=== PATIENT | female | born 1960 | race American Indian/Alaskan Native ===

== ENCOUNTER 2019-09-07 17:15 | Inpatient (IN) | payer OTHER ==
--- NOTE | 2019-09-07 17:50 | Emergency Department Report ---
ED Abdominal Pain HPI - General Chief Complaint: Weakness Stated Complaint: LOW BP/WEAKNESS/SYNCOPE Time Seen by Provider: 09/07/19 17:34 Source: patient, EMS Mode of arrival: Stretcher Limitations: No Limitations - History of Present Illness Initial Comments: 59-year-old female with history of colitis (possibly inflammatory bowel disease), DVT, presents to ED with possible sepsis. Patient sent from [facility] with hypotension, white count of 20, and abdominal pain. Patient reports lower abdominal pain, onset 3 days ago. She denies fever or chills, nausea or vomiting, diarrhea, constipation, cough, dysuria, urinary frequency. MD Complaint: abdominal pain -: days(s) (3) Location: LLQ, RLQ, suprapubic Radiation: none Migration to: no migration Severity: moderate Quality: cramping Consistency: constant Improves With: nothing Worsens With: nothing Associated Symptoms: denies: nausea, vomiting, diarrhea, fever, chills, constipation, dysuria - Related Data Home Medications Medication Instructions Recorded Confirmed Last Taken Deltasone 10 mg PO DAILY 09/08/19 09/08/19 Unknown Ferrous Sulfate 325 mg PO DAILY 09/08/19 09/08/19 Unknown L. Rhamnosus/C/Zinc Cit/Yeast 1 cap PO DAILY 09/08/19 09/08/19 Unknown Lasix TAB 20 mg PO BID 09/08/19 09/08/19 Unknown Mag-Ox 400 mg PO BID 09/08/19 09/08/19 Unknown Pantoprazole 20 mg PO DAILY 09/08/19 09/08/19 Unknown Pradaxa 150 mg PO BID 09/08/19 09/08/19 Unknown Allergies Allergy/AdvReac Type Severity Reaction Status Date / Time No Known Allergies Allergy Unverified 09/07/19 17:26 ED Review of Systems ROS: Stated complaint: LOW BP/WEAKNESS/SYNCOPE Other details as noted in HPI Comment: All other systems reviewed and negative Constitutional: denies: chills, fever Respiratory: denies: cough, shortness of breath Cardiovascular: denies: chest pain Gastrointestinal: abdominal pain. denies: nausea, vomiting, diarrhea ED Past Medical Hx - Past Medical History Previous Medical History?: Yes Hx Pulmonary Embolism: (DVT takes Pradaxa) Additional medical history: Hyperlipidemia - Surgical History Past Surgical History?: Yes - Social History Smoking Status: Never Smoker Substance Use Type: None - Medications Home Medications: Home Medications Medication Instructions Recorded Confirmed Last Taken Type Deltasone 10 mg PO DAILY 09/08/19 09/08/19 Unknown History Ferrous Sulfate 325 mg PO DAILY 09/08/19 09/08/19 Unknown History L. Rhamnosus/C/Zinc Cit/Yeast 1 cap PO DAILY 09/08/19 09/08/19 Unknown History Lasix TAB 20 mg PO BID 09/08/19 09/08/19 Unknown History Mag-Ox 400 mg PO BID 09/08/19 09/08/19 Unknown History Pantoprazole 20 mg PO DAILY 09/08/19 09/08/19 Unknown History Pradaxa 150 mg PO BID 09/08/19 09/08/19 Unknown History ED Physical Exam - General Limitations: No Limitations General appearance: alert, in no apparent distress - Head Head exam: Present: atraumatic, normocephalic - Eye Eye exam: Present: normal appearance, EOMI - ENT ENT exam: Present: mucous membranes moist - Neck Neck exam: Present: normal inspection - Respiratory Respiratory exam: Present: normal lung sounds bilaterally. Absent: respiratory distress - Cardiovascular Cardiovascular Exam: Present: regular rate, normal rhythm - GI/Abdominal GI/Abdominal exam: Present: soft, tenderness (diffuse tenderness). Absent: dis tended, guarding - Extremities Exam Extremities exam: Present: other (1+ pitting edema BLE) - Neurological Exam Neurological exam: Present: alert, oriented X3 - Psychiatric Psychiatric exam: Present: normal affect, normal mood - Skin Skin exam: Present: warm, dry, intact, normal color ED Course Vital Signs 09/07/19 09/07/19 09/07/19 17:31 17:44 17:46 Temperature 97.4 F L Pulse Rate 100 H 105 H 101 H Respiratory 14 17 16 Rate Blood Pressure 88/43 Blood Pressure 86/48 [Right] O2 Sat by Pulse 93 100 Oximetry 09/07/19 09/07/19 09/07/19 18:00 18:16 18:30 Temperature Pulse Rate 98 H 101 H 109 H Respiratory 13 19 14 Rate Blood Pressure 88/43 88/43 88/43 Blood Pressure [Right] O2 Sat by Pulse 98 100 Oximetry 09/07/19 09/07/19 09/07/19 18:36 18:46 19:00 Temperature Pulse Rate 97 H Respiratory 19 16 Rate Blood Pressure 82/44 83/41 Blood Pressure [Right] O2 Sat by Pulse 98 88 100 Oximetry 09/07/19 09/07/19 09/07/19 19:16 19:30 19:58 Temperature Pulse Rate 103 H 101 H Respiratory 15 16 Rate Blood Pressure 83/41 94/48 94/48 Blood Pressure [Right] O2 Sat by Pulse 100 100 96 Oximetry 09/07/19 09/07/19 09/07/19 20:00 20:16 20:30 Temperature Pulse Rate 97 H 98 H Respiratory 17 18 Rate Blood Pressure 94/48 94/48 94/48 Blood Pressure [Right] O2 Sat by Pulse 98 100 100 Oximetry 09/07/19 09/07/19 09/07/19 20:46 21:00 21:16 Temperature Pulse Rate 98 H 99 H 98 H Respiratory 15 20 20 Rate Blood Pressure 82/30 98/45 98/45 Blood Pressure [Right] O2 Sat by Pulse 100 93 100 Oximetry - Reevaluation(s) Reevaluation #1: 09/07/19 19:27 Pt's IV infiltrated from [facility]. Nurses unable to obtain peripheral, so central line placed in right femoral. - Consultations Consultation #1: 09/07/19 21:52 Spoke w/ [facility] on-call physician, Dr Reilly, states admit pt here at [facility]. Consultation #2: 09/07/19 21:59 Spoke w/ Dr Galicia, gen surgery on-call. He is aware of pt, will see tomorrow. - Central Line Placement Right Femoral Consent Obtained: verbal consent Time Out Performed: Yes Patient Placed on Monitor/Pulse Ox: Yes MD Prep: mask, gown, gloves Central Line Prep: Chlorhexidine scrub Local Anesthesia Used: Lidocaine 1% Amount of Anesthesia Used (mls): 3 Ultrasound Used for Placement: Yes Central Line Lumen Inserted: triple Bloods Obtained for Lab: No Central Line Position: good blood return, all ports aspirated, flus, sutured in place with nyl Dressing Applied: Tegaderm Patient Tolerated Procedure: well, no complications Complications: none ED Medical Decision Making - Lab Data Result diagrams: 09/07/19 Unknown 09/07/19 Unknown - Radiology Data Radiology results: report reviewed, image reviewed - Medical Decision Making 59 yo F w/ sepsis secondary to acute with possible formation of abscess. Sepsis alert was called, cultures drawn. Patient given cefepime and Flagyl. Patient resuscitated with normal saline 30 cc/kg. Blood pressure remained low following IV fluids, so Levophed was initiated. Patient has right femoral central line present. Dr Galicia is aware of the patient and will be consulting. Pt admitted to hospitalist for further management. - Differential Diagnosis sepsis, UTI, appendicitis, diverticulitis, obstruction Critical Care Time: Yes Critical care time in (mins) excluding proc time.: 35 Critical care attestation.: If time is entered above; I have spent that time in minutes in the direct care of this critically ill patient, excluding procedure time. Critical Care Time: 35 min ED Disposition Clinical Impression: Sepsis, Acute diverticulitis, Hyponatremia Disposition: OP ADMIT IP TO THIS HOSP Is pt being admited?: Yes Condition: Stable Time of Disposition: 21:59
[2019-09-07] MEDS ORDERED: SODIUM CHLORIDE 0.9% 1000 ML IV SOLN IV ONE (17:53)
[2019-09-07] MEDS ORDERED: CEFEPIME/NS 2 GM/100 ML 2 GM/100 ML BAG IV ONE (17:58)
--- NOTE | 2019-09-07 18:49 | XRay Report ---
CHEST 1 VIEW INDICATION: sepsis. COMPARISON: None. FINDINGS: Support devices: None. Heart: Within normal limits. Lungs/Pleura: No acute air space or interstitial disease. Additional findings: None. IMPRESSION: No acute abnormality. Signer Name: Esau Solomon MD Signed: 09/07/2019 6:45 PM Workstation Name: [id number]
[2019-09-07 18:55] LABS: Bacteria,Urine 2+ /HPF (Negative); Bilirubin,Urine NEG (Negative); Blood,Urine NEG (Negative); Color,Urine Yellow (Yellow); Protein,Urine <15 mg/dL mg/dL (Negative); RBC,Urine < 1.0 /HPF (0.0-6.0); Urobilinogen,Urine < 2.0 mg/dL (<2.0)
[2019-09-07 19:20] LABS: Alanine Aminotransferase 24 units/L (7-56); Albumin 1.4 g/dL (3.9-5); BUN/Creatinine Ratio 16; Blood Urea Nitrogen 11 mg/dL (7-17); Calcium 7.4 mg/dL (8.4-10.2); Hemolysis Index 76
[2019-09-07 19:40] LABS: Hematocrit 30.9 % (30.3-42.9); Mean Corpuscular HGB Conc 32 % (30-34); Mean Corpuscular Volume 84 fl (79-97); Platelet Count 351 K/mm3 (140-440); Red Blood Count 3.69 M/mm3 (3.65-5.03)
[2019-09-07 19:49] LABS: INR 1.72 (0.87-1.13)
[2019-09-07 19:56] LABS: Red Cell Distribution Width 21.4 % (13.2-15.2)
--- NOTE | 2019-09-07 20:46 | Cat Scan Report ---
CT abdomen pelvis w con INDICATION: abd pain. TECHNIQUE: All CT scans at this location are performed using the following dose modulation technique: Automated exposure control. Helical slices were obtained through the abdomen and pelvis. 100 cc of Omnipaque 30 0 is administered. COMPARISON: None available. FINDINGS: Abdomen: There is a large hiatal hernia with a significant portion of the stomach located in the lowe r chest. The liver, spleen, pancreas, adrenal glands, and kidneys show no acute abnormality. The abdominal aor ta is normal in diameter. There is an inflammatory process with extraluminal gas in the left lower qu adrant this is located between loops of small bowel in the proximal sigmoid colon. Based upon the callie unt of gas localized in this area this is likely colonic in origin and likely represents acute divert iculitis. No defined fluid collection is seen at this time though the extraluminal gas is localized a nd an area of 3.5 x 3.5 x 6.5 cm. This is likely a developing abscess but is not walled off at this t briana it is predominantly air with some adjacent inflammation. Pelvis: There is very small amount of free fluid in the dependent portion of the pelvis. Is fluid not ed in the distal colon. Is a tiny bubble of gas in the urinary bladder which I suspect is iatrogenic but correlation with patient's catheter history is suggested. The appendix is unremarkable. On review of bone windows, no acute osseous abnormalities are seen. . IMPRESSION: 1. There is an inflammatory process in the right lower quadrant which likely represents acute diverti culitis. There is extraluminal gas in the mesenteric fat and there is inflammation in the mesenteric fat in this location. There is a large hiatal hernia. Signer Name: Anurag Dougherty MD Signed: 09/07/2019 8:41 PM Workstation Name: [id number]
[2019-09-07] MEDS ORDERED: SODIUM CHLORIDE 0.9% 1000 ML 1,000 ML ONE ×2 (20:48→22:55)
[2019-09-07 20:56] LABS: Anisocytosis 1+; Basophils % (Manual) 0 % (0.0-1.8); Hypochromasia 1+; Total Cells Counted 100
[2019-09-07] MEDS: metroNIDAZOLE/NS 500 MG/100 ML 500 MG/100 ML BAG IV SCH (23:04)
[2019-09-07] MEDS: NORepinephrine/NS 4 MG-250 ML 4 MG/250 ML BAG IV SCH (23:05)
[2019-09-07] MEDS ORDERED: ACETAMINOPHEN 650 MG RECT SUPP PR PRN (23:20)
[2019-09-07] MEDS ORDERED: ONDANSETRON 4 MG/2 ML INJ IV PRN (23:20)
[2019-09-07] MEDS ORDERED: SODIUM CHLORIDE 0.9% 1000 ML 1,000 ML IV ONE (23:24)
--- NOTE | 2019-09-07 23:24 | History and Physical Report ---
History of Present Illness History of present illness: 59-year-old woman 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 The pain is all over his belly, described as sharp, intermittent every 7 minutes, intensity 6/10, no radiation, cannot identify exacerbating factor. She states that she has not ate or drank anything since yesterday. Denies any nausea vomiting, fever chills, diarrhea. Patient stated she was admitted 2 months ago with abdominal pain and was diagnosed with colitis. She had a colonoscopy done at [facility], biopsy results showed moderate to severe active colitis with ulceration, granulation tissue formation and focal features of chronic mucosal injury such as focal crypt branching and patchy basal lympho- plasmacytosis. The patient was started on steroid taper, she is now down to 10 mg a day however she did not take her 10 mg of steroids today. Patient has been hypotensive and was subsequently started on Levophed drip.patient is being admitted for colitis, possible abscess formation, possible sepsis. Review Of Systems: Constitutional: no weight loss, fever, chills Ears, eyes, nose, mouth and throat: no nasal congestion, no nasal discharge, no sinus pressure, blurry vision, diplopia Neck: No neck pain or rigidity. Cardiovascular: No palpitations, chest pain Respiratory: No shortness of breath, cough Gastrointestinal: No hematochezia Genitourinary : no dysuria, frequency Musculoskeletal: no muscle ache , joint pain Integumentary: no rash, no pruritis Neurological: no parathesias, focal weakness Endocrine: no cold or heat intolerance, no polyuria or polydipsia Hematologic/Lymphatic: no easy bruising, no easy bleeding, no gland swelling Allergic/Immunologic: no urticaria, no angioedema. PAST MEDICAL HISTORY: DVT, colitis, hyperlipidemia PAST SURGICAL HISTORY: Hemorrhoidectomy SOCIAL HISTORY: Denies alcohol, tobacco, drugs FAMILY HISTORY: Hypertension Medications and Allergies Allergies Allergy/AdvReac Type Severity Reaction Status Date / Time No Known Allergies Allergy Unverified 09/07/19 17:26 Home Medications Medication Instructions Recorded Confirmed Last Taken Type Deltasone 10 mg PO DAILY 09/08/19 09/08/19 Unknown History Ferrous Sulfate 325 mg PO DAILY 09/08/19 09/08/19 Unknown History L. Rhamnosus/C/Zinc Cit/Yeast 1 cap PO DAILY 09/08/19 09/08/19 Unknown History Lasix TAB 20 mg PO BID 09/08/19 09/08/19 Unknown History Mag-Ox 400 mg PO BID 09/08/19 09/08/19 Unknown History Pantoprazole 20 mg PO DAILY 09/08/19 09/08/19 Unknown History Pradaxa 150 mg PO BID 09/08/19 09/08/19 Unknown History Active Meds: Active Medications Acetaminophen (Tylenol) 650 mg VT Q4H PRN PRN Reason: Pain MILD(1-3)/Fever >100.5/BUSTILLOS Enoxaparin Sodium (Enoxaparin) 30 mg SUB-Q QDAY LAMINE Metronidazole (Flagyl 500 Mg/100 Ml) 500 mg in 100 mls @ 100 mls/hr IV Q8HR LAMINE; Protocol Last Admin: 09/07/19 23:04 Dose: 100 mls/hr Documented by: Norepinephrine (Levophed Drip 4 Mg/Ns 250 Ml) 4 mg in 250 mls @ 7.5 mls/hr IV TITR LAMINE; Protocol Last Admin: 09/07/19 23:05 Dose: 10 mcg/min, 37.5 mls/hr Documented by: Sodium Chloride (Nacl 0.9% 1000 Ml) 1,000 mls @ 150 mls/hr IV DIRECT LAMINE Ondansetron HCl (Zofran) 4 mg IV Q4H PRN PRN Reason: Nausea And Vomiting Sodium Chloride (Sodium Chloride Flush Syringe 10 Ml) 10 ml IV BID LAMINE Sodium Chloride (Sodium Chloride Flush Syringe 10 Ml) 10 ml IV PRN PRN PRN Reason: LINE FLUSH Exam - Physical Exam Narrative exam: Gen. appearance: Patient lying in bed, no apparent distress HEENT: Normocephalic, atraumatic, pupils equally round and reactive to light, extraocular movement intact, and no sclericterus,. No JVD or thyromegaly or nodule,neck supple, no carotid bruit ,mucous membranes moist, no exudate or erythema Heart: S1, S2, regular rate and rhythm Lungs: Clear bilaterally, breathing comfortable Abdomen: Positive bowel sounds,tender all over, no rebound or guarding, nondistended, no organomegaly Extremity: no edema, cyanosis, clubbing Skin: No rash, nodules, warm, dry Neuro: speech is fluent, moves extremities, sensory intact - Constitutional Vitals: Temp Pulse Resp BP Pulse Ox 97.4 F L 98 H 20 98/45 100 09/07/19 17:31 09/07/19 21:16 09/07/19 21:16 09/07/19 21:16 09/07/19 21:16 Results - Labs CBC & Chem 7: 09/07/19 Unknown 09/07/19 Unknown Labs: Abnormal lab results 09/07/19 09/07/19 09/07/19 Range/Units Unknown Unknown Unknown WBC 25.0 H (4.5-11.0) K/mm3 Hgb 10.0 L (10.1-14.3) gm/dl MCH 27 L (28-32) pg RDW 21.4 H (13.2-15.2) % Seg Neuts % (Manual) 90.0 H (40.0-70.0) % Lymphocytes % (Manual) 6.0 L (13.4-35.0) % Seg Neutrophils # Man 22.5 H (1.8-7.7) K/mm3 PT 20.5 H (12.2-14.9) Sec. INR 1.72 H (0.87-1.13) Sodium 127 L (137-145) mmol/L Chloride 86.4 L (98-107) mmol/L Lactic Acid (0.7-2.0) mmol/L Calcium 7.4 L (8.4-10.2) mg/dL Alkaline Phosphatase 160 H (35-129) units/L Total Protein 4.9 L (6.3-8.2) g/dL Albumin 1.4 L (3.9-5) g/dL Lipase (13-60) units/L 09/07/19 09/07/19 Range/Units Unknown Unknown WBC (4.5-11.0) K/mm3 Hgb (10.1-14.3) gm/dl MCH (28-32) pg RDW (13.2-15.2) % Seg Neuts % (Manual) (40.0-70.0) % Lymphocytes % (Manual) (13.4-35.0) % Seg Neutrophils # Man (1.8-7.7) K/mm3 PT (12.2-14.9) Sec. INR (0.87-1.13) Sodium (137-145) mmol/L Chloride (98-107) mmol/L Lactic Acid 4.70 H* (0.7-2.0) mmol/L Calcium (8.4-10.2) mg/dL Alkaline Phosphatase (35-129) units/L Total Protein (6.3-8.2) g/dL Albumin (3.9-5) g/dL Lipase 5 L (13-60) units/L - Imaging and Cardiology CT scan - abdomen: report reviewed CT scan - pelvis: report reviewed Assessment and Plan Assessment Possible sepsis secondary to diverticulitis with possible abscess formation Status post cefepime and Flagyl, IV fluid Continue IV fluid, start Zosyn, follow cultures Continue Levophed drip, steroid would account for leukocytosis Give a dose of hydrocortisone given the abrupt cessation of steroids Surgery was consulted to see the patient, consult critical care Hyponatremia Continue fluid, monitor levels DVT Surgery recommend to hold Pradaxa DVT prophylaxis
[2019-09-07] MEDS ORDERED: SODIUM CHLORIDE 0.9% 1000 ML 1,000 ML IV SCH (23:30)
[2019-09-07] MEDS ORDERED: HYDROCORTISONE SOD SUCC 100 MG/2 ML VIAL IV ONE (23:46)
[2019-09-08] MEDS ORDERED: HYDROCORTISONE SOD SUCC 100 MG/2 ML VIAL ONE (00:30)
[2019-09-08] MEDS: metroNIDAZOLE/NS 500 MG/100 ML 500 MG/100 ML BAG IV SCH (05:02)
[2019-09-08] MEDS: NORepinephrine/NS 4 MG-250 ML 4 MG/250 ML BAG IV SCH ×2 (05:03→16:21)
[2019-09-08 06:45] LABS: Hemoglobin 8.9 gm/dl (10.1-14.3); Mean Corpuscular HGB Conc 32 % (30-34); Mean Corpuscular Volume 85 fl (79-97); Platelet Count 365 K/mm3 (140-440); Red Blood Count 3.29 M/mm3 (3.65-5.03)
[2019-09-08 06:46] LABS: Red Cell Distribution Width 21.7 % (13.2-15.2)
[2019-09-08 07:14] LABS: BUN/Creatinine Ratio 23; Blood Urea Nitrogen 9 mg/dL (7-17); Calcium 6.4 mg/dL (8.4-10.2); Hemolysis Index 9
[2019-09-08 07:25] LABS: Band Neutrophils # (Manual) 0.2 K/mm3; Basophils % (Manual) 0 % (0.0-1.8); Eosinophils % (Manual) 0 % (0.0-4.3); Monocytes % (Manual) 0 % (0.0-7.3); Total Cells Counted 100
[2019-09-08 07:26] LABS: Anisocytosis 1+; Hypochromasia Rare; Platelet Estimate Consistent w Auto
[2019-09-08] MEDS ORDERED: SODIUM CHLORIDE 0.9% 1000 ML 1,000 ML with POTASSIUM CHLORIDE 20 MEQ IV SCH (07:52)
--- NOTE | 2019-09-08 07:57 | Progress Note ---
Assessment and Plan Assessment and plan: --Hypokalemia; potassium 2.8 IV KCl 40 mEq, add 20 mEq to normal saline IV fluids Check magnesium levels and correct as needed Closely monitor electrolytes --Septic shock; On vasopressors, titrate systolic blood pressure to more than 100 Treat underlying sepsis Continue Levophed drip, --Sepsis secondary to ?diverticulitis with possible abscess formation s/p cefepime and Flagyl, IV fluid Continue IV fluid, started Zosyn, follow cultures Surgery following the patient, --Leukocytosis; secondary to sepsis, monitor --Hyponatremia; mild improvement Monitor electrolytes --History of bilateral DVT; on oral anticoagulation DC oral , start full dose Lovenox 1 mg/kg every 12 hours Try to DC femoral line after securing, good IV access --Severe malnutrition/hypoalbuminemia; Due to underlying disease process, nutrition supplements Nutrition consult --H/o DVT:Surgery recommend to hold Pradaxa --DVT prophylaxis: SCD --Full code status Supervisor Long [employer]s recommendations noted and appreciated Closely monitor the patient and adjust management as needed Plan of care reviewed with the patient family member at the bedside The nurse and the case management. Critical care time 35 minutes History Interval history: Patient seen and examined at the bedside in ICU this morning Patient's chart medications, overnight events reviewed Patient is alert and awake responds appropriately Says she feels slightly better since yesterday Vital signs noted Hospitalist Physical - Constitutional Vitals: Temp Pulse Resp BP Pulse Ox 98 F 99 H 18 86/48 100 09/08/19 03:34 09/08/19 03:34 09/08/19 03:31 09/08/19 03:34 09/08/19 02:45 General appearance: Present: no acute distress, well-nourished - EENT Eyes: Present: PERRL, EOM intact - Neck Neck: Present: supple, normal ROM - Respiratory Respiratory effort: normal Respiratory: bilateral: diminished, rales, negative: rhonchi, wheezing - Cardiovascular Rhythm: regular Heart Sounds: Present: S1 & S2 - Extremities Extremities: no ischemia, No edema - Abdominal General gastrointestinal: soft, non-tender, non-distended, normal bowel sounds, hypoactive bowel sounds - Integumentary Integumentary: Present: clear, warm - Psychiatric Psychiatric: appropriate mood/affect, cooperative - Neurologic Neurologic: CNII-XII intact, moves all extremities Results - Labs CBC & Chem 7: 09/09/19 05:50 09/09/19 05:50 Labs: Laboratory Last Values WBC 22.4 K/mm3 (4.5-11.0) H 09/08/19 06:33 RBC 3.29 M/mm3 (3.65-5.03) L 09/08/19 06:33 Hgb 8.9 gm/dl (10.1-14.3) L 09/08/19 06:33 Hct 28.0 % (30.3-42.9) L 09/08/19 06:33 MCV 85 fl (79-97) 09/08/19 06:33 MCH 27 pg (28-32) L 09/08/19 06:33 MCHC 32 % (30-34) 09/08/19 06:33 RDW 21.7 % (13.2-15.2) H 09/08/19 06:33 Plt Count 365 K/mm3 (140-440) 09/08/19 06:33 Add Manual Diff Complete 09/08/19 06:33 Total Counted 100 09/08/19 06:33 Seg Neutrophils % Fuse Coiler 09/08/19 06:33 Seg Neuts % (Manual) 99.0 % (40.0-70.0) H 09/08/19 06:33 Band Neutrophils % 1.0 % 09/08/19 06:33 Lymphocytes % (Manual) 0 % (13.4-35.0) L 09/08/19 06:33 Reactive Lymphs % (Man) 0 % 09/08/19 06:33 Monocytes % (Manual) 0 % (0.0-7.3) 09/08/19 06:33 Eosinophils % (Manual) 0 % (0.0-4.3) 09/08/19 06:33 Basophils % (Manual) 0 % (0.0-1.8) 09/08/19 06:33 Metamyelocytes % 0 % 09/08/19 06:33 Myelocytes % 0 % 09/08/19 06:33 Promyelocytes % 0 % 09/08/19 06:33 Blast Cells % 0 % 09/08/19 06:33 Nucleated RBC % Not Reportable 09/08/19 06:33 Seg Neutrophils # Man 22.2 K/mm3 (1.8-7.7) H 09/08/19 06:33 Band Neutrophils # 0.2 K/mm3 09/08/19 06:33 Lymphocytes # (Manual) 0.0 K/mm3 (1.2-5.4) L 09/08/19 06:33 Abs React Lymphs (Man) 0.0 K/mm3 09/08/19 06:33 Monocytes # (Manual) 0.0 K/mm3 (0.0-0.8) 09/08/19 06:33 Eosinophils # (Manual) 0.0 K/mm3 (0.0-0.4) 09/08/19 06:33 Basophils # (Manual) 0.0 K/mm3 (0.0-0.1) 09/08/19 06:33 Metamyelocytes # 0.0 K/mm3 09/08/19 06:33 Myelocytes # 0.0 K/mm3 09/08/19 06:33 Promyelocytes # 0.0 K/mm3 09/08/19 06:33 Blast Cells # 0.0 K/mm3 09/08/19 06:33 WBC Morphology Not Reportable 09/08/19 06:33 Hypersegmented Neuts Not Reportable 09/08/19 06:33 Hyposegmented Neuts Not Reportable 09/08/19 06:33 Hypogranular Neuts Not Reportable 09/08/19 06:33 Smudge Cells Not Reportable 09/08/19 06:33 Toxic Granulation Not Reportable 09/08/19 06:33 Toxic Vacuolation Not Reportable 09/08/19 06:33 Dohle Bodies Not Reportable 09/08/19 06:33 Pelger-Huet Anomaly Not Reportable 09/08/19 06:33 Phyllis Rods Not Reportable 09/08/19 06:33 Platelet Estimate Consistent w auto 09/08/19 06:33 Clumped Platelets Not Reportable 09/08/19 06:33 Plt Clumps, EDTA Not Reportable 09/08/19 06:33 Large Platelets Not Reportable 09/08/19 06:33 Giant Platelets Not Reportable 09/08/19 06:33 Platelet Satelliting Not Reportable 09/08/19 06:33 Plt Morphology Comment Not Reportable 09/08/19 06:33 RBC Morphology Not Reportable 09/08/19 06:33 Dimorphic RBCs Not Reportable 09/08/19 06:33 Polychromasia Not Reportable 09/08/19 06:33 Hypochromasia Rare 09/08/19 06:33 Poikilocytosis Not Reportable 09/08/19 06:33 Anisocytosis 1+ 09/08/19 06:33 Microcytosis Not Reportable 09/08/19 06:33 Macrocytosis Not Reportable 09/08/19 06:33 Spherocytes Not Reportable 09/08/19 06:33 Pappenheimer Bodies Not Reportable 09/08/19 06:33 Sickle Cells Not Reportable 09/08/19 06:33 Target Cells Not Reportable 09/08/19 06:33 Tear Drop Cells Not Reportable 09/08/19 06:33 Ovalocytes Not Reportable 09/08/19 06:33 Helmet Cells Not Reportable 09/08/19 06:33 Fam-Pole [place] Bodies Not Reportable 09/08/19 06:33 [place] Rings Not Reportable 09/08/19 06:33 Bond Cells Not Reportable 09/08/19 06:33 Bite Cells Not Reportable 09/08/19 06:33 Crenated Cell Not Reportable 09/08/19 06:33 Elliptocytes Rare 09/08/19 06:33 Acanthocytes (Spur) Not Reportable 09/08/19 06:33 Rouleaux Not Reportable 09/08/19 06:33 Hemoglobin C Crystals Not Reportable 09/08/19 06:33 Schistocytes Not Reportable 09/08/19 06:33 Malaria parasites Not Reportable 09/08/19 06:33 Emmanuel Bodies Not Reportable 09/08/19 06:33 Hem Pathologist Commnt No 09/08/19 06:33 PT 20.5 Sec. (12.2-14.9) H 09/07/19 Unknown INR 1.72 (0.87-1.13) H 09/07/19 Unknown Sodium 137 mmol/L (137-145) D 09/08/19 06:33 Potassium 2.8 mmol/L (3.6-5.0) L* D 09/08/19 06:33 Chloride 99.4 mmol/L (98-107) 09/08/19 06:33 Carbon Dioxide 22 mmol/L (22-30) 09/08/19 06:33 Anion Gap 18 mmol/L 09/08/19 06:33 BUN 9 mg/dL (7-17) 09/08/19 06:33 Creatinine 0.4 mg/dL (0.7-1.2) L 09/08/19 06:33 Estimated GFR > 60 ml/min 09/08/19 06:33 BUN/Creatinine Ratio 23 % 09/08/19 06:33 Glucose 108 mg/dL (65-100) H 09/08/19 06:33 Lactic Acid 1.50 mmol/L (0.7-2.0) 09/07/19 Unknown Lactic Acid 4.70 mmol/L (0.7-2.0) H* 09/07/19 Unknown Calcium 6.4 mg/dL (8.4-10.2) L 09/08/19 06:33 Total Bilirubin 0.60 mg/dL (0.1-1.2) 09/07/19 Unknown AST 27 units/L (5-40) 09/07/19 Unknown ALT 24 units/L (7-56) 09/07/19 Unknown Alkaline Phosphatase 160 units/L (35-129) H 09/07/19 Unknown Troponin T 0.027 ng/mL (0.00-0.029) 09/07/19 Unknown Total Protein 4.9 g/dL (6.3-8.2) L 09/07/19 Unknown Albumin 1.4 g/dL (3.9-5) L 09/07/19 Unknown Albumin/Globulin Ratio 0.4 % 09/07/19 Unknown Lipase 5 units/L (13-60) L 09/07/19 Unknown Urine Color Yellow (Yellow) 09/07/19 17:56 Urine Turbidity Slightly-cloudy (Clear) 09/07/19 17:56 Urine pH 6.0 (5.0-7.0) 09/07/19 17:56 Ur Specific [place] 1.009 (1.003-1.030) 09/07/19 17:56 Urine Protein <15 mg/dl mg/dL (Negative) 09/07/19 17:56 Urine Glucose (UA) Neg mg/dL (Negative) 09/07/19 17:56 Urine Ketones Neg mg/dL (Negative) 09/07/19 17:56 Urine Blood Neg (Negative) 09/07/19 17:56 Urine Nitrite Pos (Negative) 09/07/19 17:56 Urine Bilirubin Neg (Negative) 09/07/19 17:56 Urine Urobilinogen < 2.0 mg/dL (<2.0) 09/07/19 17:56 Ur Leukocyte Esterase Sm (Negative) 09/07/19 17:56 Urine WBC (Auto) 6.0 /HPF (0.0-6.0) 09/07/19 17:56 Urine RBC (Auto) < 1.0 /HPF (0.0-6.0) 09/07/19 17:56 U Epithel Cells (Auto) < 1.0 /HPF (0-13.0) 09/07/19 17:56 Urine Bacteria (Auto) 2+ /HPF (Negative) 09/07/19 17:56 Active Medications - Current Medications Current Medications: Generic Name Dose Route Start Last Admin Trade Name Freq PRN Reason Stop Dose Admin Acetaminophen 650 mg 09/07/19 23:20 Tylenol HI Q4H PRN Pain MILD(1-3)/Fever >100.5/BUSTILLOS Enoxaparin Sodium 40 mg 09/08/19 10:00 Enoxaparin SUB-Q QDAY LAMINE Metronidazole 500 mg in 100 mls @ 100 mls/hr 09/07/19 22:00 09/08/19 05:02 Flagyl 500 Mg/100 Ml IV 100 mls/hr Q8HR LAMINE Administration Protocol Norepinephrine 4 mg in 250 mls @ 7.5 mls/hr 09/07/19 22:00 09/08/19 05:03 Levophed Drip 4 Mg/Ns 250 Ml IV 12 mcg/min TITR LAMINE 45 mls/hr Administration Protocol 2 MCG/MIN Piperacillin Sod/Tazobactam Sod 4.5 gm in 100 mls @ 200 mls/hr 09/08/19 06:00 Zosyn/Ns 4.5gm/100ml IV Q8HR LAMINE Protocol Potassium Chloride 10 meq in 100 mls @ 100 mls/hr 09/08/19 08:00 Kcl 10meq/100ml IV 09/08/19 11:59 Q1H LAMINE Potassium Chloride 20 meq/ 1,010 mls @ 150 mls/hr 09/08/19 07:52 Sodium Chloride IV DIRECT LAMINE Ondansetron HCl 4 mg 09/07/19 23:20 Zofran IV Q4H PRN Nausea And Vomiting Sodium Chloride 10 ml 09/08/19 10:00 Sodium Chloride Flush Syringe 10 Ml IV BID LAMINE Sodium Chloride 10 ml 09/07/19 23:20 Sodium Chloride Flush Syringe 10 Ml IV PRN PRN LINE FLUSH
--- NOTE | 2019-09-08 08:27 | Consultation ---
History of Present Illness Consult date: 09/08/19 Reason for consult: abdominal pain Requesting physician: CHARLENE PARKER Chief complaint: abdominal pain - History of present illness History of present illness: 59yo F presents with a three-day history of abdominal pain to the ED. reports that for about the past year, she has had intermittent painless rectal bleeding. She has had a colonoscopy in the past. She has gone back and forth between her primary care, gastroenterology, [facility], and [facility]. Initially, they were told that the colon was normal. The reports that 8 months later there were called back because the doctors were concerned that there was something with the colon. There understanding is that the patient has "colitis". They do not know specifically what type of colitis. She was recently placed on steroids which they are tapering. After her recent hospitalization and [facility], she was in rehabilitation. About 3 weeks ago in rehabilitation, she developed bilateral lower extremity DVTs. She was placed on Pradaxa. Recently, she experienced abdominal pain. They initially went to the director data. She was then sent to urgent care most likely as a result of the hypotension. From the urgent care she was transferred to the emergency department. She reports that compared to yesterday, her pain is much improved. Denies F/C/N/V. No generalized abdominal pain. No recent BRBPR. +flatus today Past History Past Medical History: DVT (3 weeks ago in both legs. ), GERD, other (colitis) Past Surgical History: No surgical history Social history: denies: smoking, alcohol abuse Family history: no significant family history Medications and Allergies Allergies Allergy/AdvReac Type Severity Reaction Status Date / Time No Known Allergies Allergy Unverified 09/07/19 17:26 Home Medications Medication Instructions Recorded Confirmed Last Taken Type Deltasone 10 mg PO DAILY 09/08/19 09/08/19 Unknown History Ferrous Sulfate 325 mg PO DAILY 09/08/19 09/08/19 Unknown History L. Rhamnosus/C/Zinc Cit/Yeast 1 cap PO DAILY 09/08/19 09/08/19 Unknown History Lasix TAB 20 mg PO BID 09/08/19 09/08/19 Unknown History Mag-Ox 400 mg PO BID 09/08/19 09/08/19 Unknown History Pantoprazole 20 mg PO DAILY 09/08/19 09/08/19 Unknown History Pradaxa 150 mg PO BID 09/08/19 09/08/19 Unknown History Active Meds: Active Medications Acetaminophen (Tylenol) 650 mg NM Q4H PRN PRN Reason: Pain MILD(1-3)/Fever >100.5/BUSTILLOS Enoxaparin Sodium (Enoxaparin) 40 mg SUB-Q QDAY LAMINE Metronidazole (Flagyl 500 Mg/100 Ml) 500 mg in 100 mls @ 100 mls/hr IV Q8HR LAMINE; Protocol Last Admin: 09/08/19 05:02 Dose: 100 mls/hr Documented by: Norepinephrine (Levophed Drip 4 Mg/Ns 250 Ml) 4 mg in 250 mls @ 7.5 mls/hr IV TITR LAMINE; Protocol Last Admin: 09/08/19 05:03 Dose: 12 mcg/min, 45 mls/hr Documented by: Piperacillin Sod/Tazobactam Sod (Zosyn/Ns 4.5gm/100ml) 4.5 gm in 100 mls @ 200 mls/hr IV Q8HR LAMINE; Protocol Potassium Chloride (Kcl 10meq/100ml) 10 meq in 100 mls @ 100 mls/hr IV Q1H LAMINE Stop: 09/08/19 11:59 Potassium Chloride/Sodium Chloride (Ns/Kcl 20meq) 20 meq in 1,000 mls @ 150 mls/hr IV DIRECT LAMINE Ondansetron HCl (Zofran) 4 mg IV Q4H PRN PRN Reason: Nausea And Vomiting Sodium Chloride (Sodium Chloride Flush Syringe 10 Ml) 10 ml IV BID LAMINE Sodium Chloride (Sodium Chloride Flush Syringe 10 Ml) 10 ml IV PRN PRN PRN Reason: LINE FLUSH Review of Systems - Constitutional no fever, no chills - Cardiovascular no chest pain - Respiratory no cough - Gastrointestinal abdominal pain, no nausea, no vomiting, no BRBPR, no dyspepsia/bloating - Genitourinary Genitourinary: no dysuria - Muskuloskeletal no low back pain - Integumentary no rash, no sores, no wounds Exam Vital Signs Temp Pulse Resp BP Pulse Ox 97.4 F L 100 H 14 86/48 93 09/07/19 17:31 09/07/19 17:31 09/07/19 17:31 09/07/19 17:31 09/07/19 17:31 - General physical appearance Positive: no distress, no pain - Eyes Positive: normal occular movement - Respiratory Positive: normal expansion, normal respiratory effort, clear to auscultation - Cardiovascular Rhythm: regular - Abdomen Abdomen: Present: soft, tender (in LLQ. rest was benign), bowel sounds hypoactive. Absent: distended, masses, guarding, rigid, wound, surgical scars - Integumentary no rash, no growths, no abnormal pigmentation - Neurologic Neurologic: alert and oriented to time, place and person - Psychiatric Psychiatric: appropriate mood/affect, intact judgment & insight Results - Labs 09/08/19 06:33 09/08/19 06:33 Abnormal lab results 09/07/19 09/07/19 09/07/19 Range/Units Unknown Unknown Unknown WBC 25.0 H (4.5-11.0) K/mm3 RBC (3.65-5.03) M/mm3 Hgb 10.0 L (10.1-14.3) gm/dl Hct (30.3-42.9) % MCH 27 L (28-32) pg RDW 21.4 H (13.2-15.2) % Seg Neuts % (Manual) 90.0 H (40.0-70.0) % Lymphocytes % (Manual) 6.0 L (13.4-35.0) % Seg Neutrophils # Man 22.5 H (1.8-7.7) K/mm3 Lymphocytes # (Manual) (1.2-5.4) K/mm3 PT 20.5 H (12.2-14.9) Sec. INR 1.72 H (0.87-1.13) Sodium 127 L (137-145) mmol/L Potassium (3.6-5.0) mmol/L Chloride 86.4 L (98-107) mmol/L Creatinine (0.7-1.2) mg/dL Glucose (65-100) mg/dL Lactic Acid (0.7-2.0) mmol/L Calcium 7.4 L (8.4-10.2) mg/dL Alkaline Phosphatase 160 H (35-129) units/L Total Protein 4.9 L (6.3-8.2) g/dL Albumin 1.4 L (3.9-5) g/dL Lipase (13-60) units/L 09/07/19 09/07/19 09/08/19 Range/Units Unknown Unknown 06:33 WBC 22.4 H (4.5-11.0) K/mm3 RBC 3.29 L (3.65-5.03) M/mm3 Hgb 8.9 L (10.1-14.3) gm/dl Hct 28.0 L (30.3-42.9) % MCH 27 L (28-32) pg RDW 21.7 H (13.2-15.2) % Seg Neuts % (Manual) 99.0 H (40.0-70.0) % Lymphocytes % (Manual) 0 L (13.4-35.0) % Seg Neutrophils # Man 22.2 H (1.8-7.7) K/mm3 Lymphocytes # (Manual) 0.0 L (1.2-5.4) K/mm3 PT (12.2-14.9) Sec. INR (0.87-1.13) Sodium (137-145) mmol/L Potassium (3.6-5.0) mmol/L Chloride (98-107) mmol/L Creatinine (0.7-1.2) mg/dL Glucose (65-100) mg/dL Lactic Acid 4.70 H* (0.7-2.0) mmol/L Calcium (8.4-10.2) mg/dL Alkaline Phosphatase (35-129) units/L Total Protein (6.3-8.2) g/dL Albumin (3.9-5) g/dL Lipase 5 L (13-60) units/L 09/08/19 Range/Units 06:33 WBC (4.5-11.0) K/mm3 RBC (3.65-5.03) M/mm3 Hgb (10.1-14.3) gm/dl Hct (30.3-42.9) % MCH (28-32) pg RDW (13.2-15.2) % Seg Neuts % (Manual) (40.0-70.0) % Lymphocytes % (Manual) (13.4-35.0) % Seg Neutrophils # Man (1.8-7.7) K/mm3 Lymphocytes # (Manual) (1.2-5.4) K/mm3 PT (12.2-14.9) Sec. INR (0.87-1.13) Sodium (137-145) mmol/L Potassium 2.8 L* D (3.6-5.0) mmol/L Chloride (98-107) mmol/L Creatinine 0.4 L (0.7-1.2) mg/dL Glucose 108 H (65-100) mg/dL Lactic Acid (0.7-2.0) mmol/L Calcium 6.4 L (8.4-10.2) mg/dL Alkaline Phosphatase (35-129) units/L Total Protein (6.3-8.2) g/dL Albumin (3.9-5) g/dL Lipase (13-60) units/L Diabetes panel 09/07/19 09/08/19 Range/Units Unknown 06:33 Sodium 127 L 137 D (137-145) mmol/L Potassium 4.5 2.8 L* D (3.6-5.0) mmol/L Chloride 86.4 L 99.4 (98-107) mmol/L Carbon Dioxide 22 22 (22-30) mmol/L BUN 11 9 (7-17) mg/dL Creatinine 0.7 0.4 L (0.7-1.2) mg/dL Glucose 89 108 H (65-100) mg/dL Calcium 7.4 L 6.4 L (8.4-10.2) mg/dL AST 27 (5-40) units/L ALT 24 (7-56) units/L Alkaline Phosphatase 160 H (35-129) units/L Total Protein 4.9 L (6.3-8.2) g/dL Albumin 1.4 L (3.9-5) g/dL Calcium panel 09/07/19 09/08/19 Range/Units Unknown 06:33 Calcium 7.4 L 6.4 L (8.4-10.2) mg/dL Albumin 1.4 L (3.9-5) g/dL Pituitary panel 09/07/19 09/08/19 Range/Units Unknown 06:33 Sodium 127 L 137 D (137-145) mmol/L Potassium 4.5 2.8 L* D (3.6-5.0) mmol/L Chloride 86.4 L 99.4 (98-107) mmol/L Carbon Dioxide 22 22 (22-30) mmol/L BUN 11 9 (7-17) mg/dL Creatinine 0.7 0.4 L (0.7-1.2) mg/dL Glucose 89 108 H (65-100) mg/dL Calcium 7.4 L 6.4 L (8.4-10.2) mg/dL Adrenal panel 09/07/19 09/08/19 Range/Units Unknown 06:33 Sodium 127 L 137 D (137-145) mmol/L Potassium 4.5 2.8 L* D (3.6-5.0) mmol/L Chloride 86.4 L 99.4 (98-107) mmol/L Carbon Dioxide 22 22 (22-30) mmol/L BUN 11 9 (7-17) mg/dL Creatinine 0.7 0.4 L (0.7-1.2) mg/dL Glucose 89 108 H (65-100) mg/dL Calcium 7.4 L 6.4 L (8.4-10.2) mg/dL Total Bilirubin 0.60 (0.1-1.2) mg/dL AST 27 (5-40) units/L ALT 24 (7-56) units/L Alkaline Phosphatase 160 H (35-129) units/L Total Protein 4.9 L (6.3-8.2) g/dL Albumin 1.4 L (3.9-5) g/dL - Imaging CT scan - abdomen: report reviewed, image reviewed CT scan - pelvis: report reviewed, image reviewed Assessment and Plan - Patient Problems (1) Peritoneal cavity free air Current Visit: Yes Status: Acute Plan to address problem: appears to have a localized collection of air with minimal fluid. As the patient is feeling better, would continue to resuscitate and treat with IV Abx for now. Discussed that if she clinically declines, then may have to proceed with emergency surgery and probable colostomy. If an abscess forms, then would plan for IR drainage. - Keep NPO for now. - Would treat DVT with lovenox or heparin drip. Hold Pradaxa for now. - It [place] be [place] [facility] [place] [facility] as I am suspicious that she may have Ulcerative Colitis based on her limited history. Discussed plan with Drs. Jenkins and Trey. Time=45min
[2019-09-08] MEDS: POTASSIUM CHLORIDE 10 MEQ 10 MEQ/100 ML BAG IV SCH ×4 (08:56→12:58)
[2019-09-08] MEDS ORDERED: LACTATED RINGERS 1,000 ML IV ONE ×2 (09:16)
--- NOTE | 2019-09-08 09:22 | Consultation ---
History of Present Illness - Reason for Consult Consult date: 09/08/19 Hypotension, concern for sepsis Requesting physician: PARAMJIT MONTENEGRO - History of Present Illness 59 y/o female with known history of colitis, was on steroids as an outpatient who presents with abdominal pain, hypotension and elevated white count. Patient only mildly tachycardic and was actually hypothermic (if that was accurate) on admission. Patient is a very poor historian who does not know her meds but states that she was on steroids for her colitis. This am her abdominal pain now is only on one side. She is awake and alert. On room air and Levo at 12 with a MAP of 70. Past History Past Medical History: anemia, DVT, GERD, other (Colitis) Social history: no significant social history Family history: no significant family history Medications and Allergies Allergies Allergy/AdvReac Type Severity Reaction Status Date / Time No Known Allergies Allergy Unverified 09/07/19 17:26 Home Medications Medication Instructions Recorded Confirmed Last Taken Type Deltasone 10 mg PO DAILY 09/08/19 09/08/19 Unknown History Ferrous Sulfate 325 mg PO DAILY 09/08/19 09/08/19 Unknown History L. Rhamnosus/C/Zinc Cit/Yeast 1 cap PO DAILY 09/08/19 09/08/19 Unknown History Lasix TAB 20 mg PO BID 09/08/19 09/08/19 Unknown History Mag-Ox 400 mg PO BID 09/08/19 09/08/19 Unknown History Pantoprazole 20 mg PO DAILY 09/08/19 09/08/19 Unknown History Pradaxa 150 mg PO BID 09/08/19 09/08/19 Unknown History Active Meds: Active Medications Acetaminophen (Tylenol) 650 mg MD Q4H PRN PRN Reason: Pain MILD(1-3)/Fever >100.5/BUSTILLOS Enoxaparin Sodium (Enoxaparin) 40 mg SUB-Q QDAY LAMINE Hydrocortisone Sodium Succinate (Solu-Cortef) 100 mg IV Q8HR LAMINE Norepinephrine (Levophed Drip 4 Mg/Ns 250 Ml) 4 mg in 250 mls @ 7.5 mls/hr IV TITR LAMINE; Protocol Last Admin: 09/08/19 05:03 Dose: 12 mcg/min, 45 mls/hr Documented by: Piperacillin Sod/Tazobactam Sod (Zosyn/Ns 4.5gm/100ml) 4.5 gm in 100 mls @ 200 mls/hr IV Q8HR LAMINE; Protocol Potassium Chloride (Kcl 10meq/100ml) 10 meq in 100 mls @ 100 mls/hr IV Q1H LAMINE Stop: 09/08/19 11:59 Last Admin: 09/08/19 08:56 Dose: 100 mls/hr Documented by: Potassium Chloride/Sodium Chloride (Ns/Kcl 20meq) 20 meq in 1,000 mls @ 150 mls/hr IV DIRECT LAMINE Lactated Ringer's (Lactated Ringers) 1,000 mls @ 999 mls/hr IV BOLUS ONE Stop: 09/08/19 10:16 Lactated Ringer's (Lactated Ringers) 1,000 mls @ 999 mls/hr IV BOLUS ONE Stop: 09/08/19 10:16 Ondansetron HCl (Zofran) 4 mg IV Q4H PRN PRN Reason: Nausea And Vomiting Sodium Chloride (Sodium Chloride Flush Syringe 10 Ml) 10 ml IV BID LAMINE Sodium Chloride (Sodium Chloride Flush Syringe 10 Ml) 10 ml IV PRN PRN PRN Reason: LINE FLUSH Review of Systems All systems: negative Exam - Constitutional Vitals: Temp Pulse Resp BP Pulse Ox 97.6 F 99 H 18 86/48 100 09/08/19 08:00 09/08/19 03:34 09/08/19 03:31 09/08/19 03:34 09/08/19 08:10 General appearance: Present: no acute distress, well-nourished - EENT Eyes: Present: PERRL ENT: hearing intact, poor dentition - Neck Neck: Present: supple, normal ROM - Respiratory Respiratory effort: normal Respiratory: bilateral: CTA - Cardiovascular Rhythm: regular Heart Sounds: Present: S1 & S2 - Extremities Extremities: no ischemia, pulses intact - Abdominal General gastrointestinal: Present: soft Female genitourinary: Present: deferred - Rectal Rectal Exam: deferred - Musculoskeletal Musculoskeletal: generalized weakness Results - Labs CBC & Chem 7: 09/08/19 06:33 09/08/19 06:33 Labs: Abnormal lab results 09/07/19 09/07/19 09/07/19 Range/Units Unknown Unknown Unknown WBC 25.0 H (4.5-11.0) K/mm3 RBC (3.65-5.03) M/mm3 Hgb 10.0 L (10.1-14.3) gm/dl Hct (30.3-42.9) % MCH 27 L (28-32) pg RDW 21.4 H (13.2-15.2) % Seg Neuts % (Manual) 90.0 H (40.0-70.0) % Lymphocytes % (Manual) 6.0 L (13.4-35.0) % Seg Neutrophils # Man 22.5 H (1.8-7.7) K/mm3 Lymphocytes # (Manual) (1.2-5.4) K/mm3 PT 20.5 H (12.2-14.9) Sec. INR 1.72 H (0.87-1.13) Sodium 127 L (137-145) mmol/L Potassium (3.6-5.0) mmol/L Chloride 86.4 L (98-107) mmol/L Creatinine (0.7-1.2) mg/dL Glucose (65-100) mg/dL Lactic Acid (0.7-2.0) mmol/L Calcium 7.4 L (8.4-10.2) mg/dL Alkaline Phosphatase 160 H (35-129) units/L Total Protein 4.9 L (6.3-8.2) g/dL Albumin 1.4 L (3.9-5) g/dL Lipase (13-60) units/L 09/07/19 09/07/19 09/08/19 Range/Units Unknown Unknown 06:33 WBC 22.4 H (4.5-11.0) K/mm3 RBC 3.29 L (3.65-5.03) M/mm3 Hgb 8.9 L (10.1-14.3) gm/dl Hct 28.0 L (30.3-42.9) % MCH 27 L (28-32) pg RDW 21.7 H (13.2-15.2) % Seg Neuts % (Manual) 99.0 H (40.0-70.0) % Lymphocytes % (Manual) 0 L (13.4-35.0) % Seg Neutrophils # Man 22.2 H (1.8-7.7) K/mm3 Lymphocytes # (Manual) 0.0 L (1.2-5.4) K/mm3 PT (12.2-14.9) Sec. INR (0.87-1.13) Sodium (137-145) mmol/L Potassium (3.6-5.0) mmol/L Chloride (98-107) mmol/L Creatinine (0.7-1.2) mg/dL Glucose (65-100) mg/dL Lactic Acid 4.70 H* (0.7-2.0) mmol/L Calcium (8.4-10.2) mg/dL Alkaline Phosphatase (35-129) units/L Total Protein (6.3-8.2) g/dL Albumin (3.9-5) g/dL Lipase 5 L (13-60) units/L 09/08/19 Range/Units 06:33 WBC (4.5-11.0) K/mm3 RBC (3.65-5.03) M/mm3 Hgb (10.1-14.3) gm/dl Hct (30.3-42.9) % MCH (28-32) pg RDW (13.2-15.2) % Seg Neuts % (Manual) (40.0-70.0) % Lymphocytes % (Manual) (13.4-35.0) % Seg Neutrophils # Man (1.8-7.7) K/mm3 Lymphocytes # (Manual) (1.2-5.4) K/mm3 PT (12.2-14.9) Sec. INR (0.87-1.13) Sodium (137-145) mmol/L Potassium 2.8 L* D (3.6-5.0) mmol/L Chloride (98-107) mmol/L Creatinine 0.4 L (0.7-1.2) mg/dL Glucose 108 H (65-100) mg/dL Lactic Acid (0.7-2.0) mmol/L Calcium 6.4 L (8.4-10.2) mg/dL Alkaline Phosphatase (35-129) units/L Total Protein (6.3-8.2) g/dL Albumin (3.9-5) g/dL Lipase (13-60) units/L - Imaging and Cardiology Chest x-ray: image reviewed Assessment and Plan 59 y/o lady with some form of inflammatory bowel disease admitted with hypotension, elevated white count and abdominal pain. Concern for sepsis but also relative adrenal insufficiency from lack of steroid. 1. Restart Hydrocortison 100q8, dose now 2. spoke with surgery and appreciate their help. Patient was at rehab for unknown reasons and developed bilateral DVT's. Thats the reason for pradax. She also has been dealing with bleeding from rectum for over year and has been back and forth between [place] and [facility]. Will need to get those records. Unlikely diverticular disease. Will continue abx therapy and aggressive IV hydration. 3. Wean Vasopressors for MAPs >65 4. May need kaur but will see what happens in the next 2-3 hours 5. Replace electrolytes Guarded prognosis. CCT 31 minutes
[2019-09-08] MEDS ORDERED: ENOXAPARIN 40 MG/0.4 ML INJ SUB-Q SCH (10:00)
[2019-09-08] MEDS: ENOXAPARIN 80 MG/0.8 ML INJ SUB-Q SCH ×2 (10:25→21:26)
[2019-09-08] MEDS: PIPERACIL/TAZOBACTA 4.5/NS 100 4.5 GM/100 ML VIAL IV SCH ×3 (10:25→21:26)
[2019-09-08] MEDS: HYDROCORTISONE SOD SUCC 100 MG/2 ML VIAL IV SCH ×3 (10:25→21:26)
[2019-09-08] MEDS: NACL 0.9%/KCL 20 MEQ 20 MEQ/1,000 ML BAG IV SCH ×2 (14:12→21:26)
[2019-09-09] MEDS: PIPERACIL/TAZOBACTA 4.5/NS 100 4.5 GM/100 ML VIAL IV SCH ×3 (05:22→22:00)
[2019-09-09] MEDS: HYDROCORTISONE SOD SUCC 100 MG/2 ML VIAL IV SCH ×3 (05:22→22:01)
[2019-09-09] MEDS: NACL 0.9%/KCL 20 MEQ 20 MEQ/1,000 ML BAG IV SCH ×3 (05:23→23:50)
[2019-09-09] MEDS: NORepinephrine/NS 4 MG-250 ML 4 MG/250 ML BAG IV SCH (05:48)
[2019-09-09 06:17] LABS: Hematocrit 25.5 % (30.3-42.9); Mean Corpuscular HGB Conc 31 % (30-34); Mean Corpuscular Volume 86 fl (79-97); Platelet Count 367 K/mm3 (140-440); Red Blood Count 2.96 M/mm3 (3.65-5.03)
[2019-09-09 06:18] LABS: Red Cell Distribution Width 22.2 % (13.2-15.2)
[2019-09-09 06:36] LABS: BUN/Creatinine Ratio 10; Blood Urea Nitrogen 4 mg/dL (7-17); Calcium 6.6 mg/dL (8.4-10.2); Hemolysis Index 7
[2019-09-09 06:41] LABS: Anisocytosis 1+; Basophils % (Manual) 0 % (0.0-1.8); Eosinophils % (Manual) 0 % (0.0-4.3); Hypochromasia Few; Platelet Estimate Consistent w Auto; Total Cells Counted 100
[2019-09-09] MEDS: POTASSIUM CHLORIDE 20 MEQ 20 MEQ/100 ML BAG IV SCH ×2 (08:37→10:07)
[2019-09-09] MEDS ORDERED: MAGNESIUM SULFATE 4 GM/100 ML BAG IV ONE (09:00)
--- NOTE | 2019-09-09 09:10 | Progress Note ---
Assessment and Plan - Patient Problems (1) Peritoneal cavity free air Current Visit: Yes Status: Acute Plan to address problem: Patient appears improved. Pain has essentially resolved. From the other progress notes, it appears as though she has ulcerative colitis. This localized collection of free air may be secondary to a ulcerative colitis associated perforation. However, this is usually seen in the setting of toxic megacolon or an episode of severe inflammation. In addition, the perforation usually results in generalized peritonitis which would mandate immediate surgical intervention. None of this is present in this case. As she is showing signs of improvement, we will continue with conservative management. We should consider rescanning her in a few days to see if an abscess has developed in the area of the localized free air. If so, a drain should be considered by interventional radiology. For the near future, she should follow-up with a colorectal surgeon for consideration of proctocolectomy to address her ulcerative colitis. Will begin a clear liquid diet today. Please call with questions. time=10min Subjective Date of service: 09/09/19 Patient Reports: Positive: feels better, pain is less, bowel movement. Negative: nausea, vomiting Objective Vital Signs - 12hr 09/08/19 09/08/19 09/08/19 21:15 21:30 21:45 Temperature Pulse Rate 85 91 H 95 H Pulse Rate [ 84 Right Radial] Respiratory 16 14 18 Rate Blood Pressure 103/62 92/49 99/50 O2 Sat by Pulse 100 100 100 Oximetry 09/08/19 09/08/19 09/08/19 22:00 22:15 22:30 Temperature Pulse Rate 87 94 H 87 Pulse Rate [ Right Radial] Respiratory 22 13 18 Rate Blood Pressure 93/49 90/41 100/55 O2 Sat by Pulse 100 99 100 Oximetry 09/08/19 09/08/19 09/08/19 22:45 23:00 23:03 Temperature Pulse Rate 85 76 76 Pulse Rate [ Right Radial] Respiratory 15 16 17 Rate Blood Pressure 99/46 101/50 101/50 O2 Sat by Pulse 100 100 99 Oximetry 09/08/19 09/08/19 09/08/19 23:15 23:30 23:45 Temperature Pulse Rate 76 76 66 Pulse Rate [ Right Radial] Respiratory 14 13 12 Rate Blood Pressure 102/42 98/48 105/47 O2 Sat by Pulse 99 100 100 Oximetry 0209/09/19 09/09/19 23:51 00:00 00:15 Temperature 97.3 F L Pulse Rate 78 80 Pulse Rate [ Right Radial] Respiratory 13 12 Rate Blood Pressure 104/50 102/51 O2 Sat by Pulse 100 100 Oximetry 09/09/19 09/09/19 09/09/19 00:30 00:31 00:45 Temperature Pulse Rate 78 80 Pulse Rate [ 78 Right Radial] Respiratory 15 14 Rate Blood Pressure 108/51 104/49 O2 Sat by Pulse 100 100 Oximetry 09/09/19 09/09/19 09/09/19 01:01 01:15 01:30 Temperature Pulse Rate 79 79 78 Pulse Rate [ Right Radial] Respiratory 14 15 16 Rate Blood Pressure 99/52 100/49 101/53 O2 Sat by Pulse 100 99 99 Oximetry 09/09/19 09/09/19 09/09/19 01:45 02:00 02:15 Temperature Pulse Rate 78 81 78 Pulse Rate [ Right Radial] Respiratory 17 16 15 Rate Blood Pressure 100/50 106/45 101/50 O2 Sat by Pulse 100 100 100 Oximetry 09/09/19 09/09/19 09/09/19 02:30 02:45 03:00 Temperature Pulse Rate 76 79 81 Pulse Rate [ Right Radial] Respiratory 13 13 13 Rate Blood Pressure 102/50 99/51 97/50 O2 Sat by Pulse 98 100 99 Oximetry 09/09/19 09/09/19 09/09/19 03:15 03:30 03:45 Temperature Pulse Rate 77 80 76 Pulse Rate [ Right Radial] Respiratory 13 13 14 Rate Blood Pressure 100/52 99/51 103/52 O2 Sat by Pulse 99 99 100 Oximetry 09/09/19 09/09/19 09/09/19 03:48 04:00 04:15 Temperature 97.7 F Pulse Rate 81 79 Pulse Rate [ Right Radial] Respiratory 12 13 Rate Blood Pressure 106/50 97/49 O2 Sat by Pulse 100 100 Oximetry 09/09/19 09/09/19 09/09/19 04:30 04:45 05:00 Temperature Pulse Rate 78 79 81 Pulse Rate [ 78 Right Radial] Respiratory 14 13 14 Rate Blood Pressure 105/53 102/53 107/54 O2 Sat by Pulse 100 100 100 Oximetry 09/09/19 09/09/19 09/09/19 05:15 05:30 05:45 Temperature Pulse Rate 82 79 96 H Pulse Rate [ Right Radial] Respiratory 16 15 24 Rate Blood Pressure 103/54 102/53 102/53 O2 Sat by Pulse 100 100 99 Oximetry 09/09/19 09/09/19 06:00 08:11 Temperature Pulse Rate 78 Pulse Rate [ Right Radial] Respiratory 16 Rate Blood Pressure 106/52 O2 Sat by Pulse 100 100 Oximetry - General physical appearance no distress, no pain, other (looks well) - Eyes normal occular movement - Respiratory normal expansion, normal respiratory effort - Abdomen soft, not tender, bowel sounds normal, not distended, not guarding, not rigid - Integumentary no rash, no growths, no abnormal pigmentation - Psychiatric speech is normal - Labs 09/09/19 05:50 09/09/19 05:50 Diabetes panel 09/09/19 Range/Units 05:50 Sodium 144 D (137-145) mmol/L Potassium 2.9 L* (3.6-5.0) mmol/L Chloride 105.6 (98-107) mmol/L Carbon Dioxide 22 (22-30) mmol/L BUN 4 L (7-17) mg/dL Creatinine 0.4 L (0.7-1.2) mg/dL Glucose 89 (65-100) mg/dL Calcium 6.6 L (8.4-10.2) mg/dL Calcium panel 09/09/19 Range/Units 05:50 Calcium 6.6 L (8.4-10.2) mg/dL Pituitary panel 09/09/19 Range/Units 05:50 Sodium 144 D (137-145) mmol/L Potassium 2.9 L* (3.6-5.0) mmol/L Chloride 105.6 (98-107) mmol/L Carbon Dioxide 22 (22-30) mmol/L BUN 4 L (7-17) mg/dL Creatinine 0.4 L (0.7-1.2) mg/dL Glucose 89 (65-100) mg/dL Calcium 6.6 L (8.4-10.2) mg/dL Adrenal panel 09/09/19 Range/Units 05:50 Sodium 144 D (137-145) mmol/L Potassium 2.9 L* (3.6-5.0) mmol/L Chloride 105.6 (98-107) mmol/L Carbon Dioxide 22 (22-30) mmol/L BUN 4 L (7-17) mg/dL Creatinine 0.4 L (0.7-1.2) mg/dL Glucose 89 (65-100) mg/dL Calcium 6.6 L (8.4-10.2) mg/dL
[2019-09-09] MEDS ORDERED: SODIUM CHLORIDE 0.9% 500 ML 500 ML IV NR (09:58)
[2019-09-09] MEDS ORDERED: LACTATED RINGERS 1,000 ML IV ONE ×2 (10:00)
[2019-09-09] MEDS: ENOXAPARIN 80 MG/0.8 ML INJ SUB-Q SCH ×2 (10:06→22:01)
--- NOTE | 2019-09-09 10:43 | Progress Note ---
Assessment and Plan Assessment and plan: --Hypokalemia; replace per protocol and monitor levels --Hyponatremia; resolved, Monitor electrolytes --Leukocytosis; secondary to sepsis, trending down --Septic shock; On vasopressors, Levophed titrate systolic blood pressure to more than 100 Wean as tolerated and DC --Sepsis Surgery evaluation noted and appreciated No evidence of diverticulitis/abscess Symptoms significantly improved s/p cefepime and Flagyl, IV fluid Continue IV fluid, Zosyn, follow cultures Started clear liquids, advance as tolerated --History of bilateral DVT; on oral anticoagulation on full dose Lovenox 1 mg/kg every 12 hours DC femoral line after securing, good IV access --Severe malnutrition/hypoalbuminemia; Due to underlying disease process, nutrition supplements Nutrition consult --DVT prophylaxis: SCD, on Lovenox --Full code status Consults recommendations noted and appreciated Closely monitor the patient and adjust management as needed Plan of care reviewed with the patient family member at the bedside The nurse and the case management Disposition; follow clinically, advance diet as tolerated Physical therapy evaluation, discharge when medically stable. Critical care time 32 minutes History Interval history: Patient seen and examined this morning at bedside Patient's chart, last 24-hour events, medications reviewed Patient feels slightly better, tolerating clear liquids Remains hypotensive on Levophed Patient is in mild distress Vital signs reviewed Hospitalist Physical - Constitutional Vitals: Temp Pulse Resp BP Pulse Ox 97.4 F L 76 16 119/56 100 09/09/19 08:00 09/09/19 09:00 09/09/19 09:00 09/09/19 09:00 09/09/19 09:00 General appearance: Present: mild distress, well-nourished - EENT Eyes: Present: PERRL, EOM intact - Neck Neck: Present: supple, normal ROM - Respiratory Respiratory effort: normal Respiratory: bilateral: diminished, rhonchi, negative: rales, wheezing - Cardiovascular Rhythm: regular Heart Sounds: Present: S1 & S2 - Extremities Extremities: no ischemia, No edema - Abdominal General gastrointestinal: soft, non-tender, non-distended, normal bowel sounds - Integumentary Integumentary: Present: clear, warm - Psychiatric Psychiatric: appropriate mood/affect, cooperative - Neurologic Neurologic: moves all extremities Results - Labs CBC & Chem 7: 09/09/19 05:50 09/09/19 05:50 Labs: Laboratory Last Values WBC 19.2 K/mm3 (4.5-11.0) H 09/09/19 05:50 RBC 2.96 M/mm3 (3.65-5.03) L 09/09/19 05:50 Hgb 8.0 gm/dl (10.1-14.3) L 09/09/19 05:50 Hct 25.5 % (30.3-42.9) L 09/09/19 05:50 MCV 86 fl (79-97) 09/09/19 05:50 MCH 27 pg (28-32) L 09/09/19 05:50 MCHC 31 % (30-34) 09/09/19 05:50 RDW 22.2 % (13.2-15.2) H 09/09/19 05:50 Plt Count 367 K/mm3 (140-440) 09/09/19 05:50 Add Manual Diff Complete 09/09/19 05:50 Total Counted 100 09/09/19 05:50 Seg Neutrophils % Perishable Fruit Inspector 09/09/19 05:50 Seg Neuts % (Manual) 94.0 % (40.0-70.0) H 09/09/19 05:50 Band Neutrophils % 0 % 09/09/19 05:50 Lymphocytes % (Manual) 4.0 % (13.4-35.0) L 09/09/19 05:50 Reactive Lymphs % (Man) 0 % 09/09/19 05:50 Monocytes % (Manual) 2.0 % (0.0-7.3) 09/09/19 05:50 Eosinophils % (Manual) 0 % (0.0-4.3) 09/09/19 05:50 Basophils % (Manual) 0 % (0.0-1.8) 09/09/19 05:50 Metamyelocytes % 0 % 09/09/19 05:50 Myelocytes % 0 % 09/09/19 05:50 Promyelocytes % 0 % 09/09/19 05:50 Blast Cells % 0 % 09/09/19 05:50 Nucleated RBC % Not Reportable 09/09/19 05:50 Seg Neutrophils # Man 18.0 K/mm3 (1.8-7.7) H 09/09/19 05:50 Band Neutrophils # 0.0 K/mm3 09/09/19 05:50 Lymphocytes # (Manual) 0.8 K/mm3 (1.2-5.4) L 09/09/19 05:50 Abs React Lymphs (Man) 0.0 K/mm3 09/09/19 05:50 Monocytes # (Manual) 0.4 K/mm3 (0.0-0.8) 09/09/19 05:50 Eosinophils # (Manual) 0.0 K/mm3 (0.0-0.4) 09/09/19 05:50 Basophils # (Manual) 0.0 K/mm3 (0.0-0.1) 09/09/19 05:50 Metamyelocytes # 0.0 K/mm3 09/09/19 05:50 Myelocytes # 0.0 K/mm3 09/09/19 05:50 Promyelocytes # 0.0 K/mm3 09/09/19 05:50 Blast Cells # 0.0 K/mm3 09/09/19 05:50 WBC Morphology Not Reportable 09/09/19 05:50 Hypersegmented Neuts Not Reportable 09/09/19 05:50 Hyposegmented Neuts Not Reportable 09/09/19 05:50 Hypogranular Neuts Not Reportable 09/09/19 05:50 Smudge Cells Not Reportable 09/09/19 05:50 Toxic Granulation Not Reportable 09/09/19 05:50 Toxic Vacuolation Not Reportable 09/09/19 05:50 Dohle Bodies Not Reportable 09/09/19 05:50 Pelger-Huet Anomaly Not Reportable 09/09/19 05:50 Phyllis Rods Not Reportable 09/09/19 05:50 Platelet Estimate Consistent w auto 09/09/19 05:50 Clumped Platelets Not Reportable 09/09/19 05:50 Plt Clumps, EDTA Not Reportable 09/09/19 05:50 Large Platelets Not Reportable 09/09/19 05:50 Giant Platelets Not Reportable 09/09/19 05:50 Platelet Satelliting Not Reportable 09/09/19 05:50 Plt Morphology Comment Not Reportable 09/09/19 05:50 RBC Morphology Not Reportable 09/09/19 05:50 Dimorphic RBCs Not Reportable 09/09/19 05:50 Polychromasia Not Reportable 09/09/19 05:50 Hypochromasia Few 09/09/19 05:50 Poikilocytosis Not Reportable 09/09/19 05:50 Anisocytosis 1+ 09/09/19 05:50 Microcytosis Not Reportable 09/09/19 05:50 Macrocytosis Not Reportable 09/09/19 05:50 Spherocytes Not Reportable 09/09/19 05:50 Pappenheimer Bodies Not Reportable 09/09/19 05:50 Sickle Cells Not Reportable 09/09/19 05:50 Target Cells Not Reportable 09/09/19 05:50 Tear Drop Cells Not Reportable 09/09/19 05:50 Ovalocytes Not Reportable 09/09/19 05:50 Helmet Cells Not Reportable 09/09/19 05:50 Fam[place] Bodies Not Reportable 09/09/19 05:50 [place] Rings Not Reportable 09/09/19 05:50 [place] Cells Not Reportable 09/09/19 05:50 Bite Cells Not Reportable 09/09/19 05:50 Crenated Cell Not Reportable 09/09/19 05:50 Elliptocytes Not Reportable 09/09/19 05:50 Acanthocytes (Spur) Not Reportable 09/09/19 05:50 Rouleaux Not Reportable 09/09/19 05:50 Hemoglobin C Crystals Not Reportable 09/09/19 05:50 Schistocytes Not Reportable 09/09/19 05:50 Malaria parasites Not Reportable 09/09/19 05:50 Emmanuel Bodies Not Reportable 09/09/19 05:50 Hem Pathologist Commnt No 09/09/19 05:50 PT 20.5 Sec. (12.2-14.9) H 09/07/19 Unknown INR 1.72 (0.87-1.13) H 09/07/19 Unknown Sodium 144 mmol/L (137-145) D 09/09/19 05:50 Potassium 2.9 mmol/L (3.6-5.0) L* 09/09/19 05:50 Chloride 105.6 mmol/L (98-107) 09/09/19 05:50 Carbon Dioxide 22 mmol/L (22-30) 09/09/19 05:50 Anion Gap 19 mmol/L 09/09/19 05:50 BUN 4 mg/dL (7-17) L 09/09/19 05:50 Creatinine 0.4 mg/dL (0.7-1.2) L 09/09/19 05:50 Estimated GFR > 60 ml/min 09/09/19 05:50 BUN/Creatinine Ratio 10 % 09/09/19 05:50 Glucose 89 mg/dL (65-100) 09/09/19 05:50 Lactic Acid 1.50 mmol/L (0.7-2.0) 09/07/19 Unknown Lactic Acid 4.70 mmol/L (0.7-2.0) H* 09/07/19 Unknown Calcium 6.6 mg/dL (8.4-10.2) L 09/09/19 05:50 Magnesium 1.70 mg/dL (1.7-2.3) 09/09/19 05:50 Total Bilirubin 0.60 mg/dL (0.1-1.2) 09/07/19 Unknown AST 27 units/L (5-40) 09/07/19 Unknown ALT 24 units/L (7-56) 09/07/19 Unknown Alkaline Phosphatase 160 units/L (35-129) H 09/07/19 Unknown Troponin T 0.027 ng/mL (0.00-0.029) 09/07/19 Unknown Total Protein 4.9 g/dL (6.3-8.2) L 09/07/19 Unknown Albumin 1.4 g/dL (3.9-5) L 09/07/19 Unknown Albumin/Globulin Ratio 0.4 % 09/07/19 Unknown Lipase 5 units/L (13-60) L 09/07/19 Unknown Urine Color Yellow (Yellow) 09/07/19 17:56 Urine Turbidity Slightly-cloudy (Clear) 09/07/19 17:56 Urine pH 6.0 (5.0-7.0) 09/07/19 17:56 Ur Specific [place] 1.009 (1.003-1.030) 09/07/19 17:56 Urine Protein <15 mg/dl mg/dL (Negative) 09/07/19 17:56 Urine Glucose (UA) Neg mg/dL (Negative) 09/07/19 17:56 Urine Ketones Neg mg/dL (Negative) 09/07/19 17:56 Urine Blood Neg (Negative) 09/07/19 17:56 Urine Nitrite Pos (Negative) 09/07/19 17:56 Urine Bilirubin Neg (Negative) 09/07/19 17:56 Urine Urobilinogen < 2.0 mg/dL (<2.0) 09/07/19 17:56 Ur Leukocyte Esterase Sm (Negative) 09/07/19 17:56 Urine WBC (Auto) 6.0 /HPF (0.0-6.0) 09/07/19 17:56 Urine RBC (Auto) < 1.0 /HPF (0.0-6.0) 09/07/19 17:56 U Epithel Cells (Auto) < 1.0 /HPF (0-13.0) 09/07/19 17:56 Urine Bacteria (Auto) 2+ /HPF (Negative) 09/07/19 17:56 Active Medications - Current Medications Current Medications: Generic Name Dose Route Start Last Admin Trade Name Freq PRN Reason Stop Dose Admin Acetaminophen 650 mg 09/07/19 23:20 Tylenol SD Q4H PRN Pain MILD(1-3)/Fever >100.5/BUSTILLOS Enoxaparin Sodium 80 mg 09/08/19 10:00 09/09/19 10:06 Enoxaparin SUB-Q 80 mg Q12HR LAMINE Administration Hydrocortisone Sodium Succinate 100 mg 09/08/19 10:00 09/09/19 05:22 Solu-Cortef IV 100 mg Q8HR LAMINE Administration Norepinephrine 4 mg in 250 mls @ 7.5 mls/hr 09/07/19 22:00 09/09/19 08:38 Levophed Drip 4 Mg/Ns 250 Ml IV 6 mcg/min TITR LAMINE 22.5 mls/hr Titration Protocol 2 MCG/MIN Piperacillin Sod/Tazobactam Sod 4.5 gm in 100 mls @ 200 mls/hr 09/08/19 06:00 09/09/19 05:22 Zosyn/Ns 4.5gm/100ml IV 200 mls/hr Q8HR LAMINE Administration Protocol Potassium Chloride/Sodium Chloride 20 meq in 1,000 mls @ 150 mls/hr 09/08/19 09:00 09/09/19 05:23 Ns/Kcl 20meq IV 150 mls/hr DIRECT LAMINE Administration Magnesium Sulfate 4 gm in 100 mls @ 25 mls/hr 09/09/19 09:00 09/09/19 08:36 Magnesium Sulfate 4gm/100ml IV 09/09/19 12:59 25 mls/hr ONCE ONE Administration Potassium Chloride 20 meq in 100 mls @ 100 mls/hr 09/09/19 09:00 09/09/19 10:07 Kcl 20meq/100ml IV 09/09/19 10:59 100 mls/hr Q1H LAMINE Administration Lactated Ringer's 1,000 mls @ 999 mls/hr 09/09/19 10:00 09/09/19 10:10 Lactated Ringers IV 09/09/19 11:00 999 mls/hr BOLUS ONE Administration Lactated Ringer's 1,000 mls @ 999 mls/hr 09/09/19 10:00 Lactated Ringers IV 09/09/19 11:00 BOLUS ONE Sodium Chloride 500 mls @ 0 mls/hr 09/09/19 09:58 Nacl 0.9% 500 Ml IV 09/09/19 23:59 ONCE NR As Directed Ondansetron HCl 4 mg 09/07/19 23:20 Zofran IV Q4H PRN Nausea And Vomiting Pantoprazole Sodium 40 mg 09/09/19 11:00 Protonix PO DAILY LAMINE Potassium Chloride 40 meq 09/09/19 12:00 Potassium Chloride FEEDTUBE 09/09/19 12:01 ONCE ONE Sodium Chloride 10 ml 09/08/19 10:00 09/09/19 10:12 Sodium Chloride Flush Syringe 10 Ml IV 10 ml BID LAMINE Administration Sodium Chloride 10 ml 09/07/19 23:20 Sodium Chloride Flush Syringe 10 Ml IV PRN PRN LINE FLUSH Nutrition/Malnutrition Assess - Dietary Evaluation Nutrition/Malnutrition Findings: Nutrition Notes Start: 09/08/19 1 1:13 Freq: Status: Active Protocol: Document 09/08/19 11:13 CT (Rec: 09/08/19 11:23 CT [id number]) Co-Sign 09/08/19 11:13 LP Nutrition Notes Need for Assessment generated from: sat instructor Initial or Follow up Assessment Current Diagnosis Sepsis Other Pertinent Diagnosis Hx DVT, colitis, IBD, abd pain , diverticulitis, wounds, leukocytosis Current Diet NPO Labs/Tests K 2.8 Cr 0.4 Glu 108 Pertinent Medications Levophed Height 5 ft 2 in Weight 73.9 kg Usual Body Weight [address] Body Weight (kg) 50.00 BMI 29.7 Intake Prior to Admission Poor Weight change and time frame 15% wt loss in 3 months Weight Status Obese Subjective/Other Information RN screen for skin risk of 14. Pt is currently NPO. Per MD, they want to wean her off the Levophed since it can be bad for the gut. Pt stated she weighed 192 lbs about 3 months ago and has not been eating meals. Pt stated the last time the pt had a full 3 meals a day was around 4 months ago, that she usually eats 1 meal if anything. Pt does not have an appetite d/t abdominal pain. Burn Absent Trauma Absent GI Symptoms None Current % PO Negligible Minimum of two criteria Yes Energy Intake (non-severe) <75% Estimated Energy Requirement >7 days Interpretation of Weight Loss (severe) >7.5% in 3 months #1 Nutrition Diagnosis Malnutrition Etiology abdominal pain, no appetite, chronic illness As Evidenced by Signs and Symptoms >7.5% wt loss in 3 months and <75% EER >7 days Is patient on ventilator? No Is Patient Ambulatory and/or Out of Bed No REE-([facility]-confined to bed) 1513.668 Calculation Used for Recommendations [facility] Additional Notes Protein needs: 89-111 g/day (1 .2-1.5 g/kg/day) Fluid needs: 1 ml/kcal Nutrition Intervention Change Diet Order: Advance diet when medically feasible Add Supplement/Snack (indicate name/kcal Add Ensure Clear when /protein ) medically feasible BID Provides kCal: 480 Provides Protein (gm) 16 Goal #1 Diet advancement Anticipated Discharge Needs: unable to determine at this time Follow-Up By: 09/10/19 Additional Comments Follow up for diet advancement
--- NOTE | 2019-09-09 10:47 | Progress Note ---
Assessment and Plan 59 y/o lady with some form of inflammatory bowel disease admitted with hypotension, elevated white count and abdominal pain. Concern for sepsis but also relative adrenal insufficiency from lack of steroid. 1. Continue stress dose steroids. Will change to prednisone once off pressors. 2. Reviewed Surgery note and appreciate recs. Liquid diet today. 3. Wean Vasopressors for MAPs >65. Went ahead and gave more IVF's and typed and screened for 2 units. Patient has had blood transfusions in past. No idea of baseline hemoglobin but if not able to wean off pressors, not unreasonable to transfuse. 4. No acute indication for kaur right now 5. Replace electrolytes Guarded prognosis. CCT 31 minutes Subjective Date of service: 09/09/19 Interval history: Down to levo at 4. Belly pain gone. Reviewed surgery note. Will start Liquid diet today. Objective - Constitutional Vitals: Vital Signs - 12hr 09/08/19 09/08/19 09/08/19 23:00 23:03 23:15 Temperature Pulse Rate 76 76 76 Pulse Rate [ Right Radial] Respiratory 16 17 14 Rate Blood Pressure 101/50 101/50 102/42 O2 Sat by Pulse 100 99 99 Oximetry 09/08/19 09/08/19 09/08/19 23:30 23:45 23:51 Temperature 97.3 F L Pulse Rate 76 66 Pulse Rate [ Right Radial] Respiratory 13 12 Rate Blood Pressure 98/48 105/47 O2 Sat by Pulse 100 100 Oximetry 09/09/19 09/09/19 09/09/19 00:00 00:15 00:30 Temperature Pulse Rate 78 80 78 Pulse Rate [ Right Radial] Respiratory 13 12 15 Rate Blood Pressure 104/50 102/51 108/51 O2 Sat by Pulse 100 100 100 Oximetry 09/09/19 09/09/19 09/09/19 00:31 00:45 01:01 Temperature Pulse Rate 80 79 Pulse Rate [ 78 Right Radial] Respiratory 14 14 Rate Blood Pressure 104/49 99/52 O2 Sat by Pulse 100 100 Oximetry 09/09/19 09/09/19 09/09/19 01:15 01:30 01:45 Temperature Pulse Rate 79 78 78 Pulse Rate [ Right Radial] Respiratory 15 16 17 Rate Blood Pressure 100/49 101/53 100/50 O2 Sat by Pulse 99 99 100 Oximetry 02/12/20 02/12/20 02/12/20 02:00 02:15 02:30 Temperature Pulse Rate 81 78 76 Pulse Rate [ Right Radial] Respiratory 16 15 13 Rate Blood Pressure 106/45 101/50 102/50 O2 Sat by Pulse 100 100 98 Oximetry 09/09/19 09/09/19 09/09/19 02:45 03:00 03:15 Temperature Pulse Rate 79 81 77 Pulse Rate [ Right Radial] Respiratory 13 13 13 Rate Blood Pressure 99/51 97/50 100/52 O2 Sat by Pulse 100 99 99 Oximetry 09/09/19 09/09/19 09/09/19 03:30 03:45 03:48 Temperature 97.7 F Pulse Rate 80 76 Pulse Rate [ Right Radial] Respiratory 13 14 Rate Blood Pressure 99/51 103/52 O2 Sat by Pulse 99 100 Oximetry 09/09/19 09/09/19 09/09/19 04:00 04:15 04:30 Temperature Pulse Rate 81 79 78 Pulse Rate [ 78 Right Radial] Respiratory 12 13 14 Rate Blood Pressure 106/50 97/49 105/53 O2 Sat by Pulse 100 100 100 Oximetry 09/09/19 09/09/19 09/09/19 04:45 05:00 05:15 Temperature Pulse Rate 79 81 82 Pulse Rate [ Right Radial] Respiratory 13 14 16 Rate Blood Pressure 102/53 107/54 103/54 O2 Sat by Pulse 100 100 100 Oximetry 09/09/19 09/09/19 09/09/19 05:30 05:45 06:00 Temperature Pulse Rate 79 96 H 78 Pulse Rate [ Right Radial] Respiratory 15 24 16 Rate Blood Pressure 102/53 102/53 106/52 O2 Sat by Pulse 100 99 100 Oximetry 09/09/19 09/09/19 09/09/19 06:15 06:30 06:45 Temperature Pulse Rate 95 H 76 76 Pulse Rate [ Right Radial] Respiratory 15 14 16 Rate Blood Pressure 107/54 103/49 106/49 O2 Sat by Pulse 100 100 100 Oximetry 09/09/19 09/09/19 09/09/19 07:00 07:15 07:30 Temperature Pulse Rate 69 67 79 Pulse Rate [ Right Radial] Respiratory 13 15 15 Rate Blood Pressure 114/60 110/53 117/58 O2 Sat by Pulse 100 100 100 Oximetry 09/09/19 09/09/19 09/09/19 07:45 08:00 08:11 Temperature 97.4 F L Pulse Rate 65 72 Pulse Rate [ Right Radial] Respiratory 13 15 Rate Blood Pressure 125/51 109/49 O2 Sat by Pulse 99 100 100 Oximetry 09/09/19 09/09/19 09/09/19 08:15 08:30 08:45 Temperature Pulse Rate 83 76 71 Pulse Rate [ Right Radial] Respiratory 17 16 16 Rate Blood Pressure 112/55 113/52 110/56 O2 Sat by Pulse 100 100 100 Oximetry 09/09/19 09:00 Temperature Pulse Rate 76 Pulse Rate [ Right Radial] Respiratory 16 Rate Blood Pressure 119/56 O2 Sat by Pulse 100 Oximetry - Labs CBC & Chem 7: 09/09/19 05:50 09/09/19 05:50 Labs: Abnormal lab results 09/09/19 09/09/19 Range/Units 05:50 05:50 WBC 19.2 H (4.5-11.0) K/mm3 RBC 2.96 L (3.65-5.03) M/mm3 Hgb 8.0 L (10.1-14.3) gm/dl Hct 25.5 L (30.3-42.9) % MCH 27 L (28-32) pg RDW 22.2 H (13.2-15.2) % Seg Neuts % (Manual) 94.0 H (40.0-70.0) % Lymphocytes % (Manual) 4.0 L (13.4-35.0) % Seg Neutrophils # Man 18.0 H (1.8-7.7) K/mm3 Lymphocytes # (Manual) 0.8 L (1.2-5.4) K/mm3 Potassium 2.9 L* (3.6-5.0) mmol/L BUN 4 L (7-17) mg/dL Creatinine 0.4 L (0.7-1.2) mg/dL Calcium 6.6 L (8.4-10.2) mg/dL Medications & Allergies - Medications Allergies/Adverse Reactions: Allergies No Known Allergies Allergy (Unverified 09/07/19 17:26) Home Medications: Home Medications Medication Instructions Recorded Confirmed Last Taken Type Deltasone 10 mg PO DAILY 09/08/19 09/08/19 Unknown History Ferrous Sulfate 325 mg PO DAILY 09/08/19 09/08/19 Unknown History L. Rhamnosus/C/Zinc Cit/Yeast 1 cap PO DAILY 09/08/19 09/08/19 Unknown History Lasix TAB 20 mg PO BID 09/08/19 09/08/19 Unknown History Mag-Ox 400 mg PO BID 09/08/19 09/08/19 Unknown History Pantoprazole 20 mg PO DAILY 09/08/19 09/08/19 Unknown History Pradaxa 150 mg PO BID 09/08/19 09/08/19 Unknown History Active Medications: Generic Name Dose Route Start Last Admin Trade Name Freq PRN Reason Stop Dose Admin Acetaminophen 650 mg 09/07/19 23:20 Tylenol [place] Q4H PRN Pain MILD(1-3)/Fever >100.5/BUSTILLOS Enoxaparin Sodium 80 mg 09/08/19 10:00 09/09/19 10:06 Enoxaparin SUB-Q 80 mg Q12HR LAMINE Administration Hydrocortisone Sodium Succinate 100 mg 09/08/19 10:00 09/09/19 05:22 Solu-Cortef IV 100 mg Q8HR LAMINE Administration Norepinephrine 4 mg in 250 mls @ 7.5 mls/hr 09/07/19 22:00 09/09/19 08:38 Levophed Drip 4 Mg/Ns 250 Ml IV 6 mcg/min TITR LAMINE 22.5 mls/hr Titration Protocol 2 MCG/MIN Piperacillin Sod/Tazobactam Sod 4.5 gm in 100 mls @ 200 mls/hr 09/08/19 06:00 09/09/19 05:22 Zosyn/Ns 4.5gm/100ml IV 200 mls/hr Q8HR LAMINE Administration Protocol Potassium Chloride/Sodium Chloride 20 meq in 1,000 mls @ 150 mls/hr 09/08/19 09:00 09/09/19 05:23 Ns/Kcl 20meq IV 150 mls/hr DIRECT LAMINE Administration Magnesium Sulfate 4 gm in 100 mls @ 25 mls/hr 09/09/19 09:00 09/09/19 08:36 Magnesium Sulfate 4gm/100ml IV 09/09/19 12:59 25 mls/hr ONCE ONE Administration Potassium Chloride 20 meq in 100 mls @ 100 mls/hr 09/09/19 09:00 09/09/19 10:07 Kcl 20meq/100ml IV 09/09/19 10:59 100 mls/hr Q1H LAMINE Administration Lactated Ringer's 1,000 mls @ 999 mls/hr 09/09/19 10:00 09/09/19 10:10 Lactated Ringers IV 09/09/19 11:00 999 mls/hr BOLUS ONE Administration Lactated Ringer's 1,000 mls @ 999 mls/hr 09/09/19 10:00 Lactated Ringers IV 09/09/19 11:00 BOLUS ONE Sodium Chloride 500 mls @ 0 mls/hr 09/09/19 09:58 Nacl 0.9% 500 Ml IV 09/09/19 23:59 ONCE NR As Directed Ondansetron HCl 4 mg 09/07/19 23:20 Zofran IV Q4H PRN Nausea And Vomiting Pantoprazole Sodium 40 mg 09/09/19 11:00 Protonix PO DAILY LAMINE Potassium Chloride 40 meq 09/09/19 12:00 Potassium Chloride FEEDTUBE 09/09/19 12:01 ONCE ONE Sodium Chloride 10 ml 09/08/19 10:00 09/09/19 10:12 Sodium Chloride Flush Syringe 10 Ml IV 10 ml BID LAMINE Administration Sodium Chloride 10 ml 09/07/19 23:20 Sodium Chloride Flush Syringe 10 Ml IV PRN PRN LINE FLUSH
[2019-09-09] MEDS ORDERED: POTASSIUM CHLORIDE 20 MEQ PACKET FEEDTUBE ONE (12:00)
[2019-09-09] MEDS: PANTOPRAZOLE 40 MG TAB PO SCH (13:51)
[2019-09-10] MEDS: HYDROCORTISONE SOD SUCC 100 MG/2 ML VIAL IV SCH ×2 (05:55→13:23)
[2019-09-10] MEDS: PIPERACIL/TAZOBACTA 4.5/NS 100 4.5 GM/100 ML VIAL IV SCH ×2 (05:55→13:26)
[2019-09-10] MEDS: NACL 0.9%/KCL 20 MEQ 20 MEQ/1,000 ML BAG IV SCH ×2 (06:03→13:23)
[2019-09-10 06:23] LABS: Hematocrit 25.9 % (30.3-42.9); Hemoglobin 8.1 gm/dl (10.1-14.3); Mean Corpuscular HGB Conc 31 % (30-34); Mean Corpuscular Volume 86 fl (79-97); Platelet Count 333 K/mm3 (140-440); Red Blood Count 3.03 M/mm3 (3.65-5.03)
[2019-09-10 06:24] LABS: Red Cell Distribution Width 21.8 % (13.2-15.2)
[2019-09-10 06:50] LABS: BUN/Creatinine Ratio 6; Blood Urea Nitrogen 3 mg/dL (7-17); Calcium 6.5 mg/dL (8.4-10.2); Hemolysis Index 0
[2019-09-10] MEDS: ENOXAPARIN 80 MG/0.8 ML INJ SUB-Q SCH (09:05)
[2019-09-10] MEDS: PANTOPRAZOLE 40 MG TAB PO SCH (09:05)
--- NOTE | 2019-09-10 09:12 | Progress Note ---
Assessment and Plan - Patient Problems (1) Peritoneal cavity free air Current Visit: Yes Status: Acute Plan to address problem: Patient appears improved. Pain has essentially resolved. From the other progress notes, it appears as though she has ulcerative colitis. This localized collection of free air may be secondary to a ulcerative colitis associated perforation. However, this is usually seen in the setting of toxic megacolon or an episode of severe inflammation. In addition, the perforation usually results in generalized peritonitis which would mandate immediate surgical intervention. None of this is present in this case. As she is showing signs of improvement, we will continue with conservative management. We should consider rescanning her in a few days to see if an abscess has developed in the area of the localized free air. If so, a drain should be considered by interventional radiology. For the near future, she should follow-up with a colorectal surgeon for consideration of proctocolectomy to address her ulcerative colitis. Will advance to full liquid diet today. Once the patient feels that the pain is minimal, then I would advance to soft diet. Please call with questions. time=10min Subjective Date of service: 09/10/19 Patient Reports: Positive: no new complaints, feels better, pain is less, tolerating liquids well, bowel movement. Negative: nausea, vomiting Objective Vital Signs - 12hr 09/09/19 09/09/19 09/09/19 22:00 22:47 23:00 Temperature Pulse Rate 82 80 96 H Respiratory 16 17 16 Rate Blood Pressure 130/63 131/67 135/77 O2 Sat by Pulse 100 100 100 Oximetry 09/10/19 09/10/19 09/10/19 00:00 01:00 02:00 Temperature 97.5 F L Pulse Rate 80 77 78 Respiratory 15 14 15 Rate Blood Pressure 123/58 130/56 130/63 O2 Sat by Pulse 100 100 100 Oximetry 09/10/19 09/10/19 09/10/19 03:00 04:00 05:00 Temperature 97.8 F Pulse Rate 81 73 81 Respiratory 14 14 12 Rate Blood Pressure 114/55 115/58 115/58 O2 Sat by Pulse 100 100 100 Oximetry 09/10/19 09/10/19 06:00 06:53 Temperature Pulse Rate 87 Respiratory 16 Rate Blood Pressure 120/57 O2 Sat by Pulse 100 100 Oximetry - General physical appearance no distress, no pain - Eyes normal occular movement - Respiratory normal expansion, normal respiratory effort - Abdomen soft, tender (minimal in LLQ), bowel sounds normal, not distended, not masses, not rebound, not guarding, not rigid - Integumentary no rash, no growths, no abnormal pigmentation - Psychiatric speech is normal - Labs 09/10/19 Unknown 09/10/19 Unknown Diabetes panel 09/09/19 09/09/19 09/10/19 Range/Units 20:30 20:30 Unknown Sodium 142 (137-145) mmol/L Potassium 3.9 D 3.8 (3.6-5.0) mmol/L Chloride 109.6 H (98-107) mmol/L Carbon Dioxide 21 L (22-30) mmol/L BUN 3 L (7-17) mg/dL Creatinine 0.5 L (0.7-1.2) mg/dL Glucose 249 H 134 H (65-100) mg/dL Calcium 6.5 L (8.4-10.2) mg/dL Calcium panel 09/10/19 Range/Units Unknown Calcium 6.5 L (8.4-10.2) mg/dL Pituitary panel 09/09/19 09/09/19 09/10/19 Range/Units 20:30 20:30 Unknown Sodium 142 (137-145) mmol/L Potassium 3.9 D 3.8 (3.6-5.0) mmol/L Chloride 109.6 H (98-107) mmol/L Carbon Dioxide 21 L (22-30) mmol/L BUN 3 L (7-17) mg/dL Creatinine 0.5 L (0.7-1.2) mg/dL Glucose 249 H 134 H (65-100) mg/dL Calcium 6.5 L (8.4-10.2) mg/dL Adrenal panel 09/09/19 09/09/19 09/10/19 Range/Units 20:30 20:30 Unknown Sodium 142 (137-145) mmol/L Potassium 3.9 D 3.8 (3.6-5.0) mmol/L Chloride 109.6 H (98-107) mmol/L Carbon Dioxide 21 L (22-30) mmol/L BUN 3 L (7-17) mg/dL Creatinine 0.5 L (0.7-1.2) mg/dL Glucose 249 H 134 H (65-100) mg/dL Calcium 6.5 L (8.4-10.2) mg/dL
[2019-09-10 09:25] LABS: Anisocytosis 1+; Band Neutrophils # (Manual) 0.3 K/mm3; Basophils % (Manual) 0 % (0.0-1.8); Eosinophils % (Manual) 0 % (0.0-4.3); Hypochromasia 1+; Monocytes % (Manual) 0 % (0.0-7.3); Total Cells Counted 100
[2019-09-10 09:27] LABS: Platelet Estimate Consistent w Auto
--- NOTE | 2019-09-10 09:41 | Progress Note ---
Assessment and Plan 59 y/o lady with some form of inflammatory bowel disease admitted with hypotension, elevated white count and abdominal pain. Concern for sepsis but also relative adrenal insufficiency from lack of steroid. 1. Suggest changing steroids to prednisone. Can ask GI what dose would be needed for Inflammatory bowel disease. Patient may have been tapered to fast or did do the taper properly 2. Follow up surgery recs 3. From a critical care standpoint, stable for transfer. Will sign off once out of unit. Subjective Date of service: 09/10/19 Interval history: Off pressors since yesterday afternoon. BLood held as she was able to come off without it. Remains on room air and in no distress. Objective - Constitutional Vitals: Vital Signs - 12hr 09/09/19 09/09/19 09/09/19 22:00 22:47 23:00 Temperature Pulse Rate 82 80 96 H Respiratory 16 17 16 Rate Blood Pressure 130/63 131/67 135/77 O2 Sat by Pulse 100 100 100 Oximetry 09/10/19 09/10/19 09/10/19 00:00 01:00 02:00 Temperature 97.5 F L Pulse Rate 80 77 78 Respiratory 15 14 15 Rate Blood Pressure 123/58 130/56 130/63 O2 Sat by Pulse 100 100 100 Oximetry 09/10/19 09/10/19 09/10/19 03:00 04:00 05:00 Temperature 97.8 F Pulse Rate 81 73 81 Respiratory 14 14 12 Rate Blood Pressure 114/55 115/58 115/58 O2 Sat by Pulse 100 100 100 Oximetry 09/10/19 09/10/19 06:00 06:53 Temperature Pulse Rate 87 Respiratory 16 Rate Blood Pressure 120/57 O2 Sat by Pulse 100 100 Oximetry - Labs CBC & Chem 7: 09/10/19 Unknown 09/10/19 Unknown Labs: Abnormal lab results 09/09/19 09/09/19 09/10/19 Range/Units 11:24 20:30 Unknown WBC (4.5-11.0) K/mm3 RBC (3.65-5.03) M/mm3 Hgb (10.1-14.3) gm/dl Hct (30.3-42.9) % MCH (28-32) pg RDW (13.2-15.2) % Seg Neuts % (Manual) (40.0-70.0) % Lymphocytes % (Manual) (13.4-35.0) % Seg Neutrophils # Man (1.8-7.7) K/mm3 Lymphocytes # (Manual) (1.2-5.4) K/mm3 Chloride 109.6 H (98-107) mmol/L Carbon Dioxide 21 L (22-30) mmol/L BUN 3 L (7-17) mg/dL Creatinine 0.5 L (0.7-1.2) mg/dL Glucose 249 H 134 H (65-100) mg/dL Calcium 6.5 L (8.4-10.2) mg/dL Crossmatch See Detail 09/10/19 Range/Units Unknown WBC 17.4 H (4.5-11.0) K/mm3 RBC 3.03 L (3.65-5.03) M/mm3 Hgb 8.1 L (10.1-14.3) gm/dl Hct 25.9 L (30.3-42.9) % MCH 27 L (28-32) pg RDW 21.8 H (13.2-15.2) % Seg Neuts % (Manual) 98.0 H (40.0-70.0) % Lymphocytes % (Manual) 0 L (13.4-35.0) % Seg Neutrophils # Man 17.1 H (1.8-7.7) K/mm3 Lymphocytes # (Manual) 0.0 L (1.2-5.4) K/mm3 Chloride (98-107) mmol/L Carbon Dioxide (22-30) mmol/L BUN (7-17) mg/dL Creatinine (0.7-1.2) mg/dL Glucose (65-100) mg/dL Calcium (8.4-10.2) mg/dL Crossmatch Medications & Allergies - Medications Allergies/Adverse Reactions: Allergies No Known Allergies Allergy (Unverified 09/07/19 17:26) Home Medications: Home Medications Medication Instructions Recorded Confirmed Last Taken Type Deltasone 10 mg PO DAILY 09/08/19 09/08/19 Unknown History Ferrous Sulfate 325 mg PO DAILY 09/08/19 09/08/19 Unknown History L. Rhamnosus/C/Zinc Cit/Yeast 1 cap PO DAILY 09/08/19 09/08/19 Unknown History Lasix TAB 20 mg PO BID 09/08/19 09/08/19 Unknown History Mag-Ox 400 mg PO BID 09/08/19 09/08/19 Unknown History Pantoprazole 20 mg PO DAILY 09/08/19 09/08/19 Unknown History Pradaxa 150 mg PO BID 09/08/19 09/08/19 Unknown History Active Medications: Generic Name Dose Route Start Last Admin Trade Name Freq PRN Reason Stop Dose Admin Acetaminophen 650 mg 09/07/19 23:20 Tylenol [place] Q4H PRN Pain MILD(1-3)/Fever >100.5/BUSTILLOS Enoxaparin Sodium 80 mg 09/08/19 10:00 09/10/19 09:05 Enoxaparin SUB-Q 80 mg Q12HR LAMINE Administration Hydrocortisone Sodium Succinate 100 mg 09/08/19 10:00 09/10/19 05:55 Solu-Cortef IV 100 mg Q8HR LAMINE Administration Norepinephrine 4 mg in 250 mls @ 7.5 mls/hr 09/07/19 22:00 09/09/19 14:00 Levophed Drip 4 Mg/Ns 250 Ml IV 0 mcg/min TITR LAMINE 0 mls/hr Titration Protocol 2 MCG/MIN Piperacillin Sod/Tazobactam Sod 4.5 gm in 100 mls @ 200 mls/hr 09/08/19 06:00 09/10/19 05:55 Zosyn/Ns 4.5gm/100ml IV 200 mls/hr Q8HR LAMINE Administration Protocol Potassium Chloride/Sodium Chloride 20 meq in 1,000 mls @ 150 mls/hr 09/08/19 09:00 09/10/19 06:03 Ns/Kcl 20meq IV 150 mls/hr DIRECT LAMINE Administration Ondansetron HCl 4 mg 09/07/19 23:20 Zofran IV Q4H PRN Nausea And Vomiting Pantoprazole Sodium 40 mg 09/09/19 11:00 09/10/19 09:05 Protonix PO 40 mg DAILY LAMINE Administration Sodium Chloride 10 ml 09/08/19 10:00 09/10/19 09:05 Sodium Chloride Flush Syringe 10 Ml IV 10 ml BID LAMINE Administration Sodium Chloride 10 ml 09/07/19 23:20 Sodium Chloride Flush Syringe 10 Ml IV PRN PRN LINE FLUSH
--- NOTE | 2019-09-10 10:24 | Progress Note ---
Assessment and Plan Assessment and plan: Patient feels slightly better diet advanced to full liquids Ambulate as tolerated, stable to be transferred out of ICU Possible discharge in 1 to 2 days if stable Transfer to [facility] floor --Hypokalemia; corrected --Hyponatremia; resolved --Leukocytosis; secondary to sepsis, Trending down --Septic shock; resolved s/p vasopressors, Levophed --Sepsis ;Surgery following No evidence of diverticulitis/abscess Symptoms significantly improved Continue IV fluid, Zosyn, follow cultures full liquids today, advance as tolerated --History of bilateral DVT; on full dose Lovenox 1 mg/kg every 12 hours DC femoral line after securing, good IV access --Severe malnutrition/hypoalbuminemia; Due to underlying disease process, nutrition supplements --DVT prophylaxis: SCD, on Lovenox --Full code status Consults recommendations noted and appreciated Closely monitor the patient and adjust management as needed Plan of care reviewed with the patient family member at the bedside The nurse and the case management Disposition; follow clinically, advance diet as tolerated Physical therapy evaluation, discharge when medically stable. Critical care time 31 minutes History Interval history: Patient seen and examined at the bedside in ICU this morning Patient's chart medication list, overnight events noted Patient feels slightly better, Tolerated clear liquids, diet advanced to full liquids per surgery No abdominal pain no nausea vomiting Vital signs reviewed Hospitalist Physical - Constitutional Vitals: Temp Pulse Resp BP Pulse Ox 97.9 F 89 19 134/75 100 09/10/19 08:00 09/10/19 10:00 09/10/19 10:00 09/10/19 10:00 09/10/19 10:00 General appearance: Present: mild distress, well-nourished - EENT Eyes: Present: PERRL, EOM intact - Neck Neck: Present: supple, normal ROM - Respiratory Respiratory effort: normal Respiratory: bilateral: diminished, negative: rales, rhonchi, wheezing - Cardiovascular Rhythm: regular Heart Sounds: Present: S1 & S2 - Extremities Extremities: no ischemia, pulses intact, pulses symmetrical - Abdominal General gastrointestinal: soft, non-tender, non-distended - Integumentary Integumentary: Present: clear, warm - Psychiatric Psychiatric: appropriate mood/affect, cooperative - Neurologic Neurologic: CNII-XII intact, moves all extremities Results - Labs CBC & Chem 7: 09/10/19 Unknown 02/13/20 Unknown Labs: Laboratory Last Values WBC 17.4 K/mm3 (4.5-11.0) H 09/10/19 Unknown RBC 3.03 M/mm3 (3.65-5.03) L 09/10/19 Unknown Hgb 8.1 gm/dl (10.1-14.3) L 09/10/19 Unknown Hct 25.9 % (30.3-42.9) L 09/10/19 Unknown MCV 86 fl (79-97) 09/10/19 Unknown MCH 27 pg (28-32) L 09/10/19 Unknown MCHC 31 % (30-34) 09/10/19 Unknown RDW 21.8 % (13.2-15.2) H 09/10/19 Unknown Plt Count 333 K/mm3 (140-440) 09/10/19 Unknown Add Manual Diff Complete 09/10/19 Unknown Total Counted 100 09/10/19 Unknown Seg Neutrophils % Pile Driver Operator Helper 09/10/19 Unknown Seg Neuts % (Manual) 98.0 % (40.0-70.0) H 09/10/19 Unknown Band Neutrophils % 2.0 % 09/10/19 Unknown Lymphocytes % (Manual) 0 % (13.4-35.0) L 09/10/19 Unknown Reactive Lymphs % (Man) 0 % 09/10/19 Unknown Monocytes % (Manual) 0 % (0.0-7.3) 09/10/19 Unknown Eosinophils % (Manual) 0 % (0.0-4.3) 09/10/19 Unknown Basophils % (Manual) 0 % (0.0-1.8) 09/10/19 Unknown Metamyelocytes % 0 % 09/10/19 Unknown Myelocytes % 0 % 09/10/19 Unknown Promyelocytes % 0 % 09/10/19 Unknown Blast Cells % 0 % 09/10/19 Unknown Nucleated RBC % Not Reportable 09/10/19 Unknown Seg Neutrophils # Man 17.1 K/mm3 (1.8-7.7) H 09/10/19 Unknown Band Neutrophils # 0.3 K/mm3 09/10/19 Unknown Lymphocytes # (Manual) 0.0 K/mm3 (1.2-5.4) L 09/10/19 Unknown Abs React Lymphs (Man) 0.0 K/mm3 09/10/19 Unknown Monocytes # (Manual) 0.0 K/mm3 (0.0-0.8) 09/10/19 Unknown Eosinophils # (Manual) 0.0 K/mm3 (0.0-0.4) 09/10/19 Unknown Basophils # (Manual) 0.0 K/mm3 (0.0-0.1) 09/10/19 Unknown Metamyelocytes # 0.0 K/mm3 09/10/19 Unknown Myelocytes # 0.0 K/mm3 09/10/19 Unknown Promyelocytes # 0.0 K/mm3 09/10/19 Unknown Blast Cells # 0.0 K/mm3 09/10/19 Unknown WBC Morphology Not Reportable 09/10/19 Unknown Hypersegmented Neuts Not Reportable 09/10/19 Unknown Hyposegmented Neuts Not Reportable 09/10/19 Unknown Hypogranular Neuts Not Reportable 09/10/19 Unknown Smudge Cells Not Reportable 09/10/19 Unknown Toxic Granulation Not Reportable 09/10/19 Unknown Toxic Vacuolation Not Reportable 09/10/19 Unknown Dohle Bodies Not Reportable 09/10/19 Unknown Pelger-Huet Anomaly Not Reportable 09/10/19 Unknown Phyllis Rods Not Reportable 09/10/19 Unknown Platelet Estimate Consistent w auto 09/10/19 Unknown Clumped Platelets Not Reportable 09/10/19 Unknown Plt Clumps, EDTA Not Reportable 09/10/19 Unknown Large Platelets Not Reportable 09/10/19 Unknown Giant Platelets Not Reportable 09/10/19 Unknown Platelet Satelliting Not Reportable 09/10/19 Unknown Plt Morphology Comment Not Reportable 09/10/19 Unknown RBC Morphology Not Reportable 09/10/19 Unknown Dimorphic RBCs Not Reportable 09/10/19 Unknown Polychromasia Not Reportable 09/10/19 Unknown Hypochromasia 1+ 09/10/19 Unknown Poikilocytosis Not Reportable 09/10/19 Unknown Anisocytosis 1+ 09/10/19 Unknown Microcytosis 1+ 09/10/19 Unknown Macrocytosis Not Reportable 09/10/19 Unknown Spherocytes Not Reportable 09/10/19 Unknown Pappenheimer Bodies Not Reportable 09/10/19 Unknown Sickle Cells Not Reportable 09/10/19 Unknown Target Cells Not Reportable 09/10/19 Unknown Tear Drop Cells Not Reportable 09/10/19 Unknown Ovalocytes Not Reportable 09/10/19 Unknown Helmet Cells Not Reportable 09/10/19 Unknown Fam-Laverne Bodies Not Reportable 09/10/19 Unknown [place] Rings Not Reportable 09/10/19 Unknown Agustina Cells Not Reportable 09/10/19 Unknown Bite Cells Not Reportable 09/10/19 Unknown Crenated Cell Not Reportable 09/10/19 Unknown Elliptocytes Not Reportable 09/10/19 Unknown Acanthocytes (Spur) Not Reportable 09/10/19 Unknown Rouleaux Not Reportable 09/10/19 Unknown Hemoglobin C Crystals Not Reportable 09/10/19 Unknown Schistocytes Not Reportable 09/10/19 Unknown Malaria parasites Not Reportable 09/10/19 Unknown Emmaneul Bodies Not Reportable 09/10/19 Unknown Hem Pathologist Commnt No 09/10/19 Unknown PT 20.5 Sec. (12.2-14.9) H 09/07/19 Unknown INR 1.72 (0.87-1.13) H 09/07/19 Unknown Sodium 142 mmol/L (137-145) 09/10/19 Unknown Potassium 3.8 mmol/L (3.6-5.0) 09/10/19 Unknown Chloride 109.6 mmol/L (98-107) H 09/10/19 Unknown Carbon Dioxide 21 mmol/L (22-30) L 09/10/19 Unknown Anion Gap 15 mmol/L 09/10/19 Unknown BUN 3 mg/dL (7-17) L 09/10/19 Unknown Creatinine 0.5 mg/dL (0.7-1.2) L 09/10/19 Unknown Estimated GFR > 60 ml/min 09/10/19 Unknown BUN/Creatinine Ratio 6 % 09/10/19 Unknown Glucose 134 mg/dL (65-100) H 09/10/19 Unknown Lactic Acid 1.50 mmol/L (0.7-2.0) 09/07/19 Unknown Lactic Acid 4.70 mmol/L (0.7-2.0) H* 09/07/19 Unknown Calcium 6.5 mg/dL (8.4-10.2) L 09/10/19 Unknown Magnesium 1.70 mg/dL (1.7-2.3) 09/09/19 05:50 Total Bilirubin 0.60 mg/dL (0.1-1.2) 09/07/19 Unknown AST 27 units/L (5-40) 09/07/19 Unknown ALT 24 units/L (7-56) 09/07/19 Unknown Alkaline Phosphatase 160 units/L (35-129) H 09/07/19 Unknown Troponin T 0.027 ng/mL (0.00-0.029) 09/07/19 Unknown Total Protein 4.9 g/dL (6.3-8.2) L 09/07/19 Unknown Albumin 1.4 g/dL (3.9-5) L 09/07/19 Unknown Albumin/Globulin Ratio 0.4 % 09/07/19 Unknown Lipase 5 units/L (13-60) L 09/07/19 Unknown Urine Color Yellow (Yellow) 09/07/19 17:56 Urine Turbidity Slightly-cloudy (Clear) 09/07/19 17:56 Urine pH 6.0 (5.0-7.0) 09/07/19 17:56 Ur Specific [place] 1.009 (1.003-1.030) 09/07/19 17:56 Urine Protein <15 mg/dl mg/dL (Negative) 09/07/19 17:56 Urine Glucose (UA) Neg mg/dL (Negative) 09/07/19 17:56 Urine Ketones Neg mg/dL (Negative) 09/07/19 17:56 Urine Blood Neg (Negative) 09/07/19 17:56 Urine Nitrite Pos (Negative) 09/07/19 17:56 Urine Bilirubin Neg (Negative) 09/07/19 17:56 Urine Urobilinogen < 2.0 mg/dL (<2.0) 09/07/19 17:56 Ur Leukocyte Esterase Sm (Negative) 09/07/19 17:56 Urine WBC (Auto) 6.0 /HPF (0.0-6.0) 09/07/19 17:56 Urine RBC (Auto) < 1.0 /HPF (0.0-6.0) 09/07/19 17:56 U Epithel Cells (Auto) < 1.0 /HPF (0-13.0) 09/07/19 17:56 Urine Bacteria (Auto) 2+ /HPF (Negative) 09/07/19 17:56 Blood Type O POSITIVE 09/09/19 11:24 Antibody Screen Negative 09/09/19 11:24 Crossmatch See Detail 09/09/19 11:24 Active Medications - Current Medications Current Medications: Generic Name Dose Route Start Last Admin Trade Name Freq PRN Reason Stop Dose Admin Acetaminophen 650 mg 09/07/19 23:20 Tylenol [place] Q4H PRN Pain MILD(1-3)/Fever >100.5/BUSTILLOS Enoxaparin Sodium 80 mg 09/08/19 10:00 09/10/19 09:05 Enoxaparin SUB-Q 80 mg Q12HR LAMINE Administration Hydrocortisone Sodium Succinate 100 mg 09/08/19 10:00 09/10/19 05:55 Solu-Cortef IV 100 mg Q8HR LAMINE Administration Norepinephrine 4 mg in 250 mls @ 7.5 mls/hr 09/07/19 22:00 09/09/19 14:00 Levophed Drip 4 Mg/Ns 250 Ml IV 0 mcg/min TITR LAMINE 0 mls/hr Titration Protocol 2 MCG/MIN Piperacillin Sod/Tazobactam Sod 4.5 gm in 100 mls @ 200 mls/hr 09/08/19 06:00 09/10/19 05:55 Zosyn/Ns 4.5gm/100ml IV 200 mls/hr Q8HR LAMINE Administration Protocol Potassium Chloride/Sodium Chloride 20 meq in 1,000 mls @ 150 mls/hr 09/08/19 09:00 09/10/19 06:03 Ns/Kcl 20meq IV 150 mls/hr DIRECT LAMINE Administration Ondansetron HCl 4 mg 09/07/19 23:20 Zofran IV Q4H PRN Nausea And Vomiting Pantoprazole Sodium 40 mg 09/09/19 11:00 09/10/19 09:05 Protonix PO 40 mg DAILY LAMINE Administration Sodium Chloride 10 ml 09/08/19 10:00 09/10/19 09:05 Sodium Chloride Flush Syringe 10 Ml IV 10 ml BID LAMINE Administration Sodium Chloride 10 ml 09/07/19 23:20 Sodium Chloride Flush Syringe 10 Ml IV PRN PRN LINE FLUSH Nutrition/Malnutrition Assess - Dietary Evaluation Nutrition/Malnutrition Findings: Nutrition Notes Start: 09/08/19 11:13 Freq: Status: Active Protocol: Document 09/10/19 09:55 MK (Rec: 09/10/19 10:08 [id number]) Co-Sign 09/10/19 09:55 LP Nutrition Notes Initial or Follow up Reassessment Current Diagnosis Sepsis Other Pertinent Diagnosis Hx DVT, colitis, IBD, abd pain , diverticulitis, wounds, leukocytosis Current Diet Cl Liquid Labs/Tests BUN 3 Cr 0.5 Pertinent Medications NSKCl 150 ml/hr Height 5 ft 2 in Weight 83.1 kg [place] Body Weight (kg) 50.00 BMI 33.5 Intake Prior to Admission Poor Weight Status Obese Subjective/Other Information FU for diet advancement. Pt tolerating Ensure Clear and eating 100% of meals. Percent of energy/protein needs met: 70%/36% Burn Absent Trauma Absent GI Symptoms None Current % PO Good (75-100%) Minimum of two criteria Yes Energy Intake (non-severe) <75% Estimated Energy Requirement >7 days Interpretation of Weight Loss (severe) >7.5% in 3 months #1 Nutrition Diagnosis Malnutrition Diagnosis Progress(for reassessment Continues documentation) Is patient on ventilator? No Is Patient Ambulatory and/or Out of Bed No REE-([facility]-confined to bed) [phone] Calculation Used for Recommendations [facility] Additional Notes Protein needs: 89-111 g/day (1 .2-1.5 g/kg/day) Fluid needs: 1 ml/kcal Nutrition Intervention Change Diet Order: Advance diet when medically feasible Add Supplement/Snack (indicate name/kcal Ensure Clear BID /protein ) Provides kCal: 480 Provides Protein (gm) 16 Goal #1 Diet advancement Goal #2 Meet needs as best as possible via Cl Liq diet Anticipated Discharge Needs: unable to determine at this time Follow-Up By: 09/14/19 Additional Comments FU for diet advancement and intakes
[2019-09-11] MEDS: PIPERACIL/TAZOBACTA 4.5/NS 100 4.5 GM/100 ML VIAL IV SCH ×4 (00:01→21:36)
[2019-09-11] MEDS: HYDROCORTISONE SOD SUCC 100 MG/2 ML VIAL IV SCH ×4 (00:01→21:36)
[2019-09-11] MEDS: NACL 0.9%/KCL 20 MEQ 20 MEQ/1,000 ML BAG IV SCH ×3 (00:02→18:55)
[2019-09-11] MEDS: ENOXAPARIN 80 MG/0.8 ML INJ SUB-Q SCH ×3 (00:04→21:36)
--- NOTE | 2019-09-11 10:34 | Progress Note ---
Assessment and Plan 59 y/o lady with some form of inflammatory bowel disease admitted with hypotension, elevated white count and abdominal pain. Concern for sepsis but also relative adrenal insufficiency from lack of steroid. 1. Suggest changing steroids to prednisone. Can ask GI what dose would be needed for Inflammatory bowel disease. Patient may have been tapered to fast or did do the taper properly 2. Follow up surgery recs 3. From a critical care standpoint, stable. Will sign off Subjective Date of service: 09/11/19 Interval history: Successful transfer out of unit. Stable pulm status. Objective - Constitutional Vitals: Vital Signs - 12hr 09/10/19 09/11/19 23:27 05:59 Temperature 97.4 F L 97.7 F Pulse Rate 79 82 Respiratory 16 15 Rate Blood Pressure 93/69 81/44 O2 Sat by Pulse 100 94 Oximetry - Labs CBC & Chem 7: 09/10/19 Unknown 09/10/19 Unknown Labs: Abnormal lab results 09/09/19 Range/Units 11:24 Crossmatch See Detail Medications & Allergies - Medications Allergies/Adverse Reactions: Allergies No Known Allergies Allergy (Unverified 09/07/19 17:26) Home Medications: Home Medications Medication Instructions Recorded Confirmed Last Taken Type Deltasone 10 mg PO DAILY 09/08/19 09/08/19 Unknown History Ferrous Sulfate 325 mg PO DAILY 09/08/19 09/08/19 Unknown History L. Rhamnosus/C/Zinc Cit/Yeast 1 cap PO DAILY 09/08/19 09/08/19 Unknown History Lasix TAB 20 mg PO BID 09/08/19 09/08/19 Unknown History Mag-Ox 400 mg PO BID 09/08/19 09/08/19 Unknown History Pantoprazole 20 mg PO DAILY 09/08/19 09/08/19 Unknown History Pradaxa 150 mg PO BID 09/08/19 09/08/19 Unknown History Active Medications: Generic Name Dose Route Start Last Admin Trade Name Freq PRN Reason Stop Dose Admin Acetaminophen 650 mg 09/07/19 23:20 Tylenol [place] Q4H PRN Pain MILD(1-3)/Fever >100.5/BUSTILLOS Enoxaparin Sodium 80 mg 09/08/19 10:00 09/11/19 00:04 Enoxaparin SUB-Q 80 mg Q12HR LAMINE Administration Hydrocortisone Sodium Succinate 100 mg 09/08/19 10:00 09/11/19 05:41 Solu-Cortef IV 100 mg Q8HR LAMINE Administration Piperacillin Sod/Tazobactam Sod 4.5 gm in 100 mls @ 200 mls/hr 09/08/19 06:00 09/11/19 05:49 Zosyn/Ns 4.5gm/100ml IV 200 mls/hr Q8HR LAMINE Administration Protocol Potassium Chloride/Sodium Chloride 20 meq in 1,000 mls @ 150 mls/hr 09/08/19 09:00 09/11/19 00:02 Ns/Kcl 20meq IV 150 mls/hr DIRECT LAMINE Administration Ondansetron HCl 4 mg 09/07/19 23:20 Zofran IV Q4H PRN Nausea And Vomiting Pantoprazole Sodium 40 mg 09/09/19 11:00 09/10/19 09:05 Protonix PO 40 mg DAILY LAMINE Administration Sodium Chloride 10 ml 09/08/19 10:00 09/11/19 00:02 Sodium Chloride Flush Syringe 10 Ml IV 10 ml BID LAMINE Administration Sodium Chloride 10 ml 09/07/19 23:20 Sodium Chloride Flush Syringe 10 Ml IV PRN PRN LINE FLUSH
[2019-09-11 10:35] LABS: Hematocrit 30.4 % (30.3-42.9); Hemoglobin 9.2 gm/dl (10.1-14.3); Mean Corpuscular HGB Conc 30 % (30-34); Mean Corpuscular Volume 88 fl (79-97); Platelet Count 351 K/mm3 (140-440); Red Blood Count 3.46 M/mm3 (3.65-5.03)
[2019-09-11 10:41] LABS: Red Cell Distribution Width 22.5 % (13.2-15.2)
[2019-09-11] MEDS: PANTOPRAZOLE 40 MG TAB PO SCH (11:00)
[2019-09-11 11:03] LABS: BUN/Creatinine Ratio 4; Blood Urea Nitrogen 2 mg/dL (7-17); Calcium 6.8 mg/dL (8.4-10.2); Hemolysis Index 57
[2019-09-11 12:16] LABS: Anisocytosis 1+; Band Neutrophils # (Manual) 0.2 K/mm3; Basophils % (Manual) 0 % (0.0-1.8); Eosinophils % (Manual) 0 % (0.0-4.3); Monocytes % (Manual) 0 % (0.0-7.3); Total Cells Counted 100
[2019-09-11 12:17] LABS: Hypochromasia Few; Platelet Estimate Consistent w Auto; Target Cells Few
--- NOTE | 2019-09-11 17:14 | Progress Note ---
Assessment and Plan - Patient Problems (1) Peritoneal cavity free air Current Visit: Yes Status: Acute Plan to address problem: Patient appears improved. Pain has essentially resolved. Exam is much improved. From the other progress notes, it appears as though she has ulcerative colitis. This localized collection of free air may be secondary to a ulcerative colitis associated perforation. However, this is usually seen in the setting of toxic megacolon or an episode of severe inflammation. In addition, the perforation usually results in generalized peritonitis which would mandate immediate surgical intervention. None of this is present in this case. As she is showing signs of improvement, we will continue with conservative management. We will go ahead and rescan her tomorrow to check if an abscess has developed. If so, then may need IR to drain it. If not, may be able to be discharged home on a liquid diet for now. Would get ID's opinion on abx at home. She reports that even taking in a liquid diet causes her pain. This would have to improve before her diet could be advanced. For the near future, she should follow-up with a colorectal surgeon for consideration of proctocolectomy to address her ulcerative colitis. Please call with questions. time=10min Subjective Date of service: 09/11/19 Patient Reports: Positive: no new complaints, pain is less (a little bit), tolerating liquids well, bowel movement. Negative: blood in stool, nausea Objective Vital Signs - 12hr 09/11/19 09/11/19 09/11/19 05:59 10:00 12:56 Temperature 97.7 F 97.8 F Pulse Rate 82 85 Pulse Rate [ 87 Left Apical] Respiratory 15 15 18 Rate Blood Pressure 81/44 105/52 O2 Sat by Pulse 94 99 100 Oximetry - General physical appearance no distress, no pain, other (looks better) - Respiratory normal expansion, normal respiratory effort - Abdomen soft, not tender, not distended, not guarding, not rigid - Psychiatric oriented to time, oriented to person, oriented to place, speech is normal, memory intact - Labs 09/11/19 09:39 09/11/19 09:39 Diabetes panel 09/11/19 Range/Units 09:39 Sodium 140 (137-145) mmol/L Potassium 3.7 (3.6-5.0) mmol/L Chloride 109.1 H (98-107) mmol/L Carbon Dioxide 16 L (22-30) mmol/L BUN 2 L (7-17) mg/dL Creatinine 0.5 L (0.7-1.2) mg/dL Glucose 137 H (65-100) mg/dL Calcium 6.8 L (8.4-10.2) mg/dL Calcium panel 09/11/19 Range/Units 09:39 Calcium 6.8 L (8.4-10.2) mg/dL Phosphorus 1.30 L (2.5-4.5) mg/dL Pituitary panel 09/11/19 Range/Units 09:39 Sodium 140 (137-145) mmol/L Potassium 3.7 (3.6-5.0) mmol/L Chloride 109.1 H (98-107) mmol/L Carbon Dioxide 16 L (22-30) mmol/L BUN 2 L (7-17) mg/dL Creatinine 0.5 L (0.7-1.2) mg/dL Glucose 137 H (65-100) mg/dL Calcium 6.8 L (8.4-10.2) mg/dL Adrenal panel 09/11/19 Range/Units 09:39 Sodium 140 (137-145) mmol/L Potassium 3.7 (3.6-5.0) mmol/L Chloride 109.1 H (98-107) mmol/L Carbon Dioxide 16 L (22-30) mmol/L BUN 2 L (7-17) mg/dL Creatinine 0.5 L (0.7-1.2) mg/dL Glucose 137 H (65-100) mg/dL Calcium 6.8 L (8.4-10.2) mg/dL
--- NOTE | 2019-09-11 20:57 | Progress Note ---
Assessment and Plan Assessment and plan: Patient feels slightly better diet advanced to full liquids, Discussed with surgeon Dr. Galicia, continue full liquid diet Repeat CT abdomen and pelvis tomorrow morning And plan for discharge if negative --Hypokalemia; corrected --Hyponatremia; resolved --Leukocytosis; secondary to sepsis, Trending down --Septic shock; resolved s/p vasopressors, Levophed --Sepsis ;Surgery following No evidence of diverticulitis/abscess Symptoms significantly improved Continue IV fluid, Zosyn, follow cultures full liquids today, advance as tolerated --History of bilateral DVT; on full dose Lovenox 1 mg/kg every 12 hours DC femoral line after securing, good IV access --Severe malnutrition/hypoalbuminemia; Due to underlying disease process, nutrition supplements --DVT prophylaxis: SCD, on Lovenox --Full code status Consults recommendations noted and appreciated Closely monitor the patient and adjust management as needed Plan of care reviewed with the patient family member at the bedside The nurse and the case management Disposition; follow clinically, advance diet as tolerated Physical therapy evaluation, follow CT abdomen and pelvis discharge when medically stable. History Interval history: Patient seen and examined at the bedside Patient charts and other records reviewed Patient feels slightly better tolerating full liquid diet Alert awake oriented. Not in distress Vital signs reviewed Hospitalist Physical - Constitutional Vitals: Temp Pulse Resp BP Pulse Ox 97.4 F L 80 16 117/61 100 09/11/19 16:34 09/11/19 16:34 09/11/19 16:34 09/11/19 16:34 09/11/19 16:34 General appearance: Present: no acute distress, well-nourished - EENT Eyes: Present: PERRL, EOM intact - Neck Neck: Present: supple, normal ROM - Respiratory Respiratory effort: normal Respiratory: bilateral: diminished, negative: rales, rhonchi, wheezing - Cardiovascular Rhythm: regular Heart Sounds: Present: S1 & S2 - Extremities Extremities: no ischemia, No edema - Abdominal General gastrointestinal: soft, non-tender, non-distended, normal bowel sounds - Integumentary Integumentary: Present: clear, warm - Psychiatric Psychiatric: appropriate mood/affect, cooperative - Neurologic Neurologic: moves all extremities Results - Labs CBC & Chem 7: 09/11/19 09:39 09/11/19 09:39 Labs: Laboratory Last Values WBC 16.9 K/mm3 (4.5-11.0) H 09/11/19 09:39 RBC 3.46 M/mm3 (3.65-5.03) L 09/11/19 09:39 Hgb 9.2 gm/dl (10.1-14.3) L 09/11/19 09:39 Hct 30.4 % (30.3-42.9) 09/11/19 09:39 MCV 88 fl (79-97) 09/11/19 09:39 MCH 27 pg (28-32) L 09/11/19 09:39 MCHC 30 % (30-34) 09/11/19 09:39 RDW 22.5 % (13.2-15.2) H 09/11/19 09:39 Plt Count 351 K/mm3 (140-440) 09/11/19 09:39 Add Manual Diff Complete 09/11/19 09:39 Total Counted 100 09/11/19 09:39 Seg Neutrophils % Toy Department Manager 09/11/19 09:39 Seg Neuts % (Manual) 98.0 % (40.0-70.0) H 09/11/19 09:39 Band Neutrophils % 1.0 % 09/11/19 09:39 Lymphocytes % (Manual) 1.0 % (13.4-35.0) L 09/11/19 09:39 Reactive Lymphs % (Man) 0 % 09/11/19 09:39 Monocytes % (Manual) 0 % (0.0-7.3) 09/11/19 09:39 Eosinophils % (Manual) 0 % (0.0-4.3) 09/11/19 09:39 Basophils % (Manual) 0 % (0.0-1.8) 09/11/19 09:39 Metamyelocytes % 0 % 09/11/19 09:39 Myelocytes % 0 % 09/11/19 09:39 Promyelocytes % 0 % 09/11/19 09:39 Blast Cells % 0 % 09/11/19 09:39 Nucleated RBC % Not Reportable 09/11/19 09:39 Seg Neutrophils # Man 16.6 K/mm3 (1.8-7.7) H 09/11/19 09:39 Band Neutrophils # 0.2 K/mm3 09/11/19 09:39 Lymphocytes # (Manual) 0.2 K/mm3 (1.2-5.4) L 09/11/19 09:39 Abs React Lymphs (Man) 0.0 K/mm3 09/11/19 09:39 Monocytes # (Manual) 0.0 K/mm3 (0.0-0.8) 09/11/19 09:39 Eosinophils # (Manual) 0.0 K/mm3 (0.0-0.4) 09/11/19 09:39 Basophils # (Manual) 0.0 K/mm3 (0.0-0.1) 09/11/19 09:39 Metamyelocytes # 0.0 K/mm3 09/11/19 09:39 Myelocytes # 0.0 K/mm3 09/11/19 09:39 Promyelocytes # 0.0 K/mm3 09/11/19 09:39 Blast Cells # 0.0 K/mm3 09/11/19 09:39 WBC Morphology Not Reportable 09/11/19 09:39 Hypersegmented Neuts Not Reportable 09/11/19 09:39 Hyposegmented Neuts Not Reportable 09/11/19 09:39 Hypogranular Neuts Not Reportable 09/11/19 09:39 Smudge Cells Not Reportable 09/11/19 09:39 Toxic Granulation Not Reportable 09/11/19 09:39 Toxic Vacuolation Not Reportable 09/11/19 09:39 Dohle Bodies Not Reportable 09/11/19 09:39 Pelger-Huet Anomaly Not Reportable 09/11/19 09:39 Phyllis Rods Not Reportable 09/11/19 09:39 Platelet Estimate Consistent w auto 09/11/19 09:39 Clumped Platelets Not Reportable 09/11/19 09:39 Plt Clumps, EDTA Not Reportable 09/11/19 09:39 Large Platelets Not Reportable 09/11/19 09:39 Giant Platelets Not Reportable 09/11/19 09:39 Platelet Satelliting Not Reportable 09/11/19 09:39 Plt Morphology Comment Not Reportable 09/11/19 09:39 RBC Morphology Not Reportable 09/11/19 09:39 Dimorphic RBCs Not Reportable 09/11/19 09:39 Polychromasia Not Reportable 09/11/19 09:39 Hypochromasia Few 09/11/19 09:39 Poikilocytosis Not Reportable 09/11/19 09:39 Anisocytosis 1+ 09/11/19 09:39 Microcytosis Few 09/11/19 09:39 Macrocytosis Not Reportable 09/11/19 09:39 Spherocytes Not Reportable 09/11/19 09:39 Pappenheimer Bodies Not Reportable 09/11/19 09:39 Sickle Cells Not Reportable 09/11/19 09:39 Target Cells Few 09/11/19 09:39 Tear Drop Cells Not Reportable 09/11/19 09:39 Ovalocytes Not Reportable 09/11/19 09:39 Helmet Cells Not Reportable 09/11/19 09:39 Fam-[place] Bodies Not Reportable 09/11/19 09:39 [place] Rings Not Reportable 09/11/19 09:39 [place] Cells Not Reportable 09/11/19 09:39 Bite Cells Not Reportable 09/11/19 09:39 Crenated Cell Not Reportable 09/11/19 09:39 Elliptocytes Not Reportable 09/11/19 09:39 Acanthocytes (Spur) Not Reportable 09/11/19 09:39 Rouleaux Not Reportable 09/11/19 09:39 Hemoglobin C Crystals Not Reportable 09/11/19 09:39 Schistocytes Not Reportable 09/11/19 09:39 Malaria parasites Not Reportable 09/11/19 09:39 [place] Bodies Not Reportable 09/11/19 09:39 Hem Pathologist Commnt No 09/11/19 09:39 PT 20.5 Sec. (12.2-14.9) H 09/07/19 Unknown INR 1.72 (0.87-1.13) H 09/07/19 Unknown Sodium 140 mmol/L (137-145) 09/11/19 09:39 Potassium 3.7 mmol/L (3.6-5.0) 09/11/19 09:39 Chloride 109.1 mmol/L (98-107) H 09/11/19 09:39 Carbon Dioxide 16 mmol/L (22-30) L 09/11/19 09:39 Anion Gap 19 mmol/L 09/11/19 09:39 BUN 2 mg/dL (7-17) L 09/11/19 09:39 Creatinine 0.5 mg/dL (0.7-1.2) L 09/11/19 09:39 Estimated GFR > 60 ml/min 09/11/19 09:39 BUN/Creatinine Ratio 4 % 09/11/19 09:39 Glucose 137 mg/dL (65-100) H 09/11/19 09:39 Lactic Acid 1.50 mmol/L (0.7-2.0) 09/07/19 Unknown Lactic Acid 4.70 mmol/L (0.7-2.0) H* 09/07/19 Unknown Calcium 6.8 mg/dL (8.4-10.2) L 09/11/19 09:39 Phosphorus 1.30 mg/dL (2.5-4.5) L 09/11/19 09:39 Magnesium 2.00 mg/dL (1.7-2.3) 09/11/19 09:39 Total Bilirubin 0.60 mg/dL (0.1-1.2) 09/07/19 Unknown AST 27 units/L (5-40) 09/07/19 Unknown ALT 24 units/L (7-56) 09/07/19 Unknown Alkaline Phosphatase 160 units/L (35-129) H 09/07/19 Unknown Troponin T 0.027 ng/mL (0.00-0.029) 09/07/19 Unknown Total Protein 4.9 g/dL (6.3-8.2) L 09/07/19 Unknown Albumin 1.4 g/dL (3.9-5) L 09/07/19 Unknown Albumin/Globulin Ratio 0.4 % 09/07/19 Unknown Lipase 5 units/L (13-60) L 09/07/19 Unknown Urine Color Yellow (Yellow) 09/07/19 17:56 Urine Turbidity Slightly-cloudy (Clear) 09/07/19 17:56 Urine pH 6.0 (5.0-7.0) 09/07/19 17:56 Ur Specific [place] 1.009 (1.003-1.030) 09/07/19 17:56 Urine Protein <15 mg/dl mg/dL (Negative) 09/07/19 17:56 Urine Glucose (UA) Neg mg/dL (Negative) 09/07/19 17:56 Urine Ketones Neg mg/dL (Negative) 09/07/19 17:56 Urine Blood Neg (Negative) 09/07/19 17:56 Urine Nitrite Pos (Negative) 09/07/19 17:56 Urine Bilirubin Neg (Negative) 09/07/19 17:56 Urine Urobilinogen < 2.0 mg/dL (<2.0) 09/07/19 17:56 Ur Leukocyte Esterase Sm (Negative) 09/07/19 17:56 Urine WBC (Auto) 6.0 /HPF (0.0-6.0) 09/07/19 17:56 Urine RBC (Auto) < 1.0 /HPF (0.0-6.0) 09/07/19 17:56 U Epithel Cells (Auto) < 1.0 /HPF (0-13.0) 09/07/19 17:56 Urine Bacteria (Auto) 2+ /HPF (Negative) 09/07/19 17:56 Blood Type O POSITIVE 09/09/19 11:24 Antibody Screen Negative 09/09/19 11:24 Crossmatch See Detail 09/09/19 11:24 Active Medications - Current Medications Current Medications: Generic Name Dose Route Start Last Admin Trade Name Freq PRN Reason Stop Dose Admin Acetaminophen 650 mg 09/07/19 23:20 Tylenol [place] Q4H PRN Pain MILD(1-3)/Fever >100.5/BUSTILLOS Enoxaparin Sodium 80 mg 09/08/19 10:00 09/11/19 11:15 Enoxaparin SUB-Q 80 mg Q12HR LAMINE Administration Hydrocortisone Sodium Succinate 100 mg 09/08/19 10:00 09/11/19 14:03 Solu-Cortef IV 100 mg Q8HR LAMINE Administration Piperacillin Sod/Tazobactam Sod 4.5 gm in 100 mls @ 200 mls/hr 09/08/19 06:00 09/11/19 14:03 Zosyn/Ns 4.5gm/100ml IV 200 mls/hr Q8HR LAMINE Administration Protocol Potassium Chloride/Sodium Chloride 20 meq in 1,000 mls @ 150 mls/hr 09/08/19 09:00 09/11/19 18:55 Ns/Kcl 20meq IV 150 mls/hr DIRECT LAMINE Administration Ondansetron HCl 4 mg 09/07/19 23:20 Zofran IV Q4H PRN Nausea And Vomiting Pantoprazole Sodium 40 mg 09/09/19 11:00 09/11/19 11:00 Protonix PO 40 mg DAILY LAMINE Administration Sodium Chloride 10 ml 09/08/19 10:00 09/11/19 11:20 Sodium Chloride Flush Syringe 10 Ml IV 10 ml BID LAMINE Administration Sodium Chloride 10 ml 09/07/19 23:20 Sodium Chloride Flush Syringe 10 Ml IV PRN PRN LINE FLUSH Nutrition/Malnutrition Assess - Dietary Evaluation Nutrition/Malnutrition Findings: Nutrition Notes Start: 09/08/19 11:13 Freq: Status: Active Protocol: Document 09/10/19 09:55 MK (Rec: 09/10/19 10:08 MK [id number]) Co-Sign 09/10/19 09:55 LP Nutrition Notes Initial or Follow up Reassessment Current Diagnosis Sepsis Other Pertinent Diagnosis Hx DVT, colitis, IBD, abd pain , diverticulitis, wounds, leukocytosis Current Diet Full Liquid Labs/Tests BUN 3 Cr 0.5 Pertinent Medications NSKCl 150 ml/hr Height 5 ft 2 in Weight 83.1 kg [place] Body Weight (kg) 50.00 BMI 33.5 Intake Prior to Admission Poor Weight change and time frame Reweighed pt. Wt change likely to bedscale error. Weight Status Obese Subjective/Other Information FU for diet advancement. Pt tolerating Ensure Clear and eating 100% of meals. Percent of energy/protein needs met: 70%/36% Burn Absent Trauma Absent GI Symptoms None Current % PO Good (75-100%) Minimum of two criteria Yes Energy Intake (non-severe) <75% Estimated Energy Requirement >7 days Interpretation of Weight Loss (severe) >7.5% in 3 months #1 Nutrition Diagnosis Malnutrition Diagnosis Progress(for reassessment Continues documentation) Is patient on ventilator? No Is Patient Ambulatory and/or Out of Bed No [facility] [phone] Calculation Used for Recommendations [facility] Additional Notes Protein needs: 89-111 g/day (1 .2-1.5 g/kg/day) Fluid needs: 1 ml/kcal Nutrition Intervention Change Diet Order: Advance diet when medically feasible Add Supplement/Snack (indicate name/kcal Ensure Clear BID /protein ) Provides kCal: 480 Provides Protein (gm) 16 Goal #1 Diet advancement Goal #2 Meet needs as best as possible via full liquid diet Anticipated Discharge Needs: unable to determine at this time Follow-Up By: 09/15/19 Additional Comments FU for diet advancement and intakes
[2019-09-12] MEDS: NACL 0.9%/KCL 20 MEQ 20 MEQ/1,000 ML BAG IV SCH ×3 (02:21→23:22)
[2019-09-12] MEDS: HYDROCORTISONE SOD SUCC 100 MG/2 ML VIAL IV SCH ×3 (05:55→22:43)
[2019-09-12] MEDS: PIPERACIL/TAZOBACTA 4.5/NS 100 4.5 GM/100 ML VIAL IV SCH ×3 (05:55→22:41)
[2019-09-12] MEDS ORDERED: SODIUM CHLORIDE 0.9% 500 ML 500 ML IV ONE ×2 (06:59→08:15)
[2019-09-12] MEDS: ENOXAPARIN 80 MG/0.8 ML INJ SUB-Q SCH ×2 (09:17→10:44)
--- NOTE | 2019-09-12 10:46 | Progress Note ---
Assessment and Plan Assessment and plan: --Rectal bleeding this morning; Probably diverticular, n.p.o. status H&H, GI consult, hold Lovenox --Sepsis ;Surgery following No evidence of diverticulitis/abscess Symptoms significantly improved Continue IV fluid, Zosyn, follow cultures full liquids today, advance as tolerated --History of bilateral DVT; hold Lovenox due to rectal bleeding Consider IVC filter placement when stable --Hypokalemia; corrected --Hyponatremia; resolved --Leukocytosis; secondary to sepsis, Trending down --Septic shock; resolved s/p vasopressors, Levophed --Severe malnutrition/hypoalbuminemia; Due to underlying disease process, nutrition supplements --DVT prophylaxis: SCD, on Lovenox --Full code status Closely monitor the patient and adjust management as needed Plan of care reviewed with the patient and her at the bedside Disposition; follow GI and surgery recommendations Follow CT abdomen and pelvis, adjust management Discharge when medically stable History Interval history: Patient seen and examined at bedside this morning Patient complains of some bright red blood per rectum this morning No hematemesis, On full liquid diet She is scheduled for follow-up CT abdomen and pelvis vital signs reviewed Hospitalist Physical - Constitutional Vitals: Temp Pulse Resp BP Pulse Ox 97.5 F L 86 16 130/78 100 09/12/19 06:31 09/12/19 10:15 09/12/19 06:31 09/12/19 10:15 09/12/19 06:31 General appearance: Present: no acute distress, well-nourished - EENT Eyes: Present: PERRL, EOM intact - Neck Neck: Present: supple, normal ROM - Respiratory Respiratory effort: normal Respiratory: bilateral: diminished, negative: rales, rhonchi, wheezing - Cardiovascular Rhythm: regular Heart Sounds: Present: S1 & S2 - Extremities Extremities: no ischemia, No edema - Abdominal General gastrointestinal: soft, non-tender, non-distended, normal bowel sounds - Integumentary Integumentary: Present: clear, warm - Psychiatric Psychiatric: appropriate mood/affect, cooperative - Neurologic Neurologic: CNII-XII intact, moves all extremities Results - Labs CBC & Chem 7: 09/11/19 09:39 09/11/19 09:39 Labs: Laboratory Last Values WBC 16.9 K/mm3 (4.5-11.0) H 09/11/19 09:39 RBC 3.46 M/mm3 (3.65-5.03) L 09/11/19 09:39 Hgb 9.2 gm/dl (10.1-14.3) L 09/11/19 09:39 Hct 30.4 % (30.3-42.9) 09/11/19 09:39 MCV 88 fl (79-97) 09/11/19 09:39 MCH 27 pg (28-32) L 09/11/19 09:39 MCHC 30 % (30-34) 09/11/19 09:39 RDW 22.5 % (13.2-15.2) H 09/11/19 09:39 Plt Count 351 K/mm3 (140-440) 09/11/19 09:39 Add Manual Diff Complete 09/11/19 09:39 Total Counted 100 09/11/19 09:39 Seg Neutrophils % Public Health Aide 09/11/19 09:39 Seg Neuts % (Manual) 98.0 % (40.0-70.0) H 09/11/19 09:39 Band Neutrophils % 1.0 % 09/11/19 09:39 Lymphocytes % (Manual) 1.0 % (13.4-35.0) L 09/11/19 09:39 Reactive Lymphs % (Man) 0 % 09/11/19 09:39 Monocytes % (Manual) 0 % (0.0-7.3) 09/11/19 09:39 Eosinophils % (Manual) 0 % (0.0-4.3) 09/11/19 09:39 Basophils % (Manual) 0 % (0.0-1.8) 09/11/19 09:39 Metamyelocytes % 0 % 09/11/19 09:39 Myelocytes % 0 % 09/11/19 09:39 Promyelocytes % 0 % 09/11/19 09:39 Blast Cells % 0 % 09/11/19 09:39 Nucleated RBC % Not Reportable 09/11/19 09:39 Seg Neutrophils # Man 16.6 K/mm3 (1.8-7.7) H 09/11/19 09:39 Band Neutrophils # 0.2 K/mm3 09/11/19 09:39 Lymphocytes # (Manual) 0.2 K/mm3 (1.2-5.4) L 09/11/19 09:39 Abs React Lymphs (Man) 0.0 K/mm3 09/11/19 09:39 Monocytes # (Manual) 0.0 K/mm3 (0.0-0.8) 09/11/19 09:39 Eosinophils # (Manual) 0.0 K/mm3 (0.0-0.4) 09/11/19 09:39 Basophils # (Manual) 0.0 K/mm3 (0.0-0.1) 09/11/19 09:39 Metamyelocytes # 0.0 K/mm3 09/11/19 09:39 Myelocytes # 0.0 K/mm3 09/11/19 09:39 Promyelocytes # 0.0 K/mm3 09/11/19 09:39 Blast Cells # 0.0 K/mm3 09/11/19 09:39 WBC Morphology Not Reportable 09/11/19 09:39 Hypersegmented Neuts Not Reportable 09/11/19 09:39 Hyposegmented Neuts Not Reportable 09/11/19 09:39 Hypogranular Neuts Not Reportable 09/11/19 09:39 Smudge Cells Not Reportable 09/11/19 09:39 Toxic Granulation Not Reportable 09/11/19 09:39 Toxic Vacuolation Not Reportable 09/11/19 09:39 Dohle Bodies Not Reportable 09/11/19 09:39 Pelger-Huet Anomaly Not Reportable 09/11/19 09:39 Phyllis Rods Not Reportable 09/11/19 09:39 Platelet Estimate Consistent w auto 09/11/19 09:39 Clumped Platelets Not Reportable 09/11/19 09:39 Plt Clumps, EDTA Not Reportable 09/11/19 09:39 Large Platelets Not Reportable 09/11/19 09:39 Giant Platelets Not Reportable 09/11/19 09:39 Platelet Satelliting Not Reportable 09/11/19 09:39 Plt Morphology Comment Not Reportable 09/11/19 09:39 RBC Morphology Not Reportable 09/11/19 09:39 Dimorphic RBCs Not Reportable 09/11/19 09:39 Polychromasia Not Reportable 09/11/19 09:39 Hypochromasia Few 09/11/19 09:39 Poikilocytosis Not Reportable 09/11/19 09:39 Anisocytosis 1+ 09/11/19 09:39 Microcytosis Few 09/11/19 09:39 Macrocytosis Not Reportable 09/11/19 09:39 Spherocytes Not Reportable 09/11/19 09:39 Pappenheimer Bodies Not Reportable 09/11/19 09:39 Sickle Cells Not Reportable 09/11/19 09:39 Target Cells Few 09/11/19 09:39 Tear Drop Cells Not Reportable 09/11/19 09:39 Ovalocytes Not Reportable 09/11/19 09:39 Helmet Cells Not Reportable 09/11/19 09:39 Fam-[place] Bodies Not Reportable 09/11/19 09:39 [place] Rings Not Reportable 09/11/19 09:39 [place] Cells Not Reportable 09/11/19 09:39 Bite Cells Not Reportable 09/11/19 09:39 Crenated Cell Not Reportable 09/11/19 09:39 Elliptocytes Not Reportable 09/11/19 09:39 Acanthocytes (Spur) Not Reportable 09/11/19 09:39 Rouleaux Not Reportable 09/11/19 09:39 Hemoglobin C Crystals Not Reportable 09/11/19 09:39 Schistocytes Not Reportable 09/11/19 09:39 Malaria parasites Not Reportable 09/11/19 09:39 [place] Bodies Not Reportable 09/11/19 09:39 Hem Pathologist Commnt No 09/11/19 09:39 PT 20.5 Sec. (12.2-14.9) H 09/07/19 Unknown INR 1.72 (0.87-1.13) H 09/07/19 Unknown Sodium 140 mmol/L (137-145) 09/11/19 09:39 Potassium 3.7 mmol/L (3.6-5.0) 09/11/19 09:39 Chloride 109.1 mmol/L (98-107) H 09/11/19 09:39 Carbon Dioxide 16 mmol/L (22-30) L 09/11/19 09:39 Anion Gap 19 mmol/L 09/11/19 09:39 BUN 2 mg/dL (7-17) L 09/11/19 09:39 Creatinine 0.5 mg/dL (0.7-1.2) L 09/11/19 09:39 Estimated GFR > 60 ml/min 09/11/19 09:39 BUN/Creatinine Ratio 4 % 09/11/19 09:39 Glucose 137 mg/dL (65-100) H 09/11/19 09:39 Lactic Acid 1.50 mmol/L (0.7-2.0) 09/07/19 Unknown Lactic Acid 4.70 mmol/L (0.7-2.0) H* 09/07/19 Unknown Calcium 6.8 mg/dL (8.4-10.2) L 09/11/19 09:39 Phosphorus 1.30 mg/dL (2.5-4.5) L 09/11/19 09:39 Magnesium 2.00 mg/dL (1.7-2.3) 09/11/19 09:39 Total Bilirubin 0.60 mg/dL (0.1-1.2) 09/07/19 Unknown AST 27 units/L (5-40) 09/07/19 Unknown ALT 24 units/L (7-56) 09/07/19 Unknown Alkaline Phosphatase 160 units/L (35-129) H 09/07/19 Unknown Troponin T 0.027 ng/mL (0.00-0.029) 09/07/19 Unknown Total Protein 4.9 g/dL (6.3-8.2) L 09/07/19 Unknown Albumin 1.4 g/dL (3.9-5) L 09/07/19 Unknown Albumin/Globulin Ratio 0.4 % 09/07/19 Unknown Lipase 5 units/L (13-60) L 09/07/19 Unknown Urine Color Yellow (Yellow) 09/07/19 17:56 Urine Turbidity Slightly-cloudy (Clear) 09/07/19 17:56 Urine pH 6.0 (5.0-7.0) 09/07/19 17:56 Ur Specific [place] 1.009 (1.003-1.030) 09/07/19 17:56 Urine Protein <15 mg/dl mg/dL (Negative) 09/07/19 17:56 Urine Glucose (UA) Neg mg/dL (Negative) 09/07/19 17:56 Urine Ketones Neg mg/dL (Negative) 09/07/19 17:56 Urine Blood Neg (Negative) 09/07/19 17:56 Urine Nitrite Pos (Negative) 09/07/19 17:56 Urine Bilirubin Neg (Negative) 09/07/19 17:56 Urine Urobilinogen < 2.0 mg/dL (<2.0) 09/07/19 17:56 Ur Leukocyte Esterase Sm (Negative) 09/07/19 17:56 Urine WBC (Auto) 6.0 /HPF (0.0-6.0) 09/07/19 17:56 Urine RBC (Auto) < 1.0 /HPF (0.0-6.0) 09/07/19 17:56 U Epithel Cells (Auto) < 1.0 /HPF (0-13.0) 09/07/19 17:56 Urine Bacteria (Auto) 2+ /HPF (Negative) 09/07/19 17:56 Blood Type O POSITIVE 09/09/19 11:24 Antibody Screen Negative 09/09/19 11:24 Crossmatch See Detail 09/09/19 11:24 Active Medications - Current Medications Current Medications: Generic Name Dose Route Start Last Admin Trade Name Freq PRN Reason Stop Dose Admin Acetaminophen 650 mg 09/07/19 23:20 Tylenol [place] Q4H PRN Pain MILD(1-3)/Fever >100.5/BUSTILLOS Hydrocortisone Sodium Succinate 100 mg 09/08/19 10:00 09/12/19 05:55 Solu-Cortef IV 100 mg Q8HR LAMINE Administration Piperacillin Sod/Tazobactam Sod 4.5 gm in 100 mls @ 200 mls/hr 09/08/19 06:00 09/12/19 05:55 Zosyn/Ns 4.5gm/100ml IV 200 mls/hr Q8HR LAMINE Administration Protocol Potassium Chloride/Sodium Chloride 20 meq in 1,000 mls @ 150 mls/hr 09/08/19 09:00 09/12/19 02:21 Ns/Kcl 20meq IV 150 mls/hr DIRECT LAMINE Administration Ondansetron HCl 4 mg 09/07/19 23:20 Zofran IV Q4H PRN Nausea And Vomiting Pantoprazole Sodium 40 mg 09/09/19 11:00 09/11/19 11:00 Protonix PO 40 mg DAILY LAMINE Administration Sodium Chloride 10 ml 09/08/19 10:00 09/11/19 21:37 Sodium Chloride Flush Syringe 10 Ml IV 10 ml BID LAMINE Administration Sodium Chloride 10 ml 09/07/19 23:20 09/12/19 05:56 Sodium Chloride Flush Syringe 10 Ml IV 10 ml PRN PRN Administration LINE FLUSH Nutrition/Malnutrition Assess - Dietary Evaluation Nutrition/Malnutrition Findings: Nutrition Notes Start: 09/08/19 11:13 Freq: Status: Active Protocol: Document 09/10/19 09:55 MK (Rec: 09/10/19 10:08 MK [id number]) Co-Sign 09/10/19 09:55 LP Nutrition Notes Initial or Follow up Reassessment Current Diagnosis Sepsis Other Pertinent Diagnosis Hx DVT, colitis, IBD, abd pain , diverticulitis, wounds, leukocytosis Current Diet Full Liquid Labs/Tests BUN 3 Cr 0.5 Pertinent Medications NSKCl 150 ml/hr Height 5 ft 2 in Weight 83.1 kg [place] Body Weight (kg) 50.00 BMI 33.5 Intake Prior to Admission Poor Weight change and time frame Reweighed pt. Wt change likely to bedscale error. Weight Status Obese Subjective/Other Information FU for diet advancement. Pt tolerating Ensure Clear and eating 100% of meals. Percent of energy/protein needs met: 70%/36% Burn Absent Trauma Absent GI Symptoms None Current % PO Good (75-100%) Minimum of two criteria Yes Energy Intake (non-severe) <75% Estimated Energy Requirement >7 days Interpretation of Weight Loss (severe) >7.5% in 3 months #1 Nutrition Diagnosis Malnutrition Diagnosis Progress(for reassessment Continues documentation) Is patient on ventilator? No Is Patient Ambulatory and/or Out of Bed No REE-([facility]-confined to bed) [phone] Calculation Used for Recommendations [facility] Additional Notes Protein needs: 89-111 g/day (1 .2-1.5 g/kg/day) Fluid needs: 1 ml/kcal Nutrition Intervention Change Diet Order: Advance diet when medically feasible Add Supplement/Snack (indicate name/kcal Ensure Clear BID /protein ) Provides kCal: 480 Provides Protein (gm) 16 Goal #1 Diet advancement Goal #2 Meet needs as best as possible via full liquid diet Anticipated Discharge Needs: unable to determine at this time Follow-Up By: 09/15/19 Additional Comments FU for diet advancement and intakes
--- NOTE | 2019-09-12 11:44 | Cat Scan Report ---
CT ABDOMEN AND PELVIS WITH CONTRAST INDICATION / CLINICAL INFORMATION: Check for abscess developed in LLQ. TECHNIQUE: Axial CT images were obtained through the abdomen and pelvis after 100 mL Omnipaque [address] scans at this location are performed using CT dose reduction for ALARA by means of automated exposure control. COMPARISON: None available. FINDINGS: LOWER CHEST: Interval development of small to moderate bilateral pleural effusions with passive atele ctasis of the lower lobes. Moderate to large hiatal hernia is unchanged. LIVER: No significant abnormality. GALLBLADDER: The bladder wall is mildly edematous without acute inflammation or stones. BILE DUCTS: No significant abnormality. PANCREAS: No significant abnormality. SPLEEN: No significant abnormality. ADRENALS: No significant abnormality. RIGHT KIDNEY and URETER: No significant abnormality. LEFT KIDNEY and URETER: No significant abnormality. STOMACH and SMALL BOWEL: No significant abnormality. COLON: Descending colon pericolonic inflammatory process is again noted. APPENDIX: No significant abnormality. PERITONEUM: Trace free fluid in the pelvis is unchanged. No free air. The left lower quadrant inflamm atory process with extraluminal gas demonstrates slight increase in ill-defined fluid and decrease ga s. This collection is located between loops of small bowel and descending colon in the left midabdome n. Collection measures about 6.3 x 3.0 x 7.6 cm which is similar to the previous study. LYMPH NODES: No significant adenopathy. AORTA and ARTERIES: No significant abnormality. IVC and VEINS: Interval removal of right femoral venous catheter. There is a small nonocclusive throm bus in the right common femoral vein. URINARY BLADDER: No significant abnormality. REPRODUCTIVE ORGANS: Pedunculated uterine fibroid arising from the fundus is unchanged. ADDITIONAL FINDINGS: Interval development of moderate body wall edema likely representing anasarca or other fluid imbalance. SKELETAL SYSTEM: No significant abnormality. IMPRESSION: 1. Interval evolution of left lower quadrant inflammatory process with increased fluid in the collect ion between loops of small bowel and descending colon. 2. Interval bilateral pleural effusions and body wall edema suggesting anasarca or other fluid imbala nce. 3. Right common femoral vein nonocclusive DVT is now visualized after removal of right femoral vein. Lower extremity venous Doppler study is recommended for complete evaluation. Signer Name: Stefan Ferreira MD Signed: 09/12/2019 11:39 AM Workstation Name: [employer]
--- NOTE | 2019-09-12 13:20 | Event Note ---
Date: 09/12/19 Ct reviewed. Would consult IR to see if the fluid collection is amenable to drain placement.
[2019-09-12] MEDS: PANTOPRAZOLE 40 MG TAB PO SCH (13:41)
--- NOTE | 2019-09-12 14:51 | Event Note ---
Date: 09/12/19 Patient with history of LLQ phlegmon now organizing into drainable fluid collection. Patient has stabilized since admission. CT scan reviewed. The collection does not appear associated with colon, rather loops of small bowel. Patient with a history of some type of inflammatory bowel disease as well. Additionally, patient had episode of rectal bleeding this a.m. Will plan on aspiration/drainage of fluid collection on Saturday as there are not sufficient CT technologists on the weekend. In the interim, patient will need to be evaluated by CI for her rectal bleeding.
[2019-09-12 15:27] LABS: Mean Corpuscular HGB Conc 29 % (30-34); Mean Corpuscular Volume 93 fl (79-97); Platelet Count 223 K/mm3 (140-440); Red Blood Count 3.17 M/mm3 (3.65-5.03)
[2019-09-12 15:29] LABS: Hematocrit 29.4 % (30.3-42.9); Hemoglobin 8.5 gm/dl (10.1-14.3); Red Cell Distribution Width 23.6 % (13.2-15.2)
[2019-09-12 16:44] LABS: Basophils % (Manual) 0 % (0.0-1.8); Eosinophils % (Manual) 0 % (0.0-4.3); Monocytes % (Manual) 0 % (0.0-7.3); Total Cells Counted 100
[2019-09-12 16:45] LABS: Anisocytosis 1+; Hypochromasia Few; Target Cells Few
[2019-09-12 16:46] LABS: Platelet Estimate Consistent w Auto
[2019-09-12] MEDS: K-PHOS NEUTRAL 250 MG TAB PO SCH (22:42)
[2019-09-13] MEDS: PIPERACIL/TAZOBACTA 4.5/NS 100 4.5 GM/100 ML VIAL IV SCH ×3 (05:39→22:03)
[2019-09-13] MEDS: HYDROCORTISONE SOD SUCC 100 MG/2 ML VIAL IV SCH ×3 (05:39→22:06)
[2019-09-13] MEDS: PANTOPRAZOLE 40 MG TAB PO SCH (09:45)
[2019-09-13] MEDS: K-PHOS NEUTRAL 250 MG TAB PO SCH ×4 (09:45→22:06)
--- NOTE | 2019-09-13 09:54 | Consultation ---
History of Present Illness - Reason for Consult Consult date: 09/13/19 Left lower quadrant fluid collection, DVT with rectal bleeding - History of Present Illness Patient with a history of unknown colitis previously treated at [place]. The patient's prior hospitalizations of all been at [place]. She presented with lower extremity DVT as well as phlegmon within her left lower quadrant adjacent to small bowel. Repeat CT performed yesterday demonstrated progression of this phlegmon into a fluid collection. Clinically, the patient is stable. The patient was started on anticoagulation secondary to her DVT and subsequently developed rectal bleeding. Past History Past Medical History: DVT (3 weeks ago in both legs. ), GERD, other (colitis) Past Surgical History: No surgical history Social history: denies: smoking, alcohol abuse Family history: no significant family history Medications and Allergies Allergies Allergy/AdvReac Type Severity Reaction Status Date / Time No Known Allergies Allergy Unverified 09/07/19 17:26 Home Medications Medication Instructions Recorded Confirmed Last Taken Type Deltasone 10 mg PO DAILY 09/08/19 09/08/19 Unknown History Ferrous Sulfate 325 mg PO DAILY 09/08/19 09/08/19 Unknown History L. Rhamnosus/C/Zinc Cit/Yeast 1 cap PO DAILY 09/08/19 09/08/19 Unknown History Lasix TAB 20 mg PO BID 09/08/19 09/08/19 Unknown History Mag-Ox 400 mg PO BID 09/08/19 09/08/19 Unknown History Pantoprazole 20 mg PO DAILY 09/08/19 09/08/19 Unknown History Pradaxa 150 mg PO BID 09/08/19 09/08/19 Unknown History Active Meds: Active Medications Acetaminophen (Tylenol) 650 mg DC Q4H PRN PRN Reason: Pain MILD(1-3)/Fever >100.5/BUSTILLOS Hydrocortisone Sodium Succinate (Solu-Cortef) 100 mg IV Q8HR LAMINE Last Admin: 09/13/19 05:39 Dose: 100 mg Documented by: Piperacillin Sod/Tazobactam Sod (Zosyn/Ns 4.5gm/100ml) 4.5 gm in 100 mls @ 200 mls/hr IV Q8HR LAMINE; Protocol Last Admin: 09/13/19 05:39 Dose: 200 mls/hr Documented by: Potassium Chloride/Sodium Chloride (Ns/Kcl 20meq) 20 meq in 1,000 mls @ 150 mls/hr IV [facility] Last Admin: 09/12/19 23:22 Dose: 150 mls/hr Documented by: Ondansetron HCl (Zofran) 4 mg IV Q4H PRN PRN Reason: Nausea And Vomiting Pantoprazole Sodium (Protonix) 40 mg PO DAILY [facility] Last Admin: 09/13/19 09:45 Dose: 40 mg Documented by: Sodium Chloride (Sodium Chloride Flush Syringe 10 Ml) 10 ml IV BID [facility] Last Admin: 09/13/19 09:45 Dose: 10 ml Documented by: Sodium Chloride (Sodium Chloride Flush Syringe 10 Ml) 10 ml IV PRN PRN PRN Reason: LINE FLUSH Last Admin: 09/12/19 05:56 Dose: 10 ml Documented by: Sodium Phosphate (K-Phos Neutral) 250 mg PO QID [facility] Last Admin: 09/13/19 09:45 Dose: 250 mg Documented by: Review of Systems All systems: negative Exam - Constitutional Vitals: Temp Pulse Resp BP Pulse Ox 97.8 F 99 H 16 92/65 99 09/12/19 21:48 09/12/19 21:48 09/12/19 22:00 09/12/19 21:48 09/12/19 21:48 General appearance: Present: no acute distress - EENT Eyes: Present: EOM intact ENT: hearing intact - Neck Neck: Present: supple, normal ROM - Respiratory Respiratory effort: normal - Extremities Extremity abnormal: edema - Abdominal General gastrointestinal: Present: soft - Rectal Rectal Exam: deferred - Psychiatric Psychiatric: cooperative Results - Labs CBC & Chem 7: 09/12/19 15:21 09/11/19 09:39 Labs: Abnormal lab results 09/12/19 Range/Units 15:21 WBC 20.0 H (4.5-11.0) K/mm3 RBC 3.17 L (3.65-5.03) M/mm3 Hgb 8.5 L (10.1-14.3) gm/dl Hct 29.4 L (30.3-42.9) % MCH 27 L (28-32) pg MCHC 29 L (30-34) % RDW 23.6 H (13.2-15.2) % Seg Neuts % (Manual) 97.0 H (40.0-70.0) % Lymphocytes % (Manual) 3.0 L (13.4-35.0) % Seg Neutrophils # Man 19.4 H (1.8-7.7) K/mm3 Lymphocytes # (Manual) 0.6 L (1.2-5.4) K/mm3 - Imaging and Cardiology CT scan - abdomen: report reviewed, image reviewed CT scan - pelvis: report reviewed, image reviewed Assessment and Plan Patient will be scheduled for CT-guided aspiration and or placement of drainage catheter tomorrow for the fluid collection in her left lower quadrant. Additionally, the patient will need an IVC filter placed given her DVT and inability to anticoagulate secondary to rectal bleeding. Will await GIs recommendations as well.
--- NOTE | 2019-09-13 09:56 | Progress Note ---
Assessment and Plan Assessment and plan: Discussed with Dr. Raines interventional radiology scheduled for CT-guided aspiration and drainage placement tomorrow 09/14/2019 for the fluid collection in her left lower quadrant Also plan to place IVC filter[patient has bilateral lower extremity DVTs] --Severe hypokalemia; will replace with oral KCl 40 mEq every 3 hours x2 And 20 mEq IV, check magnesium, follow electrolytes --Rectal bleeding; improved Probably diverticular, patient on full liquid diet Drop in H&H to 7.5, GI consult, hold Lovenox Monitor H&H and transfuse as needed --Sepsis ;Surgery following No evidence of diverticulitis/abscess, Symptoms significantly improved Continue IV fluid, Zosyn, follow cultures, full liquids as tolerated Follow-up CT abdomen; fluid collection between loops of small bowel and descending colon, IR planning CT-guided drainage --History of bilateral DVT; hold Lovenox due to rectal bleeding Consider IVC filter placement when stable --Hypokalemia; corrected --Hyponatremia; resolved --Leukocytosis; secondary to sepsis, Trending down --Septic shock; resolved s/p vasopressors Levophed --Severe malnutrition/hypoalbuminemia; Due to underlying disease process, nutrition supplements --DVT prophylaxis: SCD, on Lovenox --Full code status Closely monitor the patient and adjust management as needed Plan of care reviewed with the patient and her at the bedside Disposition; follow GI and surgery recommendations Follow clinically History Interval history: Patient seen and examined at the bedside Patient's chart and medications reviewed Patient's rectal bleeding improved, pending GI evaluation Patient's Lovenox was held. Interventional radiology scheduled for CT-guided aspiration and drainage placement tomorrow for the fluid collection in her left lower quadrant Also plan to place IVC filter[patient has bilateral lower extremity DVTs] Patient is on full liquid diet Alert and awake Vital signs noted Hospitalist Physical - Constitutional Vitals: Temp Pulse Resp BP Pulse Ox 97.8 F 99 H 16 92/65 99 09/12/19 21:48 09/12/19 21:48 09/12/19 22:00 09/12/19 21:48 09/12/19 21:48 General appearance: Present: mild distress, well-nourished, obese - EENT Eyes: Present: PERRL, EOM intact - Neck Neck: Present: supple, normal ROM - Respiratory Respiratory effort: normal Respiratory: bilateral: diminished, negative: rales, rhonchi, wheezing - Cardiovascular Rhythm: regular Heart Sounds: Present: S1 & S2 - Extremities Extremities: no ischemia, abnormal (Bilateral lower extremity DVT) Extremity abnormal: edema - Abdominal General gastrointestinal: soft, non-tender, non-distended, normal bowel sounds - Integumentary Integumentary: Present: clear, warm - Psychiatric Psychiatric: appropriate mood/affect, cooperative - Neurologic Neurologic: moves all extremities Results - Labs CBC & Chem 7: 09/13/19 09:40 09/13/19 09:40 Labs: Laboratory Last Values WBC 20.0 K/mm3 (4.5-11.0) H 09/12/19 15:21 RBC 3.17 M/mm3 (3.65-5.03) L 09/12/19 15:21 Hgb 8.5 gm/dl (10.1-14.3) L 09/12/19 15:21 Hct 29.4 % (30.3-42.9) L 09/12/19 15:21 MCV 93 fl (79-97) 09/12/19 15:21 MCH 27 pg (28-32) L 09/12/19 15:21 MCHC 29 % (30-34) L 09/12/19 15:21 RDW 23.6 % (13.2-15.2) H 09/12/19 15:21 Plt Count 223 K/mm3 (140-440) 09/12/19 15:21 Add Manual Diff Complete 09/12/19 15:21 Total Counted 100 09/12/19 15:21 Seg Neutrophils % Director Of Clinical Trials 09/12/19 15:21 Seg Neuts % (Manual) 97.0 % (40.0-70.0) H 09/12/19 15:21 Band Neutrophils % 0 % 09/12/19 15:21 Lymphocytes % (Manual) 3.0 % (13.4-35.0) L 09/12/19 15:21 Reactive Lymphs % (Man) 0 % 09/12/19 15:21 Monocytes % (Manual) 0 % (0.0-7.3) 09/12/19 15:21 Eosinophils % (Manual) 0 % (0.0-4.3) 09/12/19 15:21 Basophils % (Manual) 0 % (0.0-1.8) 09/12/19 15:21 Metamyelocytes % 0 % 09/12/19 15:21 Myelocytes % 0 % 09/12/19 15:21 Promyelocytes % 0 % 09/12/19 15:21 Blast Cells % 0 % 09/12/19 15:21 Nucleated RBC % Not Reportable 09/12/19 15:21 Seg Neutrophils # Man 19.4 K/mm3 (1.8-7.7) H 09/12/19 15:21 Band Neutrophils # 0.0 K/mm3 09/12/19 15:21 Lymphocytes # (Manual) 0.6 K/mm3 (1.2-5.4) L 09/12/19 15:21 Abs React Lymphs (Man) 0.0 K/mm3 09/12/19 15:21 Monocytes # (Manual) 0.0 K/mm3 (0.0-0.8) 09/12/19 15:21 Eosinophils # (Manual) 0.0 K/mm3 (0.0-0.4) 09/12/19 15:21 Basophils # (Manual) 0.0 K/mm3 (0.0-0.1) 09/12/19 15:21 Metamyelocytes # 0.0 K/mm3 09/12/19 15:21 Myelocytes # 0.0 K/mm3 09/12/19 15:21 Promyelocytes # 0.0 K/mm3 09/12/19 15:21 Blast Cells # 0.0 K/mm3 09/12/19 15:21 WBC Morphology Not Reportable 09/12/19 15:21 Hypersegmented Neuts Not Reportable 09/12/19 15:21 Hyposegmented Neuts Not Reportable 09/12/19 15:21 Hypogranular Neuts Not Reportable 09/12/19 15:21 Smudge Cells Not Reportable 09/12/19 15:21 Toxic Granulation Not Reportable 09/12/19 15:21 Toxic Vacuolation Not Reportable 09/12/19 15:21 Dohle Bodies Not Reportable 09/12/19 15:21 Pelger-Huet Anomaly Not Reportable 09/12/19 15:21 Phyllis Rods Not Reportable 09/12/19 15:21 Platelet Estimate Consistent w auto 09/12/19 15:21 Clumped Platelets Not Reportable 09/12/19 15:21 Plt Clumps, EDTA Not Reportable 09/12/19 15:21 Large Platelets Not Reportable 09/12/19 15:21 Giant Platelets Not Reportable 09/12/19 15:21 Platelet Satelliting Not Reportable 09/12/19 15:21 Plt Morphology Comment Not Reportable 09/12/19 15:21 RBC Morphology Not Reportable 09/12/19 15:21 Dimorphic RBCs Not Reportable 09/12/19 15:21 Polychromasia Not Reportable 09/12/19 15:21 Hypochromasia Few 09/12/19 15:21 Poikilocytosis Not Reportable 09/12/19 15:21 Anisocytosis 1+ 09/12/19 15:21 Microcytosis Not Reportable 09/12/19 15:21 Macrocytosis Not Reportable 09/12/19 15:21 Spherocytes Not Reportable 09/12/19 15:21 Pappenheimer Bodies Not Reportable 09/12/19 15:21 Sickle Cells Not Reportable 09/12/19 15:21 Target Cells Few 09/12/19 15:21 Tear Drop Cells Not Reportable 09/12/19 15:21 Ovalocytes Not Reportable 09/12/19 15:21 Helmet Cells Not Reportable 09/12/19 15:21 Fam-Brinkley Bodies Not Reportable 09/12/19 15:21 [place] Rings Not Reportable 09/12/19 15:21 [place] Cells Not Reportable 09/12/19 15:21 Bite Cells Not Reportable 09/12/19 15:21 Crenated Cell Not Reportable 09/12/19 15:21 Elliptocytes Not Reportable 09/12/19 15:21 Acanthocytes (Spur) Not Reportable 09/12/19 15:21 Rouleaux Not Reportable 09/12/19 15:21 Hemoglobin C Crystals Not Reportable 09/12/19 15:21 Schistocytes Not Reportable 09/12/19 15:21 Malaria parasites Not Reportable 09/12/19 15:21 Emmanuel Bodies Not Reportable 09/12/19 15:21 Hem Pathologist Commnt No 09/12/19 15:21 PT 20.5 Sec. (12.2-14.9) H 09/07/19 Unknown INR 1.72 (0.87-1.13) H 09/07/19 Unknown Sodium 140 mmol/L (137-145) 09/11/19 09:39 Potassium 3.7 mmol/L (3.6-5.0) 09/11/19 09:39 Chloride 109.1 mmol/L (98-107) H 09/11/19 09:39 Carbon Dioxide 16 mmol/L (22-30) L 09/11/19 09:39 Anion Gap 19 mmol/L 09/11/19 09:39 BUN 2 mg/dL (7-17) L 09/11/19 09:39 Creatinine 0.5 mg/dL (0.7-1.2) L 09/11/19 09:39 Estimated GFR > 60 ml/min 09/11/19 09:39 BUN/Creatinine Ratio 4 % 09/11/19 09:39 Glucose 137 mg/dL (65-100) H 09/11/19 09:39 Lactic Acid 1.50 mmol/L (0.7-2.0) 09/07/19 Unknown Lactic Acid 4.70 mmol/L (0.7-2.0) H* 09/07/19 Unknown Calcium 6.8 mg/dL (8.4-10.2) L 09/11/19 09:39 Phosphorus 1.30 mg/dL (2.5-4.5) L 09/11/19 09:39 Magnesium 2.00 mg/dL (1.7-2.3) 09/11/19 09:39 Total Bilirubin 0.60 mg/dL (0.1-1.2) 09/07/19 Unknown AST 27 units/L (5-40) 09/07/19 Unknown ALT 24 units/L (7-56) 09/07/19 Unknown Alkaline Phosphatase 160 units/L (35-129) H 09/07/19 Unknown Troponin T 0.027 ng/mL (0.00-0.029) 09/07/19 Unknown Total Protein 4.9 g/dL (6.3-8.2) L 09/07/19 Unknown Albumin 1.4 g/dL (3.9-5) L 09/07/19 Unknown Albumin/Globulin Ratio 0.4 % 09/07/19 Unknown Lipase 5 units/L (13-60) L 09/07/19 Unknown Urine Color Yellow (Yellow) 09/07/19 17:56 Urine Turbidity Slightly-cloudy (Clear) 09/07/19 17:56 Urine pH 6.0 (5.0-7.0) 09/07/19 17:56 Ur Specific [place] 1.009 (1.003-1.030) 09/07/19 17:56 Urine Protein <15 mg/dl mg/dL (Negative) 09/07/19 17:56 Urine Glucose (UA) Neg mg/dL (Negative) 09/07/19 17:56 Urine Ketones Neg mg/dL (Negative) 09/07/19 17:56 Urine Blood Neg (Negative) 09/07/19 17:56 Urine Nitrite Pos (Negative) 09/07/19 17:56 Urine Bilirubin Neg (Negative) 09/07/19 17:56 Urine Urobilinogen < 2.0 mg/dL (<2.0) 09/07/19 17:56 Ur Leukocyte Esterase Sm (Negative) 09/07/19 17:56 Urine WBC (Auto) 6.0 /HPF (0.0-6.0) 09/07/19 17:56 Urine RBC (Auto) < 1.0 /HPF (0.0-6.0) 09/07/19 17:56 U Epithel Cells (Auto) < 1.0 /HPF (0-13.0) 09/07/19 17:56 Urine Bacteria (Auto) 2+ /HPF (Negative) 09/07/19 17:56 Blood Type O POSITIVE 09/09/19 11:24 Antibody Screen Negative 09/09/19 11:24 Crossmatch See Detail 09/09/19 11:24 Active Medications - Current Medications Current Medications: Generic Name Dose Route Start Last Admin Trade Name Freq PRN Reason Stop Dose Admin Acetaminophen 650 mg 09/07/19 23:20 Tylenol UT Q4H PRN Pain MILD(1-3)/Fever >100.5/BUSTILLOS Hydrocortisone Sodium Succinate 100 mg 09/08/19 10:00 09/13/19 05:39 Solu-Cortef IV 100 mg Q8HR L[facility]INE Administration Piperacillin Sod/Tazobactam Sod 4.5 gm in 100 mls @ 200 mls/hr 09/08/19 06:00 09/13/19 05:39 Zosyn/Ns 4.5gm/100ml IV 200 mls/hr Q8HR [facility]INE Administration Protocol Potassium Chloride/Sodium Chloride 20 meq in 1,000 mls @ 150 mls/hr 09/08/19 09:00 09/12/19 23:22 Ns/Kcl 20meq IV 150 mls/hr DIRECT [facility] Administration Ondansetron HCl 4 mg 09/07/19 23:20 Zofran IV Q4H PRN Nausea And Vomiting Pantoprazole Sodium 40 mg 09/09/19 11:00 09/13/19 09:45 Protonix PO 40 mg DAILY [facility] Administration Sodium Chloride 10 ml 09/08/19 10:00 09/13/19 09:45 Sodium Chloride Flush Syringe 10 Ml IV 10 ml BID [facility] Administration Sodium Chloride 10 ml 09/07/19 23:20 09/12/19 05:56 Sodium Chloride Flush Syringe 10 Ml IV 10 ml PRN PRN Administration LINE FLUSH Sodium Phosphate 250 mg 09/12/19 22:00 09/13/19 09:45 K-Phos Neutral PO 250 mg QID [facility] Administration Nutrition/Malnutrition Assess - Dietary Evaluation Nutrition/Malnutrition Findings: Nutrition Notes Start: 09/08/19 11:13 Freq: Status: Active Protocol: Document 09/10/19 09:55 MK (Rec: 09/10/19 10:08 MK [id number]) Co-Sign 09/10/19 09:55 LP Nutrition Notes Initial or Follow up Reassessment Current Diagnosis Sepsis Other Pertinent Diagnosis Hx DVT, colitis, IBD, abd pain , diverticulitis, wounds, leukocytosis Current Diet Full Liquid Labs/Tests BUN 3 Cr 0.5 Pertinent Medications NSKCl 150 ml/hr Height 5 ft 2 in Weight 83.1 kg [place] Body Weight (kg) 50.00 BMI 33.5 Intake Prior to Admission Poor Weight change and time frame Reweighed pt. Wt change likely to bedscale error. Weight Status Obese Subjective/Other Information FU for diet advancement. Pt tolerating Ensure Clear and eating 100% of meals. Percent of energy/protein needs met: 70%/36% Burn Absent Trauma Absent GI Symptoms None Current % PO Good (75-100%) Minimum of two criteria Yes Energy Intake (non-severe) <75% Estimated Energy Requirement >7 days Interpretation of Weight Loss (severe) >7.5% in 3 months #1 Nutrition Diagnosis Malnutrition Diagnosis Progress(for reassessment Continues documentation) Is patient on ventilator? No Is Patient Ambulatory and/or Out of Bed No REE-([facility]-confined to bed) [phone] Calculation Used for Recommendations [facility] Additional Notes Protein needs: 89-111 g/day (1 .2-1.5 g/kg/day) Fluid needs: 1 ml/kcal Nutrition Intervention Change Diet Order: Advance diet when medically feasible Add Supplement/Snack (indicate name/kcal Ensure Clear BID /protein ) Provides kCal: 480 Provides Protein (gm) 16 Goal #1 Diet advancement Goal #2 Meet needs as best as possible via full liquid diet Anticipated Discharge Needs: unable to determine at this time Follow-Up By: 09/15/19 Additional Comments FU for diet advancement and intakes
[2019-09-13 10:07] LABS: Hematocrit 24.3 % (30.3-42.9); Hemoglobin 7.5 gm/dl (10.1-14.3); Mean Corpuscular HGB Conc 31 % (30-34); Mean Corpuscular Volume 87 fl (79-97); Platelet Count 238 K/mm3 (140-440); Red Blood Count 2.79 M/mm3 (3.65-5.03)
[2019-09-13 10:10] LABS: Red Cell Distribution Width 22.3 % (13.2-15.2)
[2019-09-13 10:14] LABS: Hemolysis Index 24
[2019-09-13 10:17] LABS: BUN/Creatinine Ratio 1; Blood Urea Nitrogen < 1 mg/dL (7-17)
--- NOTE | 2019-09-13 12:40 | Consultation ---
REFERRING PHYSICIAN: Nettie Yang MD INDICATION: Rectal bleeding. HISTORY OF PRESENT ILLNESS: The patient is a 59-year-old black female with a history of DVT, on Pradaxa and report of possible inflammatory bowel disease, now been seen by GI for rectal bleeding. The patient reports that she developed pain all over her abdomen, which was sharp and nonradiating when she was admitted on 09/07/2019. The patient had recently had a colonoscopy at [facility] where she was noted to have severe colitis with the possibility of inflammatory bowel disease raised. The patient was started on steroid taper and is now 10 mg per day. The patient presented and was hypotensive and subsequently was admitted to [facility] on 09/07/2019. The patient subsequently came to Emergency Room here where she was noted to have colitis with possible abscess, admitted and Surgery consulted. The patient started last night 09/11/2019 to start having some intermittent rectal bleeding and GI is consulted to aid in management. The patient denies any other specific complaints. PAST MEDICAL HISTORY: 1. DVT. 2. Colitis. 3. High cholesterol. PAST SURGICAL HISTORY: Hemorrhoidectomy. MEDICATIONS: Reviewed and updated in chart. ALLERGIES: No known drug allergies. SOCIAL HISTORY: Denies alcohol, tobacco, or IV drug abuse. FAMILY HISTORY: Negative for colon cancer, IBD, or liver disease. REVIEW OF SYSTEMS: GENERAL: Reports some weakness. HEENT: No visual complaints or tinnitus. PULMONARY: Denies shortness of breath. No cough. No chest pain. GASTROINTESTINAL: Reports abdominal pain and rectal bleeding. All points of 13-point review of systems otherwise negative. PHYSICAL EXAMINATION: VITAL SIGNS: Temperature of 98.7, pulse 85, respirations 18, blood pressure 106/54. GENERAL: Fairly nourished black female in no acute distress. HEENT: Pupils equal, round and reactive. PULMONARY: Clear to auscultation bilaterally. CARDIOVASCULAR: Regular rhythm. Normal S1, S2. ABDOMEN: Positive bowel sounds. Soft. Mild to moderate lower abdominal discomfort, no guarding, no rebound. SKIN: No obvious rashes. LABORATORY DATA: Pertinent for white count of 20, hemoglobin and hematocrit of 8.5 and 29.4, platelet count of 223. Chem-7, sodium of 140, potassium 3.7, chloride 109, CO2 of 16, BUN and creatinine 12/ 1.5. CT scan of abdomen and pelvis with contrast performed on 09/12/2019 showed inflammatory process with a fluid collection around the small bowel and descending colon. There is a possibility of an abscess. ASSESSMENT AND PLAN: A 59-year-old female who recently had colitis at [facility] on colonoscopy with possibility inflammatory bowel disease raised, now presented with abdominal pain, CT scan showing possible abscess in the small bowel colon area with GI now consulted because of some rectal bleeding overnight. The patient not has had much rectal bleeding today. Given her recent findings of an abscess and the possibility of inflammatory bowel disease and the possibility of a small perforation, would prefer to be conservative with only plans of any endoscopic evaluation if absolutely necessary. Management as noted below. PLAN: 1. We will review CT scans done since admission. 2. Remove any antiplatelets and anticoagulants. 3. Follow hematocrit and transfuse as needed. 4. Await IR input as to abscess drainage. 5. Surgery input noted and we will follow. 6. Given the overall scenario, would defer colonoscopy or other aggressive approach at this time as it may only serve to make the issues worse. We will follow and consider based on progress. 7. We will follow. JOB# [id number] CAB/CODI [id number]
[2019-09-13 12:50] LABS: Total Cells Counted 100
[2019-09-13 12:51] LABS: Anisocytosis 1+; Basophils % (Manual) 0 % (0.0-1.8); Eosinophils % (Manual) 0 % (0.0-4.3); Hypochromasia Few; Macrocytosis Few; Platelet Clumps Rare; Platelet Estimate Consistent w Auto; Target Cells Rare
[2019-09-13] MEDS: POTASSIUM CHLORIDE ER 20 MEQ TAB PO SCH ×2 (13:01→14:47)
[2019-09-13] MEDS: POTASSIUM CHLORIDE 10 MEQ 10 MEQ/100 ML BAG IV SCH ×2 (13:02→14:02)
--- NOTE | 2019-09-13 14:35 | Progress Note ---
Assessment and Plan - Patient Problems (1) Peritoneal cavity free air Current Visit: Yes Status: Acute Plan to address problem: Patient appears improved. Pain has essentially resolved. Exam is much improved. From the other progress notes, it appears as though she has ulcerative colitis. This localized collection of free air may be secondary to a ulcerative colitis associated perforation. However, this is usually seen in the setting of toxic megacolon or an episode of severe inflammation. In addition, the perforation usually results in generalized peritonitis which would mandate immediate surgical intervention. None of this is present in this case. As she is showing signs of improvement, we will continue with conservative management. Patient is tentatively scheduled for IR drainage tomorrow. Appreciate Dr. Raines's consult and assistance. I confirmed with the patient and that they understand what is going to happen tomorrow. She reports that even taking in a liquid diet causes her pain. This would have to improve before her diet could be advanced. For the near future, she should follow-up with a colorectal surgeon for consideration of proctocolectomy to address her ulcerative colitis. Please call with questions. time=10min Subjective Date of service: 09/13/19 Patient Reports: Positive: no new complaints, feels better Objective Vital Signs - 12hr 09/13/19 11:59 Temperature 98.0 F Pulse Rate 101 H Respiratory 18 Rate Blood Pressure 113/86 O2 Sat by Pulse 97 Oximetry - General physical appearance no distress, no pain - Eyes normal occular movement - Respiratory normal expansion, normal respiratory effort - Abdomen soft - Psychiatric oriented to time, oriented to person, oriented to place, speech is normal, memor y intact - Labs 09/13/19 09:40 09/13/19 09:40 Diabetes panel 09/13/19 Range/Units 09:40 Sodium 141 (137-145) mmol/L Potassium 2.5 L* D (3.6-5.0) mmol/L Chloride 109.7 H (98-107) mmol/L Carbon Dioxide 14 L (22-30) mmol/L BUN < 1 L (7-17) mg/dL Creatinine 0.8 D (0.7-1.2) mg/dL Glucose 119 H (65-100) mg/dL Calcium 6.0 L (8.4-10.2) mg/dL Calcium panel 09/13/19 Range/Units 09:40 Calcium 6.0 L (8.4-10.2) mg/dL Pituitary panel 09/13/19 Range/Units 09:40 Sodium 141 (137-145) mmol/L Potassium 2.5 L* D (3.6-5.0) mmol/L Chloride 109.7 H (98-107) mmol/L Carbon Dioxide 14 L (22-30) mmol/L BUN < 1 L (7-17) mg/dL Creatinine 0.8 D (0.7-1.2) mg/dL Glucose 119 H (65-100) mg/dL Calcium 6.0 L (8.4-10.2) mg/dL Adrenal panel 09/13/19 Range/Units 09:40 Sodium 141 (137-145) mmol/L Potassium 2.5 L* D (3.6-5.0) mmol/L Chloride 109.7 H (98-107) mmol/L Carbon Dioxide 14 L (22-30) mmol/L BUN < 1 L (7-17) mg/dL Creatinine 0.8 D (0.7-1.2) mg/dL Glucose 119 H (65-100) mg/dL Calcium 6.0 L (8.4-10.2) mg/dL
--- NOTE | 2019-09-13 14:57 | Gastroenterology Progress Note ---
Assessment and Plan GI: pt w/ possible UC now with abscess and signs small free air, GI consulted for rectal bleeding - surgery and IR input noted - no further signs bleeding overnight - noted decrease h/h, follow - for IR drainage in am - no plans to scope or other GI intervention at this time - will follow for now Subjective Date of service: 09/13/19 Interval history: - no specific GI complaints overnight. Decrease rectal bleeding Objective - Constitutional Vitals: Temp Pulse Resp BP Pulse Ox 98.0 F 101 H 18 113/86 97 09/13/19 11:59 09/13/19 11:59 09/13/19 11:59 09/13/19 11:59 09/13/19 11:59 General appearance: no acute distress - EENT Eyes: PERRL - Respiratory Respiratory: bilateral: CTA - Cardiovascular Rhythm: regular Heart Sounds: Present: S1 & S2 - Gastrointestinal General gastrointestinal: Present: soft, non-tender, non-distended - Labs CBC & Chem 7: 09/13/19 09:40 09/13/19 09:40 Labs: Laboratory Results - last 24 hr 09/12/19 09/13/19 09/13/19 15:21 09:40 09:40 WBC 20.0 H 18.8 H RBC 3.17 L 2.79 L Hgb 8.5 L 7.5 L Hct 29.4 L 24.3 L MCV 93 87 MCH 27 L 27 L MCHC 29 L 31 RDW 23.6 H 22.3 H Plt Count 223 238 Lymph % (Auto) Work Order Detailer [place] % (Auto) Work Order Detailer Eos % (Auto) Work Order Detailer Baso % (Auto) Work Order Detailer Lymph # Work Order Detailer Furnas # Work Order Detailer Eos # Work Order Detailer Baso # Work Order Detailer Add Manual Diff Complete Complete Total Counted 100 100 Seg Neutrophils % Work Order Detailer Work Order Detailer Seg Neuts % (Manual) 97.0 H 93.0 H Band Neutrophils % 0 0 Lymphocytes % (Manual) 3.0 L 5.0 L Reactive Lymphs % (Man) 0 0 Monocytes % (Manual) 0 2.0 Eosinophils % (Manual) 0 0 Basophils % (Manual) 0 0 Metamyelocytes % 0 0 Myelocytes % 0 0 Promyelocytes % 0 0 Blast Cells % 0 0 Nucleated RBC % Not Reportable Not Reportable Seg Neutrophils # Work Order Detailer Seg Neutrophils # Man 19.4 H 17.5 H Band Neutrophils # 0.0 0.0 Lymphocytes # (Manual) 0.6 L 0.9 L Abs React Lymphs (Man) 0.0 0.0 Monocytes # (Manual) 0.0 0.4 Eosinophils # (Manual) 0.0 0.0 Basophils # (Manual) 0.0 0.0 Metamyelocytes # 0.0 0.0 Myelocytes # 0.0 0.0 Promyelocytes # 0.0 0.0 Blast Cells # 0.0 0.0 WBC Morphology Not Reportable Not Reportable Hypersegmented Neuts Not Reportable Not Reportable Hyposegmented Neuts Not Reportable Not Reportable Hypogranular Neuts Not Reportable Not Reportable Smudge Cells Not Reportable Not Reportable Toxic Granulation Not Reportable Not Reportable Toxic Vacuolation Not Reportable Not Reportable Dohle Bodies Not Reportable Not Reportable Pelger-Huet Anomaly Not Reportable Not Reportable Phyllis Rods Not Reportable Not Reportable Platelet Estimate Consistent w auto Consistent w auto Clumped Platelets Not Reportable Rare Plt Clumps, EDTA Not Reportable Not Reportable Large Platelets Not Reportable Not Reportable Giant Platelets Not Reportable Not Reportable Platelet Satelliting Not Reportable Not Reportable Plt Morphology Comment Not Reportable Not Reportable RBC Morphology Not Reportable Not Reportable Dimorphic RBCs Not Reportable Not Reportable Polychromasia Not Reportable Not Reportable Hypochromasia Few Few Poikilocytosis Not Reportable Not Reportable Anisocytosis 1+ 1+ Microcytosis Not Reportable Not Reportable Macrocytosis Not Reportable Few Spherocytes Not Reportable Not Reportable Pappenheimer Bodies Not Reportable Not Reportable Sickle Cells Not Reportable Not Reportable Target Cells Few Rare Tear Drop Cells Not Reportable Not Reportable Ovalocytes Not Reportable Not Reportable Helmet Cells Not Reportable Not Reportable Fam-[place] Bodies Not Reportable Not Reportable [place] Rings Not Reportable Not Reportable Agustina Cells Not Reportable Not Reportable Bite Cells Not Reportable Not Reportable Crenated Cell Not Reportable Not Reportable Elliptocytes Not Reportable Not Reportable Acanthocytes (Spur) Not Reportable Not Reportable Rouleaux Not Reportable Not Reportable Hemoglobin C Crystals Not Reportable Not Reportable Schistocytes Not Reportable Not Reportable Malaria parasites Not Reportable Not Reportable Emmanuel Bodies Not Reportable Not Reportable Hem Pathologist Commnt No No Sodium 141 Potassium 2.5 L* D Chloride 109.7 H Carbon Dioxide 14 L Anion Gap 20 BUN < 1 L Creatinine 0.8 D Estimated GFR > 60 BUN/Creatinine Ratio 1 Glucose 119 H Calcium 6.0 L Magnesium 09/13/19 09:40 WBC RBC Hgb Hct MCV MCH MCHC RDW Plt Count Lymph % (Auto) [place] % (Auto) Eos % (Auto) Baso % (Auto) Lymph # [place] # Eos # Baso # Add Manual Diff Total Counted Seg Neutrophils % Seg Neuts % (Manual) Band Neutrophils % Lymphocytes % (Manual) Reactive Lymphs % (Man) Monocytes % (Manual) Eosinophils % (Manual) Basophils % (Manual) Metamyelocytes % Myelocytes % Promyelocytes % Blast Cells % Nucleated RBC % Seg Neutrophils # Seg Neutrophils # Man Band Neutrophils # Lymphocytes # (Manual) Abs React Lymphs (Man) Monocytes # (Manual) Eosinophils # (Manual) Basophils # (Manual) Metamyelocytes # Myelocytes # Promyelocytes # Blast Cells # WBC Morphology Hypersegmented Neuts Hyposegmented Neuts Hypogranular Neuts Smudge Cells Toxic Granulation Toxic Vacuolation Dohle Bodies Pelger-Huet Anomaly Phyllis Rods Platelet Estimate Clumped Platelets Plt Clumps, EDTA Large Platelets Giant Platelets Platelet Satelliting Plt Morphology Comment RBC Morphology Dimorphic RBCs Polychromasia Hypochromasia Poikilocytosis Anisocytosis Microcytosis Macrocytosis Spherocytes Pappenheimer Bodies Sickle Cells Target Cells Tear Drop Cells Ovalocytes Helmet Cells Fam-[place] Bodies [place] Rings [place] Cells Bite Cells Crenated Cell Elliptocytes Acanthocytes (Spur) Rouleaux Hemoglobin C Crystals Schistocytes Malaria parasites Emmanuel Bodies Hem Pathologist Commnt Sodium Potassium Chloride Carbon Dioxide Anion Gap BUN Creatinine Estimated GFR BUN/Creatinine Ratio Glucose Calcium Magnesium 1.50 L
[2019-09-13] MEDS: NACL 0.9%/KCL 20 MEQ 20 MEQ/1,000 ML BAG IV SCH (17:35)
[2019-09-13] MEDS ORDERED: MAGNESIUM SULFATE 2 GM/50 ML BAG IV ONE (18:54)
[2019-09-14] MEDS: NACL 0.9%/KCL 20 MEQ 20 MEQ/1,000 ML BAG IV SCH ×2 (03:39→22:05)
[2019-09-14] MEDS: PIPERACIL/TAZOBACTA 4.5/NS 100 4.5 GM/100 ML VIAL IV SCH ×3 (06:28→22:24)
[2019-09-14] MEDS: HYDROCORTISONE SOD SUCC 100 MG/2 ML VIAL IV SCH ×3 (06:28→22:24)
[2019-09-14] MEDS ORDERED: fentaNYL 100 MCG/2 ML INJ IV ONE (08:29)
[2019-09-14] MEDS ORDERED: MIDAZOLAM 5 MG/5 ML INJ MDV IV ONE ×2 (08:29→13:18)
[2019-09-14] MEDS ORDERED: SODIUM CHLORIDE 0.9% 500 ML 500 ML ONE (10:07)
[2019-09-14 11:18] LABS: Alanine Aminotransferase 28 units/L (7-56); Albumin 1.5 g/dL (3.9-5); BUN/Creatinine Ratio 4; Blood Urea Nitrogen 2 mg/dL (7-17); Hemolysis Index 18
[2019-09-14 11:22] LABS: Calcium 5.8 mg/dL (8.4-10.2)
[2019-09-14] MEDS: K-PHOS NEUTRAL 250 MG TAB PO SCH ×4 (12:05→22:24)
[2019-09-14] MEDS: PANTOPRAZOLE 40 MG TAB PO SCH (12:05)
[2019-09-14] MEDS: POTASSIUM CHLORIDE 10 MEQ 10 MEQ/100 ML BAG IV SCH ×4 (12:12→19:30)
--- NOTE | 2019-09-14 13:10 | Gastroenterology Progress Note ---
Assessment and Plan GI: pt w/ possible UC now with abscess and signs small free air, GI consulted for rectal bleeding - afebrile; WBC 18.8 - repeat CT performed yesterday demonstrated progression of this phlegmon into a fluid collection, along with right common femoral vein DVT - surgery following - IR following with aspiration/drainage of fluid collection pending for today - no further signs bleeding overnight or this am; noted decrease h/h- continue to monitor and transfuse as needed - no plans to scope at this time - no recommendation for steroids given current infection - no immediate contraindication for resuming anticoagulation per IR recommenda tions at this, given no overt bleeding- monitor and hold for active bleeding (if unable to tolerate anticoagulation, recommend proceeding with IVC filter placement) - continue antibiotics - continue to trend labs and supportive care - will follow Subjective Date of service: 09/14/19 Principal diagnosis: rectal bleeding Interval history: No acute distress. Reports continued abd pain with slow improvement. No N/V or active signs of bleeding this am. BM x 1 this am per family () with no blood in stool. Objective - Constitutional Vitals: Temp Pulse Resp BP Pulse Ox 98.4 F 86 20 115/53 100 09/14/19 04:45 09/14/19 04:45 09/14/19 04:45 09/14/19 04:45 09/14/19 12:12 General appearance: no acute distress, obese - EENT Eyes: PERRL, EOM intact ENT: hearing intact - Respiratory Respiratory effort: normal - Cardiovascular Rhythm: regular - Gastrointestinal General gastrointestinal: Present: soft, tender, non-distended, normal bowel sounds - Integumentary Integumentary: Present: warm, dry - Neurologic Neurological: alert and oriented x3 - Labs CBC & Chem 7: 09/13/19 09:40 09/14/19 10:40 Labs: Laboratory Results - last 24 hr 09/13/19 09/14/19 21:31 10:40 Sodium 143 Potassium 4.3 D 2.8 L* D Chloride 109.1 H Carbon Dioxide 17 L Anion Gap 20 BUN 2 L Creatinine 0.5 L Estimated GFR > 60 BUN/Creatinine Ratio 4 Glucose 103 H Calcium 5.8 L* Phosphorus 1.80 L Magnesium 1.60 L Total Bilirubin 0.20 AST 18 ALT 28 Alkaline Phosphatase 127 Total Protein 3.4 L Albumin 1.5 L Albumin/Globulin Ratio 0.8
[2019-09-14] MEDS ORDERED: fentaNYL 100 MCG/2 ML INJ ONE (13:21)
--- NOTE | 2019-09-14 13:48 | Vascular Lab Report ---
DUPLEX DOPPLER LOWER EXTREMITY VEINS, BILATERAL INDICATION: History of DVT. Sepsis, acute diverticulitis TECHNIQUE: Duplex doppler imaging was performed through the veins of both lower extremities using ve nous compression and other maneuvers. COMPARISON: No relevant prior imaging study available. FINDINGS: Right Common femoral vein: Positive. Right Superficial femoral vein: Positive. Right Popliteal vein: Positive. Right Calf veins: Positive. Left Common femoral vein: Negative. Left Superficial femoral vein: Positive. Left Popliteal vein: Positive. Left Calf veins: Positive. Additional findings: None.. IMPRESSION: Positive for bilateral deep venous thromboses Signer Name: Minesh Davis Jr, MD Signed: 09/14/2019 1:44 PM Workstation Name: [id number]
--- NOTE | 2019-09-14 16:16 | Post Operative Note ---
Date of procedure: 09/14/19 Pre-op diagnosis: Left lower quadrant fluid collection Post-op diagnosis: same Findings: Wire was passed into the left lower quadrant fluid collection, but due to the phlegmonous nature of the fluid collection, the wire passed into the retroperitoneum and would not coil in the fluid collection. Therefore, aspiration of the collection was performed instead of drain placement. Procedure: CT guided aspiration of a left lower quadrant fluid collection - 10 mL kelly purulent fluid removed Anesthesia: local Surgeon: HOLLY PURCELL Estimated blood loss: minimal Specimen disposition: to lab Condition: stable Disposition: floor
--- NOTE | 2019-09-14 16:31 | Event Note ---
Date: 09/14/19 Status post left lower quadrant fluid collection aspiration. Suboptimal situation given hypercoagulable condition (ulcerative colitis) with DVT and relative difficulty with anticoagulation due to GI bleeding. Discussed with gastroenterology about GI bleed and right lower quadrant DVT. Unfortunately, ulcerative colitis is a hypercoagulable condition, and placing an IVC filter without any anticoagulation places patient at risk for IVC filter thrombosis and progression of the right lower extremity DVT. GI will reattempt anticoagulation. Can be started 6 hours after procedure (10 PM at night). If rebleeds, then can discontinue anticoagulation. We will make patient n.p.o. after midnight in case patient rebleeds. If she rebleeds, then she will need IVC filter.
--- NOTE | 2019-09-14 18:51 | Event Note ---
Date: 09/14/[address] Tomlin. Unfortunately, the fluid collection is not organized enough in order to allow for a drain placement. Sample was taken for culture. May try a repeat CT in about a week to see if we have a definitive abscess that can be drained. Would continue current care for now.
--- NOTE | 2019-09-14 19:08 | Progress Note ---
Assessment and Plan Assessment and plan: --IR scheduled for CT-guided aspiration and drainage today of fluid collection in her left lower quadrant --Bilateral DVT; Lovenox held due to rectal bleeding Vascular IR/considering IVC filter placement when stable Vascular/IR recommend to start heparin drip 10 PM tonight Hold if any evidence of GI bleeding --Severe hypokalemia; will replace with oral KCl 40 mEq every 3 hours x2 And 20 mEq IV, check magnesium, follow electrolytes --Rectal bleeding; improved Probably diverticular, patient on full liquid diet Drop in H&H to 7.5, GI following, hold Lovenox Monitor H&H and transfuse as needed --Sepsis ;Surgery following No evidence of diverticulitis/abscess, Symptoms significantly improved on Zosyn, follow cultures, full liquids as tolerated CT abdomen; fluid collection between loops of small bowel and descending colon, s/pCT-guided drainage --Severe hypokalemia; replenish per protocol --Hypophosphatemia; replenish per protocol --Leukocytosis; secondary to sepsis, Trending down --Septic shock; resolved s/p vasopressors Levophed --Severe malnutrition/hypoalbuminemia; Due to underlying disease process, nutrition supplements --DVT prophylaxis: SCD, --Full code status Closely monitor the patient and adjust management as needed Plan of care reviewed with the patient and her at the bedside Disposition; follow clinically DC when stable Brief history 59-year-old woman 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 The pain is all over his belly, described as sharp, intermittent every 7 minutes, intensity 6/10, no radiation, cannot identify exacerbating factor. She states that she has not ate or drank anything since yesterday. Denies any nausea vomiting, fever chills, diarrhea. Patient stated she was admitted 2 months ago with abdominal pain and was diagnosed with colitis. Work- up consistent with sepsis due to diverticular disease History Interval history: Patient seen and examined this morning at bedside Patient's chart and medications list reviewed Patient is scheduled for CT-guided aspiration of intra-abdominal collection of fluid As well as IVC filter placement.Patient is n.p.o. status Patient is having lower extremity venous Dopplers test at the bedside Hospitalist Physical - Constitutional Vitals: Temp Pulse Resp BP Pulse Ox 98.2 F 100 H 18 114/56 97 09/14/19 16:24 09/14/19 16:24 09/14/19 16:24 09/14/19 16:24 09/14/19 16:24 General appearance: Present: mild distress, well-nourished, obese - EENT Eyes: Present: PERRL, EOM intact - Neck Neck: Present: supple, normal ROM - Respiratory Respiratory effort: normal Respiratory: bilateral: diminished, negative: rales, rhonchi, wheezing - Cardiovascular Rhythm: regular Heart Sounds: Present: S1 & S2 - Extremities Extremities: no ischemia, No edema - Abdominal General gastrointestinal: soft, non-tender, non-distended, normal bowel sounds - Integumentary Integumentary: Present: clear, warm - Psychiatric Psychiatric: appropriate mood/affect - Neurologic Neurologic: moves all extremities Results - Labs CBC & Chem 7: 09/13/19 09:40 09/14/19 10:40 Labs: Laboratory Last Values WBC 18.8 K/mm3 (4.5-11.0) H 09/13/19 09:40 RBC 2.79 M/mm3 (3.65-5.03) L 09/13/19 09:40 Hgb 7.5 gm/dl (10.1-14.3) L 09/13/19 09:40 Hct 24.3 % (30.3-42.9) L 09/13/19 09:40 MCV 87 fl (79-97) 09/13/19 09:40 MCH 27 pg (28-32) L 09/13/19 09:40 MCHC 31 % (30-34) 09/13/19 09:40 RDW 22.3 % (13.2-15.2) H 09/13/19 09:40 Plt Count 238 K/mm3 (140-440) 09/13/19 09:40 Lymph % (Auto) Radial Drill Press Operator 09/13/19 09:40 [place] % (Auto) Radial Drill Press Operator 09/13/19 09:40 Eos % (Auto) Radial Drill Press Operator 09/13/19 09:40 Baso % (Auto) Radial Drill Press Operator 09/13/19 09:40 Lymph # Radial Drill Press Operator 09/13/19 09:40 [place] # Radial Drill Press Operator 09/13/19 09:40 Eos # Radial Drill Press Operator 09/13/19 09:40 Baso # Radial Drill Press Operator 09/13/19 09:40 Add Manual Diff Complete 09/13/19 09:40 Total Counted 100 09/13/19 09:40 Seg Neutrophils % Radial Drill Press Operator 09/13/19 09:40 Seg Neuts % (Manual) 93.0 % (40.0-70.0) H 09/13/19 09:40 Band Neutrophils % 0 % 09/13/19 09:40 Lymphocytes % (Manual) 5.0 % (13.4-35.0) L 09/13/19 09:40 Reactive Lymphs % (Man) 0 % 09/13/19 09:40 Monocytes % (Manual) 2.0 % (0.0-7.3) 09/13/19 09:40 Eosinophils % (Manual) 0 % (0.0-4.3) 09/13/19 09:40 Basophils % (Manual) 0 % (0.0-1.8) 09/13/19 09:40 Metamyelocytes % 0 % 09/13/19 09:40 Myelocytes % 0 % 09/13/19 09:40 Promyelocytes % 0 % 09/13/19 09:40 Blast Cells % 0 % 09/13/19 09:40 Nucleated RBC % Not Reportable 09/13/19 09:40 Seg Neutrophils # Radial Drill Press Operator 09/13/19 09:40 Seg Neutrophils # Man 17.5 K/mm3 (1.8-7.7) H 09/13/19 09:40 Band Neutrophils # 0.0 K/mm3 09/13/19 09:40 Lymphocytes # (Manual) 0.9 K/mm3 (1.2-5.4) L 09/13/19 09:40 Abs React Lymphs (Man) 0.0 K/mm3 09/13/19 09:40 Monocytes # (Manual) 0.4 K/mm3 (0.0-0.8) 09/13/19 09:40 Eosinophils # (Manual) 0.0 K/mm3 (0.0-0.4) 09/13/19 09:40 Basophils # (Manual) 0.0 K/mm3 (0.0-0.1) 09/13/19 09:40 Metamyelocytes # 0.0 K/mm3 09/13/19 09:40 Myelocytes # 0.0 K/mm3 09/13/19 09:40 Promyelocytes # 0.0 K/mm3 09/13/19 09:40 Blast Cells # 0.0 K/mm3 09/13/19 09:40 WBC Morphology Not Reportable 09/13/19 09:40 Hypersegmented Neuts Not Reportable 09/13/19 09:40 Hyposegmented Neuts Not Reportable 09/13/19 09:40 Hypogranular Neuts Not Reportable 09/13/19 09:40 Smudge Cells Not Reportable 09/13/19 09:40 Toxic Granulation Not Reportable 09/13/19 09:40 Toxic Vacuolation Not Reportable 09/13/19 09:40 Dohle Bodies Not Reportable 09/13/19 09:40 Pelger-Huet Anomaly Not Reportable 09/13/19 09:40 Phyllis Rods Not Reportable 09/13/19 09:40 Platelet Estimate Consistent w auto 09/13/19 09:40 Clumped Platelets Rare 09/13/19 09:40 Plt Clumps, EDTA Not Reportable 09/13/19 09:40 Large Platelets Not Reportable 09/13/19 09:40 Giant Platelets Not Reportable 09/13/19 09:40 Platelet Satelliting Not Reportable 09/13/19 09:40 Plt Morphology Comment Not Reportable 09/13/19 09:40 RBC Morphology Not Reportable 09/13/19 09:40 Dimorphic RBCs Not Reportable 09/13/19 09:40 Polychromasia Not Reportable 09/13/19 09:40 Hypochromasia Few 09/13/19 09:40 Poikilocytosis Not Reportable 09/13/19 09:40 Anisocytosis 1+ 09/13/19 09:40 Microcytosis Not Reportable 09/13/19 09:40 Macrocytosis Few 09/13/19 09:40 Spherocytes Not Reportable 09/13/19 09:40 Pappenheimer Bodies Not Reportable 09/13/19 09:40 Sickle Cells Not Reportable 09/13/19 09:40 Target Cells Rare 09/13/19 09:40 Tear Drop Cells Not Reportable 09/13/19 09:40 Ovalocytes Not Reportable 09/13/19 09:40 Helmet Cells Not Reportable 09/13/19 09:40 Fam-[place] Bodies Not Reportable 09/13/19 09:40 [place] Rings Not Reportable 09/13/19 09:40 Agustina Cells Not Reportable 09/13/19 09:40 Bite Cells Not Reportable 09/13/19 09:40 Crenated Cell Not Reportable 09/13/19 09:40 Elliptocytes Not Reportable 09/13/19 09:40 Acanthocytes (Spur) Not Reportable 09/13/19 09:40 Rouleaux Not Reportable 09/13/19 09:40 Hemoglobin C Crystals Not Reportable 09/13/19 09:40 Schistocytes Not Reportable 09/13/19 09:40 Malaria parasites Not Reportable 09/13/19 09:40 Emmanuel Bodies Not Reportable 09/13/19 09:40 Hem Pathologist Commnt No 09/13/19 09:40 PT 20.5 Sec. (12.2-14.9) H 09/07/19 Unknown INR 1.72 (0.87-1.13) H 09/07/19 Unknown Sodium 143 mmol/L (137-145) 09/14/19 10:40 Potassium 2.8 mmol/L (3.6-5.0) L* D 09/14/19 10:40 Chloride 109.1 mmol/L (98-107) H 09/14/19 10:40 Carbon Dioxide 17 mmol/L (22-30) L 09/14/19 10:40 Anion Gap 20 mmol/L 09/14/19 10:40 BUN 2 mg/dL (7-17) L 09/14/19 10:40 Creatinine 0.5 mg/dL (0.7-1.2) L 09/14/19 10:40 Estimated GFR > 60 ml/min 09/14/19 10:40 BUN/Creatinine Ratio 4 % 09/14/19 10:40 Glucose 103 mg/dL (65-100) H 09/14/19 10:40 Lactic Acid 1.50 mmol/L (0.7-2.0) 09/07/19 Unknown Lactic Acid 4.70 mmol/L (0.7-2.0) H* 09/07/19 Unknown Calcium 5.8 mg/dL (8.4-10.2) L* 09/14/19 10:40 Phosphorus 1.80 mg/dL (2.5-4.5) L 09/14/19 10:40 Magnesium 1.60 mg/dL (1.7-2.3) L 09/14/19 10:40 Total Bilirubin 0.20 mg/dL (0.1-1.2) 09/14/19 10:40 AST 18 units/L (5-40) 09/14/19 10:40 ALT 28 units/L (7-56) 09/14/19 10:40 Alkaline Phosphatase 127 units/L (35-129) 09/14/19 10:40 Troponin T 0.027 ng/mL (0.00-0.029) 09/07/19 Unknown Total Protein 3.4 g/dL (6.3-8.2) L 09/14/19 10:40 Albumin 1.5 g/dL (3.9-5) L 09/14/19 10:40 Albumin/Globulin Ratio 0.8 % 09/14/19 10:40 Lipase 5 units/L (13-60) L 09/07/19 Unknown Urine Color Yellow (Yellow) 09/07/19 17:56 Urine Turbidity Slightly-cloudy (Clear) 09/07/19 17:56 Urine pH 6.0 (5.0-7.0) 09/07/19 17:56 Ur Specific [place] 1.009 (1.003-1.030) 09/07/19 17:56 Urine Protein <15 mg/dl mg/dL (Negative) 09/07/19 17:56 Urine Glucose (UA) Neg mg/dL (Negative) 09/07/19 17:56 Urine Ketones Neg mg/dL (Negative) 09/07/19 17:56 Urine Blood Neg (Negative) 09/07/19 17:56 Urine Nitrite Pos (Negative) 09/07/19 17:56 Urine Bilirubin Neg (Negative) 09/07/19 17:56 Urine Urobilinogen < 2.0 mg/dL (<2.0) 09/07/19 17:56 Ur Leukocyte Esterase Sm (Negative) 09/07/19 17:56 Urine WBC (Auto) 6.0 /HPF (0.0-6.0) 09/07/19 17:56 Urine RBC (Auto) < 1.0 /HPF (0.0-6.0) 09/07/19 17:56 U Epithel Cells (Auto) < 1.0 /HPF (0-13.0) 09/07/19 17:56 Urine Bacteria (Auto) 2+ /HPF (Negative) 09/07/19 17:56 Blood Type O POSITIVE 09/09/19 11:24 Antibody Screen Negative 09/09/19 11:24 Crossmatch See Detail 09/09/19 11:24 Active Medications - Current Medications Current Medications: Generic Name Dose Route Start Last Admin Trade Name Freq PRN Reason Stop Dose Admin Acetaminophen 650 mg 09/07/19 23:[address] Q4H PRN Pain MILD(1-3)/Fever >100.5/BUSTILLOS Hydrocortisone Sodium Succinate 100 mg 09/08/19 10:00 09/14/19 17:23 Solu-Cortef IV 100 mg Q8HR LAMINE Administration Piperacillin Sod/Tazobactam Sod 4.5 gm in 100 mls @ 200 mls/hr 09/08/19 06:00 09/14/19 17:21 Zosyn/Ns 4.5gm/100ml IV 200 mls/hr Q8HR LAMINE Administration Protocol Potassium Chloride/Sodium Chloride 20 meq in 1,000 mls @ 150 mls/hr 09/08/19 09:00 09/14/19 03:39 Ns/Kcl 20meq IV 150 mls/hr DIRECT LAMINE Administration Ondansetron HCl 4 mg 09/07/19 23:20 Zofran IV Q4H PRN Nausea And Vomiting Pantoprazole Sodium 40 mg 09/09/19 11:00 09/14/19 12:05 Protonix PO Not Given DAILY LAMINE Sodium Chloride 10 ml 09/08/19 10:00 09/14/19 12:12 Sodium Chloride Flush Syringe 10 Ml IV 10 ml BID LAMINE Administration Sodium Chloride 10 ml 09/07/19 23:20 09/12/19 05:56 Sodium Chloride Flush Syringe 10 Ml IV 10 ml PRN PRN Administration LINE FLUSH Sodium Phosphate 250 mg 09/12/19 22:00 09/14/19 17:23 K-Phos Neutral PO 250 mg QID LAMINE Administration Nutrition/Malnutrition Assess - Dietary Evaluation Nutrition/Malnutrition Findings: Nutrition Notes Start: 09/08/19 11:13 Freq: Status: Active Protocol: Document 09/10/19 09:55 MK (Rec: 09/10/19 10:08 MK [id number]) Co-Sign 09/10/19 09:55 LP Nutrition Notes Initial or Follow up Reassessment Current Diagnosis Sepsis Other Pertinent Diagnosis Hx DVT, colitis, IBD, abd pain , diverticulitis, wounds, leukocytosis Current Diet Full Liquid Labs/Tests BUN 3 Cr 0.5 Pertinent Medications NSKCl 150 ml/hr Height 5 ft 2 in Weight 83.1 kg Zachary Body Weight (kg) 50.00 BMI 33.5 Intake Prior to Admission Poor Weight change and time frame Reweighed pt. Wt change likely to bedscale error. Weight Status Obese Subjective/Other Information FU for diet advancement. Pt tolerating Ensure Clear and eating 100% of meals. Percent of energy/protein needs met: 70%/36% Burn Absent Trauma Absent GI Symptoms None Current % PO Good (75-100%) Minimum of two criteria Yes Energy Intake (non-severe) <75% Estimated Energy Requirement >7 days Interpretation of Weight Loss (severe) >7.5% in 3 months #1 Nutrition Diagnosis Malnutrition Diagnosis Progress(for reassessment Continues documentation) Is patient on ventilator? No Is Patient Ambulatory and/or Out of Bed No REE-([facility]-confined to bed) 1623.960 Calculation Used for Recommendations [facility] Additional Notes Protein needs: 89-111 g/day (1 .2-1.5 g/kg/day) Fluid needs: 1 ml/kcal Nutrition Intervention Change Diet Order: Advance diet when medically feasible Add Supplement/Snack (indicate name/kcal Ensure Clear BID /protein ) Provides kCal: 480 Provides Protein (gm) 16 Goal #1 Diet advancement Goal #2 Meet needs as best as possible via full liquid diet Anticipated Discharge Needs: unable to determine at this time Follow-Up By: 09/15/19 Additional Comments FU for diet advancement and intakes
[2019-09-14] MEDS ORDERED: POTASSIUM PHOSPHATE 45 MMOL in SODIUM CHLORIDE 0.9% 500 ML 500 ML IV ONE (19:36)
[2019-09-14] MEDS ORDERED: MAGNESIUM SULFATE 2 GM/50 ML BAG IV ONE (19:50)
[2019-09-14] MEDS ORDERED: HEPARIN/ 0.45% NACL DRIP 25,000 UNIT/500 ML BAG IV SCH (22:00)
[2019-09-14 23:39] LABS: Hemoglobin 6.1 gm/dl (10.1-14.3)
[2019-09-14 23:54] LABS: INR 1.29 (0.87-1.13)
[2019-09-14 23:55] LABS: Partial Thromboplastin Time 29.6 Sec. (24.2-36.6)
[2019-09-15] MEDS ORDERED: SODIUM CHLORIDE 0.9% 500 ML 500 ML IV ONE ×2 (01:20→19:02)
[2019-09-15] MEDS ORDERED: HEPARIN 10,000 UNITS/10 ML VIAL IV ONE (04:17)
[2019-09-15] MEDS: PIPERACIL/TAZOBACTA 4.5/NS 100 4.5 GM/100 ML VIAL IV SCH ×3 (05:20→22:47)
[2019-09-15] MEDS: HYDROCORTISONE SOD SUCC 100 MG/2 ML VIAL IV SCH ×3 (05:32→22:47)
[2019-09-15 09:14] LABS: Mean Corpuscular HGB Conc 32 % (30-34); Mean Corpuscular Volume 85 fl (79-97); Platelet Count 289 K/mm3 (140-440)
[2019-09-15 09:17] LABS: Hematocrit 18.7 % (30.3-42.9)
[2019-09-15 09:25] LABS: Hemolysis Index 2
[2019-09-15 09:30] LABS: BUN/Creatinine Ratio 2; Blood Urea Nitrogen 1 mg/dL (7-17)
[2019-09-15 09:32] LABS: Calcium 5.9 mg/dL (8.4-10.2)
[2019-09-15] MEDS: PANTOPRAZOLE 40 MG TAB PO SCH (09:43)
[2019-09-15] MEDS: K-PHOS NEUTRAL 250 MG TAB PO SCH ×4 (09:43→22:45)
[2019-09-15] MEDS ORDERED: POTASSIUM CHLORIDE ER 20 MEQ TAB PO NR (10:22)
[2019-09-15] MEDS ORDERED: SODIUM CHLORIDE 0.9% 500 ML 500 ML ONE (11:00)
--- NOTE | 2019-09-15 12:09 | Gastroenterology Progress Note ---
Assessment and Plan GI: pt w/ possible UC now with abscess and signs small free air, GI consulted for rectal bleeding - afebrile; WBC 21.7-trending up - repeat CT performed 09/12/19 demonstrated progression of this phlegmon into a fluid collection, along with right common femoral vein DVT - surgery following with no surgical intervention recommended at this time - IR following- s/p CT guided aspiration of LLQ fluid collection yesterday but fluid collection not organized enough to allow for drain placement; recommendations given for repeat CT in ~1 week for further evaluation/determination if drain can be placed - H/H 6.1/19.0- trend down, but no active signs bleeding overnight or this am; blood transfusion pending today (continue to monitor H/h and transfuse as needed) - no plans for scope at this time - no recommendation for steroids given current infection - no immediate contraindication for resuming anticoagulation per IR recommendations at this, given no overt bleeding- monitor and hold for active bleeding (if unable to tolerate anticoagulation, recommend proceeding with IVC filter placement) - continue antibiotics - continue to trend labs and supportive care - will follow Subjective Date of service: 09/15/19 Principal diagnosis: rectal bleeding Interval history: Patient resting in bed this am w/o acute distress and at bedside. Report abd pain improving. Currently on heparin drip. No N/V or active signs of bleeding overnight or this am per pt/family/nursing. Objective - Constitutional Vitals: Temp Pulse Resp BP Pulse Ox 98.7 F 91 H 16 115/54 99 09/14/19 23:46 09/14/19 23:46 09/14/19 23:46 09/14/19 23:46 09/15/19 08:01 General appearance: no acute distress, obese - EENT Eyes: PERRL, EOM intact ENT: hearing intact - Respiratory Respiratory effort: normal - Cardiovascular Rhythm: regular - Gastrointestinal General gastrointestinal: Present: soft, tender (LLQ), non-distended, normal bowel sounds - Integumentary Integumentary: Present: warm, dry - Neurologic Neurological: alert and oriented x3 - Labs CBC & Chem 7: 09/15/19 08:50 09/15/19 08:50 Labs: Laboratory Results - last 24 hr 09/14/19 09/14/19 09/15/19 23:15 23:15 08:50 WBC 21.7 H RBC 2.20 L Hgb 6.1 L 6.0 L Hct 19.0 L* 18.7 L* MCV 85 MCH 27 L MCHC 32 RDW 23.0 H Plt Count 289 289 Seg Neutrophils % Personal Consultant PT 16.3 H INR 1.29 H APTT 29.6 Heparin Anti-Xa Level Sodium Potassium Chloride Carbon Dioxide Anion Gap BUN Creatinine Estimated GFR BUN/Creatinine Ratio Glucose Calcium Phosphorus Magnesium Blood Type Antibody Screen Crossmatch 09/15/19 09/15/19 09/15/19 08:50 08:50 08:50 WBC RBC Hgb Hct MCV MCH MCHC RDW Plt Count Seg Neutrophils % PT INR APTT Heparin Anti-Xa Level > 2.00 H Sodium 142 Potassium 2.2 L* D Chloride 106.7 Carbon Dioxide 20 L Anion Gap 18 BUN 1 L Creatinine 0.5 L Estimated GFR > 60 BUN/Creatinine Ratio 2 Glucose 104 H Calcium 5.9 L* Phosphorus 2.00 L Magnesium 1.50 L Blood Type O POSITIVE Antibody Screen Negative Crossmatch See Detail
[2019-09-15 12:17] LABS: Anisocytosis 1+; Basophils % (Manual) 0 % (0.0-1.8); Eosinophils % (Manual) 0 % (0.0-4.3); Platelet Estimate Consistent w Auto; Total Cells Counted 100
[2019-09-15 12:18] LABS: Large Platelets Few
--- NOTE | 2019-09-15 16:26 | Progress Note ---
Assessment and Plan /possible UC now with abscess and signs small free air, - GI consulted , afebrile; WBC trending up - repeat CT performed 09/12/19 demonstrated progression of this phlegmon into a fluid collection, along with right common femoral vein DVT - surgery following with no surgical intervention recommended at this time - IR following- s/p CT guided aspiration of LLQ fluid collection but fluid collection not organized enough to allow for drain placement; recommendations given for repeat CT in ~1 week for further evaluation/determination if drain can be placed - no plans for scope at this time - no recommendation for steroids given current infection - continue antibiotics - continue to trend labs and supportive care /Bilateral DVT; Lovenox held due to rectal bleeding Vascular IR/considering IVC filter placement when stable Vascular/IR recommend to cont heparin drip - if no access then can change to lovenox Hold if any evidence of GI bleeding /Severe hypokalemia and hypomadnesemia; will replace with oral KCl 40 mEq every 3 hours x2 And 20 mEq IV, check magnesium, follow electrolytes /Rectal bleeding; Probably from UC, patient on full liquid diet Drop in H&H, GI following, Monitor H&H and transfuse as needed to keep hb >7.0 /Sepsis with UC and intra-abdominal abscess - repeat CT performed demonstrated progression of this phlegmon into a fluid collection, along with right common femoral vein DVT --IR scheduled for CT-guided aspiration and drainage on 09/14/19 of fluid collection in her left lower quadrant, - on Zosyn, follow cultures, full liquids as tolerated /Hypophosphatemia; replenish per protocol /Leukocytosis; secondary to sepsis, cont to monitor, stop steroid /Septic shock; resolved s/p vasopressors Levophed /Severe malnutrition/hypoalbuminemia; Due to underlying disease process, nutrition supplements --DVT prophylaxis: SCD, --Full code status Closely monitor the patient and adjust management as needed Plan of care reviewed with the patient and her at the bedside Disposition; follow clinically, DC when stable Brief history 59-year-old woman 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 The pain is all over his belly, described as sharp, intermittent every 7 minutes, int ensity 6/10, no radiation, cannot identify exacerbating factor. Denies any nausea vomiting, fever chills, diarrhea. Patient stated she was admitted 2 months ago with abdominal pain and was diagnosed with colitis. Work-up consistent with sepsis due to UC with intraabdominal abscess, b/l lE DVT. Also having rectal bleed, severe electrolytes abnormalities. clinically not yet stable for discharge for recurrent active rectal bleeding, low H/H and electrolytes instability. Hospitalist Physical General appearance: Present: mild distress, well-nourished, obese - EENT Eyes: Present: PERRL, EOM intact - Neck Neck: Present: supple, normal ROM - Respiratory Respiratory effort: normal Respiratory: bilateral: diminished, negative: rales, rhonchi, wheezing - Cardiovascular Rhythm: regular Heart Sounds: Present: S1 & S2 - Extremities Extremities: no ischemia, No edema - Abdominal General gastrointestinal: soft, non-tender, non-distended, normal bowel sounds - Integumentary Integumentary: Present: clear, warm - Psychiatric Psychiatric: appropriate mood/affect - Neurologic Neurologic: moves all extremities Subjective Date of service: 09/15/19 Principal diagnosis: rectal bleeding Interval history: Patient seen and examined this morning at bedside Patient's chart and medications list reviewed Hb dropped to ~6.0, withwith K 2.8, Mg 1.6 and phosphate 1.8 discussed plan of care at bedside with cont to have intermittent rectal bleeding Objective - Constitutional Vitals: Vital Signs - 12hr 09/15/19 08:01 O2 Sat by Pulse 99 Oximetry - Labs CBC & Chem 7: 09/16/19 15:23 09/16/19 11:22 Labs: Abnormal lab results 09/14/19 09/14/19 09/15/19 Range/Units 23:15 23:15 08:50 WBC 21.7 H (4.5-11.0) K/mm3 RBC 2.20 L (3.65-5.03) M/mm3 Hgb 6.1 L 6.0 L (10.1-14.3) gm/dl Hct 19.0 L* 18.7 L* (30.3-42.9) % MCH 27 L (28-32) pg RDW 23.0 H (13.2-15.2) % Seg Neuts % (Manual) 94.0 H (40.0-70.0) % Lymphocytes % (Manual) 3.0 L (13.4-35.0) % Seg Neutrophils # Man 20.4 H (1.8-7.7) K/mm3 Lymphocytes # (Manual) 0.7 L (1.2-5.4) K/mm3 PT 16.3 H (12.2-14.9) Sec. INR 1.29 H (0.87-1.13) Heparin Anti-Xa Level (0.3-0.7) U.I./ml Potassium (3.6-5.0) mmol/L Carbon Dioxide (22-30) mmol/L BUN (7-17) mg/dL Creatinine (0.7-1.2) mg/dL Glucose (65-100) mg/dL Calcium (8.4-10.2) mg/dL Phosphorus (2.5-4.5) mg/dL Magnesium (1.7-2.3) mg/dL Crossmatch 09/15/19 09/15/19 09/15/19 Range/Units 08:50 08:50 08:50 WBC (4.5-11.0) K/mm3 RBC (3.65-5.03) M/mm3 Hgb (10.1-14.3) gm/dl Hct (30.3-42.9) % MCH (28-32) pg RDW (13.2-15.2) % Seg Neuts % (Manual) (40.0-70.0) % Lymphocytes % (Manual) (13.4-35.0) % Seg Neutrophils # Man (1.8-7.7) K/mm3 Lymphocytes # (Manual) (1.2-5.4) K/mm3 PT (12.2-14.9) Sec. INR (0.87-1.13) Heparin Anti-Xa Level > 2.00 H (0.3-0.7) U.I./ml Potassium 2.2 L* D (3.6-5.0) mmol/L Carbon Dioxide 20 L (22-30) mmol/L BUN 1 L (7-17) mg/dL Creatinine 0.5 L (0.7-1.2) mg/dL Glucose 104 H (65-100) mg/dL Calcium 5.9 L* (8.4-10.2) mg/dL Phosphorus 2.00 L (2.5-4.5) mg/dL Magnesium 1.50 L (1.7-2.3) mg/dL Crossmatch See Detail
--- NOTE | 2019-09-15 16:33 | Progress Note ---
Assessment and Plan 59-year-old female with ulcerative colitis in left lower quadrant phlegmon with right lower extremity DVT and anemia. Left lower quadrant phlegmon will defer to surgery. Suspect will reimage in 1 week and reassess for CT-guided drainage. Having anemia requiring blood transfusion without overt GI bleeding. Could be due to low-grade oozing. If patient does not adequately respond or hemoglobin continues to drift down, then can discontinue anticoagulation and IVC filter will be placed. In case this occurs, I will make patient n.p.o. after midnight except sips of water with meds. Unfortunately, given her hypercoagulable state (ulcerative colitis), she is at high risk for thromboembolic progression without anticoagulation. Subjective Date of service: 09/15/19 Principal diagnosis: rectal bleeding Interval history: Hemoglobin dropped, but no overt GI bleeding. Abdomen feels slightly better. Receiving blood. Objective - Constitutional Vitals: Vital Signs - 12hr 09/15/19 08:01 O2 Sat by Pulse 99 Oximetry General appearance: Present: no acute distress - EENT Eyes: EOM intact ENT: hearing intact - Respiratory Respiratory effort: normal - Gastrointestinal General gastrointestinal: Present: soft - Psychiatric Psychiatric: appropriate mood/affect, cooperative - Labs CBC & Chem 7: 09/15/19 08:50 09/15/19 08:50 Labs: Abnormal lab results 09/14/19 09/14/19 09/15/19 Range/Units 23:15 23:15 08:50 WBC 21.7 H (4.5-11.0) K/mm3 RBC 2.20 L (3.65-5.03) M/mm3 Hgb 6.1 L 6.0 L (10.1-14.3) gm/dl Hct 19.0 L* 18.7 L* (30.3-42.9) % MCH 27 L (28-32) pg RDW 23.0 H (13.2-15.2) % Seg Neuts % (Manual) 94.0 H (40.0-70.0) % Lymphocytes % (Manual) 3.0 L (13.4-35.0) % Seg Neutrophils # Man 20.4 H (1.8-7.7) K/mm3 Lymphocytes # (Manual) 0.7 L (1.2-5.4) K/mm3 PT 16.3 H (12.2-14.9) Sec. INR 1.29 H (0.87-1.13) Heparin Anti-Xa Level (0.3-0.7) U.I./ml Potassium (3.6-5.0) mmol/L Carbon Dioxide (22-30) mmol/L BUN (7-17) mg/dL Creatinine (0.7-1.2) mg/dL Glucose (65-100) mg/dL Calcium (8.4-10.2) mg/dL Phosphorus (2.5-4.5) mg/dL Magnesium (1.7-2.3) mg/dL Crossmatch 09/15/19 09/15/19 09/15/19 Range/Units 08:50 08:50 08:50 WBC (4.5-11.0) K/mm3 RBC (3.65-5.03) M/mm3 Hgb (10.1-14.3) gm/dl Hct (30.3-42.9) % MCH (28-32) pg RDW (13.2-15.2) % Seg Neuts % (Manual) (40.0-70.0) % Lymphocytes % (Manual) (13.4-35.0) % Seg Neutrophils # Man (1.8-7.7) K/mm3 Lymphocytes # (Manual) (1.2-5.4) K/mm3 PT (12.2-14.9) Sec. INR (0.87-1.13) Heparin Anti-Xa Level > 2.00 H (0.3-0.7) U.I./ml Potassium 2.2 L* D (3.6-5.0) mmol/L Carbon Dioxide 20 L (22-30) mmol/L BUN 1 L (7-17) mg/dL Creatinine 0.5 L (0.7-1.2) mg/dL Glucose 104 H (65-100) mg/dL Calcium 5.9 L* (8.4-10.2) mg/dL Phosphorus 2.00 L (2.5-4.5) mg/dL Magnesium 1.50 L (1.7-2.3) mg/dL Crossmatch See Detail Medications & Allergies - Medications Allergies/Adverse Reactions: Allergies No Known Allergies Allergy (Unverified 09/07/19 17:26) Home Medications: Home Medications Medication Instructions Recorded Confirmed Last Taken Type Deltasone 10 mg PO DAILY 09/08/19 09/08/19 Unknown History Ferrous Sulfate 325 mg PO DAILY 09/08/19 09/08/19 Unknown History L. Rhamnosus/C/Zinc Cit/Yeast 1 cap PO DAILY 09/08/19 09/08/19 Unknown History Lasix TAB 20 mg PO BID 09/08/19 09/08/19 Unknown History Mag-Ox 400 mg PO BID 09/08/19 09/08/19 Unknown History Pantoprazole 20 mg PO DAILY 09/08/19 09/08/19 Unknown History Pradaxa 150 mg PO BID 09/08/19 09/08/19 Unknown History Active Medications: Generic Name Dose Route Start Last Admin Trade Name Freq PRN Reason Stop Dose Admin Acetaminophen 650 mg 09/07/19 23:20 Tylenol [place] Q4H PRN Pain MILD(1-3)/Fever >100.5/BUSTILLOS Hydrocortisone Sodium Succinate 100 mg 09/08/19 10:00 09/15/19 05:32 Solu-Cortef IV 100 mg Q8HR LAMINE Administration Piperacillin Sod/Tazobactam Sod 4.5 gm in 100 mls @ 200 mls/hr 09/08/19 06:00 09/15/19 05:20 Zosyn/Ns 4.5gm/100ml IV Not Given Q8HR LAMINE Protocol Potassium Chloride/Sodium Chloride 20 meq in 1,000 mls @ 150 mls/hr 09/08/19 09:00 09/14/19 22:05 Ns/Kcl 20meq IV 150 mls/hr DIRECT LAMINE Administration Heparin Sodium/Sodium Chloride 25,000 unit in 500 mls @ 30 mls/hr 09/14/19 22:00 09/15/19 11:44 Heparin/ 0.45% Nacl-25,000 Unit/500 Ml IV 1,300 units/hr TITR LAMINE 26 mls/hr Titration Protocol 1,500 UNITS/HR Ondansetron HCl 4 mg 09/07/19 23:20 Zofran IV Q4H PRN Nausea And Vomiting Pantoprazole Sodium 40 mg 09/09/19 11:00 09/15/19 09:43 Protonix PO 40 mg DAILY LAMINE Administration Potassium Chloride 30 meq 09/15/19 14:00 K-Dur PO QDAY LAMINE Sodium Chloride 10 ml 09/08/19 10:00 09/15/19 11:41 Sodium Chloride Flush Syringe 10 Ml IV 10 ml BID LAMINE Administration Sodium Chloride 10 ml 09/07/19 23:20 09/12/19 05:56 Sodium Chloride Flush Syringe 10 Ml IV 10 ml PRN PRN Administration LINE FLUSH Sodium Phosphate 250 mg 09/12/19 22:00 09/15/19 09:43 K-Phos Neutral PO 250 mg QID LAMINE Administration
[2019-09-15] MEDS: POTASSIUM CHLORIDE ER 10 MEQ TAB PO SCH (17:04)
[2019-09-15] MEDS ORDERED: ENOXAPARIN 100 MG/1 ML INJ SUB-Q SCH (22:00)
[2019-09-15] MEDS: POTASSIUM CHLORIDE 10 MEQ 10 MEQ/100 ML BAG IV SCH (22:46)
[2019-09-15] MEDS: ENOXAPARIN 80 MG/0.8 ML INJ SUB-Q SCH (22:47)
[2019-09-16] MEDS: POTASSIUM CHLORIDE 10 MEQ 10 MEQ/100 ML BAG IV SCH ×5 (00:22→18:27)
[2019-09-16] MEDS: PIPERACIL/TAZOBACTA 4.5/NS 100 4.5 GM/100 ML VIAL IV SCH ×2 (05:54→15:48)
[2019-09-16] MEDS: HYDROCORTISONE SOD SUCC 100 MG/2 ML VIAL IV SCH (05:55)
[2019-09-16] MEDS: K-PHOS NEUTRAL 250 MG TAB PO SCH ×3 (10:00→18:25)
--- NOTE | 2019-09-16 11:13 | Gastroenterology Progress Note ---
Assessment and Plan GI: pt w/ possible UC now with abscess and signs small free air, GI consulted for rectal bleeding - afebrile; WBC 21.1 - repeat CT performed 09/12/19 demonstrated progression of this phlegmon into a fluid collection, along with right common femoral vein DVT - surgery following with no surgical intervention recommended at this time - IR following- s/p CT guided aspiration of LLQ fluid collection 09/14/19 but fluid collection not organized enough to allow for drain placement; recommendations given for repeat CT in ~1 week for further melissa luation/determination if drain can be placed - H/H 11.2/33.4 s/p blood transfusion yesterday - no active signs bleeding overnight or this am; continue to monitor H/H and transfuse as needed - no plans for scope at this time - no recommendation for steroids given current infection - no immediate contraindications for continuing anticoagulation t this, given no overt bleeding- monitor and hold for active bleeding (if unable to tolerate anticoagulation, recommend proceeding with IVC filter placement per IR - continue antibiotics - continue to trend labs and supportive care Subjective Date of service: 09/16/19 Principal diagnosis: rectal bleeding Interval history: No acute distress or active signs of bleeding. Tolerating diet. Objective - Constitutional Vitals: Temp Pulse Resp BP Pulse Ox 98.0 F 88 20 102/50 98 09/16/19 04:19 09/16/19 04:19 09/16/19 04:19 09/16/19 04:19 09/16/19 04:19 General appearance: no acute distress - EENT Eyes: PERRL, EOM intact ENT: hearing intact - Respiratory Respiratory effort: normal Respiratory: bilateral: diminished - Cardiovascular Rhythm: regular - Gastrointestinal General gastrointestinal: Present: soft, tender (slight), non-distended, normal bowel sounds - Neurologic Neurological: alert and oriented x3 - Labs CBC & Chem 7: 09/16/19 11:22 09/15/19 08:50 Labs: Laboratory Results - last 24 hr 09/15/19 09/15/19 08:50 08:50 Add Manual Diff Complete Total Counted 100 Seg Neuts % (Manual) 94.0 H Band Neutrophils % 0 Lymphocytes % (Manual) 3.0 L Reactive Lymphs % (Man) 0 Monocytes % (Manual) 1.0 Eosinophils % (Manual) 0 Basophils % (Manual) 0 Metamyelocytes % 2.0 Myelocytes % 0 Promyelocytes % 0 Blast Cells % 0 Nucleated RBC % Not Reportable Seg Neutrophils # Man 20.4 H Band Neutrophils # 0.0 Lymphocytes # (Manual) 0.7 L Abs React Lymphs (Man) 0.0 Monocytes # (Manual) 0.2 Eosinophils # (Manual) 0.0 Basophils # (Manual) 0.0 Metamyelocytes # 0.4 Myelocytes # 0.0 Promyelocytes # 0.0 Blast Cells # 0.0 WBC Morphology Not Reportable Hypersegmented Neuts Not Reportable Hyposegmented Neuts Not Reportable Hypogranular Neuts Not Reportable Smudge Cells Not Reportable Toxic Granulation Not Reportable Toxic Vacuolation Not Reportable Dohle Bodies Not Reportable Pelger-Huet Anomaly Not Reportable Phyllis Rods Not Reportable Platelet Estimate Consistent w auto Clumped Platelets Not Reportable Plt Clumps, EDTA Not Reportable Large Platelets Few Giant Platelets Not Reportable Platelet Satelliting Not Reportable Plt Morphology Comment Not Reportable RBC Morphology Not Reportable Dimorphic RBCs Not Reportable Polychromasia Not Reportable Hypochromasia Not Reportable Poikilocytosis Not Reportable Anisocytosis 1+ Microcytosis Not Reportable Macrocytosis Not Reportable Spherocytes Not Reportable Pappenheimer Bodies Not Reportable Sickle Cells Not Reportable Target Cells Not Reportable Tear Drop Cells Not Reportable Ovalocytes Not Reportable Helmet Cells Not Reportable Fam-Bradner Bodies Not Reportable [place] Rings Not Reportable Agustina Cells Not Reportable Bite Cells Not Reportable Crenated Cell Not Reportable Elliptocytes Not Reportable Acanthocytes (Spur) Not Reportable Rouleaux Not Reportable Hemoglobin C Crystals Not Reportable Schistocytes Not Reportable Malaria parasites Not Reportable Emmanule Bodies Not Reportable Hem Pathologist Commnt No Blood Type O POSITIVE Antibody Screen Negative Crossmatch See Detail
[2019-09-16 11:31] LABS: Hematocrit 33.4 % (30.3-42.9); Hemoglobin 11.2 gm/dl (10.1-14.3); Mean Corpuscular HGB Conc 34 % (30-34); Mean Corpuscular Volume 88 fl (79-97); Platelet Count 222 K/mm3 (140-440); Red Blood Count 3.79 M/mm3 (3.65-5.03); Red Cell Distribution Width 16.7 % (13.2-15.2)
[2019-09-16 11:51] LABS: Hemolysis Index 15
[2019-09-16 11:53] LABS: BUN/Creatinine Ratio 2; Blood Urea Nitrogen 1 mg/dL (7-17)
[2019-09-16 12:20] LABS: Anisocytosis 1+; Band Neutrophils # (Manual) 0.2 K/mm3; Basophils % (Manual) 0 % (0.0-1.8); Eosinophils % (Manual) 0 % (0.0-4.3); Macrocytosis Few; Platelet Clumps Rare; Platelet Estimate Consistent w Auto; Target Cells Few; Total Cells Counted 100
[2019-09-16] MEDS ORDERED: MAGNESIUM SULFATE 2 GM/50 ML BAG IV ONE (14:00)
--- NOTE | 2019-09-16 14:57 | Progress Note ---
Assessment and Plan /possible UC now with abscess and signs small free air, - GI consulted , afebrile; WBC trending up - repeat CT performed 09/12/19 demonstrated progression of this phlegmon into a fluid collection, along with right common femoral vein DVT - surgery following with no surgical intervention recommended at this time - IR following- s/p CT guided aspiration of LLQ fluid collection; recommendations given for repeat CT in ~1 week for further ev aluation/determination if drain can be placed - no plans for scope at this time - no recommendation for steroids given current infection - continue antibiotics, consult ID - continue to trend labs and supportive care /Sepsis with UC and intra-abdominal abscess - repeat CT performed demonstrated progression of this phlegmon into a fluid collection, along with right common femoral vein DVT --IR scheduled for CT-guided aspiration and drainage on 09/14/19 of fluid collection in her left lower quadrant, - on Zosyn, growing ESBL on cultures, full liquids as tolerated - consult ID /Bilateral DVT; Lovenox held due to rectal bleeding Vascular IR/considering IVC filter placement when stable Vascular/IR recommend to cont heparin drip - if no access then can change to lovenox Hold if any evidence of severe GI bleeding /Severe hypokalemia and hypomadnesemia; will replace with oral KCl 40 mEq every 3 hours x2 And 20 mEq IV, check magnesium, follow electrolytes /Rectal bleeding; Probably from UC, patient on full liquid diet Drop in H&H, GI following, Monitor H&H and transfuse as needed to keep hb >7.0 /Hypophosphatemia; replenish per protocol /Leukocytosis; secondary to sepsis, cont to monitor, stop steroid /Septic shock; resolved s/p vasopressors Levophed /Severe malnutrition/hypoalbuminemia; Due to underlying disease process, nutrition supplements --DVT prophylaxis: SCD, --Full code status Closely monitor the patient and adjust management as needed Plan of care reviewed with the patient and her at the bedside Disposition; follow clinically, DC when stable Brief history 59-year-old woman 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 The pain is all over his belly, described as sharp, intermittent every 7 minutes, intensity 6/10, no radiation, cannot identify exacerbating factor. Denies any nausea vomiting, fever chills, diarrhea. Patient stated she was admitted 2 months ago with abdominal pain and was diagnosed with colitis. Work-up consis tent with sepsis due to UC with intraabdominal abscess, b/l lE DVT. Also having rectal bleed, severe electrolytes abnormalities. clinically not yet stable for discharge for recurrent active rectal bleeding, low H/H and electrolytes instability. Hospitalist Physical General appearance: Present: mild distress, well-nourished, obese - EENT Eyes: Present: PERRL, EOM intact - Neck Neck: Present: supple, normal ROM - Respiratory Respiratory effort: normal Respiratory: bilateral: diminished, negative: rales, rhonchi, wheezing - Cardiovascular Rhythm: regular Heart Sounds: Present: S1 & S2 - Extremities Extremities: no ischemia, No edema - Abdominal General gastrointestinal: soft, non-tender, non-distended, normal bowel sounds - Integumentary Integumentary: Present: clear, warm - Psychiatric Psychiatric: appropriate mood/affect - Neurologic Neurologic: moves all extremities Subjective Date of service: 09/16/19 Principal diagnosis: rectal bleeding Interval history: Patient seen and examined this morning at bedside Patient's chart and medications list reviewed Hb stable, K 2.7, tolerating diet discussed plan of care at bedside with States no intermittent rectal bleeding with stool Objective - Constitutional Vitals: Vital Signs - 12hr 09/16/19 09/16/19 09/16/19 03:21 03:34 03:49 Temperature 97.8 F 97.7 F 98.0 F Pulse Rate 90 102 H 89 Respiratory 18 18 20 Rate Blood Pressure 103/48 104/53 95/56 Blood Pressure [Right] O2 Sat by Pulse 96 99 96 Oximetry 09/16/19 09/16/19 09/16/19 04:19 10:00 11:44 Temperature 98.0 F Pulse Rate 88 90 Respiratory 20 20 Rate Blood Pressure 102/50 Blood Pressure [Right] O2 Sat by Pulse 98 97 100 Oximetry 09/16/19 11:47 Temperature Pulse Rate 72 Respiratory 20 Rate Blood Pressure Blood Pressure 94/62 [Right] O2 Sat by Pulse 100 Oximetry - Labs CBC & Chem 7: 09/18/19 08:40 09/17/19 10:38 Labs: Abnormal lab results 09/15/19 09/16/19 09/16/19 Range/Units 08:50 11:22 11:22 WBC 21.1 H (4.5-11.0) K/mm3 RDW 16.7 H (13.2-15.2) % Seg Neuts % (Manual) 96.0 H (40.0-70.0) % Lymphocytes % (Manual) 1.0 L (13.4-35.0) % Seg Neutrophils # Man 20.3 H (1.8-7.7) K/mm3 Lymphocytes # (Manual) 0.2 L (1.2-5.4) K/mm3 Potassium 2.7 L* D (3.6-5.0) mmol/L Chloride 107.8 H (98-107) mmol/L Carbon Dioxide 19 L (22-30) mmol/L BUN 1 L (7-17) mg/dL Creatinine 0.5 L (0.7-1.2) mg/dL Glucose 114 H (65-100) mg/dL Calcium 6.0 L (8.4-10.2) mg/dL Crossmatch See Detail
[2019-09-16] MEDS: ENOXAPARIN 80 MG/0.8 ML INJ SUB-Q SCH (15:00)
[2019-09-16] MEDS: PANTOPRAZOLE 40 MG TAB PO SCH (15:00)
[2019-09-16] MEDS: POTASSIUM CHLORIDE ER 10 MEQ TAB PO SCH (15:00)
--- NOTE | 2019-09-16 16:25 | Progress Note ---
Assessment and Plan Patient with GI bleeding secondary to UC. Hgb improved with PRBC however the number may be spurious. Will recheck. There is however no evidence of active bleeding at this time so will hold off on placing the IVC filter at this time. Continue Lovenox for anticoagulation. Subjective Date of service: 09/16/19 Principal diagnosis: rectal bleeding Interval history: Patient received 2 units of PRBC today. No complaints. The nurse noted some spot bleeding on her pad today that she believes may have been vaginal in origin. Objective - Constitutional Vitals: Vital Signs - 12hr 09/16/19 09/16/19 09/16/19 10:00 11:44 11:47 Temperature Pulse Rate 90 72 Respiratory 20 20 Rate Blood Pressure 94/62 [Right] O2 Sat by Pulse 97 100 100 Oximetry 09/16/19 16:03 Temperature 98.0 F Pulse Rate 88 Respiratory 20 Rate Blood Pressure 88/61 [Right] O2 Sat by Pulse Oximetry General appearance: Present: no acute distress - Cardiovascular Rhythm: regular - Gastrointestinal General gastrointestinal: Present: tender (mildly mid abdomen) - Genitourinary Female genitourinary: deferred - Psychiatric Psychiatric: appropriate mood/affect - Labs CBC & Chem 7: 09/16/19 11:22 09/16/19 11:22 Labs: Abnormal lab results 09/15/19 09/16/19 09/16/19 Range/Units 08:50 11:22 11:22 WBC 21.1 H (4.5-11.0) K/mm3 RDW 16.7 H (13.2-15.2) % Seg Neuts % (Manual) 96.0 H (40.0-70.0) % Lymphocytes % (Manual) 1.0 L (13.4-35.0) % Seg Neutrophils # Man 20.3 H (1.8-7.7) K/mm3 Lymphocytes # (Manual) 0.2 L (1.2-5.4) K/mm3 Potassium 2.7 L* D (3.6-5.0) mmol/L Chloride 107.8 H (98-107) mmol/L Carbon Dioxide 19 L (22-30) mmol/L BUN 1 L (7-17) mg/dL Creatinine 0.5 L (0.7-1.2) mg/dL Glucose 114 H (65-100) mg/dL Calcium 6.0 L (8.4-10.2) mg/dL Crossmatch See Detail Medications & Allergies - Medications Allergies/Adverse Reactions: Allergies No Known Allergies Allergy (Unverified 09/07/19 17:26) Home Medications: Home Medications Medication Instructions Recorded Confirmed Last Taken Type Deltasone 10 mg PO DAILY 09/08/19 09/08/19 Unknown History Ferrous Sulfate 325 mg PO DAILY 09/08/19 09/08/19 Unknown History L. Rhamnosus/C/Zinc Cit/Yeast 1 cap PO DAILY 09/08/19 09/08/19 Unknown History Lasix TAB 20 mg PO BID 09/08/19 09/08/19 Unknown History Mag-Ox 400 mg PO BID 09/08/19 09/08/19 Unknown History Pantoprazole 20 mg PO DAILY 09/08/19 09/08/19 Unknown History Pradaxa 150 mg PO BID 09/08/19 09/08/19 Unknown History Active Medications: Generic Name Dose Route Start Last Admin Trade Name Freq PRN Reason Stop Dose Admin Acetaminophen 650 mg 09/07/19 23:20 Tylenol [place] Q4H PRN Pain MILD(1-3)/Fever >100.5/BUSTILLOS Enoxaparin Sodium 80 mg 09/15/19 22:00 09/16/19 15:00 Enoxaparin SUB-Q 80 mg Q12HR LAMINE Administration Piperacillin Sod/Tazobactam Sod 4.5 gm in 100 mls @ 200 mls/hr 09/08/19 06:00 09/16/19 15:48 Zosyn/Ns 4.5gm/100ml IV 200 mls/hr Q8HR LAMINE Administration Protocol Potassium Chloride/Sodium Chloride 20 meq in 1,000 mls @ 150 mls/hr 09/08/19 09:00 09/14/19 22:05 Ns/Kcl 20meq IV 150 mls/hr DIRECT LAMINE Administration Potassium Chloride 10 meq in 100 mls @ 100 mls/hr 09/16/19 14:00 09/16/19 14:28 Kcl 10meq/100ml IV 09/16/19 16:59 100 mls/hr Q1H LAMINE Administration Ondansetron HCl 4 mg 09/07/19 23:20 Zofran IV Q4H PRN Nausea And Vomiting Pantoprazole Sodium 40 mg 09/09/19 11:00 09/16/19 15:00 Protonix PO 40 mg DAILY LAMINE Administration Potassium Chloride 30 meq 09/15/19 14:00 09/16/19 15:00 K-Dur PO 30 meq QDAY LAMINE Administration Sodium Chloride 10 ml 09/08/19 10:00 09/16/19 10:00 Sodium Chloride Flush Syringe 10 Ml IV 10 ml BID LAMINE Administration Sodium Chloride 10 ml 09/07/19 23:20 09/12/19 05:56 Sodium Chloride Flush Syringe 10 Ml IV 10 ml PRN PRN Administration LINE FLUSH Sodium Phosphate 250 mg 09/12/19 22:00 09/16/19 14:26 K-Phos Neutral PO 250 mg QID LAMINE Administration
--- NOTE | 2019-09-16 16:55 | Consultation ---
History of Present Illness - Reason for Consult Consult date: 09/16/19 - History of Present Illness 59-year-old female past medical history of DVT currently on anticoagulation, colitis with questionable inflammatory bowel disease mid to the hospital with abdominal pain on 09/07/2019. At the time the pain was noted to be diffuse across the abdomen and was sharp but intermittent. The day prior to admission she had no p.o. intake. She otherwise denied any nausea, vomiting, fevers, diarrhea. She was previously admitted 2 months ago and was diagnosed with colitis at that time, and followed up with colonoscopy which showed severe active colitis with ulceration, granulation tissue and focal features of chronic mucosal injury. At that time she was started on a steroid taper, which is at 10 mg/day when she was admitted. She was previously noted to have an abdominal phlegmon which had organized into a drainable fluid collection. On the he was taken by IR for drainage of the fluid collection, which was aspirated but no drain was placed due to the phlegmonous nature of the fluid collection. During her admission she was found to have rectal bleeding as well for which gastroent erology was consulted. She is now thought to have possible ulcerative colitis. Afebrile since admission with a white count of 21. Currently receiving Zosyn. Drainage cultures from the fluid collection are growing ESBL Klebsiella pneumoniae and E. coli. Blood and urine cultures are negative. Imaging personally reviewed: CT abdomen pelvis: An increase in size of fluid collection from previous. Review of Systems: Bold if positive, otherwise negative General: fevers, chills, rigors HEENT: visual disturbance, diplopia, eye pain Respiratory: cough, sputum, hemoptysis, shortness of breath Cardiovascular: chest pain, syncope Gastrointestinal: nausea, vomiting, diarrhea, abdominal pain Genitourinary: dysuria, hematuria, flank pain Musculoskeletal: neck pain, back pain, joint pain, edema Neurologic: headaches, seizures Hematologic: easy bruising or bleeding Endocrine: night sweats, acute weight loss Skin: rash, jaundice, redness Psychiatric: suicidal, homicidal ideation Past History Past Medical History: DVT (3 weeks ago in both legs. ), GERD, other (colitis) Past Surgical History: No surgical history Social history: denies: smoking, alcohol abuse Family history: no significant family history Medications and Allergies Allergies Allergy/AdvReac Type Severity Reaction Status Date / Time No Known Allergies Allergy Unverified 09/07/19 17:26 Home Medications Medication Instructions Recorded Confirmed Last Taken Type Deltasone 10 mg PO DAILY 09/08/19 09/08/19 Unknown History Ferrous Sulfate 325 mg PO DAILY 09/08/19 09/08/19 Unknown History L. Rhamnosus/C/Zinc Cit/Yeast 1 cap PO DAILY 09/08/19 09/08/19 Unknown History Lasix TAB 20 mg PO BID 09/08/19 09/08/19 Unknown History Mag-Ox 400 mg PO BID 09/08/19 09/08/19 Unknown History Pantoprazole 20 mg PO DAILY 09/08/19 09/08/19 Unknown History Pradaxa 150 mg PO BID 09/08/19 09/08/19 Unknown History Active Meds: Active Medications Acetaminophen (Tylenol) 650 mg CA Q4H PRN PRN Reason: Pain MILD(1-3)/Fever >100.5/BUSTILLOS Enoxaparin Sodium (Enoxaparin) 80 mg SUB-Q Q12HR [facility] Last Admin: 09/16/19 15:00 Dose: 80 mg Documented by: Piperacillin Sod/Tazobactam Sod (Zosyn/Ns 4.5gm/100ml) 4.5 gm in 100 mls @ 200 mls/hr IV Q8HR [facility]; Protocol Last Admin: 09/16/19 15:48 Dose: 200 mls/hr Documented by: Potassium Chloride/Sodium Chloride (Ns/Kcl 20meq) 20 meq in 1,000 mls @ 150 mls/hr IV DIRECT [facility] Last Admin: 09/14/19 22:05 Dose: 150 mls/hr Documented by: Potassium Chloride (Kcl 10meq/100ml) 10 meq in 100 mls @ 100 mls/hr IV Q1H [facility] Stop: 09/16/19 16:59 Last Admin: 09/16/19 14:28 Dose: 100 mls/hr Documented by: Ondansetron HCl (Zofran) 4 mg IV Q4H PRN PRN Reason: Nausea And Vomiting Pantoprazole Sodium (Protonix) 40 mg PO DAILY [facility] Last Admin: 09/16/19 15:00 Dose: 40 mg Documented by: Potassium Chloride (K-Dur) 30 meq PO QDAY [facility] Last Admin: 09/16/19 15:00 Dose: 30 meq Documented by: Sodium Chloride (Sodium Chloride Flush Syringe 10 Ml) 10 ml IV BID [facility] Last Admin: 09/16/19 10:00 Dose: 10 ml Documented by: Sodium Chloride (Sodium Chloride Flush Syringe 10 Ml) 10 ml IV PRN PRN PRN Reason: LINE FLUSH Last Admin: 09/12/19 05:56 Dose: 10 ml Documented by: Sodium Phosphate (K-Phos Neutral) 250 mg PO QID [facility] Last Admin: 09/16/19 14:26 Dose: 250 mg Documented by: Physical Examination - Physical Exam Narrative exam: Physical Exam: Constitutional: Alert, cooperative. No acute distress Head, Ears, Nose: Normocephalic, atraumatic. External ears, nose normal Eyes: Conjunctivae/corneas clear. No icterus. No ptosis. Neck: Supple, no meningeal signs Oral: dentition fair, no thrush Cardiovascular: S1, S2 normal. Respiratory: Good air entry, clear to auscultation bilaterally GI: Soft, non-tender; bowel sounds normal. No peritoneal signs. Musculoskeletal: No pedal edema, no cyanosis. Skin: No rash or abscess Hem/Lymphatic: No palpable cervical or supraclavicular nodes. No lymphangitis Psych: Mood ok. Affect normal Neurological: Awake, alert, oriented. No gross abnormality - Constitutional Vitals: Vital Signs Temp Pulse Resp BP Pulse Ox 98.0 F 88 20 88/61 100 09/16/19 16:03 09/16/19 16:03 09/16/19 16:03 09/16/19 16:03 09/16/19 11:47 Temperature -Last 24 Hours Temperature 98.0 F Temperature 98.0 F Temperature 98.0 F Temperature 97.7 F Temperature 97.8 F Temperature 98.6 F Temperature 98.6 F Results - Labs CBC & Chem 7: 09/16/19 11:22 09/16/19 11:22 Labs: Abnormal lab results 09/15/19 09/16/19 09/16/19 Range/Units 08:50 11:22 11:22 WBC 21.1 H (4.5-11.0) K/mm3 RDW 16.7 H (13.2-15.2) % Seg Neuts % (Manual) 96.0 H (40.0-70.0) % Lymphocytes % (Manual) 1.0 L (13.4-35.0) % Seg Neutrophils # Man 20.3 H (1.8-7.7) K/mm3 Lymphocytes # (Manual) 0.2 L (1.2-5.4) K/mm3 Potassium 2.7 L* D (3.6-5.0) mmol/L Chloride 107.8 H (98-107) mmol/L Carbon Dioxide 19 L (22-30) mmol/L BUN 1 L (7-17) mg/dL Creatinine 0.5 L (0.7-1.2) mg/dL Glucose 114 H (65-100) mg/dL Calcium 6.0 L (8.4-10.2) mg/dL Crossmatch See Detail Assessment and Plan Cultures: 09/14/2019 abdominal drainage culture: ESBL Klebsiella pneumoniae and ESBL E. coli 09/07/2019 blood cultures: Negative 09/07/2019 urine cultures: Negative A&P: 59-year-old female past medical history of DVT currently on anticoagulation, colitis with questionable inflammatory bowel admitted with abdominal abscess, now with possible ulcerative colitis. Found to have polymicrobial ESBL infection #Acute sepsis: Present with leukocytosis and tachycardia. Secondary to intra-a bdominal abscess. #Intra-abdominal abscess: Status post aspiration for cultures, which I greatly appreciate. With polymicrobial ESBL. Since drain was unable to be placed, recommend repeat CT next week to follow-up abscess. However given the fact that half the isolates are not sensitive to Zosyn, I do not expect great improvement at this time. #ESBL Klebsiella and ESBL E. coli: Recommend changing therapy from Zosyn to ertapenem #? Ulcerative colitis: Per GI Recommendations: -Stop Zosyn -Start ertapenem 1 g every 24 hours -Contact precautions due to ESBL -Repeat CT after 5 days of effective therapy (09/21/2019) -Further recommendations for abscess pending repeat CT. IR drainage versus benito gical evacuation. Thank you for the consult, will continue to follow. MD Akira [facility] M: [phone] O: [phone] F: [phone]
[2019-09-16 17:00] LABS: Hematocrit 34.9 % (30.3-42.9); Hemoglobin 11.6 gm/dl (10.1-14.3); Mean Corpuscular HGB Conc 33 % (30-34); Mean Corpuscular Volume 89 fl (79-97); Platelet Count 247 K/mm3 (140-440); Red Blood Count 3.91 M/mm3 (3.65-5.03); Red Cell Distribution Width 17.3 % (13.2-15.2)
[2019-09-16] MEDS: ERTAPENEM 1 GM in SODIUM CHLORIDE 0.9% 50 ML IV SCH (18:25)
[2019-09-16 18:37] LABS: Basophils % (Manual) 0 % (0.0-1.8); Eosinophils % (Manual) 0 % (0.0-4.3); Macrocytosis Few; Target Cells Few; Total Cells Counted 100
[2019-09-16 18:38] LABS: Anisocytosis 1+
[2019-09-16 18:39] LABS: Platelet Estimate Consistent w Auto
[2019-09-16] MEDS ORDERED: ENOXAPARIN 100 MG/1 ML INJ SUB-Q SCH (22:00)
[2019-09-17] MEDS: K-PHOS NEUTRAL 250 MG TAB PO SCH ×5 (00:30→22:34)
[2019-09-17] MEDS: NACL 0.9%/KCL 20 MEQ 20 MEQ/1,000 ML BAG IV SCH ×2 (00:32→14:17)
[2019-09-17] MEDS: ENOXAPARIN 80 MG/0.8 ML INJ SUB-Q SCH ×3 (02:45→22:34)
[2019-09-17] MEDS: PANTOPRAZOLE 40 MG TAB PO SCH (09:11)
[2019-09-17] MEDS: ERTAPENEM 1 GM in SODIUM CHLORIDE 0.9% 50 ML IV SCH (09:11)
[2019-09-17] MEDS: POTASSIUM CHLORIDE ER 10 MEQ TAB PO SCH (09:11)
--- NOTE | 2019-09-17 09:25 | Progress Note ---
Assessment and Plan Patient will need repeat CT scan sometime next week following appropriate therapy. Patient will need aggressive physical therapy and rehabilitation. At this point, no further interventions planned unless the CT scan demonstrates recurrent versus maturing fluid collection. Subjective Date of service: 09/17/19 Principal diagnosis: rectal bleeding Interval history: Patient with history of inflammatory bowel disease who presented with left lower quadrant phlegmon which began to develop into a fluid collection. 2 days ago was aspirated and found to grow Klebsiella and E. coli. Infectious disease is following. Clinically, the patient is improved with no recurrent GI bleeding. Patient is tolerating diet. Objective - Constitutional Vitals: Vital Signs - 12hr 09/16/19 09/17/19 21:50 05:03 Temperature 98.3 F 98.5 F Pulse Rate 94 H 92 H Respiratory 18 16 Rate Blood Pressure 115/68 111/60 O2 Sat by Pulse 99 98 Oximetry General appearance: Present: no acute distress - EENT Eyes: EOM intact ENT: hearing intact - Neck Neck: supple, normal ROM - Respiratory Respiratory effort: normal Extremity abnormal: edema - Gastrointestinal General gastrointestinal: Present: deferred - Genitourinary Female genitourinary: deferred - Psychiatric Psychiatric: cooperative - Labs CBC & Chem 7: 09/16/19 15:23 09/16/19 11:22 Labs: Abnormal lab results 09/16/19 09/16/19 09/16/19 Range/Units 11:22 11:22 15:23 WBC 21.1 H 22.6 H (4.5-11.0) K/mm3 RDW 16.7 H 17.3 H (13.2-15.2) % Seg Neuts % (Manual) 96.0 H 94.0 H (40.0-70.0) % Lymphocytes % (Manual) 1.0 L 2.0 L (13.4-35.0) % Seg Neutrophils # Man 20.3 H 21.2 H (1.8-7.7) K/mm3 Lymphocytes # (Manual) 0.2 L 0.5 L (1.2-5.4) K/mm3 Potassium 2.7 L* D (3.6-5.0) mmol/L Chloride 107.8 H (98-107) mmol/L Carbon Dioxide 19 L (22-30) mmol/L BUN 1 L (7-17) mg/dL Creatinine 0.5 L (0.7-1.2) mg/dL Glucose 114 H (65-100) mg/dL Calcium 6.0 L (8.4-10.2) mg/dL Medications & Allergies - Medications Allergies/Adverse Reactions: Allergies No Known Allergies Allergy (Unverified 09/07/19 17:26) Home Medications: Home Medications Medication Instructions Recorded Confirmed Last Taken Type Deltasone 10 mg PO DAILY 09/08/19 09/08/19 Unknown History Ferrous Sulfate 325 mg PO DAILY 09/08/19 09/08/19 Unknown History L. Rhamnosus/C/Zinc Cit/Yeast 1 cap PO DAILY 09/08/19 09/08/19 Unknown History Lasix TAB 20 mg PO BID 09/08/19 09/08/19 Unknown History Mag-Ox 400 mg PO BID 09/08/19 09/08/19 Unknown History Pantoprazole 20 mg PO DAILY 09/08/19 09/08/19 Unknown History Pradaxa 150 mg PO BID 09/08/19 09/08/19 Unknown History Active Medications: Generic Name Dose Route Start Last Admin Trade Name Freq PRN Reason Stop Dose Admin Acetaminophen 650 mg 09/07/19 23:20 Tylenol [place] Q4H PRN Pain MILD(1-3)/Fever >100.5/BUSTILLOS Enoxaparin Sodium 80 mg 09/15/19 22:00 09/17/19 09:11 Enoxaparin SUB-Q 80 mg Q12HR [facility] Administration Potassium Chloride/Sodium Chloride 20 meq in 1,000 mls @ 150 mls/hr 09/08/19 09:00 09/17/19 00:32 Ns/Kcl 20meq IV 150 mls/hr DIRECT [facility] Administration Ertapenem 1 gm/ Sodium 50 mls @ 100 mls/hr 09/16/19 17:00 09/17/19 09:11 Chloride IV 100 mls/hr QDAY [facility] Administration Ondansetron HCl 4 mg 09/07/19 23:20 Zofran IV Q4H PRN Nausea And Vomiting Pantoprazole Sodium 40 mg 09/09/19 11:00 09/17/19 09:11 Protonix PO 40 mg DAILY [facility] Administration Potassium Chloride 30 meq 09/15/19 14:00 09/17/19 09:11 K-Dur PO 30 meq QDAY [facility] Administration Sodium Chloride 10 ml 09/08/19 10:00 09/17/19 09:12 Sodium Chloride Flush Syringe 10 Ml IV 10 ml BID [facility] Administration Sodium Chloride 10 ml 09/07/19 23:20 09/12/19 05:56 Sodium Chloride Flush Syringe 10 Ml IV 10 ml PRN PRN Administration LINE FLUSH Sodium Phosphate 250 mg 09/12/19 22:00 09/17/19 09:11 K-Phos Neutral PO 250 mg QID [facility] Administration
--- NOTE | 2019-09-17 10:29 | Gastroenterology Progress Note ---
Assessment and Plan GI: pt w/ possible UC with abscess and signs small free air, GI consulted for rectal bleeding - afebrile; WBC 22.6 - colonoscopy ~2 months ago during prior hospitalization showed severe active colitis with ulceration, granulation tissue and focal features of chronic mucosal injury (previously on steroid taper) - repeat CT performed 09/12/19 demonstrated progression of this phlegmon into a fluid collection, along with right common femoral vein DVT - surgery following with no surgical intervention recommended at this time - IR following- s/p CT guided aspiration of LLQ fluid collection 09/14/19 but fluid collection not organized enough to allow for drain placement; recommendations given for repeat CT in ~1 week for further evaluation /determination if drain can be placed - H/H 11.6/34.9-stable s/p blood transfusion - no active signs bleeding overnight or this am; continue to monitor H/H and transfuse as needed - no plans for scope at this time - no recommendation for resuming steroids given current infection - no immediate contraindications for continuing anticoagulation, given no overt bleeding- monitor and hold for active bleeding (if unable to tolerate recommend proceeding with IVC filter placement per IR) - continue antibiotics per ID recommendations - continue to trend labs and supportive care - patient to f/u with primary GI for further management of IBD upon discharge - no further recommendations/workup per GI at this time - will sign off, please call if needed Subjective Date of service: 09/17/19 Principal diagnosis: rectal bleeding Interval history: No acute distress or active signs of bleeding. Tolerating diet. Objective - Constitutional Vitals: Temp Pulse Resp BP Pulse Ox 98.5 F 92 H 16 111/60 98 09/17/19 05:03 09/17/19 05:03 09/17/19 05:03 09/17/19 05:03 09/17/19 05:03 General appearance: no acute distress - Respiratory Respiratory effort: normal Respiratory: bilateral: diminished - Cardiovascular Rhythm: regular - Gastrointestinal General gastrointestinal: Present: soft, tender (slight), non-distended, normal bowel sounds - Neurologic Neurological: alert and oriented x3 - Labs CBC & Chem 7: 09/16/19 15:23 09/16/19 11:22 Labs: Laboratory Results - last 24 hr 09/16/19 09/16/19 09/16/19 11:22 11:22 15:23 WBC 21.1 H 22.6 H RBC 3.79 3.91 Hgb 11.2 D 11.6 Hct 33.4 D 34.9 MCV 88 89 MCH 30 30 MCHC 34 33 RDW 16.7 H 17.3 H Plt Count 222 247 Add Manual Diff Complete Complete Total Counted 100 100 Seg Neutrophils % Rooter Operator Rooter Operator Seg Neuts % (Manual) 96.0 H 94.0 H Band Neutrophils % 1.0 0 Lymphocytes % (Manual) 1.0 L 2.0 L Reactive Lymphs % (Man) 0 0 Monocytes % (Manual) 2.0 3.0 Eosinophils % (Manual) 0 0 Basophils % (Manual) 0 0 Metamyelocytes % 0 1.0 Myelocytes % 0 0 Promyelocytes % 0 0 Blast Cells % 0 0 Nucleated RBC % Not Reportable Not Reportable Seg Neutrophils # Man 20.3 H 21.2 H Band Neutrophils # 0.2 0.0 Lymphocytes # (Manual) 0.2 L 0.5 L Abs React Lymphs (Man) 0.0 0.0 Monocytes # (Manual) 0.4 0.7 Eosinophils # (Manual) 0.0 0.0 Basophils # (Manual) 0.0 0.0 Metamyelocytes # 0.0 0.2 Myelocytes # 0.0 0.0 Promyelocytes # 0.0 0.0 Blast Cells # 0.0 0.0 WBC Morphology Not Reportable Not Reportable Hypersegmented Neuts Not Reportable Not Reportable Hyposegmented Neuts Not Reportable Not Reportable Hypogranular Neuts Not Reportable Not Reportable Smudge Cells Not Reportable Not Reportable Toxic Granulation Not Reportable Not Reportable Toxic Vacuolation Not Reportable Not Reportable Dohle Bodies Not Reportable Not Reportable Pelger-Huet Anomaly Not Reportable Not Reportable Phyllis Rods Not Reportable Not Reportable Platelet Estimate Consistent w auto Consistent w auto Clumped Platelets Rare Not Reportable Plt Clumps, EDTA Not Reportable Not Reportable Large Platelets Not Reportable Not Reportable Giant Platelets Not Reportable Not Reportable Platelet Satelliting Not Reportable Not Reportable Plt Morphology Comment Not Reportable Not Reportable RBC Morphology Not Reportable Not Reportable Dimorphic RBCs Not Reportable Not Reportable Polychromasia Few Few Hypochromasia Not Reportable Not Reportable Poikilocytosis Not Reportable Not Reportable Anisocytosis 1+ 1+ Microcytosis Not Reportable Not Reportable Macrocytosis Few Few Spherocytes Not Reportable Not Reportable Pappenheimer Bodies Not Reportable Not Reportable Sickle Cells Not Reportable Not Reportable Target Cells Few Few Tear Drop Cells Not Reportable Not Reportable Ovalocytes Not Reportable Not Reportable Helmet Cells Not Reportable Not Reportable Fam-[place] Bodies Not Reportable Not Reportable [place] Rings Not Reportable Not Reportable Agustina Cells Not Reportable Not Reportable Bite Cells Not Reportable Not Reportable Crenated Cell Not Reportable Not Reportable Elliptocytes Not Reportable Not Reportable Acanthocytes (Spur) Not Reportable Not Reportable Rouleaux Not Reportable Not Reportable Hemoglobin C Crystals Not Reportable Not Reportable Schistocytes Not Reportable Not Reportable Malaria parasites Not Reportable Not Reportable Emmanuel Bodies Not Reportable Not Reportable Hem Pathologist Commnt No No Sodium 144 Potassium 2.7 L* D Chloride 107.8 H Carbon Dioxide 19 L Anion Gap 20 BUN 1 L Creatinine 0.5 L Estimated GFR > 60 BUN/Creatinine Ratio 2 Glucose 114 H Calcium 6.0 L
[2019-09-17 11:00] LABS: Hematocrit 35.7 % (30.3-42.9); Hemoglobin 11.6 gm/dl (10.1-14.3)
[2019-09-17 11:17] LABS: BUN/Creatinine Ratio 5; Blood Urea Nitrogen 2 mg/dL (7-17); Calcium 6.3 mg/dL (8.4-10.2); Hemolysis Index 19
--- NOTE | 2019-09-17 17:46 | Progress Note ---
Assessment and Plan Cultures: 09/14/2019 abdominal drainage culture: ESBL Klebsiella pneumoniae and ESBL E. coli 09/07/2019 blood cultures: Negative 09/07/2019 urine cultures: Negative A&P: 59-year-old female past medical history of DVT currently on anticoagula tion, colitis with questionable inflammatory bowel admitted with abdominal abscess, now with possible ulcerative colitis. Found to have polymicrobial ESBL infection #Acute sepsis: Present with leukocytosis and tachycardia. Secondary to intra- abdominal abscess. #Intra-abdominal abscess: Status post aspiration for cultures, which I greatly appreciate. With polymicrobial ESBL. Since drain was unable to be placed, recommend repeat CT next week to follow-up abscess. However given the fact that half the isolates are not sensitive to Zosyn, I do not expect great improvement at this time. #ESBL Klebsiella and ESBL E. coli: Recommend changing therapy from Zosyn to ertapenem #? Ulcerative colitis: Per GI Recommendations: -Continue ertapenem 1 g every 24 hours -Contact precautions due to ESBL -Repeat CT after 5 days of effective therapy (09/21/2019) -Further recommendations for abscess pending repeat CT. IR drainage versus surgical evacuation. Thank you for the consult, will continue to follow. Zeeshan Nunez MD [facility] M: [phone] O: [phone] F: [phone] Subjective Date of service: 09/17/19 Principal diagnosis: rectal bleeding Interval history: No new issues. Afebrile. Answers appropriately, but curtly. Objective - Exam Narrative Exam: Physical Exam: Constitutional: Alert, cooperative. No acute distress Head, Ears, Nose: Normocephalic, atraumatic. External ears, nose normal Cardiovascular: S1, S2 normal. Respiratory: Good air entry, clear to auscultation bilaterally GI: Soft, non-tender; bowel sounds normal. No peritoneal signs. Musculoskeletal: No pedal edema, no cyanosis. Skin: No rash or abscess Hem/Lymphatic: No palpable cervical or supraclavicular nodes. No lymphangitis Psych: Mood ok. Affect normal Neurological: Awake, alert, oriented. No gross abnormality - Constitutional Vitals: Vital Signs Temp Pulse Resp BP Pulse Ox 98.3 F 92 H 14 98/51 98 09/17/19 16:59 09/17/19 17:01 02/20/20 16:59 09/17/19 17:01 09/17/19 17:01 Temperature -Last 24 Hours Temperature 98.3 F Temperature 98.1 F Temperature 98.5 F Temperature 98.3 F - Labs CBC & Chem 7: 09/17/19 10:38 09/17/19 10:38 Labs: Abnormal lab results 09/16/19 09/17/19 Range/Units 15:23 10:38 Seg Neuts % (Manual) 94.0 H (40.0-70.0) % Lymphocytes % (Manual) 2.0 L (13.4-35.0) % Seg Neutrophils # Man 21.2 H (1.8-7.7) K/mm3 Lymphocytes # (Manual) 0.5 L (1.2-5.4) K/mm3 Potassium 3.0 L (3.6-5.0) mmol/L Carbon Dioxide 21 L (22-30) mmol/L BUN 2 L (7-17) mg/dL Creatinine 0.4 L (0.7-1.2) mg/dL Glucose 110 H (65-100) mg/dL Calcium 6.3 L (8.4-10.2) mg/dL
[2019-09-18 09:03] LABS: Hematocrit 32.3 % (30.3-42.9); Hemoglobin 11.1 gm/dl (10.1-14.3); Mean Corpuscular HGB Conc 34 % (30-34); Mean Corpuscular Volume 87 fl (79-97); Platelet Count 194 K/mm3 (140-440); Red Cell Distribution Width 17.2 % (13.2-15.2)
[2019-09-18] MEDS: ENOXAPARIN 80 MG/0.8 ML INJ SUB-Q SCH ×2 (09:03→22:41)
[2019-09-18] MEDS: POTASSIUM CHLORIDE ER 10 MEQ TAB PO SCH (09:03)
[2019-09-18] MEDS: K-PHOS NEUTRAL 250 MG TAB PO SCH ×4 (09:04→22:41)
[2019-09-18] MEDS: PANTOPRAZOLE 40 MG TAB PO SCH (09:04)
[2019-09-18] MEDS: ERTAPENEM 1 GM in SODIUM CHLORIDE 0.9% 50 ML IV SCH (09:45)
[2019-09-18 10:34] LABS: Band Neutrophils # (Manual) 0.3 K/mm3; Basophils % (Manual) 0 % (0.0-1.8); Eosinophils % (Manual) 0 % (0.0-4.3); Total Cells Counted 100
[2019-09-18 10:35] LABS: Anisocytosis 1+; Macrocytosis Few; Schistocytes Rare; Target Cells Few
[2019-09-18 10:36] LABS: Platelet Estimate Consistent w Auto
--- NOTE | 2019-09-18 15:39 | Progress Note ---
Assessment and Plan /Sepsis with UC and intra-abdominal abscess - repeat CT performed demonstrated progression of this phlegmon into a fluid collection, along with right common femoral vein DVT --IR scheduled for CT-guided aspiration and drainage on 09/14/19 of fluid collection in her left lower quadrant, - growing ESBL on cultures, full liquids as tolerated - consult ID - on meropenum /possible UC now with abscess and signs small free air, - GI consulted , afebrile; WBC trending up - repeat CT performed 09/12/19 demonstrated progression of this phlegmon into a fluid collection, along with right common femoral vein DVT - surgery following with no surgical intervention recommended at this time - IR following- s/p CT guided aspiration of LLQ fluid collection on 09/14; recommendations given for repeat CT in ~1 week for further evaluation/determination if drain can be placed - no plans for scope at this time - no recommendation for steroids given current infection - continue antibiotics, consulted ID - continue to trend labs and supportive care /Bilateral DVT; Lovenox held due to rectal bleeding Vascular IR/considering IVC filter placement when stable Vascular/IR recommend to cont heparin drip - if no access then can change to lovenox Hold if any evidence of severe GI bleeding /Severe hypokalemia and hypomadnesemia; will replace with oral KCl 40 mEq every 3 hours x2 And 20 mEq IV, check magnesium, follow electrolytes /Rectal bleeding; Probably from UC, patient on full liquid diet Drop in H&H, GI following, Monitor H&H and transfuse as needed to keep hb >7.0 /Hypophosphatemia; replenish per protocol /Leukocytosis; secondary to sepsis, cont to monitor, stop steroid /Septic shock; resolved s/p vasopressors Levophed /Severe malnutrition/hypoalbuminemia; Due to underlying disease process, nutrition supplements --DVT prophylaxis: SCD, --Full code status Closely monitor the patient and adjust management as needed Plan of care reviewed with the patient and her at the bedside Disposition; follow clinically, DC when stable Brief history 59-year-old woman 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 The pain is all over his belly, described as sharp, intermittent every 7 minutes, intensity 6/10, no radiation, cannot identify exacerbating factor. Denies any nausea vomiting, fever chills, diarrhea. Patient stated she was admitted 2 months ago with abdominal pain and was diagnosed with colitis. Work-up consistent with sepsis due to UC with intraabdominal abscess, b/l lE DVT. Also having rectal bleed, severe electrolytes abnormalities. clinically not yet stable for discharge for recurrent active rectal bleeding, low H/H and electrolytes instability. Hospitalist Physical General appearance: Present: mild distress, well-nourished, obese - EENT Eyes: Present: PERRL, EOM intact - Neck Neck: Present: supple, normal ROM - Respiratory Respiratory effort: normal Respiratory: bilateral: diminished, negative: rales, rhonchi, wheezing - Cardiovascular Rhythm: regular Heart Sounds: Present: S1 & S2 - Extremities Extremities: no ischemia, No edema - Abdominal General gastrointestinal: soft, non-tender, non-distended, normal bowel sounds - Integumentary Integumentary: Present: clear, warm - Psychiatric Psychiatric: appropriate mood/affect - Neurologic Neurologic: moves all extremities Subjective Date of service: 09/17/19 Principal diagnosis: rectal bleeding Interval history: Patient seen and examined this morning at bedside Patient's chart and medications list reviewed Hb stable, K 3.0, tolerating diet discussed plan of care at bedside with States has no intermittent rectal bleeding with stool Objective - Constitutional Vitals: Vital Signs - 12hr 09/18/19 09/18/19 09/18/19 05:39 11:25 11:28 Temperature 97.9 F Pulse Rate 102 H 103 H Respiratory 16 16 Rate Blood Pressure 89/56 99/66 Blood Pressure 101/68 [Right] O2 Sat by Pulse 96 97 Oximetry - Labs CBC & Chem 7: 09/18/19 08:40 09/17/19 10:38 Labs: Abnormal lab results 09/18/19 Range/Units 08:40 RDW 17.2 H (13.2-15.2) % Seg Neuts % (Manual) 96.0 H (40.0-70.0) % Lymphocytes % (Manual) 0 L (13.4-35.0) % Seg Neutrophils # Man 10.1 H (1.8-7.7) K/mm3 Lymphocytes # (Manual) 0.0 L (1.2-5.4) K/mm3
--- NOTE | 2019-09-18 15:40 | Progress Note ---
Assessment and Plan /Sepsis with UC and intra-abdominal abscess - repeat CT performed demonstrated progression of this phlegmon into a fluid collection, along with right common femoral vein DVT --IR scheduled for CT-guided aspiration and drainage on 09/14/19 of fluid collection in her left lower quadrant, - growing ESBL on cultures, full liquids as tolerated - consult ID - on meropenum - need repeat scan on (09/21/2019) /possible UC now with abscess and signs small free air, - GI consulted , afebrile; WBC trending up - repeat CT performed 09/12/19 demonstrated progression of this phlegmon into a fluid collection, along with right common femoral vein DVT - surgery following with no surgical intervention recommended at this time - IR following- s/p CT guided aspiration of LLQ fluid collection on 09/14; recommendations given for repeat CT in ~1 week for further evaluation/determination if drain can be placed - planned for (09/21/2019) - no plans for scope at this time - no recommendation for steroids given current infection - continue antibiotics, consulted ID - continue to trend labs and supportive care /Bilateral DVT; Lovenox held due to rectal bleeding Vascular IR/considering IVC filter placement when stable Vascular/IR recommend to cont heparin drip - if no access then can change to lovenox Hold if any evidence of severe GI bleeding /Severe hypokalemia and hypomadnesemia; cont to replete and monitor level /Rectal bleeding; Probably from UC, patient on full liquid diet GI following, Monitor H&H and transfuse as needed to keep hb >7.0 /Hypophosphatemia; replenish per protocol /Leukocytosis; secondary to sepsis, cont to monitor, stop steroid /Septic shock; resolved s/p vasopressors Levophed /Severe malnutrition/hypoalbuminemia; Due to underlying disease process, nutrition supplements --DVT prophylaxis: SCD, --Full code status Closely monitor the patient and adjust management as needed Plan of care reviewed with the patient and her at the bedside Disposition; follow clinically, need acute rehab, repeat scan on 09/21 Brief history 59-year-old woman 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 The pain is all over his belly, described as sharp, intermittent every 7 minutes, intensity 6/10, no radiation, cannot identify exacerbating factor. Denies any nausea vomiting, fever chills, diarrhea. Patient stated she was admitted 2 months ago with abdominal pain and was diagnosed with colitis. Work-up consistent with sepsis due to UC with intraabdominal abscess, b/l lE DVT. Also having rectal bleed, severe electrolytes abnormalities. clinically not yet stable for discharge for recurrent active rectal bleeding, low H/H and electrolytes instability. Hospitalist Physical General appearance: Present: mild distress, well-nourished, obese - EENT Eyes: Present: PERRL, EOM intact - Neck Neck: Present: supple, normal ROM - Respiratory Respiratory effort: normal Respiratory: bilateral: diminished, negative: rales, rhonchi, wheezing - Cardiovascular Rhythm: regular Heart Sounds: Present: S1 & S2 - Extremities Extremities: no ischemia, No edema - Abdominal General gastrointestinal: soft, non-tender, non-distended, normal bowel sounds - Integumentary Integumentary: Present: clear, warm - Psychiatric Psychiatric: appropriate mood/affect - Neurologic Neurologic: moves all extremities Subjective Date of service: 09/18/19 Principal diagnosis: rectal bleeding Interval history: Patient seen and examined this morning at bedside Patient's chart and medications list reviewed discussed plan of care at bedside with States has no intermittent rectal bleeding with stool PT recommended acute rehab Objective - Constitutional Vitals: Vital Signs - 12hr 09/18/19 09/18/19 09/18/19 05:39 11:25 11:28 Temperature 97.9 F Pulse Rate 102 H 103 H Respiratory 16 16 Rate Blood Pressure 89/56 99/66 Blood Pressure 101/68 [Right] O2 Sat by Pulse 96 97 Oximetry - Labs CBC & Chem 7: 09/20/19 09:24 09/20/19 09:24 Labs: Abnormal lab results 09/18/19 Range/Units 08:40 RDW 17.2 H (13.2-15.2) % Seg Neuts % (Manual) 96.0 H (40.0-70.0) % Lymphocytes % (Manual) 0 L (13.4-35.0) % Seg Neutrophils # Man 10.1 H (1.8-7.7) K/mm3 Lymphocytes # (Manual) 0.0 L (1.2-5.4) K/mm3
--- NOTE | 2019-09-18 16:27 | Progress Note ---
Assessment and Plan Cultures: 09/14/2019 abdominal drainage culture: ESBL Klebsiella pneumoniae and ESBL E. coli 09/07/2019 blood cultures: Negative 09/07/2019 urine cultures: Negative A&P: 59-year-old female past medical history of DVT currently on anticoagula tion, colitis with questionable inflammatory bowel admitted with abdominal abscess, now with possible ulcerative colitis. Found to have polymicrobial ESBL infection #Acute sepsis: Present with leukocytosis and tachycardia. Secondary to intra- abdominal abscess. Leukocytosis improved #Intra-abdominal abscess: Status post aspiration for cultures, which I greatly appreciate. With polymicrobial ESBL. Since drain was unable to be placed, recommend repeat CT next week to follow-up abscess. However given the fact that half the isolates are not sensitive to Zosyn, I do not expect great improvement at this time. #ESBL Klebsiella and ESBL E. coli: Recommend changing therapy from Zosyn to ertapenem #? Ulcerative colitis: Per GI Recommendations: -Continue ertapenem 1 g every 24 hours -Contact precautions due to ESBL -Repeat CT after 5 days of effective therapy (09/21/2019) -Further recommendations for abscess pending repeat CT. IR drainage versus surgical evacuation. Thank you for the consult, will continue to follow. Zeeshan Nunez MD [facility] ([facility] M: [phone] O: [phone] F: [phone] Subjective Date of service: 09/18/19 Principal diagnosis: rectal bleeding Interval history: Afebrile with improved white count which is now 11. No acute complaints. Objective - Exam Narrative Exam: Physical Exam: Constitutional: Alert, cooperative. No acute distress Head, Ears, Nose: Normocephalic, atraumatic. Cardiovascular: S1, S2 normal. Respiratory: Good air entry, clear to auscultation bilaterally GI: Soft, mildly tender; bowel sounds normal. No peritoneal signs. Musculoskeletal: No pedal edema, no cyanosis. Skin: No rash or abscess Hem/Lymphatic: No palpable cervical or supraclavicular nodes. No lymphangitis Psych: Mood ok. Affect normal Neurological: Awake, alert, oriented. No gross abnormality - Constitutional Vitals: Vital Signs Temp Pulse Resp BP Pulse Ox 98.1 F 101 H 16 111/64 99 09/18/19 16:05 09/18/19 16:05 09/18/19 16:05 09/18/19 16:05 09/18/19 16:05 Temperature -Last 24 Hours Temperature 98.1 F Temperature 97.9 F Temperature 98.4 F Temperature 98.3 F - Labs CBC & Chem 7: 09/18/19 08:40 09/17/19 10:38 Labs: Abnormal lab results 09/18/19 Range/Units 08:40 RDW 17.2 H (13.2-15.2) % Seg Neuts % (Manual) 96.0 H (40.0-70.0) % Lymphocytes % (Manual) 0 L (13.4-35.0) % Seg Neutrophils # Man 10.1 H (1.8-7.7) K/mm3 Lymphocytes # (Manual) 0.0 L (1.2-5.4) K/mm3
[2019-09-19 07:05] LABS: Hematocrit 31.1 % (30.3-42.9); Hemoglobin 10.4 gm/dl (10.1-14.3)
[2019-09-19 07:29] LABS: Hemolysis Index 47
[2019-09-19 07:40] LABS: BUN/Creatinine Ratio 3; Blood Urea Nitrogen < 1 mg/dL (7-17)
[2019-09-19] MEDS ORDERED: POTASSIUM CHLORIDE ER 20 MEQ TAB PO SCH (09:43)
[2019-09-19] MEDS: POTASSIUM CHLORIDE ER 10 MEQ TAB PO SCH (10:01)
[2019-09-19] MEDS: ERTAPENEM 1 GM in SODIUM CHLORIDE 0.9% 50 ML IV SCH (10:01)
[2019-09-19] MEDS: K-PHOS NEUTRAL 250 MG TAB PO SCH ×4 (10:01→22:42)
[2019-09-19] MEDS: PANTOPRAZOLE 40 MG TAB PO SCH (10:01)
[2019-09-19] MEDS: ENOXAPARIN 80 MG/0.8 ML INJ SUB-Q SCH ×2 (10:02→22:42)
[2019-09-19] MEDS ORDERED: MAGNESIUM SULFATE 3 GM in SODIUM CHLORIDE 0.9% 100 ML IV ONE (11:30)
[2019-09-19] MEDS ORDERED: SODIUM CHLORIDE 0.9% 500 ML 500 ML IV ONE (12:47)
[2019-09-19] MEDS: MAGNESIUM OXIDE 400 MG TAB PO SCH (13:06)
[2019-09-19] MEDS: POTASSIUM CHLORIDE 10 MEQ 10 MEQ/100 ML BAG IV SCH ×2 (13:07→13:08)
--- NOTE | 2019-09-19 13:31 | Progress Note ---
Assessment and Plan /Sepsis with UC and intra-abdominal abscess - repeat CT performed demonstrated progression of this phlegmon into a fluid collection, along with right common femoral vein DVT --IR scheduled for CT-guided aspiration and drainage on 09/14/19 of fluid collection in her left lower quadrant, - growing ESBL on cultures, full liquids as tolerated - consult ID - on meropenum - need repeat scan on (09/21/2019) /possible UC now with abscess and signs small free air, - GI consulted , afebrile; WBC trending up - repeat CT performed 09/12/19 demonstrated progression of this phlegmon into a fluid collection, along with right common femoral vein DVT - surgery following with no surgical intervention recommended at this time - IR following- s/p CT guided aspiration of LLQ fluid collection on 09/14; recommendations given for repeat CT in ~1 week for further evaluation/determination if drain can be placed - planned for (09/21/2019) - no plans for scope at this time - no recommendation for steroids given current infection - continue antibiotics, consulted ID - continue to trend labs and supportive care /Bilateral DVT; Lovenox held due to rectal bleeding Vascular IR/considering IVC filter placement when stable Vascular/IR recommend to cont heparin drip - if no access then can change to lovenox Hold if any evidence of severe GI bleeding /Severe hypokalemia and hypomadnesemia; cont to replete and monitor level /Rectal bleeding; Probably from UC, patient on full liquid diet GI following, Monitor H&H and transfuse as needed to keep hb >7.0 /Hypophosphatemia; replenish per protocol /Leukocytosis; secondary to sepsis, cont to monitor, stop steroid /Septic shock; resolved s/p vasopressors Levophed /Severe malnutrition/hypoalbuminemia; Due to underlying disease process, nutrition supplements --DVT prophylaxis: SCD, --Full code status Closely monitor the patient and adjust management as needed Plan of care reviewed with the patient and her at the bedside Disposition; follow clinically, need acute rehab, repeat scan on 09/21 Brief history 59-year-old woman 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 The pain is all over his belly, described as sharp, intermittent every 7 minutes, intensity 6/10, no radiation, cannot identify exacerbating factor. Denies any nausea vomiting, fever chills, diarrhea. Patient stated she was admitted 2 months ago with abdominal pain and was diagnosed with colitis. Work-up consistent with sepsis due to UC with intraabdominal abscess, b/l lE DVT. Also having rectal bleed, severe electrolytes abnormalities. clinically not yet stable for discharge for recurrent active rectal bleeding, low H/H and electrolytes instability. Hospitalist Physical General appearance: Present: mild distress, well-nourished, obese - EENT Eyes: Present: PERRL, EOM intact - Neck Neck: Present: supple, normal ROM - Respiratory Respiratory effort: normal Respiratory: bilateral: diminished, negative: rales, rhonchi, wheezing - Cardiovascular Rhythm: regular Heart Sounds: Present: S1 & S2 - Extremities Extremities: no ischemia, No edema - Abdominal General gastrointestinal: soft, non-tender, non-distended, normal bowel sounds - Integumentary Integumentary: Present: clear, warm - Psychiatric Psychiatric: appropriate mood/affect - Neurologic Neurologic: moves all extremities Subjective Date of service: 09/19/19 Principal diagnosis: rectal bleeding Interval history: Patient seen and examined this morning at bedside Patient's chart and medications list reviewed K trended down again with low mg and phos discussed plan of care at bedside with States has no intermittent rectal bleeding with stool Objective - Constitutional Vitals: Vital Signs - 12hr 09/19/19 09/19/19 04:49 11:19 Temperature 97.9 F 98.0 F Pulse Rate 107 H Respiratory 20 22 Rate Blood Pressure 110/61 118/73 O2 Sat by Pulse 98 Oximetry - Labs CBC & Chem 7: 09/20/19 09:24 09/20/19 09:24 Labs: Abnormal lab results 09/19/19 Range/Units 06:40 Potassium 2.6 L* (3.6-5.0) mmol/L BUN < 1 L (7-17) mg/dL Creatinine 0.3 L (0.7-1.2) mg/dL Calcium 6.0 L (8.4-10.2) mg/dL Phosphorus 2.40 L (2.5-4.5) mg/dL Magnesium 1.50 L (1.7-2.3) mg/dL
--- NOTE | 2019-09-19 18:24 | Progress Note ---
Assessment and Plan Cultures: 09/14/2019 abdominal drainage culture: ESBL Klebsiella pneumoniae and ESBL E. coli 09/07/2019 blood cultures: Negative 09/07/2019 urine cultures: Negative A&P: 59-year-old female past medical history of DVT currently on anticoagula tion, colitis with questionable inflammatory bowel admitted with abdominal abscess, now with possible ulcerative colitis. Found to have polymicrobial ESBL infection #Acute sepsis: Present with leukocytosis and tachycardia. Secondary to intra- abdominal abscess. Leukocytosis improved #Intra-abdominal abscess: Status post aspiration for cultures, which I greatly appreciate. With polymicrobial ESBL. Since drain was unable to be placed, recommend repeat CT next week to follow-up abscess. However given the fact that half the isolates are not sensitive to Zosyn, I do not expect great improvement at this time. #ESBL Klebsiella and ESBL E. coli: Recommend changing therapy from Zosyn to ertapenem #? Ulcerative colitis: Per GI #Diarrhea: has been in hospital and receiving antibiotics. Checked C diff PCR. Recommendations: -Continue ertapenem 1 g every 24 hours -Contact precautions due to ESBL -Repeat CT after 5 days of effective therapy (09/21/2019) -Further recommendations for abscess pending repeat CT. IR drainage versus surgical evacuation. -C diff PCR ordered based on increase in volume of watery diarrhea and not on stool softeners. Thank you for the consult, will continue to follow. Dr. Petit taking over Saturday Zeeshan Nunez MD [facility] ([facility]) M: [phone] O: [phone] F: [phone] Subjective Date of service: 09/19/19 Principal diagnosis: rectal bleeding Interval history: Afebrile, nurse noted increased water diarrhea. Not on stool softener. Objective - Exam Narrative Exam: Physical Exam: Constitutional: Alert, cooperative. No acute distress Cardiovascular: S1, S2 normal. Respiratory: Good air entry, clear to auscultation bilaterally GI: Soft, mildly tender; bowel sounds normal. No peritoneal signs. Musculoskeletal: No pedal edema, no cyanosis. Skin: No rash or abscess Hem/Lymphatic: No palpable cervical or supraclavicular nodes. No lymphangitis Psych: Mood ok. Affect normal Neurological: Awake, alert, oriented. No gross abnormality - Constitutional Vitals: Vital Signs Temp Pulse Resp BP Pulse Ox 98.0 F 107 H 22 118/73 98 09/19/19 11:19 09/19/19 11:19 09/19/19 11:19 09/19/19 11:19 09/19/19 11:19 Temperature -Last 24 Hours Temperature 98.0 F Temperature 97.9 F Temperature 98.3 F - Labs CBC & Chem 7: 09/19/19 06:40 09/19/19 06:40 Labs: Abnormal lab results 09/19/19 Range/Units 06:40 Potassium 2.6 L* (3.6-5.0) mmol/L BUN < 1 L (7-17) mg/dL Creatinine 0.3 L (0.7-1.2) mg/dL Calcium 6.0 L (8.4-10.2) mg/dL Phosphorus 2.40 L (2.5-4.5) mg/dL Magnesium 1.50 L (1.7-2.3) mg/dL
[2019-09-19] MEDS: PHOS-NAK POWDER PACKET PO SCH (22:42)
[2019-09-20 09:45] LABS: Hematocrit 31.6 % (30.3-42.9); Hemoglobin 10.7 gm/dl (10.1-14.3)
[2019-09-20 10:09] LABS: Hemolysis Index 72
[2019-09-20 10:27] LABS: BUN/Creatinine Ratio 3; Blood Urea Nitrogen < 1 mg/dL (7-17)
[2019-09-20] MEDS: POTASSIUM CHLORIDE ER 10 MEQ TAB PO SCH (11:08)
[2019-09-20] MEDS: MAGNESIUM OXIDE 400 MG TAB PO SCH (11:08)
[2019-09-20] MEDS: PHOS-NAK POWDER PACKET PO SCH ×2 (11:09→23:15)
[2019-09-20] MEDS: PANTOPRAZOLE 40 MG TAB PO SCH (11:09)
[2019-09-20] MEDS: ENOXAPARIN 80 MG/0.8 ML INJ SUB-Q SCH ×2 (11:09→23:15)
[2019-09-20] MEDS: ERTAPENEM 1 GM in SODIUM CHLORIDE 0.9% 50 ML IV SCH (11:10)
[2019-09-20] MEDS: POTASSIUM CHLORIDE 10 MEQ 10 MEQ/100 ML BAG IV SCH ×3 (15:10→18:15)
--- NOTE | 2019-09-20 15:55 | Progress Note ---
Assessment and Plan /Severe hypokalemia, Hypophosphatemia and hypomadnesemia; cont to replete per protocol and monitor level /Sepsis with UC and intra-abdominal abscess - repeat CT performed demonstrated progression of this phlegmon into a fluid collection, along with right common femoral vein DVT --IR scheduled for CT-guided aspiration and drainage on 09/14/19 of fluid collection in her left lower quadrant, - growing ESBL on cultures, full liquids as tolerated - consult ID - on meropenum - need repeat scan on (09/21/2019) /possible UC now with abscess and signs small free air, - GI consulted , afebrile; WBC trending up - repeat CT performed 09/12/19 demonstrated progression of this phlegmon into a fluid collection, along with right common femoral vein DVT - surgery following with no surgical intervention recommended at this time - IR following- s/p CT guided aspiration of LLQ fluid collection on 09/14; recommendations given for repeat CT in ~1 week for further evaluation/determination if drain can be placed - planned for (09/21/2019) - no plans for scope at this time - no recommendation for steroids given current infection - continue antibiotics, consulted ID - continue to trend labs and supportive care /Bilateral DVT; Lovenox held due to rectal bleeding Vascular IR/considering IVC filter placement when stable Vascular/IR recommend to cont heparin drip - if no access then can change to lovenox Hold if any evidence of severe GI bleeding /Rectal bleeding; Probably from UC, patient on full liquid diet GI following, Monitor H&H and transfuse as needed to keep hb >7.0 /Leukocytosis; secondary to sepsis, cont to monitor, stop steroid /Septic shock; resolved s/p vasopressors Levophed /Severe malnutrition/hypoalbuminemia; Due to underlying disease process, nutrition supplements --DVT prophylaxis: SCD, --Full code status Closely monitor the patient and adjust management as needed Plan of care reviewed with the patient and her at the bedside Disposition; follow clinically, need acute rehab, repeat scan on 09/21 Brief history 59-year-old woman 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 The pain is all over his belly, described as sharp, intermittent every 7 minutes, i ntensity 6/10, no radiation, cannot identify exacerbating factor. Denies any nausea vomiting, fever chills, diarrhea. Patient stated she was admitted 2 months ago with abdominal pain and was diagnosed with colitis. Work-up consistent with sepsis due to UC with intraabdominal abscess, b/l lE DVT. Also having rectal bleed, severe electrolytes abnormalities. clinically not yet stable for discharge for recurrent active rectal bleeding, low H/H and electrolytes instability. Hospitalist Physical General appearance: Present: mild distress, well-nourished, obese - EENT Eyes: Present: PERRL, EOM intact - Neck Neck: Present: supple, normal ROM - Respiratory Respiratory effort: normal Respiratory: bilateral: diminished, negative: rales, rhonchi, wheezing - Cardiovascular Rhythm: regular Heart Sounds: Present: S1 & S2 - Extremities Extremities: no ischemia, No edema - Abdominal General gastrointestinal: soft, non-tender, non-distended, normal bowel sounds - Integumentary Integumentary: Present: clear, warm - Psychiatric Psychiatric: appropriate mood/affect - Neurologic Neurologic: moves all extremities Subjective Date of service: 09/20/19 Principal diagnosis: rectal bleeding Interval history: Patient seen and examined this morning at bedside Patient's chart and medications list reviewed discussed plan of care at bedside with States has no intermittent rectal bleeding with stool K level again trended down today Objective - Constitutional Vitals: Vital Signs - 12hr 09/20/19 09/20/19 09/20/19 04:52 10:00 12:49 Temperature 97.9 F 97.6 F Pulse Rate 108 H 115 H Respiratory 18 20 24 Rate Blood Pressure 110/58 105/74 O2 Sat by Pulse 95 95 96 Oximetry - Labs CBC & Chem 7: 09/20/19 09:24 09/20/19 09:24 Labs: Abnormal lab results 09/20/19 Range/Units 09:24 Potassium 3.0 L (3.6-5.0) mmol/L BUN < 1 L (7-17) mg/dL Creatinine 0.3 L (0.7-1.2) mg/dL Glucose 110 H (65-100) mg/dL Calcium 6.0 L (8.4-10.2) mg/dL Phosphorus 2.30 L (2.5-4.5) mg/dL
[2019-09-21] MEDS: ERTAPENEM 1 GM in SODIUM CHLORIDE 0.9% 50 ML IV SCH (11:05)
[2019-09-21] MEDS: ENOXAPARIN 80 MG/0.8 ML INJ SUB-Q SCH ×2 (11:05→22:06)
--- NOTE | 2019-09-21 11:59 | Cat Scan Report ---
EXAM: Attempted CT guided drain placement in the left lower quadrant fluid collection CT guided left lower quadrant fluid collection aspiration with 18-gauge needle CLINICAL INDICATION: Left lower quadrant fluid collection/phlegmon DATE: 09/14/2019 METER REPAIRER HELPER: HOLLY PURCELL MD MEDICATIONS: Conscious sedation using Versed and fentanyl was performed under guidance of radiologic nursing. Continuous cardiopulmonary monitoring was utilized. Intermittent PROCEDURE: Following an explanation of the risks, benefits and alternatives; written informed consent was obtained. The patient was brought to the CT suite and placed in the supine position on the CT table. Health Education Coordinator CT was performed of the pelvis. After determining the appropriate site, the skin was infiltrated with lidocaine and a finder needle was placed. Intermittent CT was performed until the desired position was identified. The 18 gauge trocar needle was inserted into the left lower quadrant fluid collection . I passed a wire through the needle into the fluid collection, but instead it passed along the left iliopsoas muscle. Wire was removed. Needle was redirected, and a wire was passed through the needle. Instead, it passed beyond the fluid collection into the left iliopsoas muscle. Wire was removed. I decided that the fluid collection was more of a phlegmon than a true fluid collection, and therefore the wire would not coil inside. Aspiration was performed with the 18-gauge needle and sent to the lab for analysis. Needle was removed. Sterile bandage was applied. The patient tolerated the procedure well. There were no immediate postprocedural complications. FINDINGS: 1. Initial CT demonstrates left lower quadrant phlegmon. There is a satisfactory window for CT drainage. 2. Intermittent CT demonstrates the 18 gauge needle was placed into the left lower quadrant phlegmon. 3. Final CT documents 18-gauge needle in the left lower quadrant phlegmon. 4. A total of 10 mL of purulent material was aspirated through the needle. IMPRESSION: Successful CT guided left lower quadrant phlegmon aspiration.
--- NOTE | 2019-09-21 12:46 | Progress Note ---
Assessment and Plan /Severe hypokalemia, Hypophosphatemia and hypomadnesemia; cont to replete per protocol and monitor level /Sepsis with UC and intra-abdominal abscess - repeat CT performed demonstrated progression of this phlegmon into a fluid collection, along with right common femoral vein DVT --IR scheduled for CT-guided aspiration and drainage on 09/14/19 of fluid collection in her left lower quadrant, - growing ESBL on cultures, full liquids as tolerated - consult ID - on meropenum - s/p repeat scan today - will follow ID and Gs recommendation /possible UC now with abscess and signs small free air, - GI consulted , afebrile; WBC trending up - repeat CT performed 09/12/19 demonstrated progression of this phlegmon into a fluid collection, along with right common femoral vein DVT - surgery following with no surgical intervention recommended at this time - IR following- s/p CT guided aspiration of LLQ fluid collection on 09/14; recommendations given for repeat CT in ~1 week for further evaluation/determination if drain can be placed - will follow CT scan result today - no plans for scope at this time - no recommendation for steroids given current infection - continue antibiotics, consulted ID - continue to trend labs and supportive care /Bilateral DVT; Lovenox held due to rectal bleeding Vascular IR/considering IVC filter placement when stable Vascular/IR recommend to cont AC, on therapeutic dose lovenox now Hold if any evidence of severe GI bleeding /Rectal bleeding; Probably from UC, patient on full liquid diet GI following, Monitor H&H and transfuse as needed to keep hb >7.0 /Leukocytosis; secondary to sepsis, cont to monitor, stop steroid /Septic shock; resolved s/p vasopressors Levophed /Severe malnutrition/hypoalbuminemia; Due to underlying disease process, nutrition supplements --DVT prophylaxis: SCD, --Full code status Closely monitor the patient and adjust management as needed Plan of care reviewed with the patient and her at the bedside Disposition; follow clinically, need acute rehab, repeat scan today - will follow further ID and GS recommendation Brief history 59-year-old woman 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 The pain is all over his belly, described as sharp, intermittent every 7 minutes, intensity 6/10, no radiation, cannot identify exacerbating factor. Denies any nausea vomiting, fever chills, diarrhea. Patient stated she was admitted 2 months ago with abdominal pain and was diagnosed with colitis. Work-up consistent with sepsis due to UC with intraabdominal abscess, b/l LE DVT. Also having rectal bleed, severe electrolytes abnormalities. clinically not yet stable for discharge for recurrent active rectal bleeding, low H/H and electrolytes instability. Hospitalist Physical General appearance: Present: mild distress, well-nourished, obese - EENT Eyes: Present: PERRL, EOM intact - Neck Neck: Present: supple, normal ROM - Respiratory Respiratory effort: normal Respiratory: bilateral: diminished, negative: rales, rhonchi, wheezing - Cardiovascular Rhythm: regular Heart Sounds: Present: S1 & S2 - Extremities Extremities: no ischemia, No edema - Abdominal General gastrointestinal: soft, non-tender, non-distended, normal bowel sounds - Integumentary Integumentary: Present: clear, warm - Psychiatric Psychiatric: appropriate mood/affect - Neurologic Neurologic: moves all extremities Subjective Date of service: 09/21/19 Principal diagnosis: rectal bleeding Interval history: Patient seen and examined this morning at bedside Patient's chart and medications list reviewed discussed plan of care at bedside with States has no intermittent rectal bleeding with stool K level 3.0 today, plan for repeat CT scan Objective - Constitutional Vitals: Vital Signs - 12hr 09/21/19 06:48 Temperature 98.1 F Pulse Rate 109 H Respiratory 20 Rate Blood Pressure 92/66 O2 Sat by Pulse 97 Oximetry - Labs CBC & Chem 7: 09/20/19 09:24 09/22/19 00:01
[2019-09-21] MEDS: PHOS-NAK POWDER PACKET PO SCH ×2 (14:17→22:06)
[2019-09-21] MEDS: POTASSIUM CHLORIDE ER 10 MEQ TAB PO SCH (14:18)
[2019-09-21] MEDS: MAGNESIUM OXIDE 400 MG TAB PO SCH (14:18)
[2019-09-21] MEDS: PANTOPRAZOLE 40 MG TAB PO SCH (14:18)
--- NOTE | 2019-09-21 14:30 | Progress Note ---
Assessment and Plan Cultures: 09/14/2019 abdominal drainage culture: ESBL Klebsiella pneumoniae and ESBL E. coli 09/07/2019 blood cultures: Negative 09/07/2019 urine cultures: Negative A&P: 59-year-old female past medical history of DVT currently on anticoagulation, colitis with questionable inflammatory bowel admitted with abdominal abscess, now with possible ulcerative colitis. Found to have polymicrobial ESBL infection #Acute sepsis: leukocytosis resolved. Secondary to intra-abdominal abscess. #Intra-abdominal abscess: Status post aspiration for cultures, culture + ESBL Kleb/E coli. Drain was unable to be placed #ESBL Klebsiella and ESBL E. coli: on ertapenem #? Ulcerative colitis: Per GI #Diarrhea: has been in hospital and receiving antibiotics. Checked C diff PCR. Recommendations: -Continue ertapenem 1 g every 24 hours -Contact precautions due to ESBL -Repeat CT today (09/21/2019) - pending -Further recommendations for abscess pending repeat CT. IR drainage versus surgical evacuation. Will follow Imelda Petit MD Subjective Date of service: 09/21/19 Principal diagnosis: rectal bleeding Interval history: Feels better still some LLQ pain, no fever. ROS: denies N/V/D/abdominal pain Objective - Exam Narrative Exam: Physical Exam: Constitutional: Alert, cooperative. No acute distress Cardiovascular: S1, S2 normal. Respiratory: Good air entry, clear to auscultation bilaterally GI: Soft, tenderness LLQ; bowel sounds normal. No peritoneal signs. Musculoskeletal: No pedal edema, no cyanosis. Skin: No rash or abscess Hem/Lymphatic: No palpable cervical or supraclavicular nodes. No lymphangitis Psych: Mood ok. Affect normal Neurological: Awake, alert, oriented. No gross abnormality - Constitutional Vitals: Vital Signs Temp Pulse Resp BP Pulse Ox 97.9 F 111 H 20 107/71 96 09/21/19 12:40 09/21/19 12:40 09/21/19 12:40 09/21/19 12:40 09/21/19 12:40 Temperature -Last 24 Hours Temperature 97.9 F Temperature 98.1 F Temperature 97.9 F Temperature 97.6 F - Labs CBC & Chem 7: 09/20/19 09:24 09/20/19 09:24
--- NOTE | 2019-09-21 14:35 | Cat Scan Report ---
CT ABDOMEN AND PELVIS WITH CONTRAST HISTORY: abdominal abscess. COMPARISON: 09/12/2019. 09/14/2019 CT drainage. TECHNIQUE: Helical CT images of the abdomen and pelvis were obtained following administration of intr avenous contrast. Sagittal and coronal reformatted images were reviewed. All CT scans at this [facility] are performed using CT dose reduction for ALARA by means of automated exposure control. CONTRAST: 100 ml of intravenous contrast administered. FINDINGS: Abdomen/pelvis: The left lower quadrant fluid collection containing gas has reaccumulated and measur es 5.8 x 2.8 cm in axial plane. It appears similar to the 09/12/2019 examination. There is trace pelvi c ascites with no new additional fluid collection. Diffuse fatty infiltration throughout the liver is again noted. The biliary system, pancreas, spleen, kidneys and adrenal glands remain unremarkable. No evidence for bowel obstruction or focal inflammation. Normal appendix. The aorta and vascular structures are widely patent. No adenopathy, free air or pneumatosis. Mild uterine fibroid disease is again noted. The bladder and adnexa are unremarkable. Lungs/bones: Moderate bilateral layering pleural effusions and moderate hiatal hernia are stable. IMPRESSION: Left lower quadrant fluid collection containing gas has reaccumulated as outlined above. Trace ascites. Hepatic steatosis. Moderate bilateral layering pleural effusions, stable. Hiatal hernia. Uterine fibroid disease. Signer Name: Minesh Davis Jr, MD Signed: 09/21/2019 2:30 PM Workstation Name: [id number]
[2019-09-22 00:44] LABS: BUN/Creatinine Ratio 3; Blood Urea Nitrogen < 1 mg/dL (7-17); Calcium 6.2 mg/dL (8.4-10.2); Hemolysis Index 19
[2019-09-22] MEDS: MAGNESIUM OXIDE 400 MG TAB PO SCH (10:10)
[2019-09-22] MEDS: ERTAPENEM 1 GM in SODIUM CHLORIDE 0.9% 50 ML IV SCH (10:10)
[2019-09-22] MEDS: PHOS-NAK POWDER PACKET PO SCH ×2 (10:10→21:40)
[2019-09-22] MEDS: PANTOPRAZOLE 40 MG TAB PO SCH (10:10)
[2019-09-22] MEDS: POTASSIUM CHLORIDE ER 10 MEQ TAB PO SCH (10:10)
[2019-09-22] MEDS: ENOXAPARIN 80 MG/0.8 ML INJ SUB-Q SCH (10:11)
--- NOTE | 2019-09-22 10:56 | Progress Note ---
Assessment and Plan Cultures: 09/14/2019 abdominal drainage culture: ESBL Klebsiella pneumoniae and ESBL E. coli 09/07/2019 blood cultures: Negative 09/07/2019 urine cultures: Negative A&P: 59-year-old female past medical history of DVT currently on anticoagulation, colitis with questionable inflammatory bowel admitted with abdominal abscess, now with possible ulcerative colitis. Found to have polymicrobial ESBL infection #Acute sepsis: leukocytosis resolved. Secondary to intra-abdominal abscess. #Intra-abdominal abscess: etiology ? unclear -colonoscopy 2 months ago showed severe active colitis with ulceration, granulation tissue and focal features of chronic mucosal injury ?ulcerative colitis. Status post aspiration for cultures, culture + ESBL Kleb/E coli. Drain was unable to be placed. Repeat CT no changes in collection remains 5.8x2.8 cm #ESBL Klebsiella and ESBL E. coli: on ertapenem #? Ulcerative colitis: Per GI #Diarrhea: has been in hospital and receiving antibiotics. Checked C diff PCR. Recommendations: -Surgical and IR evaluation -Continue ertapenem 1 g every 24 hours -Contact precautions due to ESBL -Further recommendations for abscess pending surgical plan Will follow. left msg to Dr Tomlin and Dr Frida Petit MD Subjective Date of service: 09/22/19 Principal diagnosis: rectal bleeding Interval history: Feels better remains with LLQ pain, no fever. ROS: denies N/V/D/abdominal pain Objective - Exam Narrative Exam: Physical Exam: Constitutional: Alert, cooperative. No acute distress Cardiovascular: S1, S2 normal. Respiratory: Good air entry, clear to auscultation bilaterally GI: Soft, tenderness LLQ; bowel sounds normal. No peritoneal signs. Musculoskeletal: No pedal edema, no cyanosis. Skin: No rash or abscess Hem/Lymphatic: No palpable cervical or supraclavicular nodes. No lymphangitis Psych: Mood ok. Affect normal Neurological: Awake, alert, oriented. No gross abnormality - Constitutional Vitals: Vital Signs Temp Pulse Resp BP Pulse Ox 99.3 F 108 H 16 96/61 95 09/22/19 04:56 09/21/19 21:04 09/22/19 04:56 09/22/19 04:56 09/21/19 21:04 Temperature -Last 24 Hours Temperature 99.3 F Temperature 98.7 F Temperature 97.6 F Temperature 97.9 F - Labs CBC & Chem 7: 09/20/19 09:24 09/22/19 00:01 Labs: Abnormal lab results 09/22/19 Range/Units 00:01 BUN < 1 L (7-17) mg/dL Creatinine 0.3 L (0.7-1.2) mg/dL Glucose 108 H (65-100) mg/dL Calcium 6.2 L (8.4-10.2) mg/dL
--- NOTE | 2019-09-22 13:26 | Progress Note ---
Assessment and Plan /Severe hypokalemia, Hypophosphatemia and hypomadnesemia; cont to replete per protocol and monitor level /Sepsis with UC and intra-abdominal abscess - repeat CT performed demonstrated progression of this phlegmon into a fluid collection, along with right common femoral vein DVT --IR scheduled for CT-guided aspiration and drainage on 09/14/19 of fluid collection in her left lower quadrant, - growing ESBL on cultures, full liquids as tolerated - consult ID - on meropenum - s/p repeat scan today - will follow ID and Gs recommendation /possible UC now with abscess and signs small free air, - GI consulted , afebrile; WBC trending up - repeat CT performed 09/12/19 demonstrated progression of this phlegmon into a fluid collection, along with right common femoral vein DVT - surgery following with no surgical intervention recommended at this time - IR following- s/p CT guided aspiration of LLQ fluid collection on 09/14; recommendations given for repeat CT in ~1 week for further evaluation/determination if drain can be placed - will follow CT scan result today - no plans for scope at this time - no recommendation for steroids given current infection - continue antibiotics, consulted ID - continue to trend labs and supportive care /Bilateral DVT; Lovenox held due to rectal bleeding Vascular IR/considering IVC filter placement when stable Vascular/IR recommend to cont AC, on therapeutic dose lovenox now Hold if any evidence of severe GI bleeding /Rectal bleeding; Probably from UC, patient on full liquid diet GI following, Monitor H&H and transfuse as needed to keep hb >7.0 /Leukocytosis; secondary to sepsis, cont to monitor, stop steroid /Septic shock; resolved s/p vasopressors Levophed /Severe malnutrition/hypoalbuminemia; Due to underlying disease process, nutrition supplements --DVT prophylaxis: SCD, --Full code status Closely monitor the patient and adjust management as needed Plan of care reviewed with the patient and her at the bedside Disposition; follow clinically, need acute rehab, repeat scan today - will follow further ID and GS recommendation Brief history 59-year-old woman 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 The pain is all over his belly, described as sharp, intermittent every 7 minutes, intensity 6/10, no radiation, cannot identify exacerbating factor. Denies any nausea vomiting, fever chills, diarrhea. Patient stated she was admitted 2 months ago with abdominal pain and was diagnosed with colitis. Work-up consistent with sepsis due to UC with intraabdominal abscess, b/l LE DVT. Also having rectal bleed, severe electrolytes abnormalities. clinically not yet stable for discharge for recurrent active rectal bleeding, low H/H and electrolytes instability. Hospitalist Physical General appearance: Present: mild distress, well-nourished, obese - EENT Eyes: Present: PERRL, EOM intact - Neck Neck: Present: supple, normal ROM - Respiratory Respiratory effort: normal Respiratory: bilateral: diminished, negative: rales, rhonchi, wheezing - Cardiovascular Rhythm: regular Heart Sounds: Present: S1 & S2 - Extremities Extremities: no ischemia, No edema - Abdominal General gastrointestinal: soft, non-tender, non-distended, normal bowel sounds - Integumentary Integumentary: Present: clear, warm - Psychiatric Psychiatric: appropriate mood/affect - Neurologic Neurologic: moves all extremities Subjective Date of service: 09/22/19 Principal diagnosis: rectal bleeding Interval history: Patient seen and examined this morning at bedside Patient's chart and medications list reviewed discussed plan of care at bedside with States has no intermittent rectal bleeding with stool Repeat CT abd scan today Objective - Constitutional Vitals: Vital Signs - 12hr 09/22/19 09/22/19 04:56 12:09 Temperature 99.3 F 98.0 F Pulse Rate 93 H Respiratory 16 18 Rate Blood Pressure 96/61 84/63 O2 Sat by Pulse 93 Oximetry - Labs CBC & Chem 7: 09/20/19 09:24 09/22/19 00:01 Labs: Abnormal lab results 09/22/19 09/22/19 Range/Units 00:01 00:01 BUN < 1 L (7-17) mg/dL Creatinine 0.3 L (0.7-1.2) mg/dL Glucose 108 H (65-100) mg/dL Calcium 6.2 L (8.4-10.2) mg/dL C-Reactive Protein 1.60 H (0.00-1.30) mg/dL
--- NOTE | 2019-09-22 16:30 | Event Note ---
Date: 09/22/[address] Petit. Patient will be n.p.o. after midnight on Saturday/ for planned CT- guided drainage procedure on . CT scan demonstrates more of a fluid collection and less of a phlegmon on the most recent CT scan. Hopefully the wire will coil into the collection and allow drain to be placed. Risks, benefits, and alternatives discussed with the patient.
[2019-09-23] MEDS ORDERED: MIDAZOLAM 5 MG/5 ML INJ MDV IV ONE (08:33)
[2019-09-23] MEDS ORDERED: fentaNYL 100 MCG/2 ML INJ IV ONE (08:33)
[2019-09-23] MEDS ORDERED: SODIUM CHLORIDE 0.9% 500 ML 500 ML ONE (10:08)
--- NOTE | 2019-09-23 10:45 | Post Operative Note ---
Date of procedure: 09/23/19 Pre-op diagnosis: LLQ fluid and gas collection with UC Post-op diagnosis: same Procedure: CT guided 8 Fr APD drain in the LLQ collection Anesthesia: local Surgeon: HOLLY PURCELL Estimated blood loss: minimal Condition: stable Disposition: floor
[2019-09-23] MEDS: MAGNESIUM OXIDE 400 MG TAB PO SCH (12:14)
[2019-09-23] MEDS: PANTOPRAZOLE 40 MG TAB PO SCH (12:14)
[2019-09-23] MEDS: POTASSIUM CHLORIDE ER 10 MEQ TAB PO SCH (12:15)
[2019-09-23] MEDS: PHOS-NAK POWDER PACKET PO SCH ×2 (12:15→21:20)
[2019-09-23] MEDS: ERTAPENEM 1 GM in SODIUM CHLORIDE 0.9% 50 ML IV SCH (12:15)
--- NOTE | 2019-09-23 15:10 | Progress Note ---
Assessment and Plan Cultures: 09/14/2019 abdominal drainage culture: ESBL Klebsiella pneumoniae and ESBL E. coli 09/07/2019 blood cultures: Negative 09/07/2019 urine cultures: Negative A&P: 59-year-old female past medical history of DVT currently on anticoagulation, colitis with questionable inflammatory bowel admitted with abdominal abscess, now with possible ulcerative colitis. Found to have polymicrobial ESBL infection #Acute sepsis: leukocytosis resolved. Secondary to intra-abdominal abscess. #Intra-abdominal abscess: etiology ? unclear -colonoscopy 2 months ago showed severe active colitis with ulceration, granulation tissue and focal features of chronic mucosal injury ?ulcerative colitis. Status post aspiration for cultures, culture + ESBL Kleb/E coli. Drain was unable to be placed. Repeat CT no changes in collection remains 5.8x2.8 cm. S/p drain placement today #ESBL Klebsiella and ESBL E. coli: on ertapenem #? Ulcerative colitis: Per GI #Diarrhea: has been in hospital and receiving antibiotics. Checked C diff PCR. Recommendations: -repeat CT next Saturday -Continue ertapenem 1 g every 24 hours -Contact precautions due to ESBL -Further recommendations for abscess pending surgical plan Will follow. Imelda Petit MD Subjective Date of service: 09/23/19 Principal diagnosis: rectal bleeding Interval history: Feels better remains with LLQ pain, had new IR drainage today no fever. ROS: denies N/V/D/abdominal pain Objective - Exam Narrative Exam: Physical Exam: Constitutional: Alert, cooperative. No acute distress Cardiovascular: S1, S2 normal. Respiratory: Good air entry, clear to auscultation bilaterally GI: Soft, tenderness LLQ drain with minimal purulence Musculoskeletal: No pedal edema, no cyanosis. Skin: No rash or abscess Hem/Lymphatic: No palpable cervical or supraclavicular nodes. No lymphangitis Psych: Mood ok. Affect normal Neurological: Awake, alert, oriented. No gross abnormality - Constitutional Vitals: Vital Signs Temp Pulse Resp BP Pulse Ox 97.3 F L 100 H 18 125/72 89 09/23/19 12:19 09/23/19 12:19 09/23/19 12:19 09/23/19 12:19 09/23/19 12:19 Temperature -Last 24 Hours Temperature 97.3 F Temperature 97.9 F Temperature 98.4 F - Labs CBC & Chem 7: 09/20/19 09:24 09/22/19 00:01
--- NOTE | 2019-09-23 22:01 | Progress Note ---
Assessment and Plan /possible UC now with abscess and signs small free air, - GI consulted - s/p CT guided aspiration of LLQ fluid collection on 09/14; s/p drainage placed today by IR due to persistent fluid colloction to LLQ - no plans for scope at this time - no recommendation for steroids given current infection - continue antibiotics per ID - continue to trend labs and supportive care - need repeat CT abdomen on 09/28/19 /Sepsis with UC and intra-abdominal abscess - CT performed 09/12/19 demonstrated progression of this phlegmon into a fluid collection, along with right common femoral vein DVT --IR scheduled for CT-guided aspiration and drainage on 09/14/19 of fluid collection in her left lower quadrant, - growing ESBL on cultures, on full liquids as tolerated - consult ID - on meropenum - Repeat CT abd scan on 09/22 showed persistent fluid colloction to LLQ - s/p drainage placed today by IR /Severe hypokalemia, Hypophosphatemia and hypomadnesemia; resolved due to severe GI loss cont to replete per protocol and monitor level /Bilateral DVT; Lovenox held due to rectal bleeding Vascular IR/considering IVC filter placement when stable Vascular/IR recommend to cont AC, on therapeutic dose lovenox now Hold if any evidence of severe GI bleeding /Rectal bleeding; Probably from UC, patient on full liquid diet GI following, Monitor H&H and transfuse as needed to keep hb >7.0 /Leukocytosis; secondary to sepsis, cont to monitor, stop steroid /Septic shock; resolved s/p vasopressors Levophed /Severe malnutrition/hypoalbuminemia; Due to underlying disease process, nutrition supplements --DVT prophylaxis: SCD, --Full code status Closely monitor the patient and adjust management as needed Plan of care reviewed with the patient and her at the bedside Disposition; follow clinically, need acute rehab/snf Brief history 59-year-old woman 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 The pain is all over his belly, described as sharp, intermittent every 7 minutes, intensity 6/10, no radiation, cannot identify exacerbating factor. Denies any nausea vomiting, fever chills, diarrhea. Patient stated she was admitted 2 months ago with abdominal pain and was diagnosed with colitis. Work-up consistent with sepsis due to UC with intraabdominal abscess, b/l LE DVT. had complicated clinical course with rectal bleed, severe electrolytes abnormalities and intraabdominal abscess with sepsis. clinically now stable for discharge - pending placement. Hospitalist Physical General appearance: Present: mild distress, well-nourished, obese - EENT Eyes: Present: PERRL, EOM intact - Neck Neck: Present: supple, normal ROM - Respiratory Respiratory effort: normal Respiratory: bilateral: diminished, negative: rales, rhonchi, wheezing - Cardiovascular Rhythm: regular Heart Sounds: Present: S1 & S2 - Extremities Extremities: no ischemia, No edema - Abdominal General gastrointestinal: soft, non-tender, non-distended, normal bowel sounds - Integumentary Integumentary: Present: clear, warm - Psychiatric Psychiatric: appropriate mood/affect - Neurologic Neurologic: moves all extremities Subjective Date of service: 09/23/19 Principal diagnosis: rectal bleeding Interval history: Patient seen and examined this morning at bedside Patient's chart and medications list reviewed discussed plan of care at bedside with States has no intermittent rectal bleeding with stool Repeat CT abd scan showed persistent fluid colloction to LLQ - s/p drainage placed today by IR Objective - Constitutional Vitals: Vital Signs - 12hr 09/23/19 09/23/19 09/23/19 10:08 10:15 10:30 Temperature Pulse Rate Pulse Rate [ 116 H 114 H Intra-Procedure ] Pulse Rate [ Post-Procedure] Pulse Rate [Pre 113 H -Procedure] Respiratory Rate Respiratory 16 16 Rate [Intra- Procedure] Respiratory Rate [Post- Procedure] Respiratory 16 Rate [Pre- Procedure] Blood Pressure Blood Pressure 90/51 138/37 [Intra- Procedure] Blood Pressure [Post-Procedure ] Blood Pressure 88/57 [Pre-Procedure] O2 Sat by Pulse Oximetry O2 Sat by Pulse 100 100 Oximetry [ Intra-Procedure ] O2 Sat by Pulse Oximetry [Post -Procedure] O2 Sat by Pulse 100 Oximetry [Pre- Procedure] 09/23/19 09/23/19 09/23/19 10:35 12:19 17:12 Temperature 97.3 F L 97.8 F Pulse Rate 100 H 98 H Pulse Rate [ Intra-Procedure ] Pulse Rate [ 113 H Post-Procedure] Pulse Rate [Pre -Procedure] Respiratory 18 18 Rate Respiratory Rate [Intra- Procedure] Respiratory 16 Rate [Post- Procedure] Respiratory Rate [Pre- Procedure] Blood Pressure 125/72 94/51 Blood Pressure [Intra- Procedure] Blood Pressure 91/42 [Post-Procedure ] Blood Pressure [Pre-Procedure] O2 Sat by Pulse 89 93 Oximetry O2 Sat by Pulse Oximetry [ Intra-Procedure ] O2 Sat by Pulse 100 Oximetry [Post -Procedure] O2 Sat by Pulse Oximetry [Pre- Procedure] - Labs CBC & Chem 7: 09/20/19 09:24 09/22/19 00:01
--- NOTE | 2019-09-24 10:00 | Progress Note ---
Assessment and Plan Cultures: 09/14/2019 abdominal drainage culture: ESBL Klebsiella pneumoniae and ESBL E. coli 09/07/2019 blood cultures: Negative 09/07/2019 urine cultures: Negative 09/24/2019 abdominal drainage culture: +GNR A&P: 59-year-old female past medical history of DVT currently on anticoagulation, colitis with questionable inflammatory bowel admitted with abdominal abscess, now with possible ulcerative colitis. Found to have polymicrobial ESBL infection #Acute sepsis: leukocytosis resolved. Secondary to intra-abdominal abscess. #Intra-abdominal abscess: etiology ? unclear -colonoscopy 2 months ago showed severe active colitis with ulceration, granulation tissue and focal features of chronic mucosal injury ?ulcerative colitis. Status post aspiration for cultures, culture + ESBL Kleb/E coli. Drain was unable to be placed. Repeat CT no changes in collection remains 5.8x2.8 cm. S/p drain placement on 09/23 #ESBL Klebsiella and ESBL E. coli: on ertapenem #? Ulcerative colitis: Per GI #Diarrhea: has been in hospital and receiving antibiotics. Checked C diff PCR. Recommendations: -repeat CT next Saturday09/28/2019 -Continue ertapenem 1 g every 24 hours -Contact precautions due to ESBL Will follow. Imelda Petit MD Subjective Date of service: 09/24/19 Principal diagnosis: rectal bleeding Interval history: Feels better LLQ pain some better, drain putting out pus ROS: denies N/V/D/abdominal pain Objective - Exam Narrative Exam: Physical Exam: Constitutional: Alert, cooperative. No acute distress Cardiovascular: S1, S2 normal. Respiratory: Good air entry, clear to auscultation bilaterally GI: Soft, tenderness LLQ drain with purulence Musculoskeletal: No pedal edema, no cyanosis. Skin: No rash or abscess Hem/Lymphatic: No palpable cervical or supraclavicular nodes. No lymphangitis Psych: Mood ok. Affect normal Neurological: Awake, alert, oriented. No gross abnormality - Constitutional Vitals: Vital Signs Temp Pulse Resp BP Pulse Ox 98.3 F 114 H 18 105/73 96 09/24/19 06:29 09/24/19 06:29 09/24/19 06:29 09/24/19 06:29 09/24/19 08:13 Temperature -Last 24 Hours Temperature 98.3 F Temperature 98.3 F Temperature 97.8 F Temperature 97.3 F - Labs CBC & Chem 7: 09/20/19 09:24 09/22/19 00:01
[2019-09-24] MEDS: ERTAPENEM 1 GM in SODIUM CHLORIDE 0.9% 50 ML IV SCH (11:10)
[2019-09-24] MEDS: PHOS-NAK POWDER PACKET PO SCH ×2 (11:14→21:30)
[2019-09-24] MEDS: PANTOPRAZOLE 40 MG TAB PO SCH (11:14)
[2019-09-24] MEDS: MAGNESIUM OXIDE 400 MG TAB PO SCH (11:14)
[2019-09-24] MEDS: POTASSIUM CHLORIDE ER 10 MEQ TAB PO SCH (11:14)
[2019-09-24] MEDS: ENOXAPARIN 100 MG/1 ML INJ SUB-Q SCH ×2 (15:43→21:32)
[2019-09-24] MEDS ORDERED: SODIUM CHLORIDE 0.9% 500 ML 500 ML IV ONE (17:39)
--- NOTE | 2019-09-24 23:50 | Progress Note ---
Assessment and Plan /possible UC now with abscess and signs small free air, - GI consulted - s/p CT guided aspiration of LLQ fluid collection on 09/14; s/p drainage placed on 09/23 by IR due to persistent fluid colloction to LLQ - no plans for scope at this time - no recommendation for steroids given current infection - continue antibiotics per ID - continue to trend labs and supportive care - need repeat CT abdomen on 09/28/19 /Sepsis with UC and intra-abdominal abscess - CT performed 09/12/19 demonstrated progression of this phlegmon into a fluid co llection, along with right common femoral vein DVT --IR scheduled for CT-guided aspiration and drainage on 09/14/19 of fluid collection in her left lower quadrant, - growing ESBL on cultures, on full liquids as tolerated - Repeat CT abd scan on 09/22 showed persistent fluid colloction to LLQ - s/p d rainage placed 09/23 by IR - consulted ID - on ertapenem /Severe hypokalemia, Hypophosphatemia and hypomadnesemia; resolved due to severe GI loss cont to replete per protocol and monitor level /Bilateral DVT; Lovenox held due to rectal bleeding Vascular IR/considering IVC filter placement when stable Vascular/IR recommend to cont AC, on therapeutic dose lovenox now Hold if any evidence of severe GI bleeding /Rectal bleeding; Probably from UC, patient on full liquid diet GI following, Monitor H&H and transfuse as needed to keep hb >7.0 /Leukocytosis; secondary to sepsis, cont to monitor, stop steroid /Septic shock; resolved s/p vasopressors Levophed /Severe malnutrition/hypoalbuminemia; Due to underlying disease process, nutrition supplements --DVT prophylaxis: SCD, --Full code status Closely monitor the patient and adjust management as needed Plan of care reviewed with the patient and her at the bedside Disposition; follow clinically, need acute rehab/snf Brief history 59-year-old woman 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 Patient stated she was admitted 2 months ago with abdominal pain and was diagnosed with colitis. Work-up consistent with sepsis due to UC with intraabdominal abscess, b/l LE DVT. had complicated clinical course with rectal bleed, severe electrolytes abnormalities and intraabdominal abscess with sepsis. clinically now stable for discharge - pending placement. Hospitalist Physical General appearance: Present: mild distress, well-nourished, obese - EENT Eyes: Present: PERRL, EOM intact - Neck Neck: Present: supple, normal ROM - Respiratory Respiratory effort: normal Respiratory: bilateral: diminished, negative: rales, rhonchi, wheezing - Cardiovascular Rhythm: regular Heart Sounds: Present: S1 & S2 - Extremities Extremities: no ischemia, No edema - Abdominal General gastrointestinal: soft, non-tender, non-distended, normal bowel sounds, drain in place from LLQ - Integumentary Integumentary: Present: clear, warm - Psychiatric Psychiatric: appropriate mood/affect - Neurologic Neurologic: moves all extremities Subjective Date of service: 09/24/19 Principal diagnosis: rectal bleeding Interval history: Patient seen and examined this morning at bedside Patient's chart and medications list reviewed discussed plan of care at bedside with States has no intermittent rectal bleeding with stool need placement Objective - Constitutional Vitals: Vital Signs - 12hr 09/24/19 09/24/19 09/24/19 13:02 16:15 16:37 Temperature 98.1 F 98.1 F 98.2 F Pulse Rate 105 H 105 H 50 L Respiratory 16 18 20 Rate Blood Pressure 90/53 58/39 Blood Pressure 79/35 [Right] O2 Sat by Pulse 96 100 92 Oximetry 09/24/19 09/24/19 17:19 20:12 Temperature Pulse Rate 73 Respiratory Rate Blood Pressure 81/39 Blood Pressure 91/52 [Right] O2 Sat by Pulse Oximetry - Labs CBC & Chem 7: 09/20/19 09:24 09/22/19 00:01
[2019-09-25] MEDS: ERTAPENEM 1 GM in SODIUM CHLORIDE 0.9% 50 ML IV SCH (10:16)
[2019-09-25] MEDS: ENOXAPARIN 100 MG/1 ML INJ SUB-Q SCH ×2 (10:17→21:13)
[2019-09-25] MEDS: PANTOPRAZOLE 40 MG TAB PO SCH (10:17)
[2019-09-25] MEDS: POTASSIUM CHLORIDE ER 10 MEQ TAB PO SCH (10:17)
[2019-09-25] MEDS: MAGNESIUM OXIDE 400 MG TAB PO SCH (10:17)
[2019-09-25] MEDS: PHOS-NAK POWDER PACKET PO SCH ×2 (10:17→21:13)
[2019-09-25 12:04] LABS: BUN/Creatinine Ratio 6; Blood Urea Nitrogen 3 mg/dL (7-17); Calcium 6.1 mg/dL (8.4-10.2); Hemolysis Index 102
--- NOTE | 2019-09-25 13:04 | Progress Note ---
Assessment and Plan Cultures: 09/14/2019 abdominal drainage culture: ESBL Klebsiella pneumoniae and ESBL E. coli 09/07/2019 blood cultures: Negative 09/07/2019 urine cultures: Negative 09/24/2019 abdominal drainage culture: +GNR A&P: 59-year-old female past medical history of DVT currently on anticoagulation, colitis with questionable inflammatory bowel admitted with abdominal abscess, now with possible ulcerative colitis. Found to have polymicrobial ESBL infection #Acute sepsis: leukocytosis resolved. Secondary to intra-abdominal abscess. #Intra-abdominal abscess: etiology ? unclear -colonoscopy 2 months ago showed severe active colitis with ulceration, granulation tissue and focal features of chronic mucosal injury ?ulcerative colitis. Status post aspiration for cultures, culture + ESBL Kleb/E coli. Drain was unable to be placed. Repeat CT no changes in collection remains 5.8x2.8 cm. S/p drain placement on 09/23. #ESBL Klebsiella and ESBL E. coli: on ertapenem #? Ulcerative colitis: Per GI #Diarrhea: has been in hospital and receiving antibiotics. Checked C diff PCR. #Left vulvar wound: Unclear etiology, looks like a single laceration, possible due to friction and diarrhea, it does not look like herpes, definitely not infected Recommendations: -Wound care consult for vulvar wound -repeat CT next Saturday09/28/2019 -Continue ertapenem 1 g every 24 hours -Contact precautions due to ESBL Will follow. I will be covering the weekend please call me with any questions. Dr. Allen will be rounding on Saturday. Imelda Petit MD Subjective Date of service: 09/25/19 Principal diagnosis: rectal bleeding Interval history: Feels better, LLQ pain some better, drain with pus ROS: denies N/V/D/abdominal pain Objective - Exam Narrative Exam: Physical Exam: Constitutional: Alert, cooperative. No acute distress Cardiovascular: S1, S2 normal. Respiratory: Good air entry, clear to auscultation bilaterally GI: Soft, tenderness LLQ drain with minimal purulence Musculoskeletal: No pedal edema, no cyanosis. Skin: No rash or abscess. Left vulvar wound without erythema, drainage Hem/Lymphatic: No palpable cervical or supraclavicular nodes. No lymphangitis Psych: Mood ok. Affect normal Neurological: Awake, alert, oriented. No gross abnormality - Constitutional Vitals: Vital Signs Temp Pulse Resp BP Pulse Ox 97.5 F L 113 H 18 84/52 98 09/25/19 05:29 09/25/19 05:29 09/25/19 05:29 09/25/19 05:29 09/25/19 05:29 Temperature -Last 24 Hours Temperature 97.5 F Temperature 98.3 F Temperature 98.2 F Temperature 98.1 F Temperature 98.1 F - Labs CBC & Chem 7: 09/20/19 09:24 09/25/19 11:39 Labs: Abnormal lab results 09/25/19 Range/Units 11:39 Sodium 133 L D (137-145) mmol/L Potassium 3.5 L (3.6-5.0) mmol/L Chloride 95.3 L (98-107) mmol/L Carbon Dioxide 21 L (22-30) mmol/L BUN 3 L (7-17) mg/dL Creatinine 0.5 L D (0.7-1.2) mg/dL Glucose 170 H (65-100) mg/dL Calcium 6.1 L (8.4-10.2) mg/dL
--- NOTE | 2019-09-25 14:36 | Progress Note ---
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 Patient stated she was admitted 2 months ago with abdominal pain and was diagnosed with colitis. Work-up consistent with sepsis due to UC with intraabdominal abscess, b/l LE DVT. had complicated clinical course with rectal bleed, severe electrolytes abnormalities and intraabdominal abscess with sepsis. clinically now stable for discharge - pending placement. Bilateral lower extremity Doppler iMPRESSION: Positive for bilateral deep venous thromboses /possible UC now with abscess and signs small free air, - GI consulted - s/p CT guided aspiration of LLQ fluid collection on 09/14; s/p drainage placed on 09/23 by IR due to persistent fluid colloction to LLQ - no plans for scope at this time - no recommendation for steroids given current infection - continue antibiotics per ID - continue to trend labs and supportive care - need repeat CT abdomen on 09/28/19 /Sepsis with UC and intra-abdominal abscess - CT performed 09/12/19 demonstrated progression of this phlegmon into a fluid collection, along with right common femoral vein DVT --IR scheduled for CT-guided aspiration and drainage on 09/14/19 of fluid collection in her left lower quadrant, - growing ESBL on cultures, on full liquids as tolerated - Repeat CT abd scan on 09/22 showed persistent fluid colloction to LLQ - s/p drainage placed 09/23 by IR - consulted ID - on ertapenem /Severe hypokalemia, Hypophosphatemia and hypomadnesemia; resolved due to severe GI loss cont to replete per protocol and monitor level /Bilateral DVT; Lovenox held due to rectal bleeding Vascular IR/considering IVC filter placement when stable Vascular/IR recommend to cont AC, on therapeutic dose lovenox now Hold if any evidence of severe GI bleeding /Rectal bleeding; Probably from UC, patient on full liquid diet GI following, Monitor H&H and transfuse as needed to keep hb >7.0 /Leukocytosis; secondary to sepsis, cont to monitor, stop steroid /Septic shock; resolved s/p vasopressors Levophed Although patient is again hypotensive we will start patient on midodrine and monitor. There is no evidence of recurrent sepsis at this time. /Severe malnutrition/hypoalbuminemia; Due to underlying disease process, nutrition supplements --DVT prophylaxis: SCD, --Full code status Closely monitor the patient and adjust management as needed Plan of care reviewed with the patient and her at the bedside Disposition; discharge held at this time as patient needs a repeat imaging study to understand any changes in abdominal abscess. Also consider duration of antibiotics. The patient is still critically ill requires a change in anticoagulation regimen. History Interval history: Patient seen and examined this morning remains lethargic. No adverse event reported to me. Hospitalist Physical - Physical exam Narrative exam: VITAL SIGNS: Reviewed. GENERAL: The patient appears chronically ill-appearing, Vital signs as documented. HEAD: No signs of head trauma. EYES: Pupils are equal. Extraocular motions intact. EARS: Hearing grossly intact. MOUTH: Oropharynx is normal. NECK: No adenopathy, no JVD. CHEST: Chest with clear breath sounds bilaterally. No wheezes, rales, or rhonchi. CARDIAC: Regular rate and rhythm. S1 and S2, without murmurs, gallops, or rubs. VASCULAR: Bilateral pitting edema. Peripheral pulses normal and equal in all extremities. ABDOMEN: Soft, tender to touch left lower quadrant, drainage site clean and intact. And non distended. No rebound or guarding, and no masses palpated. Bowel Sounds normal. MUSCULOSKELETAL: Good range of motion of all major joints. Extremities without clubbing, cyanosis. With bilateral pitting edema. NEUROLOGIC EXAM: Alert and oriented x 3 No focal sensory or strength deficits. Speech normal. Follows commands. PSYCHIATRIC: Mood normal. SKIN: detial exam as documented in skin assessment - Constitutional Vitals: Temp Pulse Resp BP Pulse Ox 97.5 F L 113 H 18 84/52 98 09/25/19 05:29 09/25/19 05:29 09/25/19 05:29 09/25/19 05:29 09/25/19 05:29 General appearance: Present: no acute distress Results - Labs CBC & Chem 7: 09/20/19 09:24 09/25/19 11:39 Labs: Laboratory Last Values WBC 10.5 K/mm3 (4.5-11.0) 09/18/19 08:40 RBC 3.70 M/mm3 (3.65-5.03) 09/18/19 08:40 Hgb 10.7 gm/dl (10.1-14.3) 09/20/19 09:24 Hct 31.6 % (30.3-42.9) 09/20/19 09:24 MCV 87 fl (79-97) 09/18/19 08:40 MCH 30 pg (28-32) 09/18/19 08:40 MCHC 34 % (30-34) 09/18/19 08:40 RDW 17.2 % (13.2-15.2) H 09/18/19 08:40 Plt Count 194 K/mm3 (140-440) 09/18/19 08:40 Lymph % (Auto) Fitness Floor Attendant 09/13/19 09:40 [place] % (Auto) Fitness Floor Attendant 09/13/19 09:40 Eos % (Auto) Fitness Floor Attendant 09/13/19 09:40 Baso % (Auto) Fitness Floor Attendant 09/13/19 09:40 Lymph # Fitness Floor Attendant 09/13/19 09:40 [place] # Fitness Floor Attendant 09/13/19 09:40 Eos # Fitness Floor Attendant 09/13/19 09:40 Baso # Fitness Floor Attendant 09/13/19 09:40 Add Manual Diff Complete 09/18/19 08:40 Total Counted 100 09/18/19 08:40 Seg Neutrophils % Fitness Floor Attendant 09/18/19 08:40 Seg Neuts % (Manual) 96.0 % (40.0-70.0) H 09/18/19 08:40 Band Neutrophils % 3.0 % 09/18/19 08:40 Lymphocytes % (Manual) 0 % (13.4-35.0) L 09/18/19 08:40 Reactive Lymphs % (Man) 0 % 09/18/19 08:40 Monocytes % (Manual) 1.0 % (0.0-7.3) 09/18/19 08:40 Eosinophils % (Manual) 0 % (0.0-4.3) 09/18/19 08:40 Basophils % (Manual) 0 % (0.0-1.8) 09/18/19 08:40 Metamyelocytes % 0 % 09/18/19 08:40 Myelocytes % 0 % 09/18/19 08:40 Promyelocytes % 0 % 09/18/19 08:40 Blast Cells % 0 % 09/18/19 08:40 Nucleated RBC % Not Reportable 09/18/19 08:40 Seg Neutrophils # Fitness Floor Attendant 09/13/19 09:40 Seg Neutrophils # Man 10.1 K/mm3 (1.8-7.7) H 09/18/19 08:40 Band Neutrophils # 0.3 K/mm3 09/18/19 08:40 Lymphocytes # (Manual) 0.0 K/mm3 (1.2-5.4) L 09/18/19 08:40 Abs React Lymphs (Man) 0.0 K/mm3 09/18/19 08:40 Monocytes # (Manual) 0.1 K/mm3 (0.0-0.8) 09/18/19 08:40 Eosinophils # (Manual) 0.0 K/mm3 (0.0-0.4) 09/18/19 08:40 Basophils # (Manual) 0.0 K/mm3 (0.0-0.1) 09/18/19 08:40 Metamyelocytes # 0.0 K/mm3 09/18/19 08:40 Myelocytes # 0.0 K/mm3 09/18/19 08:40 Promyelocytes # 0.0 K/mm3 09/18/19 08:40 Blast Cells # 0.0 K/mm3 09/18/19 08:40 WBC Morphology Not Reportable 09/18/19 08:40 Hypersegmented Neuts Not Reportable 09/18/19 08:40 Hyposegmented Neuts Not Reportable 09/18/19 08:40 Hypogranular Neuts Not Reportable 09/18/19 08:40 Smudge Cells Not Reportable 09/18/19 08:40 Toxic Granulation Not Reportable 09/18/19 08:40 Toxic Vacuolation Not Reportable 09/18/19 08:40 Dohle Bodies Not Reportable 09/18/19 08:40 Pelger-Huet Anomaly Not Reportable 09/18/19 08:40 Phyllis Rods Not Reportable 09/18/19 08:40 Platelet Estimate Consistent w auto 09/18/19 08:40 Clumped Platelets Not Reportable 09/18/19 08:40 Plt Clumps, EDTA Not Reportable 09/18/19 08:40 Large Platelets Not Reportable 09/18/19 08:40 Giant Platelets Not Reportable 09/18/19 08:40 Platelet Satelliting Not Reportable 09/18/19 08:40 Plt Morphology Comment Not Reportable 09/18/19 08:40 RBC Morphology Not Reportable 09/18/19 08:40 Dimorphic RBCs Not Reportable 09/18/19 08:40 Polychromasia Few 09/18/19 08:40 Hypochromasia Not Reportable 09/18/19 08:40 Poikilocytosis Not Reportable 09/18/19 08:40 Anisocytosis 1+ 09/18/19 08:40 Microcytosis Not Reportable 09/18/19 08:40 Macrocytosis Few 09/18/19 08:40 Spherocytes Not Reportable 09/18/19 08:40 Pappenheimer Bodies Not Reportable 09/18/19 08:40 Sickle Cells Not Reportable 09/18/19 08:40 Target Cells Few 09/18/19 08:40 Tear Drop Cells Not Reportable 09/18/19 08:40 Ovalocytes Not Reportable 09/18/19 08:40 Helmet Cells Not Reportable 09/18/19 08:40 Fam-Ovid Bodies Not Reportable 09/18/19 08:40 Romance Rings Not Reportable 09/18/19 08:40 Agustina Cells Not Reportable 09/18/19 08:40 Bite Cells Not Reportable 09/18/19 08:40 Crenated Cell Not Reportable 09/18/19 08:40 Elliptocytes Not Reportable 09/18/19 08:40 Acanthocytes (Spur) Not Reportable 09/18/19 08:40 Rouleaux Not Reportable 09/18/19 08:40 Hemoglobin C Crystals Not Reportable 09/18/19 08:40 Schistocytes Rare 09/18/19 08:40 Malaria parasites Not Reportable 09/18/19 08:40 Emmanuel Bodies Not Reportable 09/18/19 08:40 Hem Pathologist Commnt No 09/18/19 08:40 PT 16.3 Sec. (12.2-14.9) H 09/14/19 23:15 INR 1.29 (0.87-1.13) H 09/14/19 23:15 APTT 29.6 Sec. (24.2-36.6) 09/14/19 23:15 Heparin Anti-Xa Level > 2.00 U.I./ml (0.3-0.7) H 09/15/19 08:50 Sodium 133 mmol/L (137-145) L D 09/25/19 11:39 Potassium 3.5 mmol/L (3.6-5.0) L 09/25/19 11:39 Chloride 95.3 mmol/L (98-107) L 09/25/19 11:39 Carbon Dioxide 21 mmol/L (22-30) L 09/25/19 11:39 Anion Gap 20 mmol/L 09/25/19 11:39 BUN 3 mg/dL (7-17) L 09/25/19 11:39 Creatinine 0.5 mg/dL (0.7-1.2) L D 09/25/19 11:39 Estimated GFR > 60 ml/min 09/25/19 11:39 BUN/Creatinine Ratio 6 % 09/25/19 11:39 Glucose 170 mg/dL (65-100) H 09/25/19 11:39 Lactic Acid 1.50 mmol/L (0.7-2.0) 09/07/19 Unknown Lactic Acid 4.70 mmol/L (0.7-2.0) H* 09/07/19 Unknown Calcium 6.1 mg/dL (8.4-10.2) L 09/25/19 11:39 Phosphorus 2.30 mg/dL (2.5-4.5) L 09/20/19 09:24 Magnesium 1.80 mg/dL (1.7-2.3) 09/22/19 00:01 Total Bilirubin 0.20 mg/dL (0.1-1.2) 09/14/19 10:40 AST 18 units/L (5-40) 09/14/19 10:40 ALT 28 units/L (7-56) 09/14/19 10:40 Alkaline Phosphatase 127 units/L (35-129) 09/14/19 10:40 Troponin T 0.027 ng/mL (0.00-0.029) 09/07/19 Unknown C-Reactive Protein 1.60 mg/dL (0.00-1.30) H 09/22/19 00:01 Total Protein 3.4 g/dL (6.3-8.2) L 09/14/19 10:40 Albumin 1.5 g/dL (3.9-5) L 09/14/19 10:40 Albumin/Globulin Ratio 0.8 % 09/14/19 10:40 Lipase 5 units/L (13-60) L 09/07/19 Unknown Urine Color Yellow (Yellow) 09/07/19 17:56 Urine Turbidity Slightly-cloudy (Clear) 09/07/19 17:56 Urine pH 6.0 (5.0-7.0) 09/07/19 17:56 Ur Specific Sa[place] 1.009 (1.003-1.030) 09/07/19 17:56 Urine Protein <15 mg/dl mg/dL (Negative) 09/07/19 17:56 Urine Glucose (UA) Neg mg/dL (Negative) 09/07/19 17:56 Urine Ketones Neg mg/dL (Negative) 09/07/19 17:56 Urine Blood Neg (Negative) 09/07/19 17:56 Urine Nitrite Pos (Negative) 09/07/19 17:56 Urine Bilirubin Neg (Negative) 09/07/19 17:56 Urine Urobilinogen < 2.0 mg/dL (<2.0) 09/07/19 17:56 Ur Leukocyte Esterase Sm (Negative) 09/07/19 17:56 Urine WBC (Auto) 6.0 /HPF (0.0-6.0) 09/07/19 17:56 Urine RBC (Auto) < 1.0 /HPF (0.0-6.0) 09/07/19 17:56 U Epithel Cells (Auto) < 1.0 /HPF (0-13.0) 09/07/19 17:56 Urine Bacteria (Auto) 2+ /HPF (Negative) 09/07/19 17:56 C. difficile Tox (PCR) Negative (Negative) 09/18/19 06:00 Blood Type O POSITIVE 09/15/19 08:50 Antibody Screen Negative 09/15/19 08:50 Crossmatch See Detail 09/15/19 08:50 Active Medications - Current Medications Current Medications: Generic Name Dose Route Start Last Admin Trade Name Freq PRN Reason Stop Dose Admin Acetaminophen 650 mg 09/07/19 23:20 Tylenol MD Q4H PRN Pain MILD(1-3)/Fever >100.5/BUSTILLOS Enoxaparin Sodium 90 mg 09/24/19 15:00 09/25/19 10:17 Enoxaparin 1 mg/kg (90 mg) 90 mg SUB-Q Administration Q12HR LAMINE Ertapenem 1 gm/ Sodium 50 mls @ 100 mls/hr 09/16/19 17:00 09/25/19 10:16 Chloride IV 100 mls/hr QDAY LAMINE Administration Magnesium Oxide 400 mg 09/19/19 11:00 09/25/19 10:17 Mag-Ox PO 400 mg QDAY LAMINE Administration Midodrine 5 mg 09/25/19 16:00 Proamatine PO TID@0800,1200,1600 LAMINE Ondansetron HCl 4 mg 09/07/19 23:20 Zofran IV Q4H PRN Nausea And Vomiting Pantoprazole Sodium 40 mg 09/09/19 11:00 09/25/19 10:17 Protonix PO 40 mg DAILY LAMINE Administration Potassium Chloride 10 meq 09/22/19 10:33 09/25/19 10:17 K-Dur PO 10 meq QDAY LAMINE Administration Potassium Phos/Sodium Phos 1 each 09/19/19 22:00 09/25/19 10:17 Phos-Nak PO 1 each Q12HR LAMINE Administration Sodium Chloride 10 ml 09/08/19 10:00 09/25/19 10:16 Sodium Chloride Flush Syringe 10 Ml IV 10 ml BID LAMINE Administration Sodium Chloride 10 ml 09/07/19 23:20 09/12/19 05:56 Sodium Chloride Flush Syringe 10 Ml IV 10 ml PRN PRN Administration LINE FLUSH Nutrition/Malnutrition Assess - Dietary Evaluation Nutrition/Malnutrition Findings: Nutrition Notes Start: 09/08/19 11:13 Freq: Status: Active Protocol: Document 09/25/19 10:58 [facility] (Rec: 09/25/19 11:02 [facility] SR[facility]- [id number]) Nutrition Notes Initial or Follow up Brief Note Current Diet GI soft + Ensure Clear BID Subjective/Other Information Pt consumed 17% of meals yesterday. She says, "I have been eating a little". Pt is tolerating PO intake though. She drinks the ONS. Nutrition Intervention Add Supplement/Snack (indicate name/kcal Ensure Clear BID /protein ) Provides kCal: 480 Provides Protein (gm) 16 Teaching Recipient Patient Learning Readiness Good Teaching Methods Discussion,Handout Response to Teaching Verbalize understanding Education Handouts Provided Ulcerative Colitis Nutrition Therapy Barriers to Learning No Barriers RD phone number provided Yes Patient aware of follow up options Yes Follow-Up By: 09/28/19 Additional Comments F/U: intakes (meals/ONS), wt
[2019-09-25] MEDS: MIDODRINE 5 MG TAB PO SCH (15:33)
[2019-09-26] MEDS: MIDODRINE 5 MG TAB PO SCH ×3 (08:00→18:01)
--- NOTE | 2019-09-26 12:48 | Progress Note ---
Assessment and Plan - Patient Problems (1) Peritoneal cavity free air Current Visit: Yes Status: Acute Plan to address problem: Patient appears improved. Pain has essentially resolved. Exam is much improved. Drain appears to be working well. Patient scheduled for repeat CT on Saturday. I would not be surprised if there is still some residual fluid on the CT on Saturday. She may require prolonged drainage. Ultimately, she would benefit from a consultation with a colorectal surgeon for consideration of proctocolectomy in order to cure her ulcerative colitis condition. Please call with questions. time=10min Subjective Date of service: 09/26/19 Patient Reports: Positive: no new complaints, feels better, tolerating liquids well, bowel movement. Negative: nausea, vomiting Objective - General physical appearance no distress, no pain, other (looks better) - Respiratory normal expansion, normal respiratory effort - Abdomen soft, not tender, not distended, not guarding, not rigid, other (JASON with stool like drainage) - Psychiatric oriented to time, oriented to person, oriented to place, speech is normal, memory intact - Labs 09/20/19 09:24 09/25/19 11:39
[2019-09-26] MEDS: ENOXAPARIN 100 MG/1 ML INJ SUB-Q SCH ×2 (14:02→21:26)
[2019-09-26] MEDS: ERTAPENEM 1 GM in SODIUM CHLORIDE 0.9% 50 ML IV SCH (14:02)
[2019-09-26] MEDS: PANTOPRAZOLE 40 MG TAB PO SCH (14:03)
[2019-09-26] MEDS: PHOS-NAK POWDER PACKET PO SCH ×2 (14:03→21:27)
[2019-09-26] MEDS: MAGNESIUM OXIDE 400 MG TAB PO SCH (14:03)
[2019-09-26] MEDS: POTASSIUM CHLORIDE ER 10 MEQ TAB PO SCH (14:03)
--- NOTE | 2019-09-26 17:25 | Progress Note ---
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 Patient stated she was admitted 2 months ago with abdominal pain and was diagnosed with colitis. Work-up consistent with sepsis due to UC with intraabdominal abscess, b/l LE DVT. had complicated clinical course with rectal bleed, severe electrolytes abnormalities and intraabdominal abscess with sepsis. clinically now stable for discharge - pending placement. Bilateral lower extremity Doppler iMPRESSION: Positive for bilateral deep venous thromboses /possible UC now with abscess and signs small free air, - GI consulted - s/p CT guided aspiration of LLQ fluid collection on 09/14; s/p drainage placed on 09/23 by IR due to persistent fluid colloction to LLQ - no plans for scope at this time - no recommendation for steroids given current infection - continue antibiotics per ID - continue to trend labs and supportive care - need repeat CT abdomen on 09/28/19 /Sepsis with UC and intra-abdominal abscess - CT performed 09/12/19 demonstrated progression of this phlegmon into a fluid collection, along with right common femoral vein DVT --IR scheduled for CT-guided aspiration and drainage on 09/14/19 of fluid collection in her left lower quadrant, - growing ESBL on cultures, on full liquids as tolerated - Repeat CT abd scan on 09/22 showed persistent fluid colloction to LLQ - s/p drainage placed 09/23 by IR - consulted ID - on ertapenem /Severe hypokalemia, Hypophosphatemia and hypomadnesemia; resolved due to severe GI loss cont to replete per protocol and monitor level /Bilateral DVT; Lovenox held due to rectal bleeding Vascular IR/considering IVC filter placement when stable Vascular/IR recommend to cont AC, on therapeutic dose lovenox now Hold if any evidence of severe GI bleeding /Rectal bleeding; Probably from UC, patient on full liquid diet GI following, Monitor H&H and transfuse as needed to keep hb >7.0 /Leukocytosis; secondary to sepsis, cont to monitor, stop steroid /Septic shock; resolved s/p vasopressors Levophed Although patient is again hypotensive we will start patient on midodrine and monitor. There is no evidence of recurrent sepsis at this time. /Severe malnutrition/hypoalbuminemia; Due to underlying disease process, nutrition supplements --DVT prophylaxis: SCD, --Full code status Closely monitor the patient and adjust management as needed Plan of care reviewed with the patient and her at the bedside Discussed wih family at bedside Disposition; discharge held at this time as patient needs a repeat imaging study to understand any changes in abdominal abscess. Also consider duration of antibiotics. The patient is still critically ill requires a change in anticoagulation regimen. History Interval history: Patient seen and examined this morning remains lethargic. No adverse event re ported to me. abdominal pain improving Hospitalist Physical - Physical exam Narrative exam: VITAL SIGNS: Reviewed. GENERAL: The patient appears chronically ill-appearing, Vital signs as documented. HEAD: No signs of head trauma. EYES: Pupils are equal. Extraocular motions intact. EARS: Hearing grossly intact. MOUTH: Oropharynx is normal. NECK: No adenopathy, no JVD. CHEST: Chest with clear breath sounds bilaterally. No wheezes, rales, or rhonchi. CARDIAC: Regular rate and rhythm. S1 and S2, without murmurs, gallops, or rubs. VASCULAR: Bilateral pitting edema. Peripheral pulses normal and equal in all e xtremities. ABDOMEN: Soft, tender to touch left lower quadrant improving, drainage site clean and intact. JASON drain with stool. And non distended. No rebound or guarding, and no masses palpated. Bowel Sounds normal. MUSCULOSKELETAL: Good range of motion of all major joints. Extremities without clubbing, cyanosis. With bilateral pitting edema. NEUROLOGIC EXAM: Alert and oriented x 3 No focal sensory or strength deficits. Speech normal. Follows commands. PSYCHIATRIC: Mood normal. SKIN: detial exam as documented in skin assessment - Constitutional Vitals: Temp Pulse Resp BP Pulse Ox 98.3 F 99 H 16 94/62 97 09/25/19 22:18 09/25/19 22:18 09/25/19 22:18 09/25/19 22:30 09/25/19 22:18 General appearance: Present: no acute distress Results - Labs CBC & Chem 7: 09/20/19 09:24 09/25/19 11:39 Labs: Laboratory Last Values WBC 10.5 K/mm3 (4.5-11.0) 09/18/19 08:40 RBC 3.70 M/mm3 (3.65-5.03) 09/18/19 08:40 Hgb 10.7 gm/dl (10.1-14.3) 09/20/19 09:24 Hct 31.6 % (30.3-42.9) 09/20/19 09:24 MCV 87 fl (79-97) 09/18/19 08:40 MCH 30 pg (28-32) 09/18/19 08:40 MCHC 34 % (30-34) 09/18/19 08:40 RDW 17.2 % (13.2-15.2) H 09/18/19 08:40 Plt Count 194 K/mm3 (140-440) 09/18/19 08:40 Lymph % (Auto) Waste Examiner 09/13/19 09:40 [place] % (Auto) Waste Examiner 09/13/19 09:40 Eos % (Auto) Waste Examiner 09/13/19 09:40 Baso % (Auto) Waste Examiner 09/13/19 09:40 Lymph # Waste Examiner 09/13/19 09:40 [place] # Waste Examiner 09/13/19 09:40 Eos # Waste Examiner 09/13/19 09:40 Baso # Waste Examiner 09/13/19 09:40 Add Manual Diff Complete 09/18/19 08:40 Total Counted 100 09/18/19 08:40 Seg Neutrophils % Waste Examiner 09/18/19 08:40 Seg Neuts % (Manual) 96.0 % (40.0-70.0) H 09/18/19 08:40 Band Neutrophils % 3.0 % 09/18/19 08:40 Lymphocytes % (Manual) 0 % (13.4-35.0) L 09/18/19 08:40 Reactive Lymphs % (Man) 0 % 09/18/19 08:40 Monocytes % (Manual) 1.0 % (0.0-7.3) 09/18/19 08:40 Eosinophils % (Manual) 0 % (0.0-4.3) 09/18/19 08:40 Basophils % (Manual) 0 % (0.0-1.8) 09/18/19 08:40 Metamyelocytes % 0 % 09/18/19 08:40 Myelocytes % 0 % 09/18/19 08:40 Promyelocytes % 0 % 09/18/19 08:40 Blast Cells % 0 % 09/18/19 08:40 Nucleated RBC % Not Reportable 09/18/19 08:40 Seg Neutrophils # Waste Examiner 09/13/19 09:40 Seg Neutrophils # Man 10.1 K/mm3 (1.8-7.7) H 09/18/19 08:40 Band Neutrophils # 0.3 K/mm3 09/18/19 08:40 Lymphocytes # (Manual) 0.0 K/mm3 (1.2-5.4) L 09/18/19 08:40 Abs React Lymphs (Man) 0.0 K/mm3 09/18/19 08:40 Monocytes # (Manual) 0.1 K/mm3 (0.0-0.8) 09/18/19 08:40 Eosinophils # (Manual) 0.0 K/mm3 (0.0-0.4) 09/18/19 08:40 Basophils # (Manual) 0.0 K/mm3 (0.0-0.1) 09/18/19 08:40 Metamyelocytes # 0.0 K/mm3 09/18/19 08:40 Myelocytes # 0.0 K/mm3 09/18/19 08:40 Promyelocytes # 0.0 K/mm3 09/18/19 08:40 Blast Cells # 0.0 K/mm3 09/18/19 08:40 WBC Morphology Not Reportable 09/18/19 08:40 Hypersegmented Neuts Not Reportable 09/18/19 08:40 Hyposegmented Neuts Not Reportable 09/18/19 08:40 Hypogranular Neuts Not Reportable 09/18/19 08:40 Smudge Cells Not Reportable 09/18/19 08:40 Toxic Granulation Not Reportable 09/18/19 08:40 Toxic Vacuolation Not Reportable 09/18/19 08:40 Dohle Bodies Not Reportable 09/18/19 08:40 Pelger-Huet Anomaly Not Reportable 09/18/19 08:40 Phyllis Rods Not Reportable 09/18/19 08:40 Platelet Estimate Consistent w auto 09/18/19 08:40 Clumped Platelets Not Reportable 09/18/19 08:40 Plt Clumps, EDTA Not Reportable 09/18/19 08:40 Large Platelets Not Reportable 09/18/19 08:40 Giant Platelets Not Reportable 09/18/19 08:40 Platelet Satelliting Not Reportable 09/18/19 08:40 Plt Morphology Comment Not Reportable 09/18/19 08:40 RBC Morphology Not Reportable 09/18/19 08:40 Dimorphic RBCs Not Reportable 09/18/19 08:40 Polychromasia Few 09/18/19 08:40 Hypochromasia Not Reportable 09/18/19 08:40 Poikilocytosis Not Reportable 09/18/19 08:40 Anisocytosis 1+ 09/18/19 08:40 Microcytosis Not Reportable 09/18/19 08:40 Macrocytosis Few 09/18/19 08:40 Spherocytes Not Reportable 09/18/19 08:40 Pappenheimer Bodies Not Reportable 09/18/19 08:40 Sickle Cells Not Reportable 09/18/19 08:40 Target Cells Few 09/18/19 08:40 Tear Drop Cells Not Reportable 09/18/19 08:40 Ovalocytes Not Reportable 09/18/19 08:40 Helmet Cells Not Reportable 09/18/19 08:40 Fam-[place] Bodies Not Reportable 09/18/19 08:40 [place] Rings Not Reportable 09/18/19 08:40 Agustina Cells Not Reportable 09/18/19 08:40 Bite Cells Not Reportable 09/18/19 08:40 Crenated Cell Not Reportable 09/18/19 08:40 Elliptocytes Not Reportable 09/18/19 08:40 Acanthocytes (Spur) Not Reportable 09/18/19 08:40 Rouleaux Not Reportable 09/18/19 08:40 Hemoglobin C Crystals Not Reportable 09/18/19 08:40 Schistocytes Rare 09/18/19 08:40 Malaria parasites Not Reportable 09/18/19 08:40 Emmanuel Bodies Not Reportable 09/18/19 08:40 Hem Pathologist Commnt No 09/18/19 08:40 PT 16.3 Sec. (12.2-14.9) H 09/14/19 23:15 INR 1.29 (0.87-1.13) H 09/14/19 23:15 APTT 29.6 Sec. (24.2-36.6) 09/14/19 23:15 Heparin Anti-Xa Level > 2.00 U.I./ml (0.3-0.7) H 09/15/19 08:50 Sodium 133 mmol/L (137-145) L D 09/25/19 11:39 Potassium 3.5 mmol/L (3.6-5.0) L 09/25/19 11:39 Chloride 95.3 mmol/L (98-107) L 09/25/19 11:39 Carbon Dioxide 21 mmol/L (22-30) L 09/25/19 11:39 Anion Gap 20 mmol/L 09/25/19 11:39 BUN 3 mg/dL (7-17) L 09/25/19 11:39 Creatinine 0.5 mg/dL (0.7-1.2) L D 09/25/19 11:39 Estimated GFR > 60 ml/min 09/25/19 11:39 BUN/Creatinine Ratio 6 % 09/25/19 11:39 Glucose 170 mg/dL (65-100) H 09/25/19 11:39 Lactic Acid 1.50 mmol/L (0.7-2.0) 09/07/19 Unknown Lactic Acid 4.70 mmol/L (0.7-2.0) H* 09/07/19 Unknown Calcium 6.1 mg/dL (8.4-10.2) L 09/25/19 11:39 Phosphorus 2.30 mg/dL (2.5-4.5) L 09/20/19 09:24 Magnesium 1.80 mg/dL (1.7-2.3) 09/22/19 00:01 Total Bilirubin 0.20 mg/dL (0.1-1.2) 09/14/19 10:40 AST 18 units/L (5-40) 09/14/19 10:40 ALT 28 units/L (7-56) 09/14/19 10:40 Alkaline Phosphatase 127 units/L (35-129) 09/14/19 10:40 Troponin T 0.027 ng/mL (0.00-0.029) 09/07/19 Unknown C-Reactive Protein 1.60 mg/dL (0.00-1.30) H 09/22/19 00:01 Total Protein 3.4 g/dL (6.3-8.2) L 09/14/19 10:40 Albumin 1.5 g/dL (3.9-5) L 09/14/19 10:40 Albumin/Globulin Ratio 0.8 % 09/14/19 10:40 Lipase 5 units/L (13-60) L 09/07/19 Unknown Urine Color Yellow (Yellow) 09/07/19 17:56 Urine Turbidity Slightly-cloudy (Clear) 09/07/19 17:56 Urine pH 6.0 (5.0-7.0) 09/07/19 17:56 Ur Specific [place] 1.009 (1.003-1.030) 09/07/19 17:56 Urine Protein <15 mg/dl mg/dL (Negative) 09/07/19 17:56 Urine Glucose (UA) Neg mg/dL (Negative) 09/07/19 17:56 Urine Ketones Neg mg/dL (Negative) 09/07/19 17:56 Urine Blood Neg (Negative) 09/07/19 17:56 Urine Nitrite Pos (Negative) 09/07/19 17:56 Urine Bilirubin Neg (Negative) 09/07/19 17:56 Urine Urobilinogen < 2.0 mg/dL (<2.0) 09/07/19 17:56 Ur Leukocyte Esterase Sm (Negative) 09/07/19 17:56 Urine WBC (Auto) 6.0 /HPF (0.0-6.0) 09/07/19 17:56 Urine RBC (Auto) < 1.0 /HPF (0.0-6.0) 09/07/19 17:56 U Epithel Cells (Auto) < 1.0 /HPF (0-13.0) 09/07/19 17:56 Urine Bacteria (Auto) 2+ /HPF (Negative) 09/07/19 17:56 C. difficile Tox (PCR) Negative (Negative) 09/18/19 06:00 Blood Type O POSITIVE 09/15/19 08:50 Antibody Screen Negative 09/15/19 08:50 Crossmatch See Detail 09/15/19 08:50 Active Medications - Current Medications Current Medications: Generic Name Dose Route Start Last Admin Trade Name Freq PRN Reason Stop Dose Admin Acetaminophen 650 mg 09/07/19 23:20 Tylenol SC Q4H PRN Pain MILD(1-3)/Fever >100.5/BUSTILLOS Enoxaparin Sodium 90 mg 09/24/19 15:00 09/26/19 14:02 Enoxaparin 1 mg/kg (90 mg) 90 mg SUB-Q Administration Q12HR LAMINE Ertapenem 1 gm/ Sodium 50 mls @ 100 mls/hr 09/16/19 17:00 09/26/19 14:02 Chloride IV 100 mls/hr QDAY LAMINE Administration Magnesium Oxide 400 mg 09/19/19 11:00 09/26/19 14:03 Mag-Ox PO 400 mg QDAY LAMINE Administration Midodrine 5 mg 09/25/19 16:00 09/26/19 14:02 Proamatine PO 5 mg TID@0800,1200,1600 LAMINE Administration Ondansetron HCl 4 mg 09/07/19 23:20 Zofran IV Q4H PRN Nausea And Vomiting Pantoprazole Sodium 40 mg 09/09/19 11:00 09/26/19 14:03 Protonix PO 40 mg DAILY LAMINE Administration Potassium Chloride 10 meq 09/22/19 10:33 09/26/19 14:03 K-Dur PO 10 meq QDAY LAMINE Administration Potassium Phos/Sodium Phos 1 each 09/19/19 22:00 09/26/19 14:03 Phos-Nak PO 1 each Q12HR LAMINE Administration Sodium Chloride 10 ml 09/08/19 10:00 09/26/19 14:02 Sodium Chloride Flush Syringe 10 Ml IV 10 ml BID LAMINE Administration Sodium Chloride 10 ml 09/07/19 23:20 09/12/19 05:56 Sodium Chloride Flush Syringe 10 Ml IV 10 ml PRN PRN Administration LINE FLUSH Nutrition/Malnutrition Assess - Dietary Evaluation Nutrition/Malnutrition Findings: Nutrition Notes Start: 09/08/19 11: 13 Freq: Status: Active Protocol: Document 09/25/19 10:58 [facility] (Rec: 09/25/19 11:02 [facility] [id number]) Nutrition Notes Initial or Follow up Brief Note Current Diet GI soft + Ensure Clear BID Subjective/Other Information Pt consumed 17% of meals yesterday. She says, "I have been eating a little". Pt is tolerating PO intake though. She drinks the ONS. Nutrition Intervention Add Supplement/Snack (indicate name/kcal Ensure Clear BID /protein ) Provides kCal: 480 Provides Protein (gm) 16 Teaching Recipient Patient Learning Readiness Good Teaching Methods Discussion,Handout Response to Teaching Verbalize understanding Education Handouts Provided Ulcerative Colitis Nutrition Therapy Barriers to Learning No Barriers RD phone number provided Yes Patient aware of follow up options Yes Follow-Up By: 09/28/19 Additional Comments F/U: intakes (meals/ONS), wt
[2019-09-27] MEDS: ENOXAPARIN 100 MG/1 ML INJ SUB-Q SCH ×2 (09:52→21:06)
[2019-09-27] MEDS: PANTOPRAZOLE 40 MG TAB PO SCH (09:52)
[2019-09-27] MEDS: PHOS-NAK POWDER PACKET PO SCH ×2 (09:52→21:06)
[2019-09-27] MEDS: MAGNESIUM OXIDE 400 MG TAB PO SCH (09:52)
[2019-09-27] MEDS: MIDODRINE 5 MG TAB PO SCH ×3 (09:52→16:15)
[2019-09-27] MEDS: POTASSIUM CHLORIDE ER 10 MEQ TAB PO SCH (09:52)
[2019-09-27] MEDS: ERTAPENEM 1 GM in SODIUM CHLORIDE 0.9% 50 ML IV SCH (10:02)
[2019-09-27] MEDS: LINEZOLID 600 MG TAB PO SCH ×2 (16:15→23:36)
[2019-09-27] MEDS ORDERED: SODIUM CHLORIDE 0.9% 1000 ML 1,000 ML IV ONE (17:25)
--- NOTE | 2019-09-27 17:25 | Progress Note ---
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 Patient stated she was admitted 2 months ago with abdominal pain and was diagnosed with colitis. Work-up consistent with sepsis due to UC with intraabdominal abscess, b/l LE DVT. had complicated clinical course with rectal bleed, severe electrolytes abnormalities and intraabdominal abscess with sepsis. clinically now stable for discharge - pending placement. Bilateral lower extremity Doppler iMPRESSION: Positive for bilateral deep venous thromboses 09/27/19: Obtain a.m. labs. Awaiting repeat CT of the abdomen. Based on the finding of the CT of the abdomen will anticipate discharge to long-term facility. Patient still with intermittent hypotension despite midodrine. Will adjust dose to 10 mg 3 times daily. /possible UC now with abscess and signs small free air, - GI consulted - s/p CT guided aspiration of LLQ fluid collection on 09/14; s/p drainage placed on 09/23 by IR due to persistent fluid colloction to LLQ - no plans for scope at this time - no recommendation for steroids given current infection - continue antibiotics per ID - continue to trend labs and supportive care /Sepsis with UC and intra-abdominal abscess - CT performed 09/12/19 demonstrated progression of this phlegmon into a fluid collection, along with right common femoral vein DVT --IR scheduled for CT-guided aspiration and drainage on 09/14/19 of fluid collection in her left lower quadrant, - growing ESBL on cultures, on full liquids as tolerated - Repeat CT abd scan on 09/22 showed persistent fluid colloction to LLQ - s/p drainage placed 09/23 by IR - consulted ID - on ertapenem /Hypotension. Asymptomatic. No new fever to suggest septic shock. Remains with tachycardia. Continues on antibiotic. Will adjust midodrine and continue to monitor. May give a bolus of fluid today. Severe hypokalemia, Hypophosphatemia and hypomadnesemia; resolved due to severe GI loss cont to replete per protocol and monitor level /Bilateral DVT; Lovenox held due to rectal bleeding Vascular IR/considering IVC filter placement when stable Vascular/IR recommend to cont AC, on therapeutic dose lovenox now Hold if any evidence of severe GI bleeding /Rectal bleeding; Probably from UC, patient on full liquid diet GI following, Monitor H&H and transfuse as needed to keep hb >7.0 /Leukocytosis; secondary to sepsis, cont to monitor, stop steroid /Septic shock; resolved s/p vasopressors Levophed Although patient is again hypotensive we will start patient on midodrine and monitor. There is no evidence of recurrent sepsis at this time. /Severe malnutrition/hypoalbuminemia; Due to underlying disease process, nutrition supplements --DVT prophylaxis: SCD, --Full code status Closely monitor the patient and adjust management as needed Plan of care reviewed with the patient and her at the bedside Discussed wih family at bedside Disposition; d patient awaiting repeat CT of the abdomen to see if an abdominal changes on noted abscess prior. Based on the findings were discussed with vascular and also infectious disease for discharge plans to a long-term facility. History Interval history: Patient seen and examined this morning remains lethargic. No adverse event reported to me. abdominal pain improving. Spouse at bedside Hospitalist Physical - Physical exam Narrative exam: VITAL SIGNS: Reviewed. GENERAL: The patient appears chronically ill-appearing, Vital signs as documented. HEAD: No signs of head trauma. EYES: Pupils are equal. Extraocular motions intact. EARS: Hearing grossly intact. MOUTH: Oropharynx is normal. NECK: No adenopathy, no JVD. CHEST: Chest with clear breath sounds bilaterally. No wheezes, rales, or rhonchi. CARDIAC: Regular rate and rhythm. S1 and S2, without murmurs, gallops, or rubs. VASCULAR: Bilateral pitting edema. Peripheral pulses normal and equal in all extremities. ABDOMEN: Soft, tender to touch left lower quadrant improving, drainage site clean and intact. JASON drain with stool. And non distended. No rebound or guarding, and no masses palpated. Bowel Sounds normal. MUSCULOSKELETAL: Good range of motion of all major joints. Extremities without clubbing, cyanosis. With bilateral pitting edema. NEUROLOGIC EXAM: Alert and oriented x 3 No focal sensory or strength deficits. Speech normal. Follows commands. PSYCHIATRIC: Mood normal. SKIN: detial exam as documented in skin assessment - Constitutional Vitals: Temp Pulse Resp BP Pulse Ox 97.5 F L 101 H 18 84/51 100 09/27/19 11:52 09/27/19 11:52 09/27/19 11:52 09/27/19 11:52 09/27/19 11:52 General appearance: Present: no acute distress Results - Labs CBC & Chem 7: 09/20/19 09:24 09/25/19 11:39 Labs: Laboratory Last Values WBC 10.5 K/mm3 (4.5-11.0) 09/18/19 08:40 RBC 3.70 M/mm3 (3.65-5.03) 09/18/19 08:40 Hgb 10.7 gm/dl (10.1-14.3) 09/20/19 09:24 Hct 31.6 % (30.3-42.9) 09/20/19 09:24 MCV 87 fl (79-97) 09/18/19 08:40 MCH 30 pg (28-32) 09/18/19 08:40 MCHC 34 % (30-34) 09/18/19 08:40 RDW 17.2 % (13.2-15.2) H 09/18/19 08:40 Plt Count 194 K/mm3 (140-440) 09/18/19 08:40 Lymph % (Auto) Assembler [employer] Frame 09/13/19 09:40 [place] % (Auto) Assembler [employer] Frame 09/13/19 09:40 Eos % (Auto) As[employer] Frame 09/13/19 09:40 Baso % (Auto) [employer] 09/13/19 09:40 Lymph # Assembler [employer] Frame 09/13/19 09:40 [place] # Assembler Gold Frame 09/13/19 09:40 Eos # Assembler [employer] Frame 09/13/19 09:40 Baso # Assembler [employer] Frame 09/13/19 09:40 Add Manual Diff Complete 09/18/19 08:40 Total Counted 100 09/18/19 08:40 Seg Neutrophils % Assembler [employer] Frame 09/18/19 08:40 Seg Neuts % (Manual) 96.0 % (40.0-70.0) H 09/18/19 08:40 Band Neutrophils % 3.0 % 09/18/19 08:40 Lymphocytes % (Manual) 0 % (13.4-35.0) L 09/18/19 08:40 Reactive Lymphs % (Man) 0 % 09/18/19 08:40 Monocytes % (Manual) 1.0 % (0.0-7.3) 09/18/19 08:40 Eosinophils % (Manual) 0 % (0.0-4.3) 09/18/19 08:40 Basophils % (Manual) 0 % (0.0-1.8) 09/18/19 08:40 Metamyelocytes % 0 % 09/18/19 08:40 Myelocytes % 0 % 09/18/19 08:40 Promyelocytes % 0 % 09/18/19 08:40 Blast Cells % 0 % 09/18/19 08:40 Nucleated RBC % Not Reportable 09/18/19 08:40 Seg Neutrophils # Assembler Gold Frame 09/13/19 09:40 Seg Neutrophils # Man 10.1 K/mm3 (1.8-7.7) H 09/18/19 08:40 Band Neutrophils # 0.3 K/mm3 09/18/19 08:40 Lymphocytes # (Manual) 0.0 K/mm3 (1.2-5.4) L 09/18/19 08:40 Abs React Lymphs (Man) 0.0 K/mm3 09/18/19 08:40 Monocytes # (Manual) 0.1 K/mm3 (0.0-0.8) 09/18/19 08:40 Eosinophils # (Manual) 0.0 K/mm3 (0.0-0.4) 09/18/19 08:40 Basophils # (Manual) 0.0 K/mm3 (0.0-0.1) 09/18/19 08:40 Metamyelocytes # 0.0 K/mm3 09/18/19 08:40 Myelocytes # 0.0 K/mm3 09/18/19 08:40 Promyelocytes # 0.0 K/mm3 09/18/19 08:40 Blast Cells # 0.0 K/mm3 09/18/19 08:40 WBC Morphology Not Reportable 09/18/19 08:40 Hypersegmented Neuts Not Reportable 09/18/19 08:40 Hyposegmented Neuts Not Reportable 09/18/19 08:40 Hypogranular Neuts Not Reportable 09/18/19 08:40 Smudge Cells Not Reportable 09/18/19 08:40 Toxic Granulation Not Reportable 09/18/19 08:40 Toxic Vacuolation Not Reportable 09/18/19 08:40 Dohle Bodies Not Reportable 09/18/19 08:40 Pelger-Huet Anomaly Not Reportable 09/18/19 08:40 Phyllis Rods Not Reportable 09/18/19 08:40 Platelet Estimate Consistent w auto 09/18/19 08:40 Clumped Platelets Not Reportable 09/18/19 08:40 Plt Clumps, EDTA Not Reportable 09/18/19 08:40 Large Platelets Not Reportable 09/18/19 08:40 Giant Platelets Not Reportable 09/18/19 08:40 Platelet Satelliting Not Reportable 09/18/19 08:40 Plt Morphology Comment Not Reportable 09/18/19 08:40 RBC Morphology Not Reportable 09/18/19 08:40 Dimorphic RBCs Not Reportable 09/18/19 08:40 Polychromasia Few 09/18/19 08:40 Hypochromasia Not Reportable 09/18/19 08:40 Poikilocytosis Not Reportable 09/18/19 08:40 Anisocytosis 1+ 09/18/19 08:40 Microcytosis Not Reportable 09/18/19 08:40 Macrocytosis Few 09/18/19 08:40 Spherocytes Not Reportable 09/18/19 08:40 Pappenheimer Bodies Not Reportable 09/18/19 08:40 Sickle Cells Not Reportable 09/18/19 08:40 Target Cells Few 09/18/19 08:40 Tear Drop Cells Not Reportable 09/18/19 08:40 Ovalocytes Not Reportable 09/18/19 08:40 Helmet Cells Not Reportable 09/18/19 08:40 Fam-Portis Bodies Not Reportable 09/18/19 08:40 [place] Rings Not Reportable 09/18/19 08:40 Agustina Cells Not Reportable 09/18/19 08:40 Bite Cells Not Reportable 09/18/19 08:40 Crenated Cell Not Reportable 09/18/19 08:40 Elliptocytes Not Reportable 09/18/19 08:40 Acanthocytes (Spur) Not Reportable 09/18/19 08:40 Rouleaux Not Reportable 09/18/19 08:40 Hemoglobin C Crystals Not Reportable 09/18/19 08:40 Schistocytes Rare 09/18/19 08:40 Malaria parasites Not Reportable 09/18/19 08:40 Emmanuel Bodies Not Reportable 09/18/19 08:40 Hem Pathologist Commnt No 09/18/19 08:40 PT 16.3 Sec. (12.2-14.9) H 09/14/19 23:15 INR 1.29 (0.87-1.13) H 09/14/19 23:15 APTT 29.6 Sec. (24.2-36.6) 09/14/19 23:15 Heparin Anti-Xa Level > 2.00 U.I./ml (0.3-0.7) H 09/15/19 08:50 Sodium 133 mmol/L (137-145) L D 09/25/19 11:39 Potassium 3.5 mmol/L (3.6-5.0) L 09/25/19 11:39 Chloride 95.3 mmol/L (98-107) L 09/25/19 11:39 Carbon Dioxide 21 mmol/L (22-30) L 09/25/19 11:39 Anion Gap 20 mmol/L 09/25/19 11:39 BUN 3 mg/dL (7-17) L 09/25/19 11:39 Creatinine 0.5 mg/dL (0.7-1.2) L D 09/25/19 11:39 Estimated GFR > 60 ml/min 09/25/19 11:39 BUN/Creatinine Ratio 6 % 09/25/19 11:39 Glucose 170 mg/dL (65-100) H 09/25/19 11:39 Lactic Acid 1.50 mmol/L (0.7-2.0) 09/07/19 Unknown Lactic Acid 4.70 mmol/L (0.7-2.0) H* 09/07/19 Unknown Calcium 6.1 mg/dL (8.4-10.2) L 09/25/19 11:39 Phosphorus 2.30 mg/dL (2.5-4.5) L 09/20/19 09:24 Magnesium 1.80 mg/dL (1.7-2.3) 09/22/19 00:01 Total Bilirubin 0.20 mg/dL (0.1-1.2) 09/14/19 10:40 AST 18 units/L (5-40) 09/14/19 10:40 ALT 28 units/L (7-56) 09/14/19 10:40 Alkaline Phosphatase 127 units/L (35-129) 09/14/19 10:40 Troponin T 0.027 ng/mL (0.00-0.029) 09/07/19 Unknown C-Reactive Protein 1.60 mg/dL (0.00-1.30) H 09/22/19 00:01 Total Protein 3.4 g/dL (6.3-8.2) L 09/14/19 10:40 Albumin 1.5 g/dL (3.9-5) L 09/14/19 10:40 Albumin/Globulin Ratio 0.8 % 09/14/19 10:40 Lipase 5 units/L (13-60) L 09/07/19 Unknown Urine Color Yellow (Yellow) 09/07/19 17:56 Urine Turbidity Slightly-cloudy (Clear) 09/07/19 17:56 Urine pH 6.0 (5.0-7.0) 09/07/19 17:56 Ur Specific [place] 1.009 (1.003-1.030) 09/07/19 17:56 Urine Protein <15 mg/dl mg/dL (Negative) 09/07/19 17:56 Urine Glucose (UA) Neg mg/dL (Negative) 09/07/19 17:56 Urine Ketones Neg mg/dL (Negative) 09/07/19 17:56 Urine Blood Neg (Negative) 09/07/19 17:56 Urine Nitrite Pos (Negative) 09/07/19 17:56 Urine Bilirubin Neg (Negative) 09/07/19 17:56 Urine Urobilinogen < 2.0 mg/dL (<2.0) 09/07/19 17:56 Ur Leukocyte Esterase Sm (Negative) 09/07/19 17:56 Urine WBC (Auto) 6.0 /HPF (0.0-6.0) 09/07/19 17:56 Urine RBC (Auto) < 1.0 /HPF (0.0-6.0) 09/07/19 17:56 U Epithel Cells (Auto) < 1.0 /HPF (0-13.0) 09/07/19 17:56 Urine Bacteria (Auto) 2+ /HPF (Negative) 09/07/19 17:56 C. difficile Tox (PCR) Negative (Negative) 09/18/19 06:00 Blood Type O POSITIVE 09/15/19 08:50 Antibody Screen Negative 09/15/19 08:50 Crossmatch See Detail 09/15/19 08:50 Active Medications - Current Medications Current Medications: Generic Name Dose Route Start Last Admin Trade Name Freq PRN Reason Stop Dose Admin Acetaminophen 650 mg 09/07/19 23:20 Tylenol [place] Q4H PRN Pain MILD(1-3)/Fever >100.5/BUSTILLOS Enoxaparin Sodium 90 mg 09/24/19 15:00 09/27/19 09:52 Enoxaparin 1 mg/kg (90 mg) 90 mg SUB-Q Administration Q12HR [facility] Ertapenem 1 gm/ Sodium 50 mls @ 100 mls/hr 09/16/19 17:00 09/27/19 10:02 Chloride IV 100 mls/hr QDAY LAMINE Administration Linezolid 600 mg 09/27/19 14:00 09/27/19 16:15 Zyvox PO 600 mg Q12HR LAMINE Administration Protocol Magnesium Oxide 400 mg 09/19/19 11:00 09/27/19 09:52 Mag-Ox PO 400 mg QDAY LAMINE Administration Midodrine 5 mg 09/25/19 16:00 09/27/19 16:15 Proamatine PO 5 mg TID@0800,1200,1600 LAMINE Administration Ondansetron HCl 4 mg 09/07/19 23:20 Zofran IV Q4H PRN Nausea And Vomiting Pantoprazole Sodium 40 mg 09/09/19 11:00 09/27/19 09:52 Protonix PO 40 mg DAILY LAMINE Administration Potassium Chloride 10 meq 09/22/19 10:33 09/27/19 09:52 K-Dur PO 10 meq QDAY LAMINE Administration Potassium Phos/Sodium Phos 1 each 09/19/19 22:00 09/27/19 09:52 Phos-Nak PO 1 each Q12HR LAMINE Administration Sodium Chloride 10 ml 09/08/19 10:00 09/27/19 09:52 Sodium Chloride Flush Syringe 10 Ml IV 10 ml BID LAMINE Administration Sodium Chloride 10 ml 09/07/19 23:20 09/12/19 05:56 Sodium Chloride Flush Syringe 10 Ml IV 10 ml PRN PRN Administration LINE FLUSH Nutrition/Malnutrition Assess - Dietary Evaluation Nutrition/Malnutrition Findings: Nutrition Notes Start: 09/08/19 11:13 Freq: Status: Active Protocol: Document 09/25/19 10:58 BAKARI (Rec: 09/25/19 11:02 BAKARI SALMON- [id number]) Nutrition Notes Initial or Follow up Brief Note Current Diet GI soft + Ensure Clear BID Subjective/Other Information Pt consumed 17% of meals yesterday. She says, "I have been eating a little". Pt is tolerating PO intake though. She drinks the ONS. Nutrition Intervention Add Supplement/Snack (indicate name/kcal Ensure Clear BID /protein ) Provides kCal: 480 Provides Protein (gm) 16 Teaching Recipient Patient Learning Readiness Good Teaching Methods Discussion,Handout Response to Teaching Verbalize understanding Education Handouts Provided Ulcerative Colitis Nutrition Therapy Barriers to Learning No Barriers RD phone number provided Yes Patient aware of follow up options Yes Follow-Up By: 09/28/19 Additional Comments F/U: intakes (meals/ONS), wt
[2019-09-28] MEDS: MIDODRINE 5 MG TAB PO SCH ×3 (10:13→17:15)
[2019-09-28 10:34] LABS: Hematocrit 32.4 % (30.3-42.9); Hemoglobin 10.6 gm/dl (10.1-14.3); Mean Corpuscular HGB Conc 33 % (30-34); Mean Corpuscular Volume 91 fl (79-97); Platelet Count 214 K/mm3 (140-440); Red Blood Count 3.57 M/mm3 (3.65-5.03); Red Cell Distribution Width 16.8 % (13.2-15.2)
[2019-09-28 10:53] LABS: BUN/Creatinine Ratio 10; Blood Urea Nitrogen 3 mg/dL (7-17); Calcium 6.4 mg/dL (8.4-10.2); Hemolysis Index 34
--- NOTE | 2019-09-28 12:22 | Progress Note ---
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 Patient stated she was admitted 2 months ago with abdominal pain and was diagnosed with colitis. Work-up consistent with sepsis due to UC with intraabdominal abscess, b/l LE DVT. had complicated clinical course with rectal bleed, severe electrolytes abnormalities and intraabdominal abscess with sepsis. clinically now stable for discharge - pending placement. Bilateral lower extremity Doppler iMPRESSION: Positive for bilateral deep venous thromboses 09/27/19: Obtain a.m. labs. Awaiting repeat CT of the abdomen. Based on the finding of the CT of the abdomen will anticipate discharge to senior living facility. Patient still with intermittent hypotension despite midodrine. Will adjust dose to 10 mg 3 times daily. /possible UC now with abscess and signs small free air, - GI consulted - s/p CT guided aspiration of LLQ fluid collection on 09/14; s/p drainage placed on 09/23 by IR due to persistent fluid colloction to LLQ - no plans for scope at this time - no recommendation for steroids given current infection - continue antibiotics per ID - continue to trend labs and supportive care /Sepsis with UC and intra-abdominal abscess - CT performed 09/12/19 demonstrated progression of this phlegmon into a fluid collection, along with right common femoral vein DVT --IR scheduled for CT-guided aspiration and drainage on 09/14/19 of fluid collection in her left lower quadrant, - growing ESBL on cultures, on full liquids as tolerated - Repeat CT abd scan on 09/22 showed persistent fluid colloction to LLQ - s/p drainage placed 09/23 by IR - consulted ID - on ertapenem /Hypotension. Asymptomatic. No new fever to suggest septic shock. Remains with tachycardia. Continues on antibiotic. Will adjust midodrine and continue to monitor. May give a bolus of fluid today. Severe hypokalemia, Hypophosphatemia and hypomadnesemia; resolved due to severe GI loss cont to replete per protocol and monitor level /Bilateral DVT; Lovenox held due to rectal bleeding Vascular IR/considering IVC filter placement when stable Vascular/IR recommend to cont AC, on therapeutic dose lovenox now Hold if any evidence of severe GI bleeding /Rectal bleeding; Probably from UC, patient on full liquid diet GI following, Monitor H&H and transfuse as needed to keep hb >7.0 /Leukocytosis; secondary to sepsis, cont to monitor, stop steroid /Septic shock; resolved s/p vasopressors Levophed Although patient is again hypotensive we will start patient on midodrine and monitor. There is no evidence of recurrent sepsis at this time. /Severe malnutrition/hypoalbuminemia; Due to underlying disease process, nutrition supplements Severe hypokalemia - replete it --DVT prophylaxis: SCD, --Full code status Closely monitor the patient and adjust management as needed Plan of care reviewed with the patient and her at the bedside Discussed wih family at bedside Disposition; patient awaiting repeat CT of the abdomen to see if an abdominal changes on noted abscess prior. Based on the findings were discussed with vascular and also infectious disease for discharge plans to a senior living facility. History Interval history: Patient was seen and evaluated this morning, patient has draining tube in place and draining minimal amount of fluid. Hospitalist Physical - Physical exam Narrative exam: Not in cardiopulmonary distress. The patient appeared well nourished and normally developed. Vital signs as documented. Head exam is unremarkable. No scleral icterus . Neck is without jugular venous distension, thyromegaly, or carotid bruits. Lungs are clear to auscultation. Cardiac exam reveals regular rate and Rhythm. Abdominal exam reveals normal bowel sounds, nontender, no organomegaly. Extremities are nonedematous and both femoral and pedal pulses are normal. 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 No focal weakness. - Constitutional Vitals: Temp Pulse Resp BP Pulse Ox 97.6 F 101 H 20 137/68 100 09/28/19 04:46 09/28/19 04:46 09/28/19 04:46 09/28/19 04:46 09/28/19 04:46 General appearance: Present: no acute distress Results - Labs CBC & Chem 7: 09/28/19 08:59 09/28/19 08:59 Labs: Laboratory Last Values WBC 8.4 K/mm3 (4.5-11.0) 09/28/19 08:59 RBC 3.57 M/mm3 (3.65-5.03) L 09/28/19 08:59 Hgb 10.6 gm/dl (10.1-14.3) 09/28/19 08:59 Hct 32.4 % (30.3-42.9) 09/28/19 08:59 MCV 91 fl (79-97) 09/28/19 08:59 MCH 30 pg (28-32) 09/28/19 08:59 MCHC 33 % (30-34) 09/28/19 08:59 RDW 16.8 % (13.2-15.2) H 09/28/19 08:59 Plt Count 214 K/mm3 (140-440) 09/28/19 08:59 Lymph % (Auto) Fundraising Assistant 09/13/19 09:40 [place] % (Auto) Fundraising Assistant 09/13/19 09:40 Eos % (Auto) Fundraising Assistant 09/13/19 09:40 Baso % (Auto) Fundraising Assistant 09/13/19 09:40 Lymph # Fundraising Assistant 09/13/19 09:40 [place] # Fundraising Assistant 09/13/19 09:40 Eos # Fundraising Assistant 09/13/19 09:40 Baso # Fundraising Assistant 09/13/19 09:40 Add Manual Diff Complete 09/18/19 08:40 Total Counted 100 09/18/19 08:40 Seg Neutrophils % Fundraising Assistant 09/18/19 08:40 Seg Neuts % (Manual) 96.0 % (40.0-70.0) H 09/18/19 08:40 Band Neutrophils % 3.0 % 09/18/19 08:40 Lymphocytes % (Manual) 0 % (13.4-35.0) L 09/18/19 08:40 Reactive Lymphs % (Man) 0 % 09/18/19 08:40 Monocytes % (Manual) 1.0 % (0.0-7.3) 09/18/19 08:40 Eosinophils % (Manual) 0 % (0.0-4.3) 09/18/19 08:40 Basophils % (Manual) 0 % (0.0-1.8) 09/18/19 08:40 Metamyelocytes % 0 % 09/18/19 08:40 Myelocytes % 0 % 09/18/19 08:40 Promyelocytes % 0 % 09/18/19 08:40 Blast Cells % 0 % 09/18/19 08:40 Nucleated RBC % Not Reportable 09/18/19 08:40 Seg Neutrophils # Fundraising Assistant 09/13/19 09:40 Seg Neutrophils # Man 10.1 K/mm3 (1.8-7.7) H 09/18/19 08:40 Band Neutrophils # 0.3 K/mm3 09/18/19 08:40 Lymphocytes # (Manual) 0.0 K/mm3 (1.2-5.4) L 09/18/19 08:40 Abs React Lymphs (Man) 0.0 K/mm3 09/18/19 08:40 Monocytes # (Manual) 0.1 K/mm3 (0.0-0.8) 09/18/19 08:40 Eosinophils # (Manual) 0.0 K/mm3 (0.0-0.4) 09/18/19 08:40 Basophils # (Manual) 0.0 K/mm3 (0.0-0.1) 09/18/19 08:40 Metamyelocytes # 0.0 K/mm3 09/18/19 08:40 Myelocytes # 0.0 K/mm3 09/18/19 08:40 Promyelocytes # 0.0 K/mm3 09/18/19 08:40 Blast Cells # 0.0 K/mm3 09/18/19 08:40 WBC Morphology Not Reportable 09/18/19 08:40 Hypersegmented Neuts Not Reportable 09/18/19 08:40 Hyposegmented Neuts Not Reportable 09/18/19 08:40 Hypogranular Neuts Not Reportable 09/18/19 08:40 Smudge Cells Not Reportable 09/18/19 08:40 Toxic Granulation Not Reportable 09/18/19 08:40 Toxic Vacuolation Not Reportable 09/18/19 08:40 Dohle Bodies Not Reportable 09/18/19 08:40 Pelger-Huet Anomaly Not Reportable 09/18/19 08:40 Phyllis Rods Not Reportable 09/18/19 08:40 Platelet Estimate Consistent w auto 09/18/19 08:40 Clumped Platelets Not Reportable 09/18/19 08:40 Plt Clumps, EDTA Not Reportable 09/18/19 08:40 Large Platelets Not Reportable 09/18/19 08:40 Giant Platelets Not Reportable 09/18/19 08:40 Platelet Satelliting Not Reportable 09/18/19 08:40 Plt Morphology Comment Not Reportable 09/18/19 08:40 RBC Morphology Not Reportable 09/18/19 08:40 Dimorphic RBCs Not Reportable 09/18/19 08:40 Polychromasia Few 09/18/19 08:40 Hypochromasia Not Reportable 09/18/19 08:40 Poikilocytosis Not Reportable 09/18/19 08:40 Anisocytosis 1+ 09/18/19 08:40 Microcytosis Not Reportable 09/18/19 08:40 Macrocytosis Few 09/18/19 08:40 Spherocytes Not Reportable 09/18/19 08:40 Pappenheimer Bodies Not Reportable 09/18/19 08:40 Sickle Cells Not Reportable 09/18/19 08:40 Target Cells Few 09/18/19 08:40 Tear Drop Cells Not Reportable 09/18/19 08:40 Ovalocytes Not Reportable 09/18/19 08:40 Helmet Cells Not Reportable 09/18/19 08:40 Fam-[place] Bodies Not Reportable 09/18/19 08:40 [place] Rings Not Reportable 09/18/19 08:40 [place] Cells Not Reportable 09/18/19 08:40 Bite Cells Not Reportable 09/18/19 08:40 Crenated Cell Not Reportable 09/18/19 08:40 Elliptocytes Not Reportable 09/18/19 08:40 Acanthocytes (Spur) Not Reportable 09/18/19 08:40 Rouleaux Not Reportable 09/18/19 08:40 Hemoglobin C Crystals Not Reportable 09/18/19 08:40 Schistocytes Rare 09/18/19 08:40 Malaria parasites Not Reportable 09/18/19 08:40 Emmanuel Bodies Not Reportable 09/18/19 08:40 Hem Pathologist Commnt No 09/18/19 08:40 PT 16.3 Sec. (12.2-14.9) H 09/14/19 23:15 INR 1.29 (0.87-1.13) H 09/14/19 23:15 APTT 29.6 Sec. (24.2-36.6) 09/14/19 23:15 Heparin Anti-Xa Level > 2.00 U.I./ml (0.3-0.7) H 09/15/19 08:50 Sodium 135 mmol/L (137-145) L 09/28/19 08:59 Potassium 2.9 mmol/L (3.6-5.0) L* 09/28/19 08:59 Chloride 95.8 mmol/L (98-107) L 09/28/19 08:59 Carbon Dioxide 24 mmol/L (22-30) 09/28/19 08:59 Anion Gap 18 mmol/L 09/28/19 08:59 BUN 3 mg/dL (7-17) L 09/28/19 08:59 Creatinine 0.3 mg/dL (0.7-1.2) L 09/28/19 08:59 Estimated GFR > 60 ml/min 09/28/19 08:59 BUN/Creatinine Ratio 10 % 09/28/19 08:59 Glucose 99 mg/dL (65-100) 09/28/19 08:59 Lactic Acid 1.50 mmol/L (0.7-2.0) 09/07/19 Unknown Lactic Acid 4.70 mmol/L (0.7-2.0) H* 09/07/19 Unknown Calcium 6.4 mg/dL (8.4-10.2) L 09/28/19 08:59 Phosphorus 2.30 mg/dL (2.5-4.5) L 09/20/19 09:24 Magnesium 1.80 mg/dL (1.7-2.3) 09/22/19 00:01 Total Bilirubin 0.20 mg/dL (0.1-1.2) 09/14/19 10:40 AST 18 units/L (5-40) 09/14/19 10:40 ALT 28 units/L (7-56) 09/14/19 10:40 Alkaline Phosphatase 127 units/L (35-129) 09/14/19 10:40 Troponin T 0.027 ng/mL (0.00-0.029) 09/07/19 Unknown C-Reactive Protein 1.60 mg/dL (0.00-1.30) H 09/22/19 00:01 Total Protein 3.4 g/dL (6.3-8.2) L 09/14/19 10:40 Albumin 1.5 g/dL (3.9-5) L 09/14/19 10:40 Albumin/Globulin Ratio 0.8 % 09/14/19 10:40 Lipase 5 units/L (13-60) L 09/07/19 Unknown Urine Color Yellow (Yellow) 09/07/19 17:56 Urine Turbidity Slightly-cloudy (Clear) 09/07/19 17:56 Urine pH 6.0 (5.0-7.0) 09/07/19 17:56 Ur Specific [place] 1.009 (1.003-1.030) 09/07/19 17:56 Urine Protein <15 mg/dl mg/dL (Negative) 09/07/19 17:56 Urine Glucose (UA) Neg mg/dL (Negative) 09/07/19 17:56 Urine Ketones Neg mg/dL (Negative) 09/07/19 17:56 Urine Blood Neg (Negative) 09/07/19 17:56 Urine Nitrite Pos (Negative) 09/07/19 17:56 Urine Bilirubin Neg (Negative) 09/07/19 17:56 Urine Urobilinogen < 2.0 mg/dL (<2.0) 09/07/19 17:56 Ur Leukocyte Esterase Sm (Negative) 09/07/19 17:56 Urine WBC (Auto) 6.0 /HPF (0.0-6.0) 09/07/19 17:56 Urine RBC (Auto) < 1.0 /HPF (0.0-6.0) 09/07/19 17:56 U Epithel Cells (Auto) < 1.0 /HPF (0-13.0) 09/07/19 17:56 Urine Bacteria (Auto) 2+ /HPF (Negative) 09/07/19 17:56 C. difficile Tox (PCR) Negative (Negative) 09/18/19 06:00 Blood Type O POSITIVE 09/15/19 08:50 Antibody Screen Negative 09/15/19 08:50 Crossmatch See Detail 09/15/19 08:50 Active Medications - Current Medications Current Medications: Generic Name Dose Route Start Last Admin Trade Name Freq PRN Reason Stop Dose Admin Acetaminophen 650 mg 09/07/19 23:20 Tylenol WI Q4H PRN Pain MILD(1-3)/Fever >100.5/BUSTILLOS Enoxaparin Sodium 90 mg 09/24/19 15:00 09/27/19 21:06 Enoxaparin 1 mg/kg (90 mg) 90 mg SUB-Q Administration Q12HR LAMINE Ertapenem 1 gm/ Sodium 50 mls @ 100 mls/hr 09/16/19 17:00 09/27/19 10:02 Chloride IV 100 mls/hr QDAY LAMINE Administration Linezolid 600 mg 09/27/19 14:00 09/27/19 23:36 Zyvox PO 600 mg Q12HR LAMINE Administration Protocol Magnesium Oxide 400 mg 09/19/19 11:00 09/27/19 09:52 Mag-Ox PO 400 mg QDAY LAMINE Administration Midodrine 10 mg 09/27/19 17:24 09/28/19 10:13 Proamatine PO 10 mg TID@0800,1200,1600 LAMINE Administration Ondansetron HCl 4 mg 09/07/19 23:20 Zofran IV Q4H PRN Nausea And Vomiting Pantoprazole Sodium 40 mg 09/09/19 11:00 09/27/19 09:52 Protonix PO 40 mg DAILY LAMINE Administration Potassium Chloride 10 meq 09/22/19 10:33 09/27/19 09:52 K-Dur PO 10 meq QDAY LAMINE Administration Potassium Chloride 40 meq 09/28/19 12:13 Potassium Chloride FEEDTUBE 09/28/19 12:14 ONCE ONE Potassium Phos/Sodium Phos 1 each 09/19/19 22:00 09/27/19 21:06 Phos-Nak PO 1 each Q12HR LAMINE Administration Sodium Chloride 10 ml 09/08/19 10:00 09/27/19 21:07 Sodium Chloride Flush Syringe 10 Ml IV 10 ml BID LAMINE Administration Sodium Chloride 10 ml 09/07/19 23:20 09/12/19 05:56 Sodium Chloride Flush Syringe 10 Ml IV 10 ml PRN PRN Administration LINE FLUSH Nutrition/Malnutrition Assess - Dietary Evaluation Nutrition/Malnutrition Findings: Nutrition Notes Start: 09/08/19 11:13 Freq: Status: Active Protocol: Document 09/25/19 10:58 BAKARI (Rec: 09/25/19 11:02 BAKARI [email or web address]) Nutrition Notes Initial or Follow up Brief Note Current Diet GI soft + Ensure Clear BID Subjective/Other Information Pt consumed 17% of meals yesterday. She says, "I have been eating a little". Pt is tolerating PO intake though. She drinks the ONS. Nutrition Intervention Add Supplement/Snack (indicate name/kcal Ensure Clear BID /protein ) Provides kCal: 480 Provides Protein (gm) 16 Teaching Recipient Patient Learning Readiness Good Teaching Methods Discussion,Handout Response to Teaching Verbalize understanding Education Handouts Provided Ulcerative Colitis Nutrition Therapy Barriers to Learning No Barriers RD phone number provided Yes Patient aware of follow up options Yes Follow-Up By: 09/28/19 Additional Comments F/U: intakes (meals/ONS), wt
--- NOTE | 2019-09-28 12:31 | Progress Note ---
Assessment and Plan Cultures: 09/14/2019 abdominal drainage culture: ESBL Klebsiella pneumoniae and ESBL E. coli 09/07/2019 blood cultures: Negative 09/07/2019 urine cultures: Negative 09/24/2019 abdominal drainage culture: ESBL E. coli, ESBL Klebsiella, Enterococcus faecium A&P: 59-year-old female past medical history of DVT currently on anticoagulation, colitis with questionable inflammatory bowel admitted with abdominal abscess, now with possible ulcerative colitis. Found to have polymicrobial ESBL infection: #Sepsis secondary to Intra-abdominal abscess: etiology ? unclear -colonoscopy 2 months ago showed severe active colitis with ulceration, granulation tissue and focal features of chronic mucosal injury ?ulcerative colitis. Status post aspiration for cultures, culture + ESBL Kleb/E coli. Drain was unable to be placed. Repeat CT no changes in collection remains 5.8 x 2.8 cm. S/p drain placement on 09/23. #? Ulcerative colitis: Per GI. #Left vulvar wound: Unclear etiology, looks like a single laceration, possible due to friction and diarrhea, it does not look like herpes, not infected. Recommendations: -f/u CT abdomen results -switched to Meropenem from Ertapenem (lower cost for placement) -already has PICC line in place. Depending on CT results, plan for additional 1- 2 weeks of abx d/w case management and Dr. Nano Allen MD, FACP [facility] ([facility]) C: [phone] O: [phone] F: [phone] Subjective Date of service: 09/28/19 Principal diagnosis: rectal bleeding Interval history: Patient denies any complaints. No fever. Got CT done, results pending. Objective - Exam Narrative Exam: Physical Exam: Constitutional: Alert, cooperative. No acute distress Head, Ears, Nose: Normocephalic, atraumatic. External ears, nose normal Eyes: Conjunctivae/corneas clear. No icterus. No ptosis. Neck: Supple, no meningeal signs Cardiovascular: S1, S2 normal. Respiratory: Good air entry, clear to auscultation bilaterally GI: Soft, non-tender; bowel sounds normal. No peritoneal signs. LLQ drain present Musculoskeletal: No pedal edema, no cyanosis. Skin: No rash or abscess Hem/Lymphatic: No palpable cervical or supraclavicular nodes. No lymphangitis Psych: Mood ok. Affect normal Neurological: Awake, alert, oriented. No gross abnormality - Constitutional Vitals: Vital Signs Temp Pulse Resp BP Pulse Ox 97.6 F 101 H 20 137/68 100 09/28/19 04:46 09/28/19 04:46 09/28/19 04:46 09/28/19 04:46 09/28/19 04:46 Temperature -Last 24 Hours Temperature 97.6 F Temperature 97.6 F Temperature 98.0 F - Labs CBC & Chem 7: 09/28/19 08:59 09/28/19 08:59 Labs: Abnormal lab results 09/28/19 09/28/19 Range/Units 08:59 08:59 RBC 3.57 L (3.65-5.03) M/mm3 RDW 16.8 H (13.2-15.2) % Sodium 135 L (137-145) mmol/L Potassium 2.9 L* (3.6-5.0) mmol/L Chloride 95.8 L (98-107) mmol/L BUN 3 L (7-17) mg/dL Creatinine 0.3 L (0.7-1.2) mg/dL Calcium 6.4 L (8.4-10.2) mg/dL
[2019-09-28] MEDS ORDERED: POTASSIUM CHLORIDE 20 MEQ PACKET FEEDTUBE NR (13:00)
[2019-09-28] MEDS: POTASSIUM CHLORIDE ER 10 MEQ TAB PO SCH (13:00)
[2019-09-28] MEDS: ENOXAPARIN 100 MG/1 ML INJ SUB-Q SCH (13:22)
[2019-09-28] MEDS: LINEZOLID 600 MG TAB PO SCH (13:22)
[2019-09-28] MEDS: PHOS-NAK POWDER PACKET PO SCH (13:23)
[2019-09-28] MEDS: ERTAPENEM 1 GM in SODIUM CHLORIDE 0.9% 50 ML IV SCH (13:23)
[2019-09-28] MEDS: PANTOPRAZOLE 40 MG TAB PO SCH (13:23)
[2019-09-28] MEDS: MAGNESIUM OXIDE 400 MG TAB PO SCH (13:23)
[2019-09-28] MEDS: MEROPENEM/NS 1 GRAM/100 ML 1 GRAM/100 ML BAG IV SCH (17:14)
[2019-09-29] MEDS: MEROPENEM/NS 1 GRAM/100 ML 1 GRAM/100 ML BAG IV SCH ×3 (02:07→14:32)
[2019-09-29] MEDS: PHOS-NAK POWDER PACKET PO SCH ×2 (02:07→11:25)
[2019-09-29] MEDS: LINEZOLID 600 MG TAB PO SCH ×2 (02:07→11:24)
[2019-09-29] MEDS: ENOXAPARIN 100 MG/1 ML INJ SUB-Q SCH ×2 (02:07→11:26)
[2019-09-29 06:51] VITALS: BP 101/46
--- NOTE | 2019-09-29 08:07 | Progress Note ---
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 Patient stated she was admitted 2 months ago with abdominal pain and was diagnosed with colitis. Work-up consistent with sepsis due to UC with intraabdominal abscess, b/l LE DVT. had complicated clinical course with rectal bleed, severe electrolytes abnormalities and intraabdominal abscess with sepsis. clinically now stable for discharge - pending placement. Bilateral lower extremity Doppler iMPRESSION: Positive for bilateral deep venous thromboses 09/27/19: Obtain a.m. labs. Awaiting repeat CT of the abdomen. Based on the finding of the CT of the abdomen will anticipate discharge to [facility]. Patient still with intermittent hypotension despite midodrine. Will adjust dose to 10 mg 3 times daily. 09/29/19: Awaiting review of CT abdomen, on my own untrained review, she remains really sick and hYpotensive Eval. ID indicates 1 to 2 weeks of antibiotics with ertapenem. Will switch to Eliquis per Vascular recommendation. No plan for IVC filter /possible UC now with abscess and signs small free air, - GI consulted - s/p CT guided aspiration of LLQ fluid collection on 09/14; s/p drainage placed on 09/23 by IR due to persistent fluid colloction to LLQ - no plans for scope at this time - no recommendation for steroids given current infection - continue antibiotics per ID - continue to trend labs and supportive care /Sepsis with UC and intra-abdominal abscess - CT performed 09/12/19 demonstrated progression of this phlegmon into a fluid collection, along with right common femoral vein DVT --IR scheduled for CT-guided aspiration and drainage on 09/14/19 of fluid collection in her left lower quadrant, - growing ESBL on cultures, on full liquids as tolerated - Repeat CT abd scan on 09/22 showed persistent fluid colloction to LLQ - s/p drainage placed 09/23 by IR - consulted ID - on ertapenem /Hypotension. Asymptomatic. No new fever to suggest septic shock. Remains with tachycardia. Continues on antibiotic. Will adjust midodrine and continue to monitor. May give a bolus of fluid today. Severe hypokalemia, Hypophosphatemia and hypomadnesemia; resolved due to severe GI loss cont to replete per protocol and monitor level /Bilateral DVT; Lovenox held due to rectal bleeding Vascular IR/considering IVC filter placement when stable but decide against. it Vascular/IR recommend to cont AC, on therapeutic dose lovenox now Hold if any evidence of severe GI bleeding /Rectal bleeding; Probably from UC, patient on full liquid diet GI following, Monitor H&H and transfuse as needed to keep hb >7.0 /Leukocytosis; secondary to sepsis, cont to monitor, stop steroid /Septic shock; resolved s/p vasopressors Levophed Although patient is again hypotensive we will start patient on midodrine and monitor. There is no evidence of recurrent sepsis at this time. /Severe malnutrition/hypoalbuminemia; Due to underlying disease process, nutrition supplements Severe hypokalemia - replete it --DVT prophylaxis: SCD, --Full code status Closely monitor the patient and adjust management as needed Plan of care reviewed with the patient and her at the bedside Discussed wih family at bedside Disposition; patient awaiting repeat CT of the abdomen to see if an abdominal changes on noted abscess prior. Based on the findings were discussed with vascular and also infectious disease for discharge plans to a penitentiary facility. Hospitalist Physical - Constitutional Vitals: Temp Pulse Resp BP Pulse Ox 98.4 F 104 H 18 101/46 98 09/29/19 04:51 09/29/19 06:48 09/29/19 06:48 09/29/19 06:48 09/29/19 06:48 General appearance: Present: no acute distress Results - Labs CBC & Chem 7: 09/28/19 08:59 09/28/19 15:59 Labs: Laboratory Last Values WBC 8.4 K/mm3 (4.5-11.0) 09/28/19 08:59 RBC 3.57 M/mm3 (3.65-5.03) L 09/28/19 08:59 Hgb 10.6 gm/dl (10.1-14.3) 09/28/19 08:59 Hct 32.4 % (30.3-42.9) 09/28/19 08:59 MCV 91 fl (79-97) 09/28/19 08:59 MCH 30 pg (28-32) 09/28/19 08:59 MCHC 33 % (30-34) 09/28/19 08:59 RDW 16.8 % (13.2-15.2) H 09/28/19 08:59 Plt Count 214 K/mm3 (140-440) 09/28/19 08:59 Lymph % (Auto) Java [employer]er 09/13/19 09:40 Howard % (Auto) Java Designer 09/13/19 09:40 Eos % (Auto) [employer] Designer 09/13/19 09:40 Baso % (Auto) Java Designer 09/13/19 09:40 Lymph # Java Designer 09/13/19 09:40 Howard # Java Designer 09/13/19 09:40 Eos # Java Designer 09/13/19 09:40 Baso # Java Designer 09/13/19 09:40 Add Manual Diff Complete 09/18/19 08:40 Total Counted 100 09/18/19 08:40 Seg Neutrophils % Java Designer 09/18/19 08:40 Seg Neuts % (Manual) 96.0 % (40.0-70.0) H 09/18/19 08:40 Band Neutrophils % 3.0 % 09/18/19 08:40 Lymphocytes % (Manual) 0 % (13.4-35.0) L 09/18/19 08:40 Reactive Lymphs % (Man) 0 % 09/18/19 08:40 Monocytes % (Manual) 1.0 % (0.0-7.3) 09/18/19 08:40 Eosinophils % (Manual) 0 % (0.0-4.3) 09/18/19 08:40 Basophils % (Manual) 0 % (0.0-1.8) 09/18/19 08:40 Metamyelocytes % 0 % 09/18/19 08:40 Myelocytes % 0 % 09/18/19 08:40 Promyelocytes % 0 % 09/18/19 08:40 Blast Cells % 0 % 09/18/19 08:40 Nucleated RBC % Not Reportable 09/18/19 08:40 Seg Neutrophils # Java Designer 09/13/19 09:40 Seg Neutrophils # Man 10.1 K/mm3 (1.8-7.7) H 09/18/19 08:40 Band Neutrophils # 0.3 K/mm3 09/18/19 08:40 Lymphocytes # (Manual) 0.0 K/mm3 (1.2-5.4) L 09/18/19 08:40 Abs React Lymphs (Man) 0.0 K/mm3 09/18/19 08:40 Monocytes # (Manual) 0.1 K/mm3 (0.0-0.8) 09/18/19 08:40 Eosinophils # (Manual) 0.0 K/mm3 (0.0-0.4) 09/18/19 08:40 Basophils # (Manual) 0.0 K/mm3 (0.0-0.1) 09/18/19 08:40 Metamyelocytes # 0.0 K/mm3 09/18/19 08:40 Myelocytes # 0.0 K/mm3 09/18/19 08:40 Promyelocytes # 0.0 K/mm3 09/18/19 08:40 Blast Cells # 0.0 K/mm3 09/18/19 08:40 WBC Morphology Not Reportable 09/18/19 08:40 Hypersegmented Neuts Not Reportable 09/18/19 08:40 Hyposegmented Neuts Not Reportable 09/18/19 08:40 Hypogranular Neuts Not Reportable 09/18/19 08:40 Smudge Cells Not Reportable 09/18/19 08:40 Toxic Granulation Not Reportable 09/18/19 08:40 Toxic Vacuolation Not Reportable 09/18/19 08:40 Dohle Bodies Not Reportable 09/18/19 08:40 Pelger-Huet Anomaly Not Reportable 09/18/19 08:40 Phyllis Rods Not Reportable 09/18/19 08:40 Platelet Estimate Consistent w auto 09/18/19 08:40 Clumped Platelets Not Reportable 09/18/19 08:40 Plt Clumps, EDTA Not Reportable 09/18/19 08:40 Large Platelets Not Reportable 09/18/19 08:40 Giant Platelets Not Reportable 09/18/19 08:40 Platelet Satelliting Not Reportable 09/18/19 08:40 Plt Morphology Comment Not Reportable 09/18/19 08:40 RBC Morphology Not Reportable 09/18/19 08:40 Dimorphic RBCs Not Reportable 09/18/19 08:40 Polychromasia Few 09/18/19 08:40 Hypochromasia Not Reportable 09/18/19 08:40 Poikilocytosis Not Reportable 09/18/19 08:40 Anisocytosis 1+ 09/18/19 08:40 Microcytosis Not Reportable 09/18/19 08:40 Macrocytosis Few 09/18/19 08:40 Spherocytes Not Reportable 09/18/19 08:40 Pappenheimer Bodies Not Reportable 09/18/19 08:40 Sickle Cells Not Reportable 09/18/19 08:40 Target Cells Few 09/18/19 08:40 Tear Drop Cells Not Reportable 09/18/19 08:40 Ovalocytes Not Reportable 09/18/19 08:40 Helmet Cells Not Reportable 09/18/19 08:40 Fam-Ellerbe Bodies Not Reportable 09/18/19 08:40 Boelus Rings Not Reportable 09/18/19 08:40 Agustina Cells Not Reportable 09/18/19 08:40 Bite Cells Not Reportable 09/18/19 08:40 Crenated Cell Not Reportable 09/18/19 08:40 Elliptocytes Not Reportable 09/18/19 08:40 Acanthocytes (Spur) Not Reportable 09/18/19 08:40 Rouleaux Not Reportable 09/18/19 08:40 Hemoglobin C Crystals Not Reportable 09/18/19 08:40 Schistocytes Rare 09/18/19 08:40 Malaria parasites Not Reportable 09/18/19 08:40 Emmanuel Bodies Not Reportable 09/18/19 08:40 Hem Pathologist Commnt No 09/18/19 08:40 PT 16.3 Sec. (12.2-14.9) H 09/14/19 23:15 INR 1.29 (0.87-1.13) H 09/14/19 23:15 APTT 29.6 Sec. (24.2-36.6) 09/14/19 23:15 Heparin Anti-Xa Level > 2.00 U.I./ml (0.3-0.7) H 09/15/19 08:50 Sodium 135 mmol/L (137-145) L 09/28/19 08:59 Potassium 4.6 mmol/L (3.6-5.0) D 09/28/19 15:59 Chloride 95.8 mmol/L (98-107) L 09/28/19 08:59 Carbon Dioxide 24 mmol/L (22-30) 09/28/19 08:59 Anion Gap 18 mmol/L 09/28/19 08:59 BUN 3 mg/dL (7-17) L 09/28/19 08:59 Creatinine 0.3 mg/dL (0.7-1.2) L 09/28/19 08:59 Estimated GFR > 60 ml/min 09/28/19 08:59 BUN/Creatinine Ratio 10 % 09/28/19 08:59 Glucose 99 mg/dL (65-100) 09/28/19 08:59 Lactic Acid 1.50 mmol/L (0.7-2.0) 09/07/19 Unknown Lactic Acid 4.70 mmol/L (0.7-2.0) H* 09/07/19 Unknown Calcium 6.4 mg/dL (8.4-10.2) L 09/28/19 08:59 Phosphorus 2.30 mg/dL (2.5-4.5) L 09/20/19 09:24 Magnesium 1.80 mg/dL (1.7-2.3) 09/22/19 00:01 Total Bilirubin 0.20 mg/dL (0.1-1.2) 09/14/19 10:40 AST 18 units/L (5-40) 09/14/19 10:40 ALT 28 units/L (7-56) 09/14/19 10:40 Alkaline Phosphatase 127 units/L (35-129) 09/14/19 10:40 Troponin T 0.027 ng/mL (0.00-0.029) 09/07/19 Unknown C-Reactive Protein 1.60 mg/dL (0.00-1.30) H 09/22/19 00:01 Total Protein 3.4 g/dL (6.3-8.2) L 09/14/19 10:40 Albumin 1.5 g/dL (3.9-5) L 09/14/19 10:40 Albumin/Globulin Ratio 0.8 % 09/14/19 10:40 Lipase 5 units/L (13-60) L 09/07/19 Unknown Urine Color Yellow (Yellow) 09/07/19 17:56 Urine Turbidity Slightly-cloudy (Clear) 09/07/19 17:56 Urine pH 6.0 (5.0-7.0) 09/07/19 17:56 Ur Specific [place] 1.009 (1.003-1.030) 09/07/19 17:56 Urine Protein <15 mg/dl mg/dL (Negative) 09/07/19 17:56 Urine Glucose (UA) Neg mg/dL (Negative) 09/07/19 17:56 Urine Ketones Neg mg/dL (Negative) 09/07/19 17:56 Urine Blood Neg (Negative) 09/07/19 17:56 Urine Nitrite Pos (Negative) 09/07/19 17:56 Urine Bilirubin Neg (Negative) 09/07/19 17:56 Urine Urobilinogen < 2.0 mg/dL (<2.0) 09/07/19 17:56 Ur Leukocyte Esterase Sm (Negative) 09/07/19 17:56 Urine WBC (Auto) 6.0 /HPF (0.0-6.0) 09/07/19 17:56 Urine RBC (Auto) < 1.0 /HPF (0.0-6.0) 09/07/19 17:56 U Epithel Cells (Auto) < 1.0 /HPF (0-13.0) 09/07/19 17:56 Urine Bacteria (Auto) 2+ /HPF (Negative) 09/07/19 17:56 C. difficile Tox (PCR) Negative (Negative) 09/18/19 06:00 Blood Type O POSITIVE 09/15/19 08:50 Antibody Screen Negative 09/15/19 08:50 Crossmatch See Detail 09/15/19 08:50 Active Medications - Current Medications Current Medications: Generic Name Dose Route Start Last Admin Trade Name Freq PRN Reason Stop Dose Admin Acetaminophen 650 mg 09/07/19 23:20 Tylenol MI Q4H PRN Pain MILD(1-3)/Fever >100.5/BUSTILLOS Enoxaparin Sodium 90 mg 09/24/19 15:00 09/29/19 02:07 Enoxaparin 1 mg/kg (90 mg) 90 mg SUB-Q Administration Q12HR LAMINE MEROPENEM/NS 1 GRAM/100 ML 1 gram in 100 mls @ 100 mls/hr 09/28/19 15:00 09/29/19 07:09 Merrem/Ns 1 Gram/100 Ml IV 100 mls/hr Q8HR LAMINE Administration Protocol Linezolid 600 mg 09/27/19 14:00 09/29/19 02:07 Zyvox PO 600 mg Q12HR LAMINE Administration Protocol Magnesium Oxide 400 mg 09/19/19 11:00 09/28/19 13:23 Mag-Ox PO 400 mg QDAY LAMINE Administration Midodrine 10 mg 09/27/19 17:24 09/28/19 17:15 Proamatine PO 10 mg TID@0800,1200,1600 LAMINE Administration Ondansetron HCl 4 mg 09/07/19 23:20 Zofran IV Q4H PRN Nausea And Vomiting Pantoprazole Sodium 40 mg 09/09/19 11:00 09/28/19 13:23 Protonix PO 40 mg DAILY LAMINE Administration Potassium Chloride 10 meq 09/22/19 10:33 09/28/19 13:00 K-Dur PO Not Given QDAY LAMINE Potassium Phos/Sodium Phos 1 each 09/19/19 22:00 09/29/19 02:07 Phos-Nak PO 1 each Q12HR LAMINE Administration Sodium Chloride 10 ml 09/08/19 10:00 09/29/19 02:08 Sodium Chloride Flush Syringe 10 Ml IV 10 ml BID LAMINE Administration Sodium Chloride 10 ml 09/07/19 23:20 09/12/19 05:56 Sodium Chloride Flush Syringe 10 Ml IV 10 ml PRN PRN Administration LINE FLUSH Nutrition/Malnutrition Assess - Dietary Evaluation Nutrition/Malnutrition Findings: Nutrition Notes Start: 09/08/19 11:13 Freq: Status: Active Protocol: Document 09/28/19 14:44 OH (Rec: 09/28/19 14:53 OH [id number]) Nutrition Notes Initial or Follow up Reassessment Current Diet GI soft + Ensure Clear BID Labs/Tests na 133 k+ 2.9 Pertinent Medications Reviewed Height 5 ft 2 in Weight 95 kg [place] Body Weight (kg) 50.00 BMI 38.2 Weight change and time frame Wts have trended significantly >5 days. Pt. to be weighed correctly by nursing staff. Subjective/Other Information Pt. requesting additional vegetables on tray. Pt. to be d/c'd to skilled nsg facility per notes. Pt. reports Ensure has given her very soft stools . Pt. agreeable d/c'ing of Ensure. Percent of energy/protein needs met: >50/50% Burn Absent Trauma Absent Current % PO Fair (50-74%) Minimum of two criteria Yes Fluid Accumulation Moderate to Severe (severe) Protein-Calorie Malnutrition Severe #1 Nutrition Diagnosis Malnutrition Diagnosis Progress(for reassessment Continues documentation) Is patient on ventilator? No Kcal/Kg value to use for calculation 18 Approximate Energy Requirements Using 1710 kcal/Kg Calculation Used for Recommendations Kcal/kg Nutrition Intervention Change Diet Order: GI soft Follow-Up By: 10/01/19 Additional Comments F/U: intakes (meals/ONS), wt
--- NOTE | 2019-09-29 09:14 | Cat Scan Report ---
CT CHEST WITHOUT CONTRAST INDICATION: pleural effusion. TECHNIQUE: Axial CT images were obtained through the chest without contrast. Lack of IV contrast limits evaluati on of the vascular and solid organs. Coronal and sagittal reformats were produced. All CT scans at [facility] location are performed using CT dose reduction for ALARA by means of automated exposure control. COMPARISON: One view of the chest from 09/07/2019. FINDINGS: MEDIASTINUM: The thyroid gland is enlarged with multiple multiple nodules bilaterally. A representati ve nodule along the lower pole of the left lobe measures 1.4 cm on image 21 of series 2. No mass or l ymphadenopathy is seen. There is a large hiatal hernia. No other significant abnormality is identifie d. HEART: No significant abnormality. THORACIC AORTA AND ARTERIES: The aorta is normal in caliber and mildly calcified. No additional signi ficant abnormality. LUNGS: There are small to moderate bilateral pleural effusions, left slightly larger than right, with associated atelectasis. Bilateral upper lobe ground glass opacities may represent atelectasis/edema. No pneumothorax or other significant pulmonary abnormality is seen. ADDITIONAL FINDINGS: None. UPPER ABDOMEN: There is generalized steatosis. No additional significant abnormality. SKELETAL SYSTEM: No acute abnormality. Degenerative changes are noted along the spine. IMPRESSION: 1. Small to moderate bilateral pleural effusions with associated atelectasis. 2. Bilateral upper lobe ground glass opacities likely represent atelectasis/edema. 3. Multinodular goiter. A thyroid ultrasound would be helpful for further evaluation when the patient 's clinical condition improves. 4. Additional findings as above. Signer Name: Jesus Myrick MD Signed: 09/29/2019 9:10 AM Workstation Name: [employer]
[2019-09-29] MEDS: MIDODRINE 5 MG TAB PO SCH ×3 (11:24→15:51)
[2019-09-29] MEDS: PANTOPRAZOLE 40 MG TAB PO SCH (11:25)
[2019-09-29] MEDS: MAGNESIUM OXIDE 400 MG TAB PO SCH (11:25)
[2019-09-29] MEDS: POTASSIUM CHLORIDE ER 10 MEQ TAB PO SCH (11:26)
--- NOTE | 2019-09-29 13:14 | Discharge Summary ---
Providers - Providers Date of Admission: 09/07/19 23:20 Attending physician: JIMMY TRIPATHI MD 09/07/19 23:20 Consult to Physician [CONS] Routine Comment: Consulting Provider: REMINGTON PEREZ Physician Instructions: Reason For Exam: ?abscess 09/10/19 16:09 Consult to PICC Line RN [CONS] Urgent Reason For Exam: D/C central line Type Line:: Midline 09/12/19 10:38 Consult to Physician [CONS] Routine Comment: Consulting Provider: CASSI VERONICA Physician Instructions: Reason For Exam: Rectal bleeding 09/12/19 13:20 Consult to Interventional Radiology [CONS] Routine Consulting Provider: HOLLY LOCO Reason For Exam: LLQ abdominal fluid collection - eval for drain Place consult to:: DR LOCO Notified:: YES Phone number called:: [phone] Was contact made?: Yes 09/15/19 08:00 Consult to Wound/ET Nurse [CONS] Routine Reason For Exam: wound eval 09/16/19 12:36 Physical Therapy Evaluation and Treat [CONS] Routine Comment: Reason For Exam: placement 09/16/19 15:36 Consult to Physician [CONS] Routine Comment: Consulting Provider: JG MARTIN Physician Instructions: Reason For Exam: ESBL in Cx Hospitalization Reason for admission: Septic shock Condition: Stable Hospital course: 59-year-old woman 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 Patient stated she was admitted 2 months ago with abdominal pain and was diagnosed with colitis. Work-up consistent with sepsis due to UC with intraabdominal abscess, b/l LE DVT. had complicated clinical course with rectal bleed, severe electrolytes abnormalities and intraabdominal abscess with sepsis. clinically now stable for discharge - pending placement. * Patient initially was treated for septic shock with Levophed. This was subsequently discontinued. Consideration was given to adrenal insufficiency f or which the patient received high-dose steroids. Blood pressure remained labile on the low side going as low as the 80s patient was started on midodrine with did improve into the 90s low 100s. With persistent tachycardia for which outpatient cardiology evaluation is recommended at this time. While I believe the patient may benefit from a long-term acute care facility this was declined by the insurance company. We will plan for discharge to [facility] facility. Continue aggressive monitoring. Severity of illness was discussed in detail with family and patient. * Bilateral lower extremity Doppler iMPRESSION: Positive for bilateral deep venous thromboses 09/27/19: Obtain a.m. labs. Awaiting repeat CT of the abdomen. Based on the finding of the CT of the abdomen will anticipate discharge to [facility] facility. Patient still with intermittent hypotension despite midodrine. Will adjust dose to 10 mg 3 times daily. 09/29/19: Awaiting review of CT abdomen, on my own untrained review, she remains really sick and hypotensive Eval. ID indicates 1 to 2 weeks of antibiotics with ertapenem. Will switch to Eliquis per Vascular recommendation. No plan for IVC filter. CT was reviewed patient will be discharged and follow-up with surgery outpatient. The drain will remain in place. Patient is going to rehab. Sepsis secondary to ulcerative colitis with intra-abdominal abscess Intra-abdominal abscess Ulcerative colitis exacerbation ESBL Klebsiella/E. coli bacteremia Hypotension Severe hypokalemia, Hypophosphatemia and hypomagnesemia; resolved Bilateral DVT; Eliquis per vascular on discharge Rectal bleeding;Probably from UC, Bilateral DVT Leukocytosis; secondary to sepsis, Septic shock; Severe malnutrition/hypoalbuminemia; Severe hypokalemia Presumed adrenal Insufficiency Left vulvar wound Disposition: [id number] Time spent for discharge: 35 minutes Core Measure Documentation - Palliative Care Palliative Care/ Comfort Measures: Not Applicable - Core Measures Any of the following diagnoses?: none Exam - Physical Exam Narrative exam: VITAL SIGNS: Reviewed. GENERAL: The patient appears chronically ill-appearing, Vital signs as documented. HEAD: No signs of head trauma. EYES: Pupils are equal. Extraocular motions intact. EARS: Hearing grossly intact. MOUTH: Oropharynx is normal. NECK: No adenopathy, no JVD. CHEST: Chest with clear breath sounds bilaterally. No wheezes, rales, or rhonchi. CARDIAC: Regular rate and rhythm. S1 and S2, without murmurs, gallops, or rubs. VASCULAR: Bilateral pitting edema. Peripheral pulses normal and equal in all extremities. ABDOMEN: Soft, tender to touch left lower quadrant improving, drainage site clean and intact. JASON drain with stool. And non distended. No rebound or guarding, and no masses palpated. Bowel Sounds normal. MUSCULOSKELETAL: Good range of motion of all major joints. Extremities without clubbing, cyanosis. With bilateral pitting edema. NEUROLOGIC EXAM: Alert and oriented x 3 No focal sensory or strength deficits. Speech normal. Follows commands. PSYCHIATRIC: Mood normal. SKIN: detial exam as documented in skin assessment - Constitutional Vitals: Temp Pulse Resp BP Pulse Ox 98.4 F 104 H 18 101/46 98 09/29/19 04:51 09/29/19 06:48 09/29/19 06:48 09/29/19 06:48 09/29/19 06:48 Plan Activity: advance as tolerated, fall precautions Diet: clear liquids, advance as tolerated Special Instructions: record daily weights, record daily BP diary, record blood sugar diary Additional Instructions: antibiotics per ID Follow up with: SHARI HOWELL [Other] - 3-5 Days HOLLY PURCELL MD [Staff Physician] - 7 Days REMINGTON PEREZ MD [Staff Physician] - 7 Days JG MARTIN MD [Staff Physician] - 7 Days Prescriptions: Apixaban [Eliquis] 5 mg PO BID #60 tablet Potassium Chloride [K-Dur] 10 meq PO QDAY #30 tablet Magnesium Oxide [Mag-Ox] 400 mg PO QDAY #30 tablet Midodrine [Proamatine] 10 mg PO TID@0800,1200,1600 #90 tablet Pantoprazole [Protonix TAB] 40 mg PO DAILY #30 tablet Linezolid [Zyvox] 600 mg PO Q12HR #14 tablet
--- NOTE | 2019-09-29 14:07 | Progress Note ---
Assessment and Plan Cultures: 09/14/2019 abdominal drainage culture: ESBL Klebsiella pneumoniae and ESBL E. coli 09/07/2019 blood cultures: Negative 09/07/2019 urine cultures: Negative 09/24/2019 abdominal drainage culture: ESBL E. coli, ESBL Klebsiella, Enterococcus faecium A&P: 59-year-old female past medical history of DVT currently on anticoagulation, colitis with questionable inflammatory bowel admitted with abdominal abscess, now with possible ulcerative colitis. Found to have polymicrobial ESBL infection: #Sepsis secondary to Intra-abdominal abscess: etiology ? unclear -colonoscopy 2 months ago showed severe active colitis with ulceration, granulation tissue and focal features of chronic mucosal injury ?ulcerative colitis. Status post aspiration for cultures, culture + ESBL Kleb/E coli. Drain was unable to be placed. Repeat CT no changes in collection remains 5.8 x 2.8 cm. S/p drain placement on 09/23. #? Ulcerative colitis: Per GI. #Left vulvar wound: Unclear etiology, looks like a single laceration, possible due to friction and diarrhea, it does not look like herpes, not infected. Recommendations: -IV Meropenem 1 gm q8 hrs ending 10/15/2019 + PO Linezolid 600 mg BID ending -CM orders placed -outpatient follow up with repeat CT abdomen and pelvis to ensure radiologic resolution before abx are stopped -drain management per IR and surgery -ID clinic follow up in 2 weeks (senior master scheduler notified) Jolly Allen MD, FACP [facility]) C: [phone] O: [phone] F: [phone] Subjective Date of service: 09/29/19 Principal diagnosis: rectal bleeding Interval history: Patient denies any complaints. No fever. Drain + with ongoing output. Objective - Exam Narrative Exam: Physical Exam: Constitutional: Alert, cooperative. No acute distress Head, Ears, Nose: Normocephalic, atraumatic. External ears, nose normal Eyes: Conjunctivae/corneas clear. No icterus. No ptosis. Neck: Supple, no meningeal signs Cardiovascular: S1, S2 normal. Respiratory: Good air entry, clear to auscultation bilaterally GI: Soft, non-tender; bowel sounds normal. No peritoneal signs. LLQ drain present with output. Musculoskeletal: No pedal edema, no cyanosis. Skin: No rash or abscess Hem/Lymphatic: No palpable cervical or supraclavicular nodes. No lymphangitis Psych: Mood ok. Affect normal Neurological: Awake, alert, oriented. No gross abnormality - Constitutional Vitals: Vital Signs Temp Pulse Resp BP Pulse Ox 98.4 F 104 H 18 101/46 98 09/29/19 04:51 09/29/19 06:48 09/29/19 06:48 09/29/19 06:48 09/29/19 06:48 Temperature -Last 24 Hours Temperature 98.4 F Temperature 98.3 F Temperature 97.8 F - Labs CBC & Chem 7: 09/28/19 08:59 09/28/19 15:59
--- NOTE | 2019-09-30 15:52 | Cat Scan Report ---
CT abdomen pelvis wo con INDICATION: drain placed in the abdomen. TECHNIQUE: All CT scans at this location are performed using the following dose modulation technique: Automated exposure control. Helical slices were obtained through the abdomen and pelvis. No contrast is adminis tered. COMPARISON: CT scans 09/23/2019 and 09/21/2019 FINDINGS: Abdomen: There are bilateral pleural effusions and bibasilar atelectasis. There is a large hiatal her mathew. This is all unchanged from prior imaging. There is fatty infiltration of the liver. Spleen, pancreas, adrenal glands, and kidneys are unchanged in appearance. Pelvis: There is been interval placement of a drain catheter in the left lower quadrant abscess. The abscess is markedly reduced size. There is a small amount of residual fluid posteriorly residual flui d measures 1.6 x 1.2 cm. There is mild thickening of the wall of the sigmoid colon. Small amount of free fluid in the dependent portion of the pelvis On review of bone windows, no acute osseous abnormalities are seen. IMPRESSION: 1. There has been interval placement of a drain catheter into the left lower quadrant abscess. There is a very small amount of residual fluid at the site. There is no other significant change. Signer Name: Anurag Dougherty MD Signed: 09/28/2019 11:16 AM Workstation Name: [id number]
== END 2019-09-29 19:00 | DRG 871 ==
LOC: ED 17:15 → CC1 23:20 → 3A 09-10 21:02
PROVIDERS: ADMIT Internal Medicine; ATTEND Internal Medicine
PROC: 06HY33Z Insertion of Infusion Device into Lower Vein, Percutaneous Approach (ICD-10-PCS; 2019-09-07)
PROC: B54BZZA Ultrasonography of Right Lower Extremity Veins, Guidance (ICD-10-PCS; 2019-09-07)
PROC: 05HY33Z Insertion of Infusion Device into Upper Vein, Percutaneous Approach (ICD-10-PCS; 2019-09-10)
PROC: 0W9J3ZX Drainage of Pelvic Cavity, Percutaneous Approach, Diagnostic (ICD-10-PCS; principal; 2019-09-14)
PROC: 30233N1 Transfusion of Nonautologous Red Blood Cells into Peripheral Vein, Percutaneous Approach (ICD-10-PCS; 2019-09-15)
PROC: 0W9G3ZZ Drainage of Peritoneal Cavity, Percutaneous Approach (ICD-10-PCS; 2019-09-23)
DX: A41.51 Sepsis due to Escherichia coli [E. coli] (principal); E43 Unspecified severe protein-calorie malnutrition; R65.21 Severe sepsis with septic shock; K65.1 Peritoneal abscess; E87.1 Hypo-osmolality and hyponatremia; K57.80 Diverticulitis of intestine, part unspecified, with perforation and abscess without bleeding; Z16.12 Extended spectrum beta lactamase (ESBL) resistance; I82.413 Acute embolism and thrombosis of femoral vein, bilateral; I82.433 Acute embolism and thrombosis of popliteal vein, bilateral; I82.4Z2 Acute embolism and thrombosis of unspecified deep veins of left distal lower extremity; K51.911 Ulcerative colitis, unspecified with rectal bleeding; E27.40 Unspecified adrenocortical insufficiency; E87.6 Hypokalemia; E83.39 Other disorders of phosphorus metabolism; S31.40XA Unspecified open wound of vagina and vulva, initial encounter; K21.9 Gastro-esophageal reflux disease without esophagitis; E83.42 Hypomagnesemia; Z68.38 Body mass index [BMI] 38.0-38.9, adult; Y93.89 Activity, other specified; Y92.89 Other specified places as the place of occurrence of the external cause; Y99.8 Other external cause status; Z82.49 Family history of ischemic heart disease and other diseases of the circulatory system; Z79.899 Other long term (current) drug therapy
CPT/HCPCS: 10160; 36415; 71045; 71250; 74176; 74177; 77012; 80048; 80053; 81001; 82140; 82947; 83690; 83735; 84100; 84132; 84484; 85007; 85014; 85018; 85025; 85027; 85049; 85520; 85610; 85730; 86140; 86850; 86900; 86901; 86920; 87040; 87076; 87086; 87116; 87186; 87493; 93005; 93010; 93970; 94760; 96360; G0378; C1769; J0692; J1335; J1644; J1650; J1720; J2185; J2250; J2543; J3010; J3475; J3480; J7030; J7040; J7120; P9016; Q9967